=== PATIENT | female | born 1955 | race Caucasian/White ===

== ENCOUNTER 2017-12-08 23:47 | Emergency (ER) | payer OTHER, MEDICAID, MEDICARE ==
[2017-12-09] MEDS: MORPHINE ER 30 MG TABLET.ER PO (00:37)
[2017-12-09] MEDS: MORPHINE SULFATE 10 MG/ML VIAL. IM (00:41)
== END 2017-12-09 01:23 | disposition home or self-care (01) ==
LOC: ER 23:47
DX: G89.29 Other chronic pain (principal); M54.5 Low back pain; Z79.891 Long term (current) use of opiate analgesic
CPT/HCPCS: 96372; 99283; J2270

== ENCOUNTER 2018-03-15 13:53 | Emergency (ER) | payer OTHER ==
[~2018-03-15] VITALS: Ht 152.4 cm; Wt 66.2 kg
[~2018-03-15 13:53] MED LIST: MORP30TA83 PO
--- NOTE | 2018-03-15 14:09 | PHYS DOC ---
Past Medical History Past Medical History: COPD, High Cholesterol, Hypertension, Hypothyroid, MRSA, Other Additional Past Medical Histor: Chronic back, chronic leg pain Past Surgical History: Hysterectomy Alcohol Use: None Drug Use: None Adult General Chief Complaint Chief Complaint: RIB PAIN HPI HPI Patient is a 63 year old female with history of COPD, hypertension, high cholesterol, who presents today complaining of 9 out of 10 left lower rib pain described as a note that has been going on for three days. Denies any trauma. Patient states the pain is worse on deep breaths as well as palpation to the area. She states she has tried Tylenol with no relief. She states her PCP is out of town and currently she is not able to get a refill on her MS Contin which she takes for chronic arthritis. Review of Systems Review of Systems Constitutional: Denies fever or chills [] Eyes: Denies change in visual acuity, redness, or eye pain [] HENT: Denies nasal congestion or sore throat [] Respiratory: Reports left rib pain. Denies cough or shortness of breath [] Cardiovascular: No additional information not addressed in HPI [] GI: Denies abdominal pain, nausea, vomiting, bloody stools or diarrhea [] : Denies dysuria or hematuria [] Musculoskeletal: Denies back pain or joint pain [] Integument: Denies rash or skin lesions [] Neurologic: Denies headache, focal weakness or sensory changes [] All other systems were reviewed and found to be within normal limits, except as documented in this note. Current Medications Current Medications Current Medications Medications (Trade) Dose Ordered Sig/[facility] Start Time Stop Time Status Last Admin Dose Admin Aspirin (Elaine Aspirin) 325 mg 1X ONCE 03/15/18 14:15 03/15/18 14:16 DC 03/15/18 14:54 325 MG Morphine Sulfate (Morphine Sulfate) 5 mg 1X ONCE 03/15/18 14:15 03/15/18 14:16 DC 03/15/18 14:55 5 MG Allergies Allergies Allergies Coded Allergies Type Severity Reaction Last Updated Verified No Known Drug Allergies 12/09/17 No Physical Exam Physical Exam Constitutional: Well developed, well nourished, no acute distress, non-toxic appearance. [] HENT: Normocephalic, atraumatic, bilateral external ears normal, oropharynx moist, no oral exudates, nose normal. [] Eyes: PERRLA, EOMI, conjunctiva normal, no discharge. [] Neck: Normal range of motion, no tenderness, supple, no stridor. [] Cardiovascular:Heart rate regular rhythm, no murmur [] Lungs & Thorax: Bilateral breath sounds clear to auscultation [] Abdomen: Bowel sounds normal, soft, no tenderness, no masses, no pulsatile masses. [] Skin: Warm, dry, no erythema, no rash. [] Back: No tenderness, no CVA tenderness. [] Extremities: No tenderness, no cyanosis, no clubbing, ROM intact, no edema. [] Neurologic: Alert and oriented X 3, normal motor function, normal sensory function, no focal deficits noted. [] Psychologic: Affect normal, judgement normal, mood normal. [] Current Patient Data Vital Signs Vital Signs Date Time Temp Pulse Resp B/P (MAP) Pulse Ox O2 Delivery O2 Flow Rate FiO2 03/15/18 15:33 18 96 Room Air 03/15/18 15:32 78 137/79 (98) 03/15/18 14:10 98.2 98.2 Lab Values Laboratory Tests Test 03/15/18 14:20 03/15/18 14:38 Urine Collection Type Unknown Urine Color Yellow Urine Clarity Clear Urine pH 6.0 Urine Specific [place] 1.010 Urine Protein Negative mg/dL (NEG-TRACE) Urine Glucose (UA) Negative mg/dL (NEG) Urine Ketones (Stick) Negative mg/dL (NEG) Urine Blood Negative (NEG) Urine Nitrite Negative (NEG) Urine Bilirubin Negative (NEG) Urine Urobilinogen Dipstick 0.2 mg/dL (0.2 mg/dL) Urine Leukocyte Esterase Trace (NEG) Urine RBC Rare /HPF (0-2) Urine WBC Occ /HPF (0-4) Urine Squamous Epithelial Cells Few /LPF Urine Bacteria 0 /HPF (0-FEW) Urine Hyaline Casts Occasional /HPF Urine Mucus Slight /LPF Urine Opiates Screen Pos (NEG) Urine Methadone Screen Neg (NEG) Urine Barbiturates Neg (NEG) Urine Phencyclidine Screen Neg (NEG) Urine Amphetamine/Methamphetamine Neg (NEG) Urine Benzodiazepines Screen Neg (NEG) Urine Cocaine Screen Neg (NEG) Urine Cannabinoids Screen Neg (NEG) Urine Ethyl Alcohol Neg (NEG) White Blood Count 9.1 x10^3/uL (4.0-11.0) Red Blood Count 3.47 x10^6/uL (3.50-5.40) L Hemoglobin 10.5 g/dL (12.0-15.5) L Hematocrit 30.4 % (36.0-47.0) L Mean Corpuscular Volume 88 fL (79-100) Mean Corpuscular Hemoglobin 30 pg (25-35) Mean Corpuscular Hemoglobin Concent 35 g/dL (31-37) Red Cell Distribution Width 15.3 % (11.5-14.5) H Platelet Count 709 x10^3/uL (140-400) H Neutrophils (%) (Auto) 69 % (31-73) Lymphocytes (%) (Auto) 16 % (24-48) L Monocytes (%) (Auto) 8 % (0-9) Eosinophils (%) (Auto) 5 % (0-3) H Basophils (%) (Auto) 1 % (0-3) Neutrophils # (Auto) 6.3 x10^3uL (1.8-7.7) Lymphocytes # (Auto) 1.5 x10^3/uL (1.0-4.8) Monocytes # (Auto) 0.8 x10^3/uL (0.0-1.1) Eosinophils # (Auto) 0.5 x10^3/uL (0.0-0.7) Basophils # (Auto) 0.1 x10^3/uL (0.0-0.2) Sodium Level 142 mmol/L (136-145) Potassium Level 3.8 mmol/L (3.5-5.1) Chloride Level 105 mmol/L (98-107) Carbon Dioxide Level 24 mmol/L (21-32) Anion Gap 13 (6-14) Blood Urea Nitrogen 11 mg/dL (7-20) Creatinine 0.8 mg/dL (0.6-1.0) Estimated GFR (Cockcroft-Gault) 72.4 BUN/Creatinine Ratio 14 (6-20) Glucose Level 87 mg/dL (70-99) Calcium Level 9.3 mg/dL (8.5-10.1) Total Bilirubin 0.1 mg/dL (0.2-1.0) L Aspartate Amino Transferase (AST) 18 U/L (15-37) Alanine Aminotransferase (ALT) 25 U/L (14-59) Alkaline Phosphatase 128 U/L (46-116) H Troponin I Quantitative < 0.017 ng/mL (0.000-0.055) VM-Eqv-C-Type Natriuretic Peptide 582 pg/mL (0-124) H Total Protein 7.8 g/dL (6.4-8.2) Albumin 2.5 g/dL (3.4-5.0) L Albumin/Globulin Ratio 0.5 (1.0-1.7) L Lipase 65 U/L (73-393) L Ethyl Alcohol Level < 10 mg/dL (0-10) Laboratory Tests 03/15/18 14:38 Laboratory Tests 03/15/18 14:38 EKG EKG 15:[address] Betancur sinus rhythm HR 73 no STEMI[] Radiology/Procedures Radiology/Procedures []PROCEDURE: PORTABLE CHEST 1V EXAM: CHEST 1 VIEW. HISTORY: Left chest pain. COMPARISON: 05/28/2009. FINDINGS: A frontal view of the chest is obtained. There are mild diffuse interstitial infiltrates, increased since the prior study. There is no pneumothorax or pleural effusion. The heart is not enlarged. There are atherosclerotic calcifications of the aorta. No clear rib lesions are seen. IMPRESSION: 1. Mild diffuse interstitial infiltrates may reflect atypical pneumonia if acute or interstitial lung disease if chronic. Ongoing follow-up is recommended. Electronically signed by: Leif Cruz MD (03/15/2018 2:33 PM) [facility] DICTATED and SIGNED BY: PIERRE CRUZ MD DATE: 03/15/18 1422 Course & Med Decision Making Course & Med Decision Making Pertinent Labs and Imaging studies reviewed. (See chart for details) This is a 63-year-old female patient presenting to the ED today with complaints of left rib pain, no known injury. Patient's labs are negative for any acute findings. EKG was negative for any acute findings, lab work with no acute findings. Chest x-ray interpreted by radiologist was noted for Mild diffuse interstitial infiltrates may reflect atypical pneumonia if acute or interstitial lung disease if chronic. Ongoing follow-up is recommended. Out of caution who put patient on doxycycline. Encouraged to consider smoking cessation. She states she has an appointment with her own PCP tomorrow afternoon. Dragon Disclaimer Dragon Disclaimer This electronic medical record was generated, in whole or in part, using a voice recognition dictation system. Departure Departure Impression: Primary Impression: Atypical pneumonia Additional Impressions: Smoking addiction Rib pain on left side Disposition: HOME, SELF-CARE Condition: STABLE Referrals: RACHNA RODRIGUEZ APRN (PCP) Follow-up with your doctor in one week Patient Instructions: Pneumonia, Adult, Smoking Cessation Additional Instructions: You were evaluated in the emergency room, your x-rays were concerning for chronic interstitial lung disease/COPD or pneumonia. Take the prescribed antibiotics until completed. Follow-up with your doctor tomorrow as scheduled. Scripts Morphine Sulfate (MORPHINE SULFATE) 30 Mg Tablet 1 TAB PO BID, #4 TAB Prov: EDDIE CORADO APRN 03/15/18 Albuterol Sulfate (VENTOLIN HFA INHALER) 18 Gm Hfa.aer.ad 2 PUFF INH Q4HRS for FOR ASTHMA, #1 INHALER 0 Refills Prov: EDDIE CORADO APRN 03/15/18 Doxycycline Monohydrate (DOXYCYCLINE MONOHYDRATE) 100 Mg Capsule 1 CAP PO BID, #14 CAP Prov: EDDIE CORADO APRN 03/15/18 Problem Qualifiers EDDIE CORADO APRN Mar 15, 2018 14:09
[2018-03-15] MEDS ORDERED: ASPIRIN 325 MG TABLET PO ONE (14:15)
[2018-03-15] MEDS ORDERED: MORPHINE SULFATE 10 MG/ML VIAL. IV ONE (14:15)
[2018-03-15 14:32] LABS: BILIRUBIN,URINE NEGATIVE (NEG); CLARITY,URINE CLEAR; COLOR,URINE YELLOW; NITRITE,URINE NEGATIVE (NEG); PROTEIN,URINE NEGATIVE (NEG-TRACE); UROBILINOGEN,URINE 0.2 mg/dL (0.2 mg/dL)
--- NOTE | 2018-03-15 14:36 | RAD ---
EXAM: CHEST 1 VIEW. HISTORY: Left chest pain. COMPARISON: 05/28/2009. FINDINGS: A frontal view of the chest is obtained. There are mild diffuse interstitial infiltrates, increased since the prior study. There is no pneumothorax or pleural effusion. The heart is not enlarged. There are atherosclerotic calcifications of the aorta. No clear rib lesions are seen. IMPRESSION: 1. Mild diffuse interstitial infiltrates may reflect atypical pneumonia if acute or interstitial lung disease if chronic. Ongoing follow-up is recommended. Electronically signed by: Leif Cruz MD (03/15/2018 2:33 PM) [facility]
[2018-03-15 14:42] LABS: BACTERIA,URINE 0 /HPF (0-FEW); RBC,URINE RARE /HPF (0-2); SQUAMOUS EPITHELIAL CELL,UR FEW /LPF; WBC,URINE OCC /HPF (0-4)
[2018-03-15 14:43] LABS: HYALINE CASTS, URINE OCCASIONAL /HPF
[2018-03-15 14:44] LABS: BARBITURATES NEG (NEG); BENZODIAZEPINES NEG (NEG); CANNABINOIDS NEG (NEG); COCAINE NEG (NEG); METHADONE NEG (NEG); OPIATES POS (NEG); PHENCYCLIDINE NEG (NEG)
[2018-03-15 14:45] LABS: AMPHETAMINE/METHAMPHETAMINE NEG (NEG)
[2018-03-15 14:47] LABS: BASO # 0.1 x10^3/uL (0.0-0.2); BASO % 1 % (0-3); EOS # 0.5 x10^3/uL (0.0-0.7); EOS % 5 % (0-3); HEMATOCRIT 30.4 % (36.0-47.0); HEMOGLOBIN 10.5 g/dL (12.0-15.5); LYMPH # 1.5 x10^3/uL (1.0-4.8); LYMPH % 16 % (24-48); MEAN CORPUSCULAR HEMOGLOBIN 30 pg (25-35); MEAN CORPUSCULAR HGB CONC 35 g/dL (31-37); MEAN CORPUSCULAR VOLUME 88 fL (79-100); MONO # 0.8 x10^3/uL (0.0-1.1); MONO % 8 % (0-9); NEUT # 6.3 x10^3uL (1.8-7.7); NEUT % 69 % (31-73); PLATELET COUNT 709 x10^3/uL (140-400); RED BLOOD COUNT 3.47 x10^6/uL (3.50-5.40); RED CELL DISTRIBUTION WIDTH 15.3 % (11.5-14.5); WHITE BLOOD COUNT 9.1 x10^3/uL (4.0-11.0)
[2018-03-15 14:59] LABS: CALCIUM 9.3 mg/dL (8.5-10.1); CREATININE 0.8 mg/dL (0.6-1.0); GFR 72.4; POTASSIUM 3.8 mmol/L (3.5-5.1)
[2018-03-15 15:05] LABS: ALBUMIN 2.5 g/dL (3.4-5.0); ALBUMIN/GLOBULIN RATIO 0.5 (1.0-1.7); TOTAL BILIRUBIN 0.1 mg/dL (0.2-1.0); TOTAL PROTEIN 7.8 g/dL (6.4-8.2)
[2018-03-15 15:32] VITALS: BP 137/79
[2018-03-15] MEDS ORDERED: DOXY100C14 PO (15:44)
[2018-03-15] MEDS ORDERED: VENTOLIN HFA18 GM INH (15:44)
[2018-03-15] MEDS ORDERED: MORP30TA PO (15:52)
--- NOTE | 2018-03-15 16:02 | EKG ---
[facility] [address] [place] [address] Test Date: 2018-03-15 Test Time: 15:21:24 Pat Name: SIM CERVANTES Department: Room: Gender: F [employer]ch[employer]: : 1955 Requested By: EDDIE CORADO Order Number: [id number] Reading MD: Enrico Mendenhall MD Measurements Intervals [place] Rate: 73 P: 34 CA: 204 QRS: 12 QRSD: 74 T: 52 QT: 388 QTc: 431 Interpretive Statements SINUS RHYTHM Electronically Signed On 03-18-2018 12:14:54 CDT by Enrico Mendenhall MD
== END 2018-03-15 15:53 | disposition home or self-care (01) ==
LOC: ER 13:53
DX: J18.9 Pneumonia, unspecified organism (principal); R07.81 Pleurodynia; F17.200 Nicotine dependence, unspecified, uncomplicated; J44.9 Chronic obstructive pulmonary disease, unspecified; E78.00 Pure hypercholesterolemia, unspecified; E03.9 Hypothyroidism, unspecified; I10 Essential (primary) hypertension; G89.29 Other chronic pain; Z86.14 Personal history of Methicillin resistant Staphylococcus aureus infection; Z90.710 Acquired absence of both cervix and uterus
CPT/HCPCS: 36415; 71045; 80053; 80307; 81001; 83690; 83880; 84484; 85025; 93005; 96374; 99285; G0480; J2270; 87086; G0479

== ENCOUNTER 2018-06-04 17:10 | Emergency (ER) | payer OTHER ==
[~2018-06-04] VITALS: Ht 160 cm; Wt 66.2 kg
[~2018-06-04 17:10] MED LIST changes: +DOXY100C14 PO; +MORP30TA PO; +VENTOLIN HFA18 GM INH
[2018-06-04 18:45] VITALS: BP 157/97
[2018-06-04] MEDS ORDERED: HYDROcodone/APAP 5/325MG 1 TAB TABLET ONE (19:47)
[2018-06-04] MEDS ORDERED: HYDROcodone/APAP 5/325MG 1 TAB TABLET PO ONE (20:00)
[2018-06-04] MEDS ORDERED: ONDANSETRON ODT 4 MG TAB.RAPDIS. PO ONE (20:00)
[2018-06-04] MEDS ORDERED: MELO7.5T5 PO (20:23)
--- NOTE | 2018-06-04 20:24 | PHYS DOC ---
Past Medical History Past Medical History: COPD, High Cholesterol, Hypertension, Hypothyroid, MRSA, Other Additional Past Medical Histor: Chronic back, chronic leg pain Past Surgical History: No Surgical History, Hysterectomy Alcohol Use: None Drug Use: None Adult General Chief Complaint Chief Complaint: LOWER EXT PAIN [facility] HPI Patient is a 63 year old female who presents with worsening right knee pain over the past four days. She states that today was the worst day.She has not seen her PCP for this issue or tried OTC medications. Review of Systems Review of Systems Constitutional: Denies fever or chills [] Respiratory: Denies cough or shortness of breath [] Cardiovascular: No additional information not addressed in HPI [] Musculoskeletal: See history of present illness Integument: Denies rash or skin lesions [] Neurologic: Denies headache, focal weakness or sensory changes [] Endocrine: Denies polyuria or polydipsia [] All other systems were reviewed and found to be within normal limits, except as documented in this note. Current Medications Current Medications Current Medications Medications (Trade) Dose Ordered Sig/[place] Start Time Stop Time Status Last Admin Dose Admin Acetaminophen/ Hydrocodone Bitart (Lortab 5/325) 1 tab STK-MED ONCE 06/04/18 19:47 06/04/18 19:48 DC Ondansetron HCl (Zofran Odt) 4 mg 1X ONCE 06/04/18 20:00 06/04/18 20:01 DC 06/04/18 19:50 4 MG Allergies Allergies Allergies Coded Allergies Type Severity Reaction Last Updated Verified No Known Drug Allergies 12/09/17 No Physical Exam Physical Exam Constitutional: Well developed, well nourished, no acute distress, non-toxic appearance. [] Cardiovascular:Heart rate regular rhythm, no murmur [] Lungs & Thorax: Bilateral breath sounds clear to auscultation [] Abdomen: Bowel sounds normal, soft, no tenderness, no masses, no pulsatile masses. [] Skin: Warm, dry, no erythema, no rash. [] Back: No tenderness, no CVA tenderness. [] Extremities: tenderness to right knee with trace edema, no cyanosis, no clubbing, ROM decreased due to pain, no calor ecchymosis noted Neurologic: Alert and oriented X 3, normal motor function, normal sensory function, no focal deficits noted. [] Psychologic: Affect normal, judgement normal, mood normal. [] Current Patient Data Vital Signs Vital Signs Date Time Temp Pulse Resp B/P (MAP) Pulse Ox O2 Delivery O2 Flow Rate FiO2 06/04/18 18:45 97.0 90 16 157/97 (117) 96 Room Air 97.0 EKG EKG [] Radiology/Procedures Radiology/Procedures []PATIENT: SIM CERVANTES LACCOUNT: [id number]#: [id number] : 1955 LOCATION: ER AGE: 63 SEX: F EXAM STATUS: DEP ER ORD. PHYSICIAN: INGE COATS APRN REASON: pain, no injury PROCEDURE: KNEE RIGHT 3V Right knee 3 views 06/04/2018. Reason for exam: Pain for 4 days. No known injury. No fracture or dislocation is seen. Joint spaces do not appear significant narrowed. There is suggestion of a separate bone fragment at the posterolateral portion of the lateral femoral condyle. This may indicate osteochondral defect. There is likely a small joint effusion. IMPRESSION: No acute findings. There may be an osteochondral defect of the lateral femoral condyle. Electronically signed by: Vito Morgan Jr., MD (06/04/2018 11:48 PM) [facility] DICTATED and SIGNED BY: VITO MORGAN Jr, MD DATE: 06/04/18 4997 Course & Med Decision Making Course & Med Decision Making Pertinent Labs and Imaging studies reviewed. (See chart for details) []The patient was placed in Edwin wrap for support. Staff Physician Addendum: I was working in the ER during the course of this patient's visit. I was available for consultation as needed, but I was not directly involved in the care of this patient. Dragon Disclaimer Dragon Disclaimer This electronic medical record was generated, in whole or in part, using a voice recognition dictation system. Departure Departure Impression: Primary Impression: Arthritis of right knee Disposition: 01 HOME, SELF-CARE Condition: STABLE Referrals: RACHNA RODRIGUEZ APRN (PCP) Patient Instructions: Arthritis, Degenerative-Brief Additional Instructions: Take the medication as directed for pain. Follow-up with her primary care provider for further evaluation and treatment of your arthritis. Scripts Meloxicam (MOBIC) 7.5 Mg Tablet 1 TAB PO DAILY for arthritis, #30 TAB 1 Refill Prov: INGE COATS APRN 06/04/18 INGE COATS APRN Jun 04, 2018 20:24 MELVA HURLEY MD Jun 06, 2018 02:59
--- NOTE | 2018-06-04 23:52 | RAD ---
Right knee 3 views 06/04/2018. Reason for exam: Pain for 4 days. No known injury. No fracture or dislocation is seen. Joint spaces do not appear significant narrowed. There is suggestion of a separate bone fragment at the posterolateral portion of the lateral femoral condyle. This may indicate osteochondral defect. There is likely a small joint effusion. IMPRESSION: No acute findings. There may be an osteochondral defect of the lateral femoral condyle. Electronically signed by: Eh Morgan Jr., MD (06/04/2018 11:48 PM) [facility]
== END 2018-06-04 20:33 | disposition home or self-care (01) ==
LOC: ER 17:10
DX: M13.861 Other specified arthritis, right knee (principal); J44.9 Chronic obstructive pulmonary disease, unspecified; E78.00 Pure hypercholesterolemia, unspecified; I10 Essential (primary) hypertension; Z86.14 Personal history of Methicillin resistant Staphylococcus aureus infection
CPT/HCPCS: 73562; 99283; Q0162; 96361; 96374

== ENCOUNTER 2018-07-06 16:13 | Emergency (ER) | payer OTHER ==
[~2018-07-06] VITALS: Ht 152.4 cm; Wt 65.8 kg
[~2018-07-06 16:13] MED LIST changes: +MELO7.5T5 PO
[2018-07-06] MEDS ORDERED: ONDANSETRON PF 4 MG/2 ML VIAL. IV ONE (16:45)
[2018-07-06] MEDS ORDERED: PANTOPRAZOLE IV PUSH 40 MG VIAL. IVP ONE (16:45)
[2018-07-06] MEDS ORDERED: IV NORMAL SALINE 1000ML BAG 1,000 ML IV ONE (16:45)
--- NOTE | 2018-07-06 16:48 | PHYS DOC ---
Past Medical History Past Medical History: COPD, High Cholesterol, Hypertension, Hypothyroid, MRSA, Other Additional Past Medical Histor: Chronic back, chronic leg pain Past Surgical History: No Surgical History, Hysterectomy Alcohol Use: None Drug Use: None Adult General HPI HPI Patient is a 63 year old female with a history of hypertension, COPD, current smoker, high cholesterol, who presents today complaining of bloody stools. Patient states she has been constipated for roughly 3 days, she states she took a stool softener last night and this morning at 2 AM she had a bloody stool. She states right before coming to the ED she also had another bloody stool. Patient is complaining of slight left lower quadrant abdominal pain. Denies any nausea vomiting. Review of Systems Review of Systems Constitutional: Denies fever or chills [] Eyes: Denies change in visual acuity, redness, or eye pain [] HENT: Denies nasal congestion or sore throat [] Respiratory: Denies cough or shortness of breath [] Cardiovascular: No additional information not addressed in HPI [] GI: Reports left lower quadrant abdominal pain, constipation, bloody stools, denies nausea, vomiting, or diarrhea [] : Denies dysuria or hematuria [] Musculoskeletal: Denies back pain or joint pain [] Integument: Denies rash or skin lesions [] Neurologic: Denies headache, focal weakness or sensory changes [] All other systems were reviewed and found to be within normal limits, except as documented in this note. Current Medications Current Medications Current Medications Medications (Trade) Dose Ordered Sig/[facility] Start Time Stop Time Status Last Admin Dose Admin Acetaminophen (Tylenol) 1,000 mg 1X ONCE 07/06/18 18:00 07/06/18 18:01 DC Morphine Sulfate (Morphine Sulfate) 5 mg 1X ONCE 07/06/18 19:30 07/06/18 19:31 DC 07/06/18 19:45 5 MG Ondansetron HCl (Zofran) 4 mg 1X ONCE 07/06/18 16:45 07/06/18 16:46 DC 07/06/18 17:45 4 MG Pantoprazole Sodium (PROTONIX VIAL for IV PUSH) 40 mg 1X ONCE 07/06/18 16:45 07/06/18 16:46 DC 07/06/18 17:45 40 MG Sodium Chloride 1,000 ml @ 1,000 mls/hr 1X ONCE 07/06/18 16:45 07/06/18 17:44 DC 07/06/18 17:45 1,000 MLS/HR Allergies Allergies Allergies Coded Allergies Type Severity Reaction Last Updated Verified No Known Drug Allergies 12/09/17 No Physical Exam Physical Exam Constitutional: Well developed, well nourished, no acute distress, non-toxic appearance. [] HENT: Normocephalic, atraumatic, bilateral external ears normal, oropharynx moist, no oral exudates, nose normal. [] Eyes: PERRLA, EOMI, conjunctiva normal, no discharge. [] Neck: Normal range of motion, no tenderness, supple, no stridor. [] Cardiovascular:Heart rate regular rhythm, no murmur [] Lungs & Thorax: Bilateral breath sounds clear to auscultation [] Abdomen: Bowel sounds normal, soft, no tenderness, no masses, no pulsatile masses. Rectal exam External rectum with trace amount of hemorrhoids, palpable internal hemorrhoids noted. No palpable mass on the lower rectum. Blood on the glove from the rectal exam. Skin: Warm, dry, no erythema, no rash. [] Back: No tenderness, no CVA tenderness. [] Extremities: No tenderness, no cyanosis, no clubbing, ROM intact, no edema. [] Neurologic: Alert and oriented X 3, normal motor function, normal sensory function, no focal deficits noted. [] Psychologic: Affect normal, judgement normal, mood normal. [] Current Patient Data Vital Signs Vital Signs Date Time Temp Pulse Resp B/P (MAP) Pulse Ox O2 Delivery O2 Flow Rate FiO2 07/06/18 19:45 20 07/06/18 19:08 92 153/91 (111) 96 Room Air 07/06/18 16:54 98.3 98.3 Lab Values Laboratory Tests Test 07/06/18 16:30 07/06/18 17:16 07/06/18 17:39 Stool Occult Blood Positive (NEG) White Blood Count 16.9 x10^3/uL (4.0-11.0) H Red Blood Count 4.36 x10^6/uL (3.50-5.40) Hemoglobin 13.4 g/dL (12.0-15.5) Hematocrit 40.2 % (36.0-47.0) Mean Corpuscular Volume 92 fL (79-100) Mean Corpuscular Hemoglobin 31 pg (25-35) Mean Corpuscular Hemoglobin Concent 33 g/dL (31-37) Red Cell Distribution Width 14.7 % (11.5-14.5) H Platelet Count 405 x10^3/uL (140-400) H Neutrophils (%) (Auto) 80 % (31-73) H Lymphocytes (%) (Auto) 14 % (24-48) L Monocytes (%) (Auto) 4 % (0-9) Eosinophils (%) (Auto) 1 % (0-3) Basophils (%) (Auto) 0 % (0-3) Neutrophils # (Auto) 13.6 x10^3uL (1.8-7.7) H Lymphocytes # (Auto) 2.4 x10^3/uL (1.0-4.8) Monocytes # (Auto) 0.7 x10^3/uL (0.0-1.1) Eosinophils # (Auto) 0.2 x10^3/uL (0.0-0.7) Basophils # (Auto) 0.1 x10^3/uL (0.0-0.2) Segmented Neutrophils % 82 % (35-66) H Band Neutrophils % 1 % (0-9) Lymphocytes % 11 % (24-48) L Monocytes % 5 % (0-10) Eosinophils % 1 % (0-5) Toxic Granulation Slight Toxic Vacuolation Slight Platelet Estimate Adequate (ADEQUATE) Large Platelets Occ Sodium Level 135 mmol/L (136-145) L Potassium Level 5.0 mmol/L (3.5-5.1) Chloride Level 100 mmol/L (98-107) Carbon Dioxide Level 23 mmol/L (21-32) Anion Gap 12 (6-14) Blood Urea Nitrogen 16 mg/dL (7-20) Creatinine 1.5 mg/dL (0.6-1.0) H Estimated GFR (Cockcroft-Gault) 35.1 BUN/Creatinine Ratio 11 (6-20) Glucose Level 86 mg/dL (70-99) Calcium Level 9.4 mg/dL (8.5-10.1) Total Bilirubin 0.2 mg/dL (0.2-1.0) Aspartate Amino Transferase (AST) 21 U/L (15-37) Alanine Aminotransferase (ALT) 22 U/L (14-59) Alkaline Phosphatase 217 U/L (46-116) H Troponin I Quantitative < 0.017 ng/mL (0.000-0.055) Total Protein 7.4 g/dL (6.4-8.2) Albumin 3.6 g/dL (3.4-5.0) Albumin/Globulin Ratio 0.9 (1.0-1.7) L Lipase 72 U/L (73-393) L Ethyl Alcohol Level < 10 mg/dL (0-10) Prothrombin Time 13.6 SEC (11.7-14.0) Prothrombin Time INR 1.1 (0.8-1.1) PTT 30 SEC (24-38) Laboratory Tests 07/06/18 17:16 Laboratory Tests 07/06/18 17:16 EKG EKG Interpreted by Dr. Quintanilla sinus rhythm HR 98 no STEMI[] Radiology/Procedures Radiology/Procedures []PROCEDURE: CT ABDOMEN PELVIS WO CONTRAST PQRS Compliance statement: One or more of the following individualized dose reduction techniques were utilized for this examination: 1. Automated exposure control. 2. Adjustment of the mA and/or kV according to patient size. 3. Use of iterative reconstruction technique. Indication:BLOODY STOOLS. NO CONTRAST DUE TO ELEVATED LABS TECHNIQUE: CT abdomen and pelvis without IV contrast with multiplanar reformats. COMPARISON: None FINDINGS: Limited evaluation of solid abdominal and pelvic organs due to lack of IV contrast. Heart is normal in size. No pericardial or pleural effusion. Clear lung bases. Noncontrast appearance of the liver, spleen, gallbladder, pancreas, adrenals and kidneys within normal limits. No free pelvic fluid or ascites. Circumferential wall thickening of the distal colon noted starting at the distal transverse colon to rectosigmoid colon. Pericolonic inflammatory changes. No bowel obstruction. Normal appendix. Appendicolith noted. Cecum lies is in the left parasagittal abdomen. Small fat-containing left inguinal hernia. Mild diffuse atherosclerotic disease of the abdominal aorta. No pneumoperitoneum or pneumatosis intestinalis. Urinary bladder demonstrates no radiopaque stones. Status post hysterectomy. No suspicious bony lesion. IMPRESSION: Limited evaluation of solid abdominal and pelvic organs due to lack of IV contrast. Long segment colitis from the level of distal transverse colon to rectosigmoid colon. Electronically signed by: Rafa Zepeda DO (07/06/2018 6:17 PM) [facility] DICTATED and SIGNED BY: RAFA ZEPEDA DO DATE: 07/06/181812 Course & Med Decision Making Course & Med Decision Making Pertinent Labs and Imaging studies reviewed. (See chart for details) This is a 63-year-old female patient presenting to the ED today with bloody stools that occurred at 2 AM as well as prior to coming to the ED. Patient was constipated, took a stool softener. Had bloody stools after that. CBC with a WBC of 16.9 and a left shift, CMP with creatinine of 1.5 BUN is normal. Alkaline phosphate 217. Positive Hemoccult. Hemoglobin and hematocrit are normal. CT of the abdomen and pelvic was noted for-Long segment colitis from the level of distal transverse colon to rectosigmoid colon. Patient was offered admission for IV antibiotics, she declined, she states she has a home situation, her son is going out of town and there is nobody to take care of the animals at home. She states she will definitely follow up with her own primary care doctor in the next 1-2 days. She was given a prescription for Flagyl and Cipro. Provided return precautions. Discharged in stable condition. Also provided GI for follow-up. Dragon Disclaimer Dragon Disclaimer This electronic medical record was generated, in whole or in part, using a voice recognition dictation system. Departure Departure Impression: Primary Impression: Acute colitis Disposition: HOME, SELF-CARE Condition: STABLE Referrals: RACHNA RODRIGUEZ APRN (PCP) follow up in 1-2 days REILLY WHITLEY MD follow up in the course of this week Patient Instructions: Colitis Additional Instructions: You were evaluated in the emergency room and noted to have colitis. Please take the prescribed antibiotics as ordered. Ensure you follow-up with your primary care doctor in the next 1-2 days. We provided you a toy painter, ensure you follow-up with them in the course of this week, come back to the ED at any point symptoms worsen. Scripts Hydrocodone/Apap 5-325 (NORCO 5-325 TABLET) 1 Each Tablet 1 TAB PO Q6HRS, #20 TAB Prov: MUTEDDIE SOTOMAYOR [employer] 07/06/18 Ciprofloxacin Hcl (CIPRO) 500 Mg Tablet 1 TAB PO BID, #20 TAB Prov: MUTUNGAEDDIE [employer] 1/28/19 Metronidazole (FLAGYL) 500 Mg Tablet 500 MG PO TID, #30 TAB Prov: EDDIE CORADO APRN 07/06/18 EDDIE CORADO APRN Jul 06, 2018 16:48
[2018-07-06 16:52] LABS: FECAL OB PT POSITIVE (NEG)
[2018-07-06 17:27] LABS: BASO # 0.1 x10^3/uL (0.0-0.2); BASO % 0 % (0-3); EOS # 0.2 x10^3/uL (0.0-0.7); EOS % 1 % (0-3); HEMATOCRIT 40.2 % (36.0-47.0); HEMOGLOBIN 13.4 g/dL (12.0-15.5); LYMPH # 2.4 x10^3/uL (1.0-4.8); LYMPH % 14 % (24-48); MEAN CORPUSCULAR HEMOGLOBIN 31 pg (25-35); MEAN CORPUSCULAR HGB CONC 33 g/dL (31-37); MEAN CORPUSCULAR VOLUME 92 fL (79-100); MONO # 0.7 x10^3/uL (0.0-1.1); MONO % 4 % (0-9); NEUT # 13.6 x10^3uL (1.8-7.7); NEUT % 80 % (31-73); PLATELET COUNT 405 x10^3/uL (140-400); RED BLOOD COUNT 4.36 x10^6/uL (3.50-5.40); RED CELL DISTRIBUTION WIDTH 14.7 % (11.5-14.5); WHITE BLOOD COUNT 16.9 x10^3/uL (4.0-11.0)
[2018-07-06 17:37] LABS: CALCIUM 9.4 mg/dL (8.5-10.1); CREATININE 1.5 mg/dL (0.6-1.0); GFR 35.1
[2018-07-06 17:43] LABS: ALBUMIN 3.6 g/dL (3.4-5.0); ALBUMIN/GLOBULIN RATIO 0.9 (1.0-1.7); TOTAL BILIRUBIN 0.2 mg/dL (0.2-1.0); TOTAL PROTEIN 7.4 g/dL (6.4-8.2)
[2018-07-06] MEDS ORDERED: ACETAMINOPHEN 500 MG TABLET PO ONE (18:00)
[2018-07-06 18:01] LABS: PROTHROMBIN TIME PATIENT 13.6 SEC (11.7-14.0)
--- NOTE | 2018-07-06 18:22 | RAD ---
PQRS Compliance statement: One or more of the following individualized dose reduction techniques were utilized for this examination: 1. Automated exposure control. 2. Adjustment of the mA and/or kV according to patient size. 3. Use of iterative reconstruction technique. Indication:BLOODY STOOLS. NO CONTRAST DUE TO ELEVATED LABS TECHNIQUE: CT abdomen and pelvis without IV contrast with multiplanar reformats. COMPARISON: None FINDINGS: Limited evaluation of solid abdominal and pelvic organs due to lack of IV contrast. Heart is normal in size. No pericardial or pleural effusion. Clear lung bases. Noncontrast appearance of the liver, spleen, gallbladder, pancreas, adrenals and kidneys within normal limits. No free pelvic fluid or ascites. Circumferential wall thickening of the distal colon noted starting at the distal transverse colon to rectosigmoid colon. Pericolonic inflammatory changes. No bowel obstruction. Normal appendix. Appendicolith noted. Cecum lies is in the left parasagittal abdomen. Small fat-containing left inguinal hernia. Mild diffuse atherosclerotic disease of the abdominal aorta. No pneumoperitoneum or pneumatosis intestinalis. Urinary bladder demonstrates no radiopaque stones. Status post hysterectomy. No suspicious bony lesion. IMPRESSION: Limited evaluation of solid abdominal and pelvic organs due to lack of IV contrast. Long segment colitis from the level of distal transverse colon to rectosigmoid colon. Electronically signed by: Rafa Zepeda DO (07/06/2018 6:17 PM) [facility]
--- NOTE | 2018-07-06 18:41 | RAD ---
Indication:ER PATIENT. LLQ PAIN. BLOODY STOOLS. PRODUCTIVE COUGH WITH YELLOW SPUTUMM WHEEZING X3 DAYS. Hx HYSTERECTOMY TECHNIQUE:AP chest and 3 views of the abdomen and pelvis COMPARISON: None FINDINGS: Heart is normal in size. Mild bilateral prominent bronchial markings are seen. No focal consolidation. No pneumothorax or pleural effusion. No abnormally dilated bowel loops. No abnormal calcific densities projecting over the kidneys to suggest apparent renal stones. Moderate proximal colonic stool burden. Visualized bones are within normal limits. IMPRESSION: 1. Suggestion of bronchitis. 2. No evidence of high-grade bowel obstruction. Electronically signed by: Rafa Zepeda DO (07/06/2018 6:36 PM) [facility]
[2018-07-06 19:08] VITALS: BP 153/91
[2018-07-06 19:20] LABS: % BANDS 1 % (0-9); % EOS 1 % (0-5); % LYMPHS 11 % (24-48); % MONOS 5 % (0-10); % SEGS 82 % (35-66); PLT ESTIMATE ADEQUATE (ADEQUATE)
[2018-07-06 19:21] LABS: TOXIC GRANULATION SLIGHT; TOXIC VACUOLATION SLIGHT
--- NOTE | 2018-07-06 19:21 | EKG ---
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
[2018-07-06] MEDS ORDERED: MORPHINE SULFATE 10 MG/ML VIAL. IV ONE (19:30)
[2018-07-06] MEDS ORDERED: HYDR-3164 PO (20:03)
[2018-07-06] MEDS ORDERED: CIPR500T94 PO (20:03)
[2018-07-06] MEDS ORDERED: METR500T PO (20:03)
== END 2018-07-06 20:15 | disposition home or self-care (01) ==
LOC: ER 16:13
DX: K52.9 Noninfective gastroenteritis and colitis, unspecified (principal); I10 Essential (primary) hypertension; E03.9 Hypothyroidism, unspecified; E78.00 Pure hypercholesterolemia, unspecified; J44.9 Chronic obstructive pulmonary disease, unspecified; G89.29 Other chronic pain; Z90.710 Acquired absence of both cervix and uterus; F17.200 Nicotine dependence, unspecified, uncomplicated
CPT/HCPCS: 36415; 74022; 74176; 80053; 82274; 83690; 84484; 85007; 85025; 85610; 85730; 93005; 96361; 96374; 96375; 99284; C9113; G0480; J2270; J2405; J7030

== ENCOUNTER 2018-08-18 12:39 | Inpatient (IN) | payer OTHER ==
[~2018-08-18] VITALS: Ht 162.6 cm; Wt 71.0 kg
[~2018-08-18 12:39] MED LIST changes: +CIPR500T94 PO; +HYDR-3164 PO; +METR500T PO
--- NOTE | 2018-08-18 13:02 | PHYS DOC ---
Past Medical History Past Medical History: COPD, High Cholesterol, Hypertension, Hypothyroid, MRSA, Other Additional Past Medical Histor: Chronic back, chronic leg pain Past Surgical History: No Surgical History, Hysterectomy Smoking: Cigarettes, 1 Pack Per Day Alcohol Use: None Drug Use: None Adult General Chief Complaint Chief Complaint: NAUSEA/VOMITING/DIARRHA HPI HPI Patient is a 63 year old female presents for productive cough, wheeze, SOA, headache, and myalgias x1 week. Denies chest pain, fever, or vomiting. Reports hx COPD, has nebulizer in storage but unable to get into her storage shed because she owes money. She uses 3L NC O2 at night and sometimes during the day if she feels SOA. Review of Systems Review of Systems Constitutional: Denies fever or chills [] Eyes: Denies change in visual acuity, redness, or eye pain [] HENT: + sore throat [] Respiratory: +PRODUCTIVE cough + shortness of breath [] Cardiovascular: No additional information not addressed in HPI [] GI: Denies abdominal pain, nausea, vomiting, bloody stools or diarrhea [] Musculoskeletal: Denies back pain or joint pain , +MYALGIAS[] Integument: Denies rash or skin lesions [] Neurologic: + headache, denies focal weakness or sensory changes [] Endocrine: Denies polyuria or polydipsia [] All other systems were reviewed and found to be within normal limits, except as documented in this note. Current Medications Current Medications Current Medications Medications (Trade) Dose Ordered Sig/[place] Start Time Stop Time Status Last Admin Dose Admin Acetaminophen/ Hydrocodone Bitart (Lortab 5/325) 1 tab 1X ONCE 08/18/18 14:45 08/18/18 14:46 DC 08/18/18 14:55 1 TAB Albuterol/ Ipratropium (Duoneb) 3 ml 1X ONCE 08/18/18 14:45 08/18/18 14:46 DC Ibuprofen (Motrin) 800 mg 1X ONCE 08/18/18 13:45 08/18/18 13:46 DC 08/18/18 13:44 800 MG Methylprednisolone Sodium Succinate (SOLU-Medrol 125MG VIAL) 125 mg 1X ONCE 08/18/18 13:15 08/18/18 13:16 DC 08/18/18 13:44 125 MG Allergies Allergies Allergies Coded Allergies Type Severity Reaction Last Updated Verified No Known Drug Allergies 7/3/18 No Physical Exam Physical Exam Constitutional: Well developed, well nourished, no acute distress, ILL APPEARING , non-toxic appearance. [] HENT: Normocephalic, atraumatic, bilateral external ears normal, oropharynx moist, no oral exudates, nose normal. [] Eyes: PERRLA, EOMI, conjunctiva normal, no discharge. [] Neck: Normal range of motion, no tenderness, supple, no stridor. [] Cardiovascular:Heart rate regular rhythm, no murmur [] Lungs & Thorax: COARSE WHEEZE THROUGHOUT, WET COUGH C MUCUS PRODUCTION, NO RESP DISTRESS [] Abdomen: Bowel sounds normal, soft, no tenderness, no masses, no pulsatile masses. [] Skin: Warm, dry, no erythema, no rash. [] Extremities: No tenderness, no cyanosis, no clubbing, ROM intact, no edema. [] Neurologic: Alert and oriented X 3, normal motor function, normal sensory function, no focal deficits noted. [] Psychologic: TEARFUL, judgement normal, mood normal. [] Current Patient Data Vital Signs Vital Signs Date Time Temp Pulse Resp B/P (MAP) Pulse Ox O2 Delivery O2 Flow Rate FiO2 08/18/18 14:55 18 96 Room Air 08/18/18 13:09 92 159/72 (101) 08/18/18 13:00 98.4 98.4 Lab Values Laboratory Tests Test 08/18/18 13:15 08/18/18 13:45 Influenza Type A Antigen Negative (NEGATIVE) Influenza Type B Antigen Negative (NEGATIVE) White Blood Count 9.0 x10^3/uL (4.0-11.0) Red Blood Count 4.49 x10^6/uL (3.50-5.40) Hemoglobin 13.4 g/dL (12.0-15.5) Hematocrit 40.1 % (36.0-47.0) Mean Corpuscular Volume 89 fL (79-100) Mean Corpuscular Hemoglobin 30 pg (25-35) Mean Corpuscular Hemoglobin Concent 33 g/dL (31-37) Red Cell Distribution Width 14.7 % (11.5-14.5) H Platelet Count 567 x10^3/uL (140-400) H Neutrophils (%) (Auto) 65 % (31-73) Lymphocytes (%) (Auto) 26 % (24-48) Monocytes (%) (Auto) 7 % (0-9) Eosinophils (%) (Auto) 1 % (0-3) Basophils (%) (Auto) 1 % (0-3) Neutrophils # (Auto) 5.9 x10^3uL (1.8-7.7) Lymphocytes # (Auto) 2.3 x10^3/uL (1.0-4.8) Monocytes # (Auto) 0.6 x10^3/uL (0.0-1.1) Eosinophils # (Auto) 0.1 x10^3/uL (0.0-0.7) Basophils # (Auto) 0.1 x10^3/uL (0.0-0.2) Sodium Level 140 mmol/L (136-145) Potassium Level 4.0 mmol/L (3.5-5.1) Chloride Level 101 mmol/L (98-107) Carbon Dioxide Level 26 mmol/L (21-32) Anion Gap 13 (6-14) Blood Urea Nitrogen 7 mg/dL (7-20) Creatinine 1.0 mg/dL (0.6-1.0) Estimated GFR (Cockcroft-Gault) 56.0 BUN/Creatinine Ratio 7 (6-20) Glucose Level 118 mg/dL (70-99) H Lactic Acid Level 1.7 mmol/L (0.4-2.0) Calcium Level 9.5 mg/dL (8.5-10.1) Total Bilirubin 0.2 mg/dL (0.2-1.0) Aspartate Amino Transferase (AST) 23 U/L (15-37) Alanine Aminotransferase (ALT) 18 U/L (14-59) Alkaline Phosphatase 130 U/L (46-116) H Creatine Kinase 293 U/L (26-192) H Creatine Kinase MB (Mass) 1.5 ng/mL (0.0-3.6) Creatine Kinase MB Relative Index 0.5 % (0-4) Troponin I Quantitative < 0.017 ng/mL (0.000-0.055) Total Protein 8.5 g/dL (6.4-8.2) H Albumin 3.6 g/dL (3.4-5.0) Albumin/Globulin Ratio 0.7 (1.0-1.7) L Laboratory Tests 08/18/18 13:45 Laboratory Tests 08/18/18 13:45 EKG EKG [EKG READ BY ED PHYSICIAN SINUS RHYTHM, NO STEMI, RATE 81] Radiology/Procedures Radiology/Procedures [] Impressions: PROCEDURE: CHEST PA & LATERAL EXAM: Chest, 2 views. HISTORY: Short of breath. COMPARISON: 07/06/2018. FINDINGS: 2 views of the chest are obtained. There is no infiltrate, pleural effusion or pneumothorax. There are coarse likely chronic interstitial markings. The heart is normal in size. IMPRESSION: No acute pulmonary finding. Electronically signed by: Lina Tavares MD (08/18/2018 1:48 PM) [id number] Course & Med Decision Making Course & Med Decision Making Pertinent Labs and Imaging studies reviewed. (See chart for details) [] Dragon Disclaimer Dragon Disclaimer This electronic medical record was generated, in whole or in part, using a voice recognition dictation system. Departure Departure Impression: Primary Impression: COPD exacerbation Disposition: ADMITTED INPATIENT Admitting Physician: Desmond Luna Condition: STABLE Referrals: RACHNA RODRIGUEZ APRN (PCP) BRETT DURAN APRN Aug 18, 2018 13:02
[2018-08-18] MEDS ORDERED: methylPREDNISolone SOD SUCC PF 125 MG/2 ML VIAL. IV ONE (13:15)
[2018-08-18] MEDS ORDERED: IPRATRPIUM/ALBUTEROL 0.5/2.5MG 3 ML NEBU. NEB ONE ×2 (13:15→14:45)
--- NOTE | 2018-08-18 13:40 | EKG ---
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
[2018-08-18] MEDS ORDERED: IBUPROFEN 400 MG TABLET. PO ONE (13:45)
--- NOTE | 2018-08-18 13:50 | RAD ---
EXAM: Chest, 2 views. HISTORY: Short of breath. COMPARISON: 07/06/2018. FINDINGS: 2 views of the chest are obtained. There is no infiltrate, pleural effusion or pneumothorax. There are coarse likely chronic interstitial markings. The heart is normal in size. IMPRESSION: No acute pulmonary finding. Electronically signed by: Lina Tavares MD (08/18/2018 1:48 PM) [facility]
[2018-08-18 13:51] LABS: INFLUENZA A PATIENT NEGATIVE (NEGATIVE); INFLUENZA B PATIENT NEGATIVE (NEGATIVE)
[2018-08-18 14:09] LABS: BASO # 0.1 x10^3/uL (0.0-0.2); BASO % 1 % (0-3); EOS # 0.1 x10^3/uL (0.0-0.7); EOS % 1 % (0-3); HEMATOCRIT 40.1 % (36.0-47.0); HEMOGLOBIN 13.4 g/dL (12.0-15.5); LYMPH # 2.3 x10^3/uL (1.0-4.8); LYMPH % 26 % (24-48); MEAN CORPUSCULAR HEMOGLOBIN 30 pg (25-35); MEAN CORPUSCULAR HGB CONC 33 g/dL (31-37); MEAN CORPUSCULAR VOLUME 89 fL (79-100); MONO # 0.6 x10^3/uL (0.0-1.1); MONO % 7 % (0-9); NEUT # 5.9 x10^3uL (1.8-7.7); NEUT % 65 % (31-73); PLATELET COUNT 567 x10^3/uL (140-400); RED BLOOD COUNT 4.49 x10^6/uL (3.50-5.40); RED CELL DISTRIBUTION WIDTH 14.7 % (11.5-14.5)
[2018-08-18 14:33] LABS: CALCIUM 9.5 mg/dL (8.5-10.1)
[2018-08-18 14:43] LABS: ALBUMIN 3.6 g/dL (3.4-5.0); ALBUMIN/GLOBULIN RATIO 0.7 (1.0-1.7); TOTAL BILIRUBIN 0.2 mg/dL (0.2-1.0); TOTAL PROTEIN 8.5 g/dL (6.4-8.2)
[2018-08-18] MEDS ORDERED: HYDROcodone/APAP 5/325MG 1 TAB TABLET PO ONE (14:45)
[2018-08-18 17:31] VITALS: BP 149/85
[2018-08-18] MEDS ORDERED: PARO40TA3 PO (18:02)
[2018-08-18] MEDS ORDERED: VERA240C2 PO (18:02)
[2018-08-18] MEDS ORDERED: LOSA-73 PO (18:02)
[2018-08-18] MEDS ORDERED: GABA-585 PO (18:03)
[2018-08-18] MEDS ORDERED: ZOLP5TAB PO (18:03)
[2018-08-18] MEDS ORDERED: LEVO125T PO (18:03)
[2018-08-18] MEDS ORDERED: MELO7.5T29 PO (18:03)
[2018-08-18] MEDS ORDERED: CYCL10TA2 PO (18:03)
[2018-08-18] MEDS ORDERED: QUET300T5 PO (18:03)
--- NOTE | 2018-08-18 18:19 | NUR ---
patient admitted to room 586 from ER. oriented to room and call light. pt requesting pain meds and cough drops. will page Dr. White.
[2018-08-18] MEDS ORDERED: BENZOCAINE/MENTHOL LOZENGE. PO PRN (18:30)
[2018-08-18 19:00] VITALS: BP 159/97
[2018-08-18] MEDS: IPRATRPIUM/ALBUTEROL 0.5/2.5MG 3 ML NEBU. NEB SCH (20:02)
[2018-08-18] MEDS: cefTRIAXone IV Push 1 GM VIAL. IVP SCH (21:14)
[2018-08-18] MEDS: HYDROcodone/APAP 5/325MG 1 TAB TABLET PO PRN (21:14)
--- NOTE | 2018-08-18 21:19 | PDOC1 ---
History and Physical Date of Admission Date of Admission DATE: 08/18/18 TIME: 21:19 Identification/Chief Complaint Chief Complaint SEEN IN ER 63 year old female presents for productive cough, wheeze, SOA, headache, and myalgias x1 week. Denies chest pain, fever, or vomiting. 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 Past Medical History Past Medical History Past Medical History Past Medical History: COPD, High Cholesterol, Hypertension, Hypothyroid, MRSA, Other Additional Past Medical Histor: Chronic back, chronic leg pain Past Surgical History: No Surgical History, Hysterectomy Smoking: Cigarettes, 1 Pack Per Day Alcohol Use: None Drug Use: None FAMILY HX COPD Pulmonary: COPD GI: Inflam bowel disease Psych: Anxiety Social History Smoke: 1 pack per day ALCOHOL: rare Drugs: None Current Problem List Problem List Problems Medical Problems: (1) COPD exacerbation Status: Acute Current Medications Current Medications Current Medications Albuterol/ Ipratropium (Duoneb) 3 ml 1X ONCE NEB Last administered on at 13:23; Start 08/18/18 at 13:15; Stop 08/18/18 at 13:16; Status DC Methylprednisolone Sodium Succinate (SOLU-Medrol 125MG VIAL) 125 mg 1X ONCE IV Last administered on 08/18/18at 13:44; Start 08/18/18 at 13:15; Stop 08/18/18 at 13:16; Status DC Ibuprofen (Motrin) 800 mg 1X ONCE PO Last administered on 08/18/18at 13:44; Start 08/18/18 at 13:45; Stop 08/18/18 at 13:46; Status DC Albuterol/ Ipratropium (Duoneb) 3 ml 1X ONCE NEB Last administered on at 15:43; Start 08/18/18 at 14:45; Stop 08/18/18 at 14:46; Status DC Acetaminophen/ Hydrocodone Bitart (Lortab 5/325) 1 tab 1X ONCE PO Last administered on 08/18/18at 14:55; Start 08/18/18 at 14:45; Stop 08/18/18 at 14:46 ; Status DC Acetaminophen/ Hydrocodone Bitart (Lortab 5/325) 1 tab PRN Q6HRS PRN PO PAIN Last administered on 08/18/18at 21:14; Start 08/18/18 at 18:30 Throat Lozenges (Cepacol Sore Throat Lozenge) 1 ene PRN Q2HRS PRN PO SORE THROAT; Start 08/18/18 at 18:30 Ceftriaxone Sodium (Rocephin) 1 gm Q24H IVP Last administered on 08/18/18at 21: 14; Start 08/18/18 at 19:00 Albuterol/ Ipratropium (Duoneb) 3 ml RTQID NEB Last administered on 08/18/18at 20:02; Start 08/18/18 at 20:00 Active Scripts Active Mobic (Meloxicam) 7.5 Mg Tablet 1 Tab PO DAILY Reported Cyclobenzaprine Hcl 10 Mg Tablet 1 Tab PO TID Meloxicam 7.5 Mg Tablet 1 Tab PO DAILY Seroquel (Quetiapine Fumarate) 300 Mg Tablet 2 Tab PO QHS Ambien (Zolpidem Tartrate) 5 Mg Tablet 5 Mg PO PRN QHS PRN Gabapentin (Gabapentin) 100 Mg Capsule 100 Mg PO BID Synthroid (Levothyroxine Sodium) 125 Mcg Tablet 1 Tab PO DAILY Paroxetine Hcl 40 Mg Tablet 1 Tab PO DAILY Losartan Potassium 50 Mg Tablet 50 Mg PO DAILY Verapamil Er (Verapamil Hcl) 240 Mg Cap24h.pel 1 Cap PO DAILY Allergies Allergies: Coded Allergies: No Known Drug Allergies (Unverified , 12/09/17) ROS Review of System Review of Systems Review of Systems Constitutional: Denies fever or chills [] Eyes: Denies change in visual acuity, redness, or eye pain [] HENT: + sore throat [] Respiratory: +PRODUCTIVE cough + shortness of breath [] Cardiovascular: No additional information not addressed in HPI [] GI: Denies abdominal pain, nausea, vomiting, bloody stools or diarrhea [] Musculoskeletal: Denies back pain or joint pain , +MYALGIAS[] Integument: Denies rash or skin lesions [] Neurologic: + headache, denies focal weakness or sensory changes [] Endocrine: Denies polyuria or polydipsia [] 14 systems were reviewed and found to be within normal limits, except as documented. General: YES: Fatigue PSYCHOLOGICAL ROS: YES: Anxiety Hematological and Lymphatic: No: Bleeding Problems, Blood Clots, Blood Transfusions, Brusing, Night Sweats, Pallor, Swollen Lymph Nodes, Other ENDOCRINE: No: Breast Changes, Galactorrhea, Hair Pattern Changes, Hot Flashes , Malaise/lethargy, Mood Swings, Palpitations, Polydipsia/polyuria, Skin Changes , Temperature Intolerance, Unexpected Weight Changes, Other Respiratory: YES: Cough, Shortness of breath, SOB with excertion, Sputum Changes Cardiovascular: yes Palpitations Gastrointestinal: Yes Nausea Physical Exam Physical Exam Physical Exam Physical Exam Constitutional: Well developed, well nourished, MILD acute distress, ILL APPEARING , non-toxic appearance. [] HENT: Normocephalic, atraumatic, bilateral external ears normal, oropharynx moist, no oral exudates, nose normal. [] Eyes: PERRLA, EOMI, conjunctiva normal, no discharge. [] Neck: Normal range of motion, no tenderness, supple, no stridor. [] Cardiovascular:Heart rate regular rhythm, no murmur [] Lungs & Thorax: COARSE WHEEZE THROUGHOUT, WET COUGH C MUCUS PRODUCTION, MILD RESP DISTRESS [] Abdomen: Bowel sounds normal, soft, no tenderness, no masses, no pulsatile masses. [] Skin: Warm, dry, no erythema, no rash. [] Extremities: No tenderness, no cyanosis, no clubbing, ROM intact, no edema. [] Neurologic: Alert and oriented X 3, normal motor function, normal sensory function, no focal deficits noted. [] Psychologic: TEARFUL, judgement normal, mood normal. [] Breasts: Not examined Neuro: Normal speech, Cranial nerves 3-12 NL Vitals Vitals Vital Signs Date Time Temp Pulse Resp B/P (MAP) Pulse Ox O2 Delivery O2 Flow Rate FiO2 08/18/18 20:03 95 Room Air 08/18/18 19:00 98.2 81 18 159/97 (117) 98.2 Labs Labs Laboratory Tests Test 08/18/18 13:15 08/18/18 13:45 Influenza Type A Antigen Negative (NEGATIVE) Influenza Type B Antigen Negative (NEGATIVE) White Blood Count 9.0 x10^3/uL (4.0-11.0) Red Blood Count 4.49 x10^6/uL (3.50-5.40) Hemoglobin 13.4 g/dL (12.0-15.5) Hematocrit 40.1 % (36.0-47.0) Mean Corpuscular Volume 89 fL (79-100) Mean Corpuscular Hemoglobin 30 pg (25-35) Mean Corpuscular Hemoglobin Concent 33 g/dL (31-37) Red Cell Distribution Width 14.7 % (11.5-14.5) Platelet Count 567 x10^3/uL (140-400) Neutrophils (%) (Auto) 65 % (31-73) Lymphocytes (%) (Auto) 26 % (24-48) Monocytes (%) (Auto) 7 % (0-9) Eosinophils (%) (Auto) 1 % (0-3) Basophils (%) (Auto) 1 % (0-3) Neutrophils # (Auto) 5.9 x10^3uL (1.8-7.7) Lymphocytes # (Auto) 2.3 x10^3/uL (1.0-4.8) Monocytes # (Auto) 0.6 x10^3/uL (0.0-1.1) Eosinophils # (Auto) 0.1 x10^3/uL (0.0-0.7) Basophils # (Auto) 0.1 x10^3/uL (0.0-0.2) Sodium Level 140 mmol/L (136-145) Potassium Level 4.0 mmol/L (3.5-5.1) Chloride Level 101 mmol/L (98-107) Carbon Dioxide Level 26 mmol/L (21-32) Anion Gap 13 (6-14) Blood Urea Nitrogen 7 mg/dL (7-20) Creatinine 1.0 mg/dL (0.6-1.0) Estimated GFR (Cockcroft-Gault) 56.0 BUN/Creatinine Ratio 7 (6-20) Glucose Level 118 mg/dL (70-99) Lactic Acid Level 1.7 mmol/L (0.4-2.0) Calcium Level 9.5 mg/dL (8.5-10.1) Total Bilirubin 0.2 mg/dL (0.2-1.0) Aspartate Amino Transf (AST/SGOT) 23 U/L (15-37) Alanine Aminotransferase (ALT/SGPT) 18 U/L (14-59) Alkaline Phosphatase 130 U/L (46-116) Creatine Kinase 293 U/L (26-192) Creatine Kinase MB (Mass) 1.5 ng/mL (0.0-3.6) Creatine Kinase MB Relative Index 0.5 % (0-4) Troponin I Quantitative < 0.017 ng/mL (0.000-0.055) Total Protein 8.5 g/dL (6.4-8.2) Albumin 3.6 g/dL (3.4-5.0) Albumin/Globulin Ratio 0.7 (1.0-1.7) Laboratory Tests Test 08/18/18 13:15 08/18/18 13:45 Influenza Type A Antigen Negative (NEGATIVE) Influenza Type B Antigen Negative (NEGATIVE) White Blood Count 9.0 x10^3/uL (4.0-11.0) Red Blood Count 4.49 x10^6/uL (3.50-5.40) Hemoglobin 13.4 g/dL (12.0-15.5) Hematocrit 40.1 % (36.0-47.0) Mean Corpuscular Volume 89 fL (79-100) Mean Corpuscular Hemoglobin 30 pg (25-35) Mean Corpuscular Hemoglobin Concent 33 g/dL (31-37) Red Cell Distribution Width 14.7 % (11.5-14.5) Platelet Count 567 x10^3/uL (140-400) Neutrophils (%) (Auto) 65 % (31-73) Lymphocytes (%) (Auto) 26 % (24-48) Monocytes (%) (Auto) 7 % (0-9) Eosinophils (%) (Auto) 1 % (0-3) Basophils (%) (Auto) 1 % (0-3) Neutrophils # (Auto) 5.9 x10^3uL (1.8-7.7) Lymphocytes # (Auto) 2.3 x10^3/uL (1.0-4.8) Monocytes # (Auto) 0.6 x10^3/uL (0.0-1.1) Eosinophils # (Auto) 0.1 x10^3/uL (0.0-0.7) Basophils # (Auto) 0.1 x10^3/uL (0.0-0.2) Sodium Level 140 mmol/L (136-145) Potassium Level 4.0 mmol/L (3.5-5.1) Chloride Level 101 mmol/L (98-107) Carbon Dioxide Level 26 mmol/L (21-32) Anion Gap 13 (6-14) Blood Urea Nitrogen 7 mg/dL (7-20) Creatinine 1.0 mg/dL (0.6-1.0) Estimated GFR (Cockcroft-Gault) 56.0 BUN/Creatinine Ratio 7 (6-20) Glucose Level 118 mg/dL (70-99) Lactic Acid Level 1.7 mmol/L (0.4-2.0) Calcium Level 9.5 mg/dL (8.5-10.1) Total Bilirubin 0.2 mg/dL (0.2-1.0) Aspartate Amino Transf (AST/SGOT) 23 U/L (15-37) Alanine Aminotransferase (ALT/SGPT) 18 U/L (14-59) Alkaline Phosphatase 130 U/L (46-116) Creatine Kinase 293 U/L (26-192) Creatine Kinase MB (Mass) 1.5 ng/mL (0.0-3.6) Creatine Kinase MB Relative Index 0.5 % (0-4) Troponin I Quantitative < 0.017 ng/mL (0.000-0.055) Total Protein 8.5 g/dL (6.4-8.2) Albumin 3.6 g/dL (3.4-5.0) Albumin/Globulin Ratio 0.7 (1.0-1.7) VTE Prophylaxis Ordered VTE Prophylaxis Devices: Yes VTE Pharmacological Prophylaxi: Yes Assessment/Plan Assessment/Plan Impression: COPD exacerbation ACUTE TOBACCO ABUSE ACUTE HYPOXIC RESP FAILURE NONCOMPLIANCE WITH SMOKING CESSATION HYPERTENSION DEPRESSION hx colitis wheezing/ reactive airways PLAN ADMITTED 2 [place] DUONEBS QID IV STEROID TAPER EMPERIC IV ANTIBIOTICS DVT PROPHYLAXIS HOME MEDS BP CONTROL IV ROCEPHIN 1 GM Q 24 HRS budesonide 0.5mg bid nebs education provided for need of smoking cessation ANOOP GIBSON MD Aug 18, 2018 21:19
[2018-08-18] MEDS ORDERED: ZOLPIDEM 5 MG TABLET. PO PRN (21:45)
[2018-08-18] MEDS: ENOXAPARIN 40 MG/0.4 ML SYRINGE. SQ SCH (22:33)
[2018-08-18] MEDS: GABAPENTIN 100 MG CAPSULE. PO SCH (22:33)
[2018-08-18] MEDS: methylPREDNISolone SOD SUCC PF 125 MG/2 ML VIAL. IV SCH (22:33)
[2018-08-18 22:37] VITALS: BP 155/72
[2018-08-18] MEDS: QUEtiapine 300 MG TAB.ER.24H. PO SCH (22:48)
[2018-08-19 03:00] VITALS: BP 133/68
[2018-08-19 06:36] VITALS: BP 128/58
[2018-08-19] MEDS: LEVOTHYROXINE 125 MCG TABLET PO SCH (06:42)
[2018-08-19] MEDS: methylPREDNISolone SOD SUCC PF 125 MG/2 ML VIAL. IV SCH ×3 (06:42→22:20)
[2018-08-19] MEDS: HYDROcodone/APAP 5/325MG 1 TAB TABLET PO PRN ×2 (07:16→13:19)
[2018-08-19] MEDS: IPRATRPIUM/ALBUTEROL 0.5/2.5MG 3 ML NEBU. NEB SCH ×4 (07:39→19:35)
[2018-08-19] MEDS: BUDESONIDE 0.5 MG/2 ML NEBU. NEB SCH ×2 (07:39→19:35)
[2018-08-19] MEDS: GABAPENTIN 100 MG CAPSULE. PO SCH ×2 (10:06→21:12)
[2018-08-19] MEDS: VERAPAMIL SR 120 MG TABLET.ER. PO SCH (10:06)
[2018-08-19] MEDS: LOSARTAN POTASSIUM 50 MG TABLET. PO SCH (10:06)
[2018-08-19] MEDS: MELOXICAM 7.5 MG TABLET PO SCH (10:06)
[2018-08-19] MEDS: PARoxetine 20 MG TABLET PO SCH (10:07)
[2018-08-19 11:00] VITALS: BP 137/89
--- NOTE | 2018-08-19 11:43 | NUR ---
SW following for discharge planning. Discussed with RN, RN advised pt used O2 at home through [employer], and pt reported she has a nebulizer locked in storage. SW will continue to follow for any discharge planning needs.
--- NOTE | 2018-08-19 14:35 | PDOC ---
PROGRESS NOTES Chief Complaint Chief Complaint COPD exacerbation ACUTE TOBACCO ABUSE ACUTE HYPOXIC RESP FAILURE NONCOMPLIANCE WITH SMOKING CESSATION HYPERTENSION DEPRESSION hx colitis wheezing/ reactive airways History of Present Illness History of Present Illness Pt seen and examined Looks ill Very weak and SOA VSS DW RN Vitals Vitals Vital Signs Date Time Temp Pulse Resp B/P (MAP) Pulse Ox O2 Delivery O2 Flow Rate FiO2 08/19/18 13:19 Room Air 08/19/18 11:00 98.0 92 20 137/89 (105) 93 98.0 08/19/18 03:00 2.0 Physical Exam General: Alert, Oriented X3, moderate distress Heart: Other (tachy) Labs LABS Pending Review of Systems Review of Systems co soa co cough co weakness Assessment and Plan Assessmemt and Plan Problems Medical Problems: (1) COPD exacerbation Status: Acute COPD exacerbation ACUTE TOBACCO ABUSE ACUTE HYPOXIC RESP FAILURE NONCOMPLIANCE WITH SMOKING CESSATION HYPERTENSION DEPRESSION hx colitis wheezing/ reactive airways Plan Nebs Steroids O2 Cig cessation education home meds Labs DVT proph Comment Review of Relevant I have reviewed the following items lashawn (where applicable) has been applied. Labs Laboratory Tests Test 08/18/18 13:15 08/18/18 13:45 Influenza Type A Antigen Negative (NEGATIVE) Influenza Type B Antigen Negative (NEGATIVE) White Blood Count 9.0 x10^3/uL (4.0-11.0) Red Blood Count 4.49 x10^6/uL (3.50-5.40) Hemoglobin 13.4 g/dL (12.0-15.5) Hematocrit 40.1 % (36.0-47.0) Mean Corpuscular Volume 89 fL (79-100) Mean Corpuscular Hemoglobin 30 pg (25-35) Mean Corpuscular Hemoglobin Concent 33 g/dL (31-37) Red Cell Distribution Width 14.7 % (11.5-14.5) Platelet Count 567 x10^3/uL (140-400) Neutrophils (%) (Auto) 65 % (31-73) Lymphocytes (%) (Auto) 26 % (24-48) Monocytes (%) (Auto) 7 % (0-9) Eosinophils (%) (Auto) 1 % (0-3) Basophils (%) (Auto) 1 % (0-3) Neutrophils # (Auto) 5.9 x10^3uL (1.8-7.7) Lymphocytes # (Auto) 2.3 x10^3/uL (1.0-4.8) Monocytes # (Auto) 0.6 x10^3/uL (0.0-1.1) Eosinophils # (Auto) 0.1 x10^3/uL (0.0-0.7) Basophils # (Auto) 0.1 x10^3/uL (0.0-0.2) Sodium Level 140 mmol/L (136-145) Potassium Level 4.0 mmol/L (3.5-5.1) Chloride Level 101 mmol/L (98-107) Carbon Dioxide Level 26 mmol/L (21-32) Anion Gap 13 (6-14) Blood Urea Nitrogen 7 mg/dL (7-20) Creatinine 1.0 mg/dL (0.6-1.0) Estimated GFR (Cockcroft-Gault) 56.0 BUN/Creatinine Ratio 7 (6-20) Glucose Level 118 mg/dL (70-99) Lactic Acid Level 1.7 mmol/L (0.4-2.0) Calcium Level 9.5 mg/dL (8.5-10.1) Total Bilirubin 0.2 mg/dL (0.2-1.0) Aspartate Amino Transf (AST/SGOT) 23 U/L (15-37) Alanine Aminotransferase (ALT/SGPT) 18 U/L (14-59) Alkaline Phosphatase 130 U/L (46-116) Creatine Kinase 293 U/L (26-192) Creatine Kinase MB (Mass) 1.5 ng/mL (0.0-3.6) Creatine Kinase MB Relative Index 0.5 % (0-4) Troponin I Quantitative < 0.017 ng/mL (0.000-0.055) Total Protein 8.5 g/dL (6.4-8.2) Albumin 3.6 g/dL (3.4-5.0) Albumin/Globulin Ratio 0.7 (1.0-1.7) Microbiology 08/18/18 Blood Culture - Preliminary, Resulted NO GROWTH AFTER 1 DAY Medications Current Medications Albuterol/ Ipratropium (Duoneb) 3 ml 1X ONCE NEB Last administered on at 13:23; Start 08/18/18 at 13:15; Stop 08/18/18 at 13:16; Status DC Methylprednisolone Sodium Succinate (SOLU-Medrol 125MG VIAL) 125 mg 1X ONCE IV Last administered on 08/18/18 13:44; Start 08/18/18 at 13:15; Stop 08/18/18 at 13:16; Status DC Ibuprofen (Motrin) 800 mg 1X ONCE PO Last administered on 08/18/18 13:44; Start 08/18/18 at 13:45; Stop 08/18/18 at 13:46; Status DC Albuterol/ Ipratropium (Duoneb) 3 ml 1X ONCE NEB Last administered on 15:43; Start 08/18/18 at 14:45; Stop 08/18/18 at 14:46; Status DC Acetaminophen/ Hydrocodone Bitart (Lortab 5/325) 1 tab 1X ONCE PO Last administered on 08/18/18 14:55; Start 08/18/18 at 14:45; Stop 08/18/18 at 14:46 ; Status DC Acetaminophen/ Hydrocodone Bitart (Lortab 5/325) 1 tab PRN Q6HRS PRN PO PAIN Last administered on 08/19/18 13:19; Start 08/18/18 at 18:30 Throat Lozenges (Cepacol Sore Throat Lozenge) 1 ene PRN Q2HRS PRN PO SORE THROAT; Start 08/18/18 at 18:30 Ceftriaxone Sodium (Rocephin) 1 gm Q24H IVP Last administered on 08/18/18 21: 14; Start 08/18/18 at 19:00 Albuterol/ Ipratropium (Duoneb) 3 ml RTQID NEB Last administered on 08/19/18 11:56; Start 08/18/18 at 20:00 Enoxaparin Sodium (Lovenox 40mg Syringe) 40 mg Q24H SQ Last administered on 22:33; Start 08/18/18 at 21:30 Methylprednisolone Sodium Succinate (SOLU-Medrol 125MG VIAL) 100 mg Q8HRS IV Last administered on 08/19/18 06:42; Start 08/18/18 at 22:00 Budesonide (Pulmicort) 0.5 mg RTBID NEB Last administered on 08/19/18 07:39; Start 08/19/18 at 08:00 Gabapentin (Neurontin) 100 mg BID PO Last administered on 08/19/18 10:06; Start 08/18/18 at 21:00 Losartan Potassium (Cozaar) 50 mg DAILY PO Last administered on 08/19/18 10:06 ; Start 08/19/18 at 09:00 Zolpidem Tartrate (Ambien) 5 mg PRN QHS PRN PO INSOMNIA Last administered on 22:48; Start 08/18/18 at 21:45 Levothyroxine Sodium (Synthroid) 125 mcg DAILY06 PO Last administered on 06:42; Start 08/19/18 at 06:00 Meloxicam (Mobic) 7.5 mg DAILY PO Last administered on 08/19/18 10:06; Start 08/19/18 at 09:00 Paroxetine HCl (Paxil) 40 mg DAILY PO Last administered on 08/19/18 10:07; Start 08/19/18 at 09:00 Quetiapine Fumarate (SEROquel XR) 600 mg HS PO Last administered on 08/18/18 22:48; Start 08/18/18 at 22:45 Verapamil HCl (Calan Sr) 240 mg DAILY PO Last administered on 08/19/18 10:06; Start 08/19/18 at 09:00 Active Scripts Active Mobic (Meloxicam) 7.5 Mg Tablet 1 Tab PO DAILY Reported Cyclobenzaprine Hcl 10 Mg Tablet 1 Tab PO TID Meloxicam 7.5 Mg Tablet 1 Tab PO DAILY Seroquel (Quetiapine Fumarate) 300 Mg Tablet 2 Tab PO QHS Ambien (Zolpidem Tartrate) 5 Mg Tablet 5 Mg PO PRN QHS PRN Gabapentin (Gabapentin) 100 Mg Capsule 100 Mg PO BID Synthroid (Levothyroxine Sodium) 125 Mcg Tablet 1 Tab PO DAILY Paroxetine Hcl 40 Mg Tablet 1 Tab PO DAILY Losartan Potassium 50 Mg Tablet 50 Mg PO DAILY Verapamil Er (Verapamil Hcl) 240 Mg Cap24h.pel 1 Cap PO DAILY Vitals/I & O Vital Sign - Last 24 Hours 08/18/18 08/18/18 08/18/18 08/18/18 14:55 15:46 16:36 17:06 Pulse 70 91 Resp 18 18 20 B/P (MAP) 163/69 (100) 169/71 (103) Pulse Ox 96 95 94 96 O2 Delivery Room Air Room Air Room Air Room Air 08/18/18 08/18/18 08/18/18 08/18/18 17:31 18:03 19:00 20:00 Temp 98.4 98.2 98.4 98.2 Pulse 76 81 Resp 18 18 B/P (MAP) 149/85 (106) 159/97 (117) Pulse Ox 96 95 O2 Delivery Room Air Room Air Room Air Room Air 08/18/18 08/18/18 08/19/18 08/19/18 20:03 22:37 03:00 06:36 Temp 98.4 98.3 98.3 98.4 98.3 98.3 Pulse 75 107 91 Resp 18 B/P (MAP) 155/72 (99) 133/68 (89) 128/58 (81) Pulse Ox 95 95 95 95 O2 Delivery Room Air Nasal Cannula Nasal Cannula Room Air O2 Flow Rate 2.0 2.0 08/19/18 08/19/18 08/19/18 08/19/18 07:39 08:16 10:06 10:06 Pulse 91 91 B/P (MAP) 128/58 128/58 Pulse Ox 94 O2 Delivery Room Air Room Air 08/19/18 08/19/18 08/19/18 11:00 11:57 13:19 Temp 98.0 98.0 Pulse 92 Resp 20 B/P (MAP) 137/89 (105) Pulse Ox 93 O2 Delivery Room Air Room Air Room Air Intake and Output 08/18/18 08/18/18 08/19/18 15:00 23:00 07:00 Intake Total 800 ml Balance 800 ml BRITTNEY HUNTLEY III DO Aug 19, 2018 14:35
[2018-08-19 15:00] VITALS: BP 147/77
[2018-08-19] MEDS: BUTALB/APAP/CAFEIN 50/325/40MG TABLET. PO PRN (16:23)
[2018-08-19] MEDS: fentaNYL PF VIAL 100 MCG/2 ML VIAL IV PRN (16:48)
[2018-08-19 19:00] VITALS: BP 143/68
[2018-08-19] MEDS ORDERED: SUMAtriptan SUCCINATE 25 MG TABLET PO ONE (19:00)
[2018-08-19] MEDS: QUEtiapine 300 MG TAB.ER.24H. PO SCH (21:11)
[2018-08-19] MEDS: ENOXAPARIN 40 MG/0.4 ML SYRINGE. SQ SCH (21:12)
--- NOTE | 2018-08-19 22:15 | NUR ---
Pt continues to complain of severe headache 12/16 after Imitrex given. Took pt to CT for CT of head per previous order.
[2018-08-19] MEDS: cefTRIAXone IV Push 1 GM VIAL. IVP SCH (22:20)
[2018-08-19 23:00] VITALS: BP 151/86
--- NOTE | 2018-08-19 23:10 | RAD ---
CT HEAD WO CONTRAST Clinical indications: INTRACTABLE HEADACHE TODAY, COMPARISON: April 18, 2006. Technique: Noncontrast axial cross sectional scanning of the head was performed. PQRS compliance Statement One or more of the following individualized dose reduction techniques were utilized for this study: 1. Automated exposure control 2. Adjustment of the mA and/or kV according to patient size 3. Use of iterative reconstruction technique Findings: No acute intracranial hemorrhage or midline shift or mass-effect or hydrocephalus or extra-axial fluid collection is seen. No focal hypodense area or sulci effacement is seen to indicate an acute infarct or edema radiographically. No skull fracture or pneumocephalus is seen. No opacification of the mastoid sinuses or the paranasal sinuses or the middle ear cavities is seen. The maxillary sinuses are not completely seen in this study. Impression: No acute intracranial abnormality is seen. Electronically signed by: Watson Griffin MD (08/19/2018 11:06 PM) [facility]
[2018-08-20] MEDS: fentaNYL PF VIAL 100 MCG/2 ML VIAL IV PRN ×2 (01:50→11:03)
[2018-08-20 03:00] VITALS: BP 119/63
[2018-08-20] MEDS: LEVOTHYROXINE 125 MCG TABLET PO SCH (06:34)
[2018-08-20] MEDS: methylPREDNISolone SOD SUCC PF 125 MG/2 ML VIAL. IV SCH ×2 (06:34→16:59)
[2018-08-20 07:00] VITALS: BP 132/61
[2018-08-20] MEDS: BUDESONIDE 0.5 MG/2 ML NEBU. NEB SCH (08:21)
[2018-08-20] MEDS: IPRATRPIUM/ALBUTEROL 0.5/2.5MG 3 ML NEBU. NEB SCH ×3 (08:21→15:44)
[2018-08-20] MEDS: VERAPAMIL SR 120 MG TABLET.ER. PO SCH (09:02)
[2018-08-20] MEDS: PARoxetine 20 MG TABLET PO SCH (09:02)
[2018-08-20] MEDS: GABAPENTIN 100 MG CAPSULE. PO SCH (09:02)
[2018-08-20] MEDS: MELOXICAM 7.5 MG TABLET PO SCH (09:02)
[2018-08-20] MEDS: LOSARTAN POTASSIUM 50 MG TABLET. PO SCH (09:03)
[2018-08-20] MEDS: BUTALB/APAP/CAFEIN 50/325/40MG TABLET. PO PRN ×2 (09:03→16:59)
[2018-08-20 11:00] VITALS: BP 130/79
[2018-08-20] MEDS: HYDROcodone/APAP 5/325MG 1 TAB TABLET PO PRN (14:16)
--- NOTE | 2018-08-20 14:22 | PDOC2 ---
NEUROLOGY CONSULT Date of Admission Date of Admission DATE: 08/20/18 TIME: 13:59 Reason for Consult Reason for Consult: NEUROLOGY CONSULTATION 08-19-2018 IMPRESSION: Headache. Respiratory distress. Cough. COPD exacerbation. Hypoxia. HTN. HLD. RECOMMENDATIONS/PLAN: HCT. Topamax 25 mg bid. Treat medical diseases. Lab: see orders. HISTORY OF THE PRESENT ILLNESS: This is a 63 year old female patient with above medical diseases came to the ER of [facility] with complaints of SOB, productive cough, wheeze, headache, and myalgias x1 week. Denies chest pain, fever, or vomiting. Reports hx COPD, has nebulizer in storage but unable to get into her storage shed because she owes money. She uses 3L NC O2 at night and sometimes during the day if she feels SOA. Past Medical History COPD, High Cholesterol, Hypertension, Hypothyroid, MRSA, Chronic back, chronic leg pain Pulmonary: COPD GI: Inflam bowel disease Psych: Anxiety PAST SURGERY HISTORY: Hysterectomy, ALLERGY: Unknown MEDICATIONS: Refer to [facility] HISTORY: COPD. SOCIAL HISTORY: Lives at home. Denies drinking, and illicit drug use. She smokes < 1 pack of cigarettes a day for about 30 years. REVIEW OF SYSTEMS: Constitutional: No malnutrition, weight loss, cachexia. Head: No traumatic brain or head injury. Skin: No edema, or rash. Ear: No infection. Eyes: No vision loss or color blindness. Nose: No bleeding or purulent discharges. Hearing: No hearing decrease. Neck: No injury. Breast: No history of cancer, masses,or discharges. Cardiac: HTN, HLD. Pulmonary: COPD. GI: No GI ulcer, GI bleeding. Urinary/genital: UTI. Endocrinologic: No cousin face, craniofacial dysmorphism, polydactyly, goiter. Skeletomuscular: No muscular atrophy. Neurological: see HP. Psychiatric: Denies drug use/abuse. Otherwise, not [id number] review of systems. PHYSICAL EXAMINATION: General appearance is in subacute distress. HEENT: Normocephalic and nontraumatic. Eyes, nose, ears, and throat are unremarkable. Neck is supple. No lymphadenopathy. No crepitus. Cardiovascular: S1, S2, regular rate and rhythm. Pulmonary: wheezing to auscultation bilaterally. Abdomen: Bowel sounds are positive. Abdomen is soft, nontender, and nondistended. Extremities: No rash, lesions, or edema. No restriction of range of motion NEUROLOGICAL EXAMINATION: Alert Oriented to time, place and person. PERRL. EOMI. CN: no focal findings. Muscle tone: within normal. Muscle strength: 5- DTR: 2 Plantar reflex: Flexor response bilaterally Gait: not examined in bed. Sensory exam: no abnormal findings. No cerebellar signs elicited. F-T-N test accurate. Current Medications Current Medications Current Medications Albuterol/ Ipratropium (Duoneb) 3 ml 1X ONCE NEB Last administered on at 13:23; Start 08/18/18 at 13:15; Stop 08/18/18 at 13:16; Status DC Methylprednisolone Sodium Succinate (SOLU-Medrol 125MG VIAL) 125 mg 1X ONCE IV Last administered on 08/18/18at 13:44; Start 08/18/18 at 13:15; Stop 08/18/18 at 13:16; Status DC Ibuprofen (Motrin) 800 mg 1X ONCE PO Last administered on 08/18/18at 13:44; Start 08/18/18 at 13:45; Stop 08/18/18 at 13:46; Status DC Albuterol/ Ipratropium (Duoneb) 3 ml 1X ONCE NEB Last administered on at 15:43; Start 08/18/18 at 14:45; Stop 08/18/18 at 14:46; Status DC Acetaminophen/ Hydrocodone Bitart (Lortab 5/325) 1 tab 1X ONCE PO Last administered on 08/18/18at 14:55; Start 08/18/18 at 14:45; Stop 08/18/18 at 14:46 ; Status DC Acetaminophen/ Hydrocodone Bitart (Lortab 5/325) 1 tab PRN Q6HRS PRN PO PAIN Last administered on 08/19/18at 13:19; Start 08/18/18 at 18:30 Throat Lozenges (Cepacol Sore Throat Lozenge) 1 ene PRN Q2HRS PRN PO SORE THROAT; Start 08/18/18 at 18:30 Ceftriaxone Sodium (Rocephin) 1 gm Q24H IVP Last administered on 08/19/18at 22: 20; Start 08/18/18 at 19:00 Albuterol/ Ipratropium (Duoneb) 3 ml RTQID NEB Last administered on 08/20/18 11:49; Start 08/18/18 at 20:00 Enoxaparin Sodium (Lovenox 40mg Syringe) 40 mg Q24H SQ Last administered on 21:12; Start 08/18/18 at 21:30 Methylprednisolone Sodium Succinate (SOLU-Medrol 125MG VIAL) 100 mg Q8HRS IV Last administered on 08/20/18 06:34; Start 08/18/18 at 22:00 Budesonide (Pulmicort) 0.5 mg RTBID NEB Last administered on 08/20/18 08:21; Start 08/19/18 at 08:00 Gabapentin (Neurontin) 100 mg BID PO Last administered on 08/20/18 09:02; Start 08/18/18 at 21:00 Losartan Potassium (Cozaar) 50 mg DAILY PO Last administered on 08/20/18 09:03 ; Start 08/19/18 at 09:00 Zolpidem Tartrate (Ambien) 5 mg PRN QHS PRN PO INSOMNIA Last administered on 22:48; Start 08/18/18 at 21:45 Levothyroxine Sodium (Synthroid) 125 mcg DAILY06 PO Last administered on 06:34; Start 08/19/18 at 06:00 Meloxicam (Mobic) 7.5 mg DAILY PO Last administered on 08/20/18 09:02; Start 08/19/18 at 09:00 Paroxetine HCl (Paxil) 40 mg DAILY PO Last administered on 08/20/18 09:02; Start 08/19/18 at 09:00 Quetiapine Fumarate (SEROquel XR) 600 mg HS PO Last administered on 08/19/18 21:11; Start 08/18/18 at 22:45 Verapamil HCl (Calan Sr) 240 mg DAILY PO Last administered on 08/20/18 09:02; Start 08/19/18 at 09:00 Acetaminophen/ Butalbital/ Caffeine (Fioricet) 1 tab PRN Q6HRS PRN PO MIGRAINE HEADACHE Last administered on 08/20/18 09:03; Start 08/19/18 at 15:45 Fentanyl Citrate (Fentanyl 2ml Vial) 50 mcg PRN Q2HR PRN IV SEVERE PAIN Last administered on 08/20/18at 11:03; Start 08/19/18 at 15:45 Sumatriptan Succinate (Imitrex) 50 mg 1X ONCE PO Last administered on at 21:11; Start 08/19/18 at 19:00; Stop 08/19/18 at 19:27; Status DC Active Scripts Active Mobic (Meloxicam) 7.5 Mg Tablet 1 Tab PO DAILY Reported Cyclobenzaprine Hcl 10 Mg Tablet 1 Tab PO TID Meloxicam 7.5 Mg Tablet 1 Tab PO DAILY Seroquel (Quetiapine Fumarate) 300 Mg Tablet 2 Tab PO QHS Ambien (Zolpidem Tartrate) 5 Mg Tablet 5 Mg PO PRN QHS PRN Gabapentin (Gabapentin) 100 Mg Capsule 100 Mg PO BID Synthroid (Levothyroxine Sodium) 125 Mcg Tablet 1 Tab PO DAILY Paroxetine Hcl 40 Mg Tablet 1 Tab PO DAILY Losartan Potassium 50 Mg Tablet 50 Mg PO DAILY Verapamil Er (Verapamil Hcl) 240 Mg Cap24h.pel 1 Cap PO DAILY Allergies Allergies: Allergies Coded Allergies Type Severity Reaction Last Updated Verified No Known Drug Allergies 12/09/17 No ROS Review of System The patient denies any associated fevers, chills, headache, ear pain, rhinorrhea , sore throat, stiff neck, productive cough, chest pain, shortness of breath, back or flank pain, abdominal pain, nausea, vomiting, diarrhea, constipation, dysuria, rash, numbness, weakness, tingling, incontinence, difficulty ambulating, or diaphoresis. Physical Exam Physical Exam General: Well developed, well nourished, no acute distress, well appearing HEENT: Pupils equally round and reactive to light, EOMI, no discharge, normal conjunctiva Neck: Supple, no nuchal rigidity, no JVD, trachea midline, no tenderness Cardiac: RRR, no murmurs, no gallops, no rubs Chest/Lungs: CTAB, no wheeze, no rhonchi, no crackles Abdomen: soft, non-distended, no guarding, no peritoneal signs, non-tender Back: No tenderness Extremities: no edema, pulses intact, non-tender,capillary refill <3 sec bilateral upper and lower extremities, Neuro: Alert and oriented x 4, no focal deficits, normal speech Vitals Vitals: Vital Signs Date Time Temp Pulse Resp B/P (MAP) Pulse Ox O2 Delivery O2 Flow Rate FiO2 08/20/18 11:50 Room Air 08/20/18 11:00 97.9 93 18 130/79 (96) 96 97.9 Labs Labs Laboratory Tests Test 08/20/18 11:40 Erythrocyte Sedimentation Rate 60 (0-25) Laboratory Tests Test 08/20/18 11:40 Erythrocyte Sedimentation Rate 60 (0-25) SALMA SCHERER MD Aug 20, 2018 14:22
--- NOTE | 2018-08-20 14:26 | NUR ---
SW following for discharge planning. Discussed with RN. PT/OT recommend home at discharge. Pt has oxygen at home already. SW will continue to follow for discharge planning needs.
[2018-08-20] MEDS ORDERED: PRED-220 PO (14:28)
[2018-08-20] MEDS ORDERED: DOXY100C2 PO (14:28)
[2018-08-20] MEDS ORDERED: TRAM-48 PO (14:28)
--- NOTE | 2018-08-20 14:30 | PDOC3 ---
Discharge Summary Visit Information Date of Admission: Aug 18, 2018 Date of Discharge: Aug 20, 2018 Admitting Diagnosis: cough, hypoxia Final Diagnosis COPD exacerbation ACUTE with acute bronchitis, TOBACCO ABUSE ACUTE HYPOXIC RESP FAILURE NONCOMPLIANCE WITH SMOKING CESSATION HYPERTENSION DEPRESSION hx colitis headache, Medical Problems: (1) COPD exacerbation Status: Acute Brief Hospital Course Allergies Allergies Coded Allergies Type Severity Reaction Last Updated Verified No Known Drug Allergies 12/09/17 No Vital Signs Vital Signs Date Time Temp Pulse Resp B/P (MAP) Pulse Ox O2 Delivery O2 Flow Rate FiO2 08/20/18 11:50 Room Air 08/20/18 11:00 97.9 93 18 130/79 (96) 96 97.9 Lab Results Laboratory Tests Test 08/20/18 11:40 Erythrocyte Sedimentation Rate 60 (0-25) Laboratory Tests Test 08/20/18 11:40 Erythrocyte Sedimentation Rate 60 (0-25) Brief Hospital Course Ms. Thornton is a 63 old admit for dyspnea and cough and COPD, then had headache , MEHTA not improved with meds, MEHTA to side of head, Neuro consulted, rec. Temp artery biopsy, Dr. Kim consulted, pt requests discharge, may go home with biopsy sched for outpatient pt sputum better, dyspnea much better at DC Discharge Information Condition at Discharge: Improved Follow Up: Weeks Disposition/Orders: D/C to Home Scheduled Cyclobenzaprine Hcl (Cyclobenzaprine Hcl) 10 Mg Tablet, 1 TAB PO TID for muscle relaxer, #90 (Reported) Entered as Reported by: SYEDA DANGELO on 08/18/181802 Last Taken: Unknown Dose on 08/18/18 1400 Last Action: HELD on 08/18/182132 by ANOOP GIBSON MD Doxycycline Hyclate (Doxycycline Hyclate) 100 Mg Capsule, 1 CAP PO BID for bronchitis, #14 Prescribed by: AYDE CRANDALL on 08/20/18 1428 Gabapentin (Gabapentin ) 100 Mg Capsule, 100 MG PO BID for NEUROGENIC PAIN, ( Reported) Entered as Reported by: SYEDA DANGELO on 08/18/181802 Last Taken: Unknown Dose on 08/18/18 0900 Last Action: Continued on 2132 by ANOOP GIBSON MD Levothyroxine Sodium (Synthroid) 125 Mcg Tablet, 1 TAB PO DAILY for hypothyroid , #30 Ref 5 (Reported) Entered as Reported by: SYEDA DANGELO on 08/18/181802 Last Taken: Unknown Dose on 08/18/18 07 Last Action: Converted on 2132 by ANOOP GIBSON MD Losartan Potassium (Losartan Potassium) 50 Mg Tablet, 50 MG PO DAILY for HYPERTENSION, (Reported) Entered as Reported by: SYEDA DANGELO on 08/18/181801 Last Taken: Unknown Dose on 08/18/18899 Last Action: Continued on 2132 by ANOOP GIBSON MD Meloxicam (Mobic) 7.5 Mg Tablet, 1 TAB PO DAILY for arthritis, #30 Ref 1 Prescribed by: INGE COATS APRN on 06/04/182022 Last Taken: Unknown Dose on 08/18/18899 Last Action: HELD on 08/18/182132 by ANOOP GIBSON MD Meloxicam (Meloxicam) 7.5 Mg Tablet, 1 TAB PO DAILY for pain, #30 Ref 2 ( Reported) Entered as Reported by: SYEDA DANGELO on 08/18/181802 Last Taken: Unknown Dose on 08/18/18899 Last Action: Converted on 2132 by ANOOP GIBSON MD Paroxetine Hcl (Paroxetine Hcl) 40 Mg Tablet, 1 TAB PO DAILY for mood, #30 Ref 5 (Reported) Entered as Reported by: SYEDA DANGELO on 08/18/181801 Last Taken: Unknown Dose on 08/18/18899 Last Action: Converted on 2132 by ANOOP GIBSON MD Prednisone (Prednisone ) 10 Mg Tablet, 10 MG PO UD for bronchitis, #20 Ref 0 Take 4 tablets by mouth daily for 2 days, then take 3 tablets by mouth daily for 2 days, then take 2 tablets by mouth daily for 2 days, then take 1 tablets by mouth daily for 2 days, then stop. Prescribed by: AYDE CRANDALL on 08/20/18 1428 Quetiapine Fumarate (Seroquel) 300 Mg Tablet, 2 TAB PO QHS for sleep, #30 Ref 1 (Reported) Entered as Reported by: SYEDA DANGELO on 08/18/181802 Last Taken: Unknown Dose on 08/17/182099 Last Action: Converted on 2132 by ANOOP GIBSON MD Verapamil Hcl (Verapamil Er) 240 Mg Cap24h.pel, 1 CAP PO DAILY for htn, #30 Ref 5 (Reported) Entered as Reported by: SYEDA DANGELO on 08/18/181801 Last Taken: Unknown Dose on 08/18/18 0900 Last Action: Converted on 2132 by ANOOP GIBSON MD Scheduled PRN Tramadol Hcl (Ultram) 50 Mg Tablet, 50 MG PO Q6HRS PRN for PAIN, #20 Ref 0 Prescribed by: AYDE CRANDALL on 08/20/18 142 Zolpidem Tartrate (Ambien) 5 Mg Tablet, 5 MG PO PRN QHS PRN for INSOMNIA, Ref 0 (Reported) Entered as Reported by: SYEDA DANGELO on 08/18/181802 Last Taken: Unknown Dose on 08/17/18 2100 Last Action: Continued on 2132 by ANOOP GIBSON MD Patient Instructions Patient Instructions face to face eval, < 30 min AYDE CRANDALL MD Aug 20, 2018 14:30
[2018-08-20 15:00] VITALS: BP 135/86
--- NOTE | 2018-08-20 17:20 | NUR ---
pt not able to stay another night here d/t issues at home. call to surgery and Dr. Lancaster will not be able to see pt this evening at this late hour. instructed pt to call office in the a.m. to schedule appt with Dr. Nolasco tomorrow.
--- NOTE | 2018-08-20 17:22 | PDOC ---
PROGRESS NOTES Assessment Assessment Headache. Respiratory distress. Cough. COPD exacerbation. Hypoxia. HTN. HLD. Left temporal arteritis? RECOMMENDATIONS/PLAN: Topamax 25 mg bid. Prednisone 30 mg daily. Consulted Surgery for left temporal A biopsy. Treat medical diseases. ESR: 60 HISTORY OF THE PRESENT ILLNESS: This is a 63 year old female patient with above medical diseases came to the ER of [facility] with complaints of SOB, productive cough, wheeze, headache, and myalgias x1 week. Denies chest pain, fever, or vomiting. Reports hx COPD, has nebulizer in storage but unable to get into her storage shed because she owes money. She uses 3L NC O2 at night and sometimes during the day if she feels SOA. Past Medical History COPD, High Cholesterol, Hypertension, Hypothyroid, MRSA, Chronic back, chronic leg pain Pulmonary: COPD GI: Inflam bowel disease Psych: Anxiety PAST SURGERY HISTORY: Hysterectomy, ALLERGY: Unknown MEDICATIONS: Refer to [facility] HISTORY: COPD. SOCIAL HISTORY: Lives at home. Denies drinking, and illicit drug use. She smokes < 1 pack of cigarettes a day for about 30 years. REVIEW OF SYSTEMS: Constitutional: No malnutrition, weight loss, cachexia. Head: No traumatic brain or head injury. Skin: No edema, or rash. Ear: No infection. Eyes: No vision loss or color blindness. Nose: No bleeding or purulent discharges. Hearing: No hearing decrease. Neck: No injury. Breast: No history of cancer, masses,or discharges. Cardiac: HTN, HLD. Pulmonary: COPD. GI: No GI ulcer, GI bleeding. Urinary/genital: UTI. Endocrinologic: No cousin face, craniofacial dysmorphism, polydactyly, goiter. Skeletomuscular: No muscular atrophy. Neurological: see HP. Psychiatric: Denies drug use/abuse. Otherwise, not [id number] review of systems. PHYSICAL EXAMINATION: General appearance is in subacute distress. HEENT: Normocephalic and nontraumatic. Eyes, nose, ears, and throat are unremarkable. Neck is supple. No lymphadenopathy. No crepitus. Cardiovascular: S1, S2, regular rate and rhythm. Pulmonary: wheezing to auscultation bilaterally. Abdomen: Bowel sounds are positive. Abdomen is soft, nontender, and nondistended. Extremities: No rash, lesions, or edema. No restriction of range of motion NEUROLOGICAL EXAMINATION: Alert Oriented to time, place and person. PERRL. EOMI. CN: no focal findings. Muscle tone: within normal. Muscle strength: 5- DTR: 2 Plantar reflex: Flexor response bilaterally Gait: not examined in bed. Sensory exam: no abnormal findings. No cerebellar signs elicited. F-T-N test accurate. Objective Objective Vital Signs Date Time Temp Pulse Resp B/P (MAP) Pulse Ox O2 Delivery O2 Flow Rate FiO2 08/20/18 15:44 Room Air 08/20/18 15:30 96 2.0 08/20/18 15:00 98.3 82 17 135/86 (102) 98.3 Intake and Output 08/20/18 06:59 Intake Total 3500 ml Output Total 400 ml Balance 3100 ml Intake Oral 3500 ml Output Urine Total 400 ml Vitals Signs Vitals VS - Last 72 Hours, by Label Date Time Temp Pulse Resp B/P (MAP) Pulse Ox O2 Delivery O2 Flow Rate FiO2 08/20/18 15:44 Room Air 08/20/18 15:30 96 Room Air 2.0 08/20/18 15:30 96 Room Air 2.0 08/20/18 15:00 98.3 82 17 135/86 (102) 94 Room Air 98.3 08/20/18 11:50 Room Air 08/20/18 11:03 Room Air 08/20/18 11:00 97.9 93 18 130/79 (96) 96 Room Air 97.9 08/20/18 09:03 69 132/61 08/20/18 09:02 69 132/61 08/20/18 08:22 Room Air 08/20/18 08:22 Room Air 08/20/18 08:00 Room Air 2.0 08/20/18 07:00 97.7 69 17 132/61 (84) 94 Room Air 97.7 08/20/18 03:00 97.9 96 17 119/63 (81) 95 Room Air 97.9 08/19/18 23:00 98.3 78 19 151/86 (107) 97 Room Air 98.3 08/19/18 20:00 Room Air 08/19/18 19:35 Room Air 08/19/18 19:00 98.6 78 17 143/68 (93) 94 Room Air 98.6 08/19/18 16:48 Room Air 08/19/18 15:58 Room Air 08/19/18 15:00 98.1 91 20 147/77 (100) 95 Room Air 98.1 08/19/18 13:19 Room Air 08/19/18 11:57 Room Air 08/19/18 11:00 98.0 92 20 137/89 (105) 93 Room Air 98.0 08/19/18 10:06 91 128/58 08/19/18 10:06 91 128/58 08/19/18 08:00 Room Air 08/19/18 07:39 94 Room Air Laboratory Laboratory Laboratory Tests Test 08/20/18 11:40 Erythrocyte Sedimentation Rate 60 (0-25) Microbiology 08/18/18 Blood Culture - Preliminary, Resulted NO GROWTH AFTER 2 DAYS Medication Medications Current Medications Sumatriptan Succinate (Imitrex) 50 mg 1X ONCE PO Last administered on at 21:11; Start 08/19/18 at 19:00; Stop 08/19/18 at 19:27; Status DC Comment Review of Relevant I have reviewed the following items lashawn (where applicable) has been applied. SALMA SCHERER MD Aug 20, 2018 17:22
[2018-08-20] MEDS ORDERED: predniSONE 10 MG TABLET PO SCH (18:00)
--- NOTE | 2018-08-20 18:23 | NUR ---
pt discharged home with son. pt unable to stay another night d/t she is afraid she is being evicted. surgery office number given with instructions to call first thing in the a.m.
[2018-10-19] MEDS ORDERED: ALPR0.25 PO (14:56)
[2018-10-22] MEDS ORDERED: DICYCLOMINE HCL IM (13:43)
[2018-10-22] MEDS ORDERED: PHEN1SUP PR (13:43)
== END 2018-08-20 18:25 | disposition home or self-care (01) | DRG 189 ==
LOC: ER 12:39 → 5 SOUTH 15:18
PROVIDERS: ADMIT Family Medicine; ATTEND Family Medicine
DX: J96.01 Acute respiratory failure with hypoxia (principal); J44.1 Chronic obstructive pulmonary disease with (acute) exacerbation; J44.0 Chronic obstructive pulmonary disease with (acute) lower respiratory infection; Z71.6 Tobacco abuse counseling; E03.9 Hypothyroidism, unspecified; I10 Essential (primary) hypertension; F32.9 Major depressive disorder, single episode, unspecified; E78.00 Pure hypercholesterolemia, unspecified; F41.9 Anxiety disorder, unspecified; E78.5 Hyperlipidemia, unspecified; G89.29 Other chronic pain; F17.210 Nicotine dependence, cigarettes, uncomplicated; Z79.899 Other long term (current) drug therapy; Z82.5 Family history of asthma and other chronic lower respiratory diseases; Z91.19 Patient's noncompliance with other medical treatment and regimen; Z90.710 Acquired absence of both cervix and uterus; Z86.14 Personal history of Methicillin resistant Staphylococcus aureus infection; J20.9 Acute bronchitis, unspecified
CPT/HCPCS: 36415; 70450; 71046; 80053; 82553; 83605; 84484; 85025; 85651; 87040; 87804; 93005; 94640; 94760; 96374; J0696; J1650; J2930; J3010; J7620; J7626; 99285-25

== ENCOUNTER 2018-08-27 08:40 | Day surgery (SDC) | payer OTHER ==
[~2018-08-27] VITALS: Ht 152.4 cm; Wt 70.8 kg
[~2018-08-27 08:40] MED LIST changes: +CYCL10TA2 PO; +DOXY100C2 PO; +GABA-585 PO; +HYDROmorphone 2 MG/ML VIAL IV PRN; +IV RINGERS,LACTATED 1000ML 1,000 ML IV SCH; +LEVO125T PO; +LOSA-73 PO; +MELO7.5T29 PO; +MORPHINE SULFATE 2 MG/ML VIAL. IV PRN; +ONDANSETRON PF 4 MG/2 ML VIAL. IV PRN; +PARO40TA3 PO; +PRED-220 PO; +PROCHLORPERAZINE 10 MG/2 ML VIAL. IV PRN; +QUET300T5 PO; +TRAM-48 PO; +VERA240C2 PO; +ZOLP5TAB PO; +ceFAZolin 2GM PREMIX 2 GM/50 ML BAG IV ONE; +fentaNYL PF VIAL 100 MCG/2 ML VIAL IV PRN
[2018-08-27] MEDS ORDERED: BUPIVACAINE MPF 0.25% 30 ML VIAL. ONE (08:53)
[2018-08-27] MEDS ORDERED: LIDOCAINE 2% PF 5 ML VIAL. ONE (09:32)
[2018-08-27] MEDS ORDERED: MIDAZOLAM HCL/PF 2 MG/2 ML VIAL. ONE (09:32)
[2018-08-27] MEDS ORDERED: PROPOFOL 20 ML IV ONE (09:32)
[2018-08-27] MEDS ORDERED: DEXAMETHASONE SOD PHOS 20 MG/5 ML VIAL. ONE (09:37)
[2018-08-27] MEDS ORDERED: ONDANSETRON PF 4 MG/2 ML VIAL. ONE (09:37)
[2018-08-27] MEDS: fentaNYL PF VIAL 100 MCG/2 ML VIAL IV PRN ×3 (09:47→11:29)
[2018-08-27] MEDS ORDERED: SEVOFLURANE 16 TO 30 MINUTES. IH ONE (10:37)
[2018-08-27] MEDS ORDERED: SEVOFLURANE 31 TO 60 MINUTES. IH ONE (10:37)
--- NOTE | 2018-08-27 10:54 | PDOC4 ---
Operative Note Operative Note Date: 08/27/2018 Preoperative diagnosis: Headaches Postoperative diagnosis: Same Procedure: Left temporal artery biopsy Surgeon: Tonny Specimen: Left temporal artery Dictation: Patient is a 63-year-old female has had severe left-sided headaches for several months. Procedure of left temporal artery biopsy was explained to the patient detail risk benefits were also discussed including bleeding infection alternatives to this procedure also discussed with the patient who seemed to understand and gave both verbal and written consent to have the procedure performed. Patient was taken operating room placed in supine position anesthesia was initiated once patient was sleep at LMA in place her left temporal area was prepped and draped usual sterile fashion using Betadine solution. The temporal artery was both palpated and Doppler used to facilitate exposure area was marked and then injected with quarter percent Marcaine plain. Incision was made with 15 blade scalpel this carried down through the subcutaneous tissue using electrocautery and a mosquito dissector closing the temporal artery was controlled proximally and distally with Vicryl ligatures and a small section was sent for pathology on a Telfa sponge. Wound was then closed in a single layer of running 4-0 Monocryl Mastisol Steri-Strips and island dressing were applied. Patient was wakened from her anesthesia and taken to recovery in stable condition all sponge instrument needle counts listed as correct S medical blood loss 5 mL ANOOP WOOD MD Aug 27, 2018 10:54
--- NOTE | 2018-08-27 10:55 | DISCH ---
DISCHARGE INSTRUCTIONS Condition on Discharge Condition on Discharge: Stable Activity After Discharge Activity Instructions for Disc: Activity as tolerated Diet after Discharge Diet after Discharge: No Added Salt Wound Incision Care Other wound/incision instructi: May shower in 24 hours Checks after Discharge Checks after discharge: Check blood press - daily Contacting the DRFrancisca after DC Call your doctor for: If your condition worsens Follow-Up Follow up with: Dr. Wood in 2 weeks ANOOP WOOD MD Aug 27, 2018 10:55
[2018-08-27] MEDS ORDERED: fentaNYL PF VIAL 100 MCG/2 ML VIAL ONE (11:04)
[2018-08-27] MEDS ORDERED: PROCHLORPERAZINE 10 MG/2 ML VIAL. ONE (11:09)
[2018-08-27] MEDS ORDERED: hydrALAZINE 20 MG/ML VIAL. ONE (11:22)
[2018-08-27] MEDS ORDERED: hydrALAZINE 20 MG/ML VIAL. IVP PRN (11:30)
[2018-08-27] MEDS ORDERED: IBUPROFEN 200 MG TABLET. PO ONE ×2 (11:45)
[2018-08-27 12:00] VITALS: BP 154/74
--- NOTE | 2018-08-28 15:06 | PATHOLOGY ---
[facility] Accession Number: [id number] . 01 Material submitted: . LEFT TEMPORAL ARTERY BIOPSY . 01 Clinical history: . None provided . 02 Diagnosis: Artery and attached skeletal muscle tissue, left temporal artery biopsy: - No diagnostic abnormalities. (JPM:elyse; 08/28/2018) QMS/08/28/2018 . 02 Comment: Sections of the left temporal artery biopsy reveal a small artery with attached skeletal muscle tissue. There is no evidence of temporal arteritis. (JPM:elyse; 08/28/2018) . 02 Electronically signed: . Raul Conroy MD, Pathologist NPI- [id number] . 01 Gross description: . The specimen is received in formalin, labeled "Sara Thornton, left temporal artery biopsy" and consists of 2 fragments of pink-purple tissue measuring 0.3 x 0.2 x 0.1 cm and 0.5 x 0.3 x 0.2 cm which are submitted entirely in A1. (SDY; 08/27/2018) SYU/SYU . 02 Pathologist provided ICD-10: R51 . 02 CPT . 688564 Specimen Comment: A courtesy copy of this report has been sent to Specimen Comment: [phone], . Specimen Comment: Report sent to / DR RODRIGUEZ Specimen Comment: A duplicate report has been generated due to demographic updates. Performed at: 01 [facility] [address], [place] [id number] MD Nacho Edwards MD Phone: [phone] Performed at: 02 [facility] [address] [place], [place] [id number] MD Raul Conroy MD Phone: [phone]
[2018-10-19] MEDS ORDERED: ALPR0.25 PO (14:56)
[2018-10-22] MEDS ORDERED: PHEN1SUP PR (13:43)
[2018-10-22] MEDS ORDERED: DICYCLOMINE HCL IM (13:43)
== END 2018-08-27 12:10 | disposition home or self-care (01) ==
LOC: SURG 08:40
PROVIDERS: ATTEND Surgery
DX: R51 Headache (principal); Z79.899 Other long term (current) drug therapy; F32.9 Major depressive disorder, single episode, unspecified; E03.9 Hypothyroidism, unspecified; I10 Essential (primary) hypertension; K21.9 Gastro-esophageal reflux disease without esophagitis; J45.909 Unspecified asthma, uncomplicated; Z90.710 Acquired absence of both cervix and uterus; Z90.722 Acquired absence of ovaries, bilateral; Z90.79 Acquired absence of other genital organ(s); Z82.49 Family history of ischemic heart disease and other diseases of the circulatory system; F17.210 Nicotine dependence, cigarettes, uncomplicated
CPT/HCPCS: 37609; 88305; A7015; J0360; J0696; J0780; J1100; J2001; J2405; J2704; J3010; J3490; J2250

== ENCOUNTER 2018-09-02 19:15 | Emergency (ER) | payer OTHER ==
[~2018-09-02] VITALS: Ht 152.4 cm; Wt 68.0 kg
[~2018-09-02 19:15] MED LIST changes: -HYDROmorphone 2 MG/ML VIAL IV PRN; -IV RINGERS,LACTATED 1000ML 1,000 ML IV SCH; -MORPHINE SULFATE 2 MG/ML VIAL. IV PRN; -ONDANSETRON PF 4 MG/2 ML VIAL. IV PRN; -PROCHLORPERAZINE 10 MG/2 ML VIAL. IV PRN; -ceFAZolin 2GM PREMIX 2 GM/50 ML BAG IV ONE; -fentaNYL PF VIAL 100 MCG/2 ML VIAL IV PRN
--- NOTE | 2018-09-02 21:36 | PHYS DOC ---
Past Medical History Past Medical History: COPD, High Cholesterol, Hypertension, Hypothyroid, MRSA, Other Additional Past Medical Histor: Chronic back, chronic leg pain Past Surgical History: No Surgical History, Hysterectomy Additional Information: /2 ppd Alcohol Use: None Drug Use: None Adult General Chief Complaint Chief Complaint: POST-OP PROBLEM HPI HPI Patient is a 63 year old female who presents to the ED with headache and face tingling as well as cough. Patient had a temporal artery biopsy last week. The last 2 days she has had 8/10 burning tingling pain in her entire left face. Her son also states that she is acting strange, meaning that she is restless at night and more confused than usual. They're worried about her biopsy site being infected. Symptoms do not very per time of day or radiate beyond the left side of the face. H&H and states she has a chronic migraine patient however this does not feel like any migraine she has had in the past. During the interview the patient started coughing up yellow colored phlegm and wheezing. She states that she was discharged from the hospital about 2 weeks ago for pneumonia. Symptoms got better until 3 days ago where she redeveloped a cough and dark yellow colored sputum. She has a chronic COPD patient usually on 3 L of oxygen at home. Patient has no pain associated with this. Denies fevers/ chills. Review of Systems Review of Systems Constitutional: Denies fever or chills [] Eyes: Denies change in visual acuity, redness, or eye pain [] HENT: Admits headache and facial tingling. While Denies nasal congestion or sore throat [] Respiratory: Admits cough and sputum production. Denies cough or shortness of breath [] Cardiovascular: Denies chest pain or palpitations. GI: Denies abdominal pain, nausea, vomiting, bloody stools or diarrhea [] : Denies dysuria or hematuria [] Musculoskeletal: Denies back pain or joint pain [] Integument: Denies rash or skin lesions [] Neurologic: Denies headache, focal weakness or sensory changes [] Complete systems were reviewed and found to be within normal limits, except as documented in this note. Current Medications Current Medications Current Medications Medications (Trade) Dose Ordered Sig/Rowdy Start Time Stop Time Status Last Admin Dose Admin Dexamethasone (Decadron) 10 mg 1X ONCE 3/27/19 22:00 09/02/18 22:01 DC 09/02/18 22:31 10 MG Oxycodone/ Acetaminophen (Percocet 5/325) 1 tab 1X ONCE 09/02/18 22:00 09/02/18 22:01 DC 09/02/18 22:31 1 TAB Allergies Allergies Allergies Coded Allergies Type Severity Reaction Last Updated Verified No Known Drug Allergies 12/09/17 No Physical Exam Physical Exam Constitutional: Well developed, well nourished, no acute distress, non-toxic appearance. [] HENT: Tender to palpation left temporal region. Normocephalic, atraumatic, nose normal. [] Eyes: PERRL, EOMI, conjunctiva normal, no discharge. [] Neck: Normal range of motion, no tenderness, supple, no stridor. [] Cardiovascular: Heart rate regular rhythm, no murmur [] Lungs & Thorax: Diffuse wheezing throughout all lung ferrari. No crackles or rhonchi appreciated. Abdomen: Bowel sounds normal, soft, no tenderness Skin: Warm, dry, no erythema, no rash. [] Back: No tenderness, no CVA tenderness. [] Extremities: No tenderness, no cyanosis, no clubbing, ROM intact, no edema. [] Neurologic: Alert and oriented, normal motor function, normal sensory function, no focal deficits noted. [] Psychologic: Affect normal, judgement normal, mood normal. [] Current Patient Data Vital Signs Vital Signs Date Time Temp Pulse Resp B/P (MAP) Pulse Ox O2 Delivery O2 Flow Rate FiO2 09/02/18 22:31 19 98 Room Air 09/02/18 22:25 80 163/77 (105) 09/02/18 19:45 98.2 98.2 EKG EKG [] Radiology/Procedures Radiology/Procedures [] Course & Med Decision Making Course & Med Decision Making Pertinent Labs and Imaging studies reviewed. (See chart for details) Patient is a 63-year-old female presents to the ED with facial pain s/p temporal artery biopsy last week. Patient is already taking gabapentin. Physical exam showed tenderness to the left temporal region and small hematoma in the area. No signs of infection. Patient also has cough and recent hospitalization for pneumonia about 2 weeks ago. Patient has no pleuritic chest pain or shortness of breath and denies chest x-ray due to lack of other respiratory symptoms. She wants to return to home and use a breathing treatment there. Discharging patient with Percocet 5-325 with instruction to follow-up with her PCP. Malick Disclaimer Malick Disclaimer This electronic medical record was generated, in whole or in part, using a voice recognition dictation system. Departure Departure Impression: Primary Impression: Facial pain Additional Impression: Hematoma Disposition: HOME, SELF-CARE Condition: STABLE Referrals: RACHNA RODRIGUEZ APRN (PCP) Patient Instructions: Hematoma, [id number], Trigeminal Neuralgia Scripts Prednisone (PREDNISONE) 20 Mg Tablet 2 TAB PO DAILY, #8 TAB Please take next dose tomorrow 09/03/18 Prov: PRIYA VERAS DO 09/02/18 Oxycodone HCl/Acetaminophen (Percocet 5-325 mg Tablet) 1 Each Tablet 1 EACH PO Q6HRS PRN for PAIN, #10 TAB Prov: PRIYA VERAS DO 09/02/18 Problem Qualifiers PRIYA VERAS DO Sep 02, 2018 21:36
[2018-09-02] MEDS ORDERED: OXYC-325 PO (21:48)
[2018-09-02] MEDS ORDERED: PRED20TA PO (21:50)
[2018-09-02] MEDS ORDERED: oxyCODONE/APAP 5/325 1 TAB TABLET PO ONE (22:00)
[2018-09-02] MEDS ORDERED: DEXAMETHASONE 4 MG TABLET PO ONE (22:00)
[2018-09-02 22:25] VITALS: BP 163/77
[2018-10-19] MEDS ORDERED: ALPR0.25 PO (14:56)
[2018-10-22] MEDS ORDERED: PHEN1SUP PR (13:43)
[2018-10-22] MEDS ORDERED: DICYCLOMINE HCL IM (13:43)
== END 2018-09-02 22:35 | disposition home or self-care (01) ==
LOC: ER 19:15
DX: S00.83XA Contusion of other part of head, initial encounter (principal); R51 Headache; R05 Cough; E78.00 Pure hypercholesterolemia, unspecified; E03.9 Hypothyroidism, unspecified; I10 Essential (primary) hypertension; J44.9 Chronic obstructive pulmonary disease, unspecified; G89.29 Other chronic pain; F17.200 Nicotine dependence, unspecified, uncomplicated; X58.XXXA Exposure to other specified factors, initial encounter; Y93.89 Activity, other specified; Y92.89 Other specified places as the place of occurrence of the external cause; Y99.8 Other external cause status
CPT/HCPCS: 99283; J8540

== ENCOUNTER 2018-09-10 16:50 | Emergency (ER) | payer OTHER ==
[~2018-09-10] VITALS: Ht 152.4 cm; Wt 70.3 kg
[~2018-09-10 16:50] MED LIST changes: +OXYC-325 PO; +PRED20TA PO
[2018-09-10] MEDS ORDERED: ASPIRIN 325 MG TABLET PO ONE (17:45)
[2018-09-10] MEDS ORDERED: NITROGLYCERIN PREMIX 250 ML IV ONE (17:45)
[2018-09-10] MEDS ORDERED: methylPREDNISolone SOD SUCC PF 125 MG/2 ML VIAL. IV ONE (17:45)
[2018-09-10] MEDS ORDERED: LABETALOL 20 MG/4 ML DISP.SYRIN. IVP ONE (17:45)
[2018-09-10] MEDS ORDERED: IPRATRPIUM/ALBUTEROL 0.5/2.5MG 3 ML NEBU. NEB ONE (17:45)
[2018-09-10] MEDS ORDERED: MORPHINE SULFATE 2 MG/ML VIAL. IV/SQ PRN (17:45)
[2018-09-10 17:47] LABS: BASO # 0.1 x10^3/uL (0.0-0.2); BASO % 1 % (0-3); EOS # 0.5 x10^3/uL (0.0-0.7); EOS % 4 % (0-3); HEMATOCRIT 35.1 % (36.0-47.0); HEMOGLOBIN 11.7 g/dL (12.0-15.5); LYMPH # 2.6 x10^3/uL (1.0-4.8); LYMPH % 21 % (24-48); MEAN CORPUSCULAR HEMOGLOBIN 30 pg (25-35); MEAN CORPUSCULAR HGB CONC 33 g/dL (31-37); MEAN CORPUSCULAR VOLUME 91 fL (79-100); MONO # 0.8 x10^3/uL (0.0-1.1); MONO % 6 % (0-9); NEUT # 8.5 x10^3uL (1.8-7.7); NEUT % 68 % (31-73); PLATELET COUNT 557 x10^3/uL (140-400); RED BLOOD COUNT 3.84 x10^6/uL (3.50-5.40); RED CELL DISTRIBUTION WIDTH 15.9 % (11.5-14.5); WHITE BLOOD COUNT 12.6 x10^3/uL (4.0-11.0)
--- NOTE | 2018-09-10 17:47 | RAD ---
CT HEAD INDICATION: SEVERE HEADACHE/HTN, PRIOR SENT COMPARISON: 08/19/2018 Exposure: One or more of the following individualized dose reduction techniques were utilized for this examination: 1. Automated exposure control 2. Adjustment of the mA and/or kV according to patient size 3. Use of iterative reconstruction technique TECHNIQUE: 5 mm contiguous axial images were obtained from the skull base to the vertex in both bone and soft tissue algorithm. FINDINGS: No abnormal attenuation within the brain parenchyma. No evidence of acute intracranial hemorrhage. No extra-axial fluid collections. No mass effect or midline shift. Ventricular size is appropriate. Basal cisterns are patent. No fractures identified.Pitts-white differentiation is preserved.Globes and orbits are within normal limits. Paranasal sinuses and mastoid air cells are clear. IMPRESSION: No acute intracranial findings. Electronically signed by: Miguel Barone MD (09/10/2018 5:45 PM) [facility]
[2018-09-10 17:48] LABS: BILIRUBIN,URINE NEGATIVE (NEG); CLARITY,URINE CLEAR; COLOR,URINE YELLOW; NITRITE,URINE NEGATIVE (NEG); PH,URINE 6.5; PROTEIN,URINE NEGATIVE (NEG-TRACE); UROBILINOGEN,URINE 0.2 mg/dL (0.2 mg/dL)
[2018-09-10 17:56] LABS: AMPHETAMINE/METHAMPHETAMINE NEG (NEG); BARBITURATES NEG (NEG); BENZODIAZEPINES NEG (NEG); CANNABINOIDS NEG (NEG); COCAINE NEG (NEG); METHADONE NEG (NEG); OPIATES NEG (NEG); PHENCYCLIDINE NEG (NEG)
[2018-09-10 17:58] LABS: CALCIUM 9.1 mg/dL (8.5-10.1); POTASSIUM 4.1 mmol/L (3.5-5.1)
[2018-09-10 17:58] LABS: BACTERIA,URINE 0 /HPF (0-FEW); RBC,URINE RARE /HPF (0-2); SQUAMOUS EPITHELIAL CELL,UR OCC /LPF; WBC,URINE 0 /HPF (0-4)
--- NOTE | 2018-09-10 17:58 | RAD ---
EXAM: CHEST 1 VIEW History: Shortness of breath COMPARISON: 08/18/2018 TECHNIQUE: Single portable radiograph of the chest FINDINGS: The cardiac silhouette is unremarkable. The lungs are clear bilaterally. The costophrenic sulci are clear and well demarcated. IMPRESSION: No radiographic evidence of an acute cardiopulmonary process. Electronically signed by: Miguel Barone MD (09/10/2018 5:56 PM) [facility]
[2018-09-10 18:03] LABS: ALBUMIN 3.4 g/dL (3.4-5.0); ALBUMIN/GLOBULIN RATIO 0.8 (1.0-1.7); MAGNESIUM 2.1 mg/dL (1.8-2.4); TOTAL BILIRUBIN 0.2 mg/dL (0.2-1.0); TOTAL PROTEIN 7.8 g/dL (6.4-8.2)
[2018-09-10] MEDS ORDERED: MORPHINE SULFATE 10 MG/ML VIAL. IV ONE (18:30)
[2018-09-10 19:00] VITALS: BP 168/89
[2018-09-10] MEDS ORDERED: IOHEXOL 350 MG/ML 100 ML VIAL. IV ONE (19:00)
--- NOTE | 2018-09-10 19:27 | PHYS DOC ---
Past Medical History Past Medical History: COPD, High Cholesterol, Hypertension, Hypothyroid, MRSA, Other Additional Past Medical Histor: Chronic back, chronic leg pain (EDDIE CORADO APRN) Past Surgical History: No Surgical History, Hysterectomy (EDDIE CORADO APRN) Alcohol Use: None Drug Use: None (EDDIE CORADO APRN) Adult General Chief Complaint Chief Complaint: HYPERTENSION HPI HPI Patient is a 63 year old female with a history of hypertension, high cholesterol, smoking, COPD on oxygen 3 L, who presents to the ED today complaining of hypertension. Patient states she went to the doctor's office specifically neurologist and was instructed to come to the ED because her blood pressure was high and she had a headache. Patient rates the headache as 10 out of 10 described as throbbing mostly on the anterior aspect of the forehead. Patient denies this being the worst headache in her life. Denies any nausea vomiting. She is also complaining of pain in between her shoulder blades that occurred yesterday. She rates the pain at 10 out of 10 yesterday. She states she does not have the pain right now. Denies any known injury but states she has history of chronic mid and low back pain. She is also complaining of a chronic cough. Denies any shortness of breath though she arrives in the ED with O2 sats at 89% on room air, she is supposed to be on oxygen but she did not bring her oxygen. (EDDIE CORADO APRN) Review of Systems Review of Systems Constitutional: Denies fever or chills [] Eyes: Denies change in visual acuity, redness, or eye pain [] HENT: Denies nasal congestion or sore throat [] Respiratory: Reports cough, denies shortness of breath [] Cardiovascular: No additional information not addressed in HPI [] GI: Denies abdominal pain, nausea, vomiting, bloody stools or diarrhea [] : Denies dysuria or hematuria [] Musculoskeletal: Reports chronic back pain, pain between her shoulder blades. Integument: Denies rash or skin lesions [] Neurologic: Reports headache, denies focal weakness or sensory changes [] All other systems were reviewed and found to be within normal limits, except as documented in this note. (EDDIE CORADO APRN) Current Medications Current Medications Current Medications Medications (Trade) Dose Ordered Sig/Rowdy Start Time Stop Time Status Last Admin Dose Admin Albuterol/ Ipratropium (Duoneb) 3 ml 1X ONCE 09/10/18 17:45 09/10/18 17:46 DC 09/10/18 18:12 3 ML Aspirin (Elaine Aspirin) 325 mg 1X ONCE 09/10/18 17:45 09/10/18 17:46 DC 09/10/18 17:52 325 MG Iohexol (Omnipaque 350 Mg/ml) 80 ml 1X ONCE 09/10/18 19:00 09/10/18 19:01 DC Ketorolac Tromethamine (Toradol 30mg Vial) 30 mg 1X ONCE 09/10/18 20:00 09/10/18 20:01 DC 09/10/18 20:22 30 MG Labetalol HCl (Normodyne Iv Push) 10 mg 1X ONCE 09/10/18 17:45 09/10/18 17:46 DC 09/10/18 18:08 10 MG Methylprednisolone Sodium Succinate (SOLU-Medrol 125MG VIAL) 125 mg 1X ONCE 09/10/18 17:45 09/10/18 17:46 DC 09/10/18 17:53 125 MG Morphine Sulfate (Morphine Sulfate) 5 mg 1X ONCE 09/10/18 20:00 09/10/18 20:01 DC 09/10/18 20:23 5 MG Nitroglycerin/ Dextrose 250 ml @ 3 mls/hr 1X ONCE 09/10/18 17:45 09/14/18 05:04 Cancel (PRIYA VERAS DO) Allergies Allergies Allergies Coded Allergies Type Severity Reaction Last Updated Verified No Known Drug Allergies 12/09/17 No (PRIYA VERAS DO) Physical Exam Physical Exam Constitutional: Well developed, well nourished, no acute distress, non-toxic appearance. [] HENT: Normocephalic, atraumatic, bilateral external ears normal, oropharynx moist, no oral exudates, nose normal. [] Eyes: PERRLA, EOMI, conjunctiva normal, no discharge. [] Neck: Normal range of motion, no tenderness, supple, no stridor. [] Cardiovascular:Heart rate regular rhythm, no murmur [] Lungs & Thorax: Coarse lung sounds on arrival to the ED. Abdomen: Bowel sounds normal, soft, no tenderness, no masses, no pulsatile masses. [] Skin: Warm, dry, no erythema, no rash. [] Back: No tenderness, no CVA tenderness. [] Extremities: No tenderness, no cyanosis, no clubbing, ROM intact, no edema. [] Neurologic: Alert and oriented X 3, normal motor function, normal sensory function, no focal deficits noted. Cranial nerves II through XII intact. Psychologic: Affect normal, judgement normal, mood normal. [] (EDDIE CORADO APRN) Current Patient Data Vital Signs Vital Signs Date Time Temp Pulse Resp B/P (MAP) Pulse Ox O2 Delivery O2 Flow Rate FiO2 09/10/18 20:23 20 95 Room Air 09/10/18 19:00 83 09/10/18 18:12 2.0 09/10/18 18:08 172/100 09/10/18 17:07 98.1 98.1 (PRIYA VERAS DO) Lab Values Laboratory Tests Test 09/10/18 17:05 09/10/18 17:30 Urine Color Yellow Urine Clarity Clear Urine pH 6.5 Urine Specific [place] <=1.005 Urine Protein Negative mg/dL (NEG-TRACE) Urine Glucose (UA) Negative mg/dL (NEG) Urine Ketones (Stick) Negative mg/dL (NEG) Urine Blood Trace (NEG) Urine Nitrite Negative (NEG) Urine Bilirubin Negative (NEG) Urine Urobilinogen Dipstick 0.2 mg/dL (0.2 mg/dL) Urine Leukocyte Esterase Negative (NEG) Urine RBC Rare /HPF (0-2) Urine WBC 0 /HPF (0-4) Urine Squamous Epithelial Cells Occ /LPF Urine Bacteria 0 /HPF (0-FEW) Urine Opiates Screen Neg (NEG) Urine Methadone Screen Neg (NEG) Urine Barbiturates Neg (NEG) Urine Phencyclidine Screen Neg (NEG) Urine Amphetamine/Methamphetamine Neg (NEG) Urine Benzodiazepines Screen Neg (NEG) Urine Cocaine Screen Neg (NEG) Urine Cannabinoids Screen Neg (NEG) Urine Ethyl Alcohol Neg (NEG) White Blood Count 12.6 x10^3/uL (4.0-11.0) H Red Blood Count 3.84 x10^6/uL (3.50-5.40) Hemoglobin 11.7 g/dL (12.0-15.5) L Hematocrit 35.1 % (36.0-47.0) L Mean Corpuscular Volume 91 fL (79-100) Mean Corpuscular Hemoglobin 30 pg (25-35) Mean Corpuscular Hemoglobin Concent 33 g/dL (31-37) Red Cell Distribution Width 15.9 % (11.5-14.5) H Platelet Count 557 x10^3/uL (140-400) H Neutrophils (%) (Auto) 68 % (31-73) Lymphocytes (%) (Auto) 21 % (24-48) L Monocytes (%) (Auto) 6 % (0-9) Eosinophils (%) (Auto) 4 % (0-3) H Basophils (%) (Auto) 1 % (0-3) Neutrophils # (Auto) 8.5 x10^3uL (1.8-7.7) H Lymphocytes # (Auto) 2.6 x10^3/uL (1.0-4.8) Monocytes # (Auto) 0.8 x10^3/uL (0.0-1.1) Eosinophils # (Auto) 0.5 x10^3/uL (0.0-0.7) Basophils # (Auto) 0.1 x10^3/uL (0.0-0.2) D-Dimer (Niki) 0.81 ug/mlFEU (0.00-0.50) H Sodium Level 138 mmol/L (136-145) Potassium Level 4.1 mmol/L (3.5-5.1) Chloride Level 100 mmol/L (98-107) Carbon Dioxide Level 27 mmol/L (21-32) Anion Gap 11 (6-14) Blood Urea Nitrogen 7 mg/dL (7-20) Creatinine 1.0 mg/dL (0.6-1.0) Estimated GFR (Cockcroft-Gault) 56.0 BUN/Creatinine Ratio 7 (6-20) Glucose Level 96 mg/dL (70-99) Calcium Level 9.1 mg/dL (8.5-10.1) Magnesium Level 2.1 mg/dL (1.8-2.4) Total Bilirubin 0.2 mg/dL (0.2-1.0) Aspartate Amino Transferase (AST) 17 U/L (15-37) Alanine Aminotransferase (ALT) 19 U/L (14-59) Alkaline Phosphatase 145 U/L (46-116) H Creatine Kinase 79 U/L (26-192) Creatine Kinase MB (Mass) 1.5 ng/mL (0.0-3.6) Creatine Kinase MB Relative Index 1.9 % (0-4) Troponin I Quantitative < 0.017 ng/mL (0.000-0.055) VG-Nwo-C-Type Natriuretic Peptide 261 pg/mL (0-124) H Total Protein 7.8 g/dL (6.4-8.2) Albumin 3.4 g/dL (3.4-5.0) Albumin/Globulin Ratio 0.8 (1.0-1.7) L Thyroid Stimulating Hormone (TSH) 4.001 uIU/mL (0.358-3.74) H Laboratory Tests 09/10/18 17:30 Laboratory Tests 09/10/18 17:30 (PRIYA VERAS DO) EKG EKG EKG interpreted by Dr. Rivers sinus rhythm heart rate 86 no STEMI (EDDIE CORADO APRN) Radiology/Procedures Radiology/Procedures [] (EDDIE CORADO APRN) Radiology/Procedures PROCEDURE: CT HEAD WO CONTRAST CT HEAD INDICATION: SEVERE HEADACHE/HTN, PRIOR SENT COMPARISON: 08/19/2018 Exposure: One or more of the following individualized dose reduction techniques were utilized for this examination: 1. Automated exposure control 2. Adjustment of the mA and/or kV according to patient size 3. Use of iterative reconstruction technique TECHNIQUE: 5 mm contiguous axial images were obtained from the skull base to the vertex in both bone and soft tissue algorithm. FINDINGS: No abnormal attenuation within the brain parenchyma. No evidence of acute intracranial hemorrhage. No extra-axial fluid collections. No mass effect or midline shift. Ventricular size is appropriate. Basal cisterns are patent. No fractures identified.Pitts-white differentiation is preserved.Globes and orbits are within normal limits. Paranasal sinuses and mastoid air cells are clear. IMPRESSION: No acute intracranial findings. Electronically signed by: Miguel Barone MD (09/10/2018 5:45 PM) [facility] PROCEDURE: PORTABLE CHEST 1V EXAM: CHEST 1 VIEW History: Shortness of breath COMPARISON: 08/18/2018 TECHNIQUE: Single portable radiograph of the chest FINDINGS: The cardiac silhouette is unremarkable. The lungs are clear bilaterally. The costophrenic sulci are clear and well demarcated. IMPRESSION: No radiographic evidence of an acute cardiopulmonary process. Electronically signed by: Miguel Barone MD (09/10/2018 5:56 PM) [facility] PROCEDURE: CT ANGIOGRAPHY CHEST Examination: CT angiography chest with IV contrast HISTORY: Acute shortness of breath, upper back pain, elevated d-dimer COMPARISON: None available. TECHNIQUE: Axial CT angiographic images were performed with IV contrast. Coronal and sagittal 3-D MIP reformats are performed Exposure: One or more of the following individualized dose reduction techniques were utilized for this examination: 1. Automated exposure control 2. Adjustment of the mA and/or kV according to patient size 3. Use of iterative reconstruction technique FINDINGS: The central airways are patent. The heart size grossly appears unremarkable. The caliber of the aorta grossly appears unremarkable. Mild aortic atherosclerosis. There is no evidence of filling defect identified in the main pulmonary arterial trunk and right and left main pulmonary arteries and the visualized lobar, segmental branches of the pulmonary arteries. Faint groundglass airspace opacities identified in the bilateral lungs likely atelectasis or infiltrate. No evidence of pleural effusion or pneumothorax. The visualized liver, spleen, adrenals grossly appears unremarkable. No evidence of lytic bony destructive lesion. IMPRESSION: 1. No evidence of pulmonary embolism. 2. Faint diffuse patchy airspace groundglass airspace opacities identified in the bilateral lungs likely atelectasis or infiltrates. Follow-up to resolution. Electronically signed by: Miguel Barone MD (09/10/2018 7:22 PM) [facility] (PRIYA VERAS DO) Course & Med Decision Making Course & Med Decision Making Pertinent Labs and Imaging studies reviewed. (See chart for details) This is a 63-year-old female patient presenting to the ED today with multiple complaints. Patient states she was at the neurologist office and she had a headache and her blood pressure was high. She is also complaining of chronic cough. She is also complaining of pain she had between her shoulder blades yesterday. Patient arrives in the ED with a blood pressure of 203/93, heart rate in the 80s. Patient is in no distress. CT of the head is negative. CBC with a WBC of 12.6, CMP with no acute findings. D-dimer was 0.87, CTA chest was done which was noted for possible bilateral pneumonia. Patient was given labetalol in the ED. Blood pressure right now is 168/89, the headache as is much better, offered admission, she is requesting to be discharged. She was given prescription for Levaquin, prednisone and discharged to home. She has good follow-up. Continued to encourage her to consider smoking cessation. (EDDIE CORADO APRN) Dragon Disclaimer Dragon Disclaimer This electronic medical record was generated, in whole or in part, using a voice recognition dictation system. (EDDIE CORADO APRN) Departure Departure Impression: Primary Impression: COPD exacerbation Additional Impressions: Smoking addiction Community acquired pneumonia Hypertension Headache Disposition: HOME, SELF-CARE Condition: STABLE Referrals: RACHNA RODRIGUEZ APRN (PCP) follow up in 1-3 days SALMA SCHERER MD follow up in 1-3 days Patient Instructions: Chronic Obstructive Pulmonary Disease, Headache, FAQs, Pneumonia, Adult Additional Instructions: You evaluated in the emergency room, your CT of the head is negative. Ensure you are taking your blood pressure medications, consider smoking cessation. We sent you home with medication for COPD as well as antibiotics for pneumonia, ensure you complete them. Follow-up with your own doctor specifically primary care doctor and neurologist in the course of this week or next week. Scripts Hydrocodone/Apap 5-325 (NORCO 5-325 TABLET) 1 Each Tablet 1 TAB PO Q4-6HRS, #10 TAB Prov: EDDIE CORADO APRN 09/10/18 Levofloxacin (LEVAQUIN) 500 Mg Tablet 1 TAB PO DAILY, #7 TAB Prov: EDDIE CORADO APRN 09/10/18 Albuterol Sulfate (VENTOLIN HFA INHALER) 18 Gm Hfa.aer.ad 2 PUFF INH Q4HRS for FOR ASTHMA, #1 INHALER 0 Refills Prov: EDDIE CORADO APRN 09/10/18 Prednisone (PREDNISONE) 50 Mg Tablet 1 TAB PO DAILY, #5 TAB Prov: EDDIE CORADO APRN 09/10/18 Attending Signature Attending Signature I have reviewed the PA/TANK SYSTEMS MAINTAINER's note and plan of care. I was available for consultation as needed during the patient's visit in the emergency department. I agree with the clinical impression, plan, and disposition. (PRIYA VERAS DO) Problem Qualifiers Additional Impressions: Community acquired pneumonia Laterality: unspecified laterality Qualified Codes: J18.9 - Pneumonia, unspecified organism Hypertension Hypertension type: unspecified Qualified Codes: I10 - Essential (primary) hypertension Headache Headache type: unspecified Headache chronicity pattern: unspecified pattern Intractability: not intractable Qualified Codes: R51 - Headache EDDIE CORADO ENVIRONMENTAL RESTORATION PLANNER Sep 10, 2018 19:27 PRIYA VERAS DO Sep 27, 2018 15:43
[2018-09-10] MEDS ORDERED: PRED50TA PO (19:58)
[2018-09-10] MEDS ORDERED: VENTOLIN HFA18 GM INH (19:58)
[2018-09-10] MEDS ORDERED: LEVO500T59 PO (19:58)
[2018-09-10] MEDS ORDERED: MORPHINE SULFATE 10 MG/ML VIAL. IM ONE (20:00)
[2018-09-10] MEDS ORDERED: KETOROLAC 30 MG/ML VIAL. IV ONE (20:00)
[2018-09-10] MEDS ORDERED: HYDR-3164 PO (20:07)
--- NOTE | 2018-09-11 08:29 | EKG ---
[facility] [address] [place] [address] Test Date: 2018-09-10 Test Time: 17:28:15 Pat Name: SIM CERVANTES Department: Room: Gender: F Engraver Wood: : 1955 Requested By: EDDIE CORADO Order Number: [id number] Reading MD: Enrico Mendenhall MD Measurements Intervals [place] Rate: 86 P: 60 IA: 172 QRS: 44 QRSD: 78 T: 69 QT: 372 QTc: 448 Interpretive Statements SINUS RHYTHM Electronically Signed On 09-14-2018 15:52:38 CDT by Enrico Mendenhall MD
[2018-10-19] MEDS ORDERED: ALPR0.25 PO (14:56)
[2018-10-22] MEDS ORDERED: DICYCLOMINE HCL IM (13:43)
[2018-10-22] MEDS ORDERED: PHEN1SUP PR (13:43)
== END 2018-09-10 20:20 | disposition home or self-care (01) ==
LOC: ER 16:50
DX: J18.9 Pneumonia, unspecified organism (principal); I10 Essential (primary) hypertension; R51 Headache; J44.1 Chronic obstructive pulmonary disease with (acute) exacerbation; F17.200 Nicotine dependence, unspecified, uncomplicated; E78.00 Pure hypercholesterolemia, unspecified; E03.9 Hypothyroidism, unspecified; G89.29 Other chronic pain; M54.5 Low back pain; M54.6 Pain in thoracic spine
CPT/HCPCS: 36415; 70450; 71045; 71275; 80053; 80307; 81001; 82553; 83735; 83880; 84443; 84484; 85025; 85379; 93005; 94640; 96372; 96374; 96375; 96376; 99284; J1885; J2270; J2930; J3490; J7620

== ENCOUNTER 2018-10-23 22:52 | Inpatient (IN) | payer OTHER ==
[~2018-10-23] VITALS: Ht 152.4 cm; Wt 74.9 kg
[~2018-10-23 22:52] MED LIST changes: +ALPR0.25 PO; +DICYCLOMINE HCL IM; +LEVO500T59 PO; +PHEN1SUP PR; +PRED50TA PO
[2018-10-23] MEDS ORDERED: IV NORMAL SALINE 1000ML BAG 1,000 ML IV ONE (23:15)
[2018-10-24 00:14] LABS: BASO % 0 % (0-3); EOS # 0.1 x10^3/uL (0.0-0.7); EOS % 1 % (0-3); HEMATOCRIT 30.5 % (36.0-47.0); HEMOGLOBIN 9.9 g/dL (12.0-15.5); LYMPH # 1.5 x10^3/uL (1.0-4.8); LYMPH % 12 % (24-48); MEAN CORPUSCULAR HEMOGLOBIN 29 pg (25-35); MEAN CORPUSCULAR HGB CONC 33 g/dL (31-37); MEAN CORPUSCULAR VOLUME 90 fL (79-100); MONO # 0.9 x10^3/uL (0.0-1.1); MONO % 7 % (0-9); NEUT # 9.9 x10^3uL (1.8-7.7); NEUT % 80 % (31-73); PLATELET COUNT 298 x10^3/uL (140-400); RED BLOOD COUNT 3.39 x10^6/uL (3.50-5.40); RED CELL DISTRIBUTION WIDTH 16.8 % (11.5-14.5); WHITE BLOOD COUNT 12.4 x10^3/uL (4.0-11.0)
[2018-10-24 00:26] LABS: PROTHROMBIN TIME PATIENT 15.7 SEC (11.7-14.0)
[2018-10-24 00:31] LABS: ALBUMIN 2.2 g/dL (3.4-5.0); ALBUMIN/GLOBULIN RATIO 0.6 (1.0-1.7); CALCIUM 8.2 mg/dL (8.5-10.1); CREATININE 1.2 mg/dL (0.6-1.0); GFR 45.4; MAGNESIUM 1.7 mg/dL (1.8-2.4); TOTAL BILIRUBIN 0.3 mg/dL (0.2-1.0); TOTAL PROTEIN 5.8 g/dL (6.4-8.2)
[2018-10-24 00:33] LABS: POTASSIUM 2.8 mmol/L (3.5-5.1)
[2018-10-24] MEDS ORDERED: IOHEXOL 300 MG/ML 100ML VIAL. IV ONE (01:00)
[2018-10-24] MEDS ORDERED: CONTRAST GIVEN. MC PRN (01:00)
[2018-10-24] MEDS: POTASSIUM CHLORIDE 10MEQ 100 ML IV SCH ×9 (01:30→19:44)
--- NOTE | 2018-10-24 01:32 | PHYS DOC ---
Past Medical History Past Medical History: Anxiety, COPD, GERD, Hypertension Additional Past Medical Histor: Chronic back, chronic leg pain Past Surgical History: Hysterectomy Additional Information: 1\2 PPD x 32 Alcohol Use: None Drug Use: None Adult General Chief Complaint Chief Complaint: GI PROBLEM HPI HPI Patient is a 63 year old female who presents with abdominal pain and rectal prolapse. Patient states that 1 week ago she began to notice a bulging mass from her rectum. She went to her physician at that time who reduced it but it prolapsed again shortly after. She was admitted to [facility] yesterday, 10/22/18, and was seen by a medical professional today who sent her to the ED for concerns of small bowel obstruction. Patient has been having abdominal pain that is described as intermittent cramping most notable in the lower quadrants as well as watery stools that are minimal in volume. She has felt constipated for about a week. Patient denies nausea, vomiting, fever or chills. She recently completed a course of Azithromycin for COPD exacerbation. She wears 2L O2 at home and does not feel short of breath at this time. Review of Systems Review of Systems Constitutional: Denies fever or chills [] Eyes: Denies diplopia or blurred vision [] Respiratory: Denies cough or shortness of breath [] Cardiovascular: Denies chest pain or palpitations [] GI: Reports bulging mass per rectum, abdominal pain, cramping and small volume diarrhea and feeling constipated. Denies nausea, vomiting. [] : Denies dysuria or hematuria [] Integument: Denies rash or skin lesions [] Neurologic: Denies headache, focal weakness or sensory changes [] Complete review of systems found to be within normal limits, except as documented in this note. Current Medications Current Medications Current Medications Medications (Trade) Dose Ordered Sig/Rowdy Start Time Stop Time Status Last Admin Dose Admin Fentanyl Citrate (Fentanyl 2ml Vial) 50 mcg 1X ONCE 10/24/18 00:00 10/24/18 00:01 DC 10/24/18 00:29 50 MCG Info (CONTRAST GIVEN -- Rx MONITORING) 1 each PRN DAILY PRN 10/24/18 01:00 10/26/18 00:59 Iohexol (Omnipaque 300 Mg/ml) 60 ml 1X ONCE 10/24/18 01:00 10/24/18 01:01 DC 10/24/18 01:10 60 ML Sodium Chloride 1,000 ml @ 1,000 mls/hr 1X ONCE 10/23/18 23:15 10/24/18 00:14 DC 10/24/18 00:28 1,000 MLS/HR Allergies Allergies Allergies Coded Allergies Type Severity Reaction Last Updated Verified No Known Drug Allergies 12/09/17 No Physical Exam Physical Exam Constitutional: Obese, somnolent female in obvious pain. [] HENT: Normocephalic, atraumatic, oropharynx moist. [] Eyes: EOMI, conjunctiva normal, no discharge. [] Cardiovascular:Heart rate regular rhythm, no murmur [] Lungs & Thorax: Bilateral breath sounds clear to auscultation [] Abdomen: Protuberant and diffusely tender to palpation greatest in RLQ and LLQ, no peritoneal signs, prolapsed rectum with significant edema. [] Skin: Warm, dry, no erythema, no rash. [] Extremities: Radial pulses +2 b/l, cap refill < 2 seconds. [] Neurologic: Alert and oriented, no focal deficits noted. [] Psychologic: Affect normal, judgement normal, mood normal. [] Current Patient Data Vital Signs Vital Signs Date Time Temp Pulse Resp B/P (MAP) Pulse Ox O2 Delivery O2 Flow Rate FiO2 10/24/18 00:28 84 20 109/49 (69) 96 Nasal Cannula 5.0 10/23/18 23:11 97.6 97.6 Lab Values Laboratory Tests Test 10/24/18 00:06 White Blood Count 12.4 x10^3/uL (4.0-11.0) H Red Blood Count 3.39 x10^6/uL (3.50-5.40) L Hemoglobin 9.9 g/dL (12.0-15.5) L Hematocrit 30.5 % (36.0-47.0) L Mean Corpuscular Volume 90 fL (79-100) Mean Corpuscular Hemoglobin 29 pg (25-35) Mean Corpuscular Hemoglobin Concent 33 g/dL (31-37) Red Cell Distribution Width 16.8 % (11.5-14.5) H Platelet Count 298 x10^3/uL (140-400) Neutrophils (%) (Auto) 80 % (31-73) H Lymphocytes (%) (Auto) 12 % (24-48) L Monocytes (%) (Auto) 7 % (0-9) Eosinophils (%) (Auto) 1 % (0-3) Basophils (%) (Auto) 0 % (0-3) Neutrophils # (Auto) 9.9 x10^3uL (1.8-7.7) H Lymphocytes # (Auto) 1.5 x10^3/uL (1.0-4.8) Monocytes # (Auto) 0.9 x10^3/uL (0.0-1.1) Eosinophils # (Auto) 0.1 x10^3/uL (0.0-0.7) Basophils # (Auto) 0.0 x10^3/uL (0.0-0.2) Prothrombin Time 15.7 SEC (11.7-14.0) H Prothrombin Time INR 1.3 (0.8-1.1) H PTT 32 SEC (24-38) Sodium Level 134 mmol/L (136-145) L Potassium Level 2.8 mmol/L (3.5-5.1) *L Chloride Level 98 mmol/L (98-107) Carbon Dioxide Level 28 mmol/L (21-32) Anion Gap 8 (6-14) Blood Urea Nitrogen 12 mg/dL (7-20) Creatinine 1.2 mg/dL (0.6-1.0) H Estimated GFR (Cockcroft-Gault) 45.4 BUN/Creatinine Ratio 10 (6-20) Glucose Level 105 mg/dL (70-99) H Lactic Acid Level 0.8 mmol/L (0.4-2.0) Calcium Level 8.2 mg/dL (8.5-10.1) L Magnesium Level 1.7 mg/dL (1.8-2.4) L Total Bilirubin 0.3 mg/dL (0.2-1.0) Aspartate Amino Transferase (AST) 21 U/L (15-37) Alanine Aminotransferase (ALT) 20 U/L (14-59) Alkaline Phosphatase 117 U/L (46-116) H Total Protein 5.8 g/dL (6.4-8.2) L Albumin 2.2 g/dL (3.4-5.0) L Albumin/Globulin Ratio 0.6 (1.0-1.7) L Lipase 56 U/L (73-393) L Laboratory Tests 10/24/18 00:06 Laboratory Tests 10/24/18 00:06 EKG EKG [] Radiology/Procedures Radiology/Procedures PROCEDURE: CT CHEST ABD PELVIS W/CONTRAST PQRS Compliance Statement: One or more of the following individualized dose reduction techniques were utilized for this examination: 1. Automated exposure control 2. Adjustment of the mA and/or kV according to patient size 3. Use of iterative reconstruction technique CT CHEST ABD PELVIS W/CONTRAST Clinical Indication: Cough, lower abdominal pain. Comparison: CT abdomen and pelvis without contrast, October 14, 2018. CT chest with contrast September 10, 2018. Technique: Helical CT imaging of the chest, abdomen and pelvis is performed after 60 cc of Omnipaque 300 IV contrast. Oral contrast not given. Findings: There is a 10 mm left paratracheal lymph node that may be reactive. Great vessels normal caliber. Cardiac size normal, trace pericardial fluid. No pleural effusion. Central airways are patent. Mild respiratory motion artifact. Patchy groundglass opacities in the lungs are improved from prior study. There is new peribronchial thickening and mild linear consolidations in the left lung. There is more confluent groundglass opacity in the posterior right lower lobe. Liver, gallbladder, spleen, pancreas, adrenal glands, and abdominal aorta caliber are normal. There is mild to moderate bilateral hydroureteronephrosis likely secondary to marked distention of the urinary bladder. Stomach is not well distended. There is no dilated small bowel. The appendix is normal. Wall thickening of the mid transverse colon through the rectosigmoid junction is still present but is improved from prior study. Transverse colon proximal to the wall thickening is distended with air. There is pelvic floor laxity, more apparent than on prior study. Cannot exclude rectal prolapse, correlate with physical exam. Hysterectomy. No pelvic free fluid. Question old osteonecrosis of the femoral heads. There is no deformity. No acute bone abnormality. IMPRESSION: 1. Findings of colitis of the mid transverse colon through the rectosigmoid colon are still present but improved from prior study. 2. Pelvic floor laxity is more apparent than on prior study. Cannot exclude rectal prolapse, correlate with physical exam. 3. There is mild to moderate bilateral hydroureteronephrosis likely secondary to marked distention of the urinary bladder. Patient would likely benefit from Vila catheter. 4. Groundglass opacities in the bilateral lungs are still present but improved from prior study. There are new findings of bronchitis in the left lung. Electronically signed by: Reilly Ortega MD (10/24/2018 2:19 AM) [facility] Course & Med Decision Making Course & Med Decision Making Pertinent Labs and Imaging studies reviewed. (See chart for details) Patient is a 63 year old female who was brought to the ED for concerns of small bowel obstruction and rectal prolapse. Rectum was reduced in the ED via application of granulated sugar to the mucosa, however patient had a bowel movement immediately after which resulted in prolapse of the mucosa again. WBC 12.4, Hgb 9.9, PT 15.7, INR 1.3, K 2.8, Mg 1.7, and creatinine 1.2. Patient afebrile with stable vital signs. CT scan showed evidence of hydroureteronephrosis secondary to marked distension of urinary bladder as well as air-distended transverse colon. Vila catheter was inserted to drain the bladder and yielded 1900 mL of urine. Rectum was again reduced using sugar with success. Patient's pain addressed with interval improvement. Discussed with patient the benefit of being admitted as inpatient for further evaluation and treatment of her bowel obstruction, urinary retention and electrolyte abnormalities. Patient requiring admission for further evaluation and treatment. Discussed with Dr. Apple who is in agreement with admission. Discussed findings and plan with patient, who acknowledge understanding and agreement. [] Dragon Disclaimer Dragon Disclaimer This electronic medical record was generated, in whole or in part, using a voice recognition dictation system. Departure Departure Impression: Primary Impression: Bowel obstruction Additional Impressions: Rectal prolapse Urinary retention Hypokalemia Hypomagnesemia Disposition: ADMITTED INPATIENT Admitting Physician: Other (Forela) Condition: GUARDED Referrals: RACHNA RODRIGUEZ APRN (PCP) Problem Qualifiers Primary Impression: Bowel obstruction Intestinal obstruction type: other intestinal obstruction Intestinal obstruction extent: partial Qualified Codes: K56.690 - Other partial intestinal obstruction PRIYA VERAS DO October 24, 2018 01:32
[2018-10-24] MEDS ORDERED: DEXTROSE 50% 25 GM / 50ML DISP.SYRIN. IV PRN (01:45)
[2018-10-24] MEDS ORDERED: MAGNESIUM SULFATE 2GM 50 ML IV ONE (01:45)
[2018-10-24] MEDS ORDERED: ONDANSETRON PF 4 MG/2 ML VIAL. IV PRN (01:45)
[2018-10-24 01:52] LABS: BILIRUBIN,URINE NEGATIVE (NEG); CLARITY,URINE CLEAR; COLOR,URINE YELLOW; PH,URINE 6.5; PROTEIN,URINE NEGATIVE (NEG-TRACE); UROBILINOGEN,URINE 0.2 mg/dL (0.2 mg/dL)
[2018-10-24 02:00] LABS: NITRITE,URINE NEGATIVE (NEG); SQUAMOUS EPITHELIAL CELL,UR FEW /LPF
[2018-10-24 02:01] LABS: AMORPHOUS SEDIMENT,UR PRESENT /HPF; BACTERIA,URINE 0 /HPF (0-FEW); HYALINE CASTS, URINE FEW /HPF; RBC,URINE 0 /HPF (0-2); WBC,URINE OCC /HPF (0-4)
--- NOTE | 2018-10-24 02:22 | RAD ---
PQRS Compliance Statement: One or more of the following individualized dose reduction techniques were utilized for this examination: 1. Automated exposure control 2. Adjustment of the mA and/or kV according to patient size 3. Use of iterative reconstruction technique CT CHEST ABD PELVIS W/CONTRAST Clinical Indication: Cough, lower abdominal pain. Comparison: CT abdomen and pelvis without contrast, October 14, 2018. CT chest with contrast September 10, 2018. Technique: Helical CT imaging of the chest, abdomen and pelvis is performed after 60 cc of Omnipaque 300 IV contrast. Oral contrast not given. Findings: There is a 10 mm left paratracheal lymph node that may be reactive. Great vessels normal caliber. Cardiac size normal, trace pericardial fluid. No pleural effusion. Central airways are patent. Mild respiratory motion artifact. Patchy groundglass opacities in the lungs are improved from prior study. There is new peribronchial thickening and mild linear consolidations in the left lung. There is more confluent groundglass opacity in the posterior right lower lobe. Liver, gallbladder, spleen, pancreas, adrenal glands, and abdominal aorta caliber are normal. There is mild to moderate bilateral hydroureteronephrosis likely secondary to marked distention of the urinary bladder. Stomach is not well distended. There is no dilated small bowel. The appendix is normal. Wall thickening of the mid transverse colon through the rectosigmoid junction is still present but is improved from prior study. Transverse colon proximal to the wall thickening is distended with air. There is pelvic floor laxity, more apparent than on prior study. Cannot exclude rectal prolapse, correlate with physical exam. Hysterectomy. No pelvic free fluid. Question old osteonecrosis of the femoral heads. There is no deformity. No acute bone abnormality. IMPRESSION: 1. Findings of colitis of the mid transverse colon through the rectosigmoid colon are still present but improved from prior study. 2. Pelvic floor laxity is more apparent than on prior study. Cannot exclude rectal prolapse, correlate with physical exam. 3. There is mild to moderate bilateral hydroureteronephrosis likely secondary to marked distention of the urinary bladder. Patient would likely benefit from Vila catheter. 4. Groundglass opacities in the bilateral lungs are still present but improved from prior study. There are new findings of bronchitis in the left lung. Electronically signed by: Reilly Ortega MD (10/24/2018 2:19 AM) [facility]
[2018-10-24 03:11] VITALS: BP 117/52
[2018-10-24] MEDS ORDERED: fentaNYL PF VIAL 100 MCG/2 ML VIAL IV ONE ×2 (03:15)
[2018-10-24 07:00] VITALS: BP 103/63
[2018-10-24] MEDS: INSULIN LISPRO 300 UNITS/3 ML INSULN.PEN. SQ SCH ×3 (08:00→17:00)
[2018-10-24] MEDS ORDERED: C.DIFF MED SCREEN BY RX. MC ONE (09:00)
--- NOTE | 2018-10-24 09:49 | PDOC2 ---
CONSULT Date of Consult Date of Consult DATE: 10/24/18 TIME: 09:44 Reason for Consult Reason for Consult: rectal prolapse Referring Physician Referring Physician: Dr Apple Identification/Chief Complaint Chief Complaint rectal pain Source Source: Chart review, Patient History of Present Illness Reason for Visit: Sara is a 63 yo lady who was just released from [facility] two days ago. She went a skilled facility but returned to the hospital after a reported episode of rectal prolapse. Past Medical History Cardiovascular: HTN Pulmonary: COPD GI: Inflam bowel disease Psych: Anxiety, Depression Musculoskeletal: low back pain Renal/: No pertinent hx Endocrine: No pertinent hx Past Surgical History Past Surgical History: Hysterectomy Family History Family History: Family History Unknown Social History ALCOHOL: none Drugs: None Current Problem List Problem List Problems Medical Problems: (1) Bowel obstruction Status: Acute (2) Hypokalemia Status: Acute (3) Hypomagnesemia Status: Acute (4) Urinary retention Status: Acute Current Medications Current Medications Current Medications Sodium Chloride 1,000 ml @ 1,000 mls/hr 1X ONCE IV Last administered on 10/24/18at 00:28; Start 10/23/18 at 23:15; Stop 10/24/18 at 00:14; Status DC Fentanyl Citrate (Fentanyl 2ml Vial) 50 mcg 1X ONCE IV Last administered on 10/24/18at 00:29; Start 10/24/18 at 00:00; Stop 10/24/18 at 00:01; Status DC Iohexol (Omnipaque 300 Mg/ml) 60 ml 1X ONCE IV Last administered on 10/24/18at 01:10; Start 10/24/18 at 01:00; Stop 10/24/18 at 01:01; Status DC Info (CONTRAST GIVEN -- Rx MONITORING) 1 each PRN DAILY PRN MC SEE COMMENTS; Start 10/24/18 at 01:00; Stop 10/26/18 at 00:59 Magnesium Sulfate 50 ml @ 25 mls/hr 1X ONCE IV Last administered on 10/24/18at 01:30; Start 10/24/18 at 01:45; Stop 10/24/18 at 03:44; Status DC Potassium Chloride/Water 100 ml @ 100 mls/hr Q1H IV Last administered on 10/24/18at 06:46; Start 10/24/18 at 01:30; Stop 10/24/18 at 05:29; Status DC Ondansetron HCl (Zofran) 4 mg PRN Q8HRS PRN IV NAUSEA/VOMITING; Start 10/24/18 at 01:45; Stop 10/25/18 at 01:44 Fentanyl Citrate (Fentanyl 2ml Vial) 50 mcg PRN Q2HR PRN IV PAIN; Start 10/24/18 at 01:45 Insulin Human Lispro (HumaLOG) 0-5 UNITS TIDWMEALS SQ ; Start 10/24/18 at 08:00 Dextrose (Dextrose 50%-Water Syringe) 12.5 gm PRN Q15MIN PRN IV SEE COMMENTS; Start 10/24/18 at 01:45 Fentanyl Citrate (Fentanyl 2ml Vial) 50 mcg 1X ONCE IV Last administered on 10/24/18at 05:53; Start 10/24/18 at 03:15; Stop 10/24/18 at 03:35; Status DC Pharmacy Consult (C.diff Med Screen By Rx) 1 each 1X ONCE MC ; Start 10/24/18 at 09:00; Stop 10/24/18 at 09:01; Status DC Active Scripts Active Alejandra-Med (Phenylephrine Hcl) 1 Each Supp.rect 1 Supp OK PRN Q12HR PRN 7 Days [Dicyclomine Hcl] 10 MG/1 ML Ampul 10 Mg IM PRN QID PRN 7 Days [place] 5-325 Tablet (Acetaminophen/Hydrocodone Bitart) 1 Each Tablet 1 Tab PO Q4- 6HRS Ventolin Hfa Inhaler (Albuterol Sulfate) 18 Gm Hfa.aer.ad 2 Puff INH Q4HRS Percocet 5-325 mg Tablet (Oxycodone HCl/Acetaminophen) 1 Each Tablet 1 Each PO Q6HRS PRN Ultram (Tramadol Hcl) 50 Mg Tablet 50 Mg PO Q6HRS PRN Reported Xanax (Alprazolam) 0.25 Mg Tablet 1 Tab PO BID PRN Cyclobenzaprine Hcl 10 Mg Tablet 1 Tab PO TID Seroquel (Quetiapine Fumarate) 300 Mg Tablet 2 Tab PO QHS Ambien (Zolpidem Tartrate) 5 Mg Tablet 5 Mg PO PRN QHS PRN Gabapentin (Gabapentin) 100 Mg Capsule 100 Mg PO BID Synthroid (Levothyroxine Sodium) 125 Mcg Tablet 1 Tab PO DAILY Paroxetine Hcl 40 Mg Tablet 1 Tab PO DAILY Losartan Potassium 50 Mg Tablet 50 Mg PO DAILY Verapamil Er (Verapamil Hcl) 240 Mg Cap24h.pel 1 Cap PO DAILY Allergies Allergies: Coded Allergies: No Known Drug Allergies (Unverified , 12/09/17) ROS Gastrointestinal: Yes Abdominal Pain, Yes Diarrhea Physical Exam General: Alert, No acute distress HEENT: Atraumatic Lungs: Normal air movement Heart: Regular rate Abdomen: Soft, Other (moderate size liquid brown stool in bed, no evidence of prolapse at present) Vitals VITALS Vital Signs Date Time Temp Pulse Resp B/P (MAP) Pulse Ox O2 Delivery O2 Flow Rate FiO2 10/24/18 05:53 20 Nasal Cannula 4.0 10/24/18 03:11 97.9 78 117/52 (73) 96 97.9 Labs Labs Laboratory Tests Test 10/24/18 00:06 10/24/18 01:43 10/24/18 05:52 White Blood Count 12.4 x10^3/uL (4.0-11.0) Red Blood Count 3.39 x10^6/uL (3.50-5.40) Hemoglobin 9.9 g/dL (12.0-15.5) Hematocrit 30.5 % (36.0-47.0) Mean Corpuscular Volume 90 fL (79-100) Mean Corpuscular Hemoglobin 29 pg (25-35) Mean Corpuscular Hemoglobin Concent 33 g/dL (31-37) Red Cell Distribution Width 16.8 % (11.5-14.5) Platelet Count 298 x10^3/uL (140-400) Neutrophils (%) (Auto) 80 % (31-73) Lymphocytes (%) (Auto) 12 % (24-48) Monocytes (%) (Auto) 7 % (0-9) Eosinophils (%) (Auto) 1 % (0-3) Basophils (%) (Auto) 0 % (0-3) Neutrophils # (Auto) 9.9 x10^3uL (1.8-7.7) Lymphocytes # (Auto) 1.5 x10^3/uL (1.0-4.8) Monocytes # (Auto) 0.9 x10^3/uL (0.0-1.1) Eosinophils # (Auto) 0.1 x10^3/uL (0.0-0.7) Basophils # (Auto) 0.0 x10^3/uL (0.0-0.2) Prothrombin Time 15.7 SEC (11.7-14.0) Prothromb Time International Ratio 1.3 (0.8-1.1) Activated Partial Thromboplast Time 32 SEC (24-38) Sodium Level 134 mmol/L (136-145) Potassium Level 2.8 mmol/L (3.5-5.1) Chloride Level 98 mmol/L (98-107) Carbon Dioxide Level 28 mmol/L (21-32) Anion Gap 8 (6-14) Blood Urea Nitrogen 12 mg/dL (7-20) Creatinine 1.2 mg/dL (0.6-1.0) Estimated GFR (Cockcroft-Gault) 45.4 BUN/Creatinine Ratio 10 (6-20) Glucose Level 105 mg/dL (70-99) Lactic Acid Level 0.8 mmol/L (0.4-2.0) Calcium Level 8.2 mg/dL (8.5-10.1) Magnesium Level 1.7 mg/dL (1.8-2.4) Total Bilirubin 0.3 mg/dL (0.2-1.0) Aspartate Amino Transf (AST/SGOT) 21 U/L (15-37) Alanine Aminotransferase (ALT/SGPT) 20 U/L (14-59) Alkaline Phosphatase 117 U/L (46-116) Total Protein 5.8 g/dL (6.4-8.2) Albumin 2.2 g/dL (3.4-5.0) Albumin/Globulin Ratio 0.6 (1.0-1.7) Lipase 56 U/L (73-393) Urine Collection Type Unknown Urine Color Yellow Urine Clarity Clear Urine pH 6.5 Urine Specific [place] 1.010 Urine Protein Negative mg/dL (NEG-TRACE) Urine Glucose (UA) Negative mg/dL (NEG) Urine Ketones (Stick) Negative mg/dL (NEG) Urine Blood Negative (NEG) Urine Nitrite Negative (NEG) Urine Bilirubin Negative (NEG) Urine Urobilinogen Dipstick 0.2 mg/dL (0.2 mg/dL) Urine Leukocyte Esterase Negative (NEG) Urine RBC 0 /HPF (0-2) Urine WBC Occ /HPF (0-4) Urine Squamous Epithelial Cells Few /LPF Urine Amorphous Sediment Present /HPF Urine Bacteria 0 /HPF (0-FEW) Urine Hyaline Casts Few /HPF Urine Mucus Slight /LPF Glucose (Fingerstick) 95 mg/dL (70-99) Laboratory Tests Test 10/24/18 00:06 10/24/18 01:43 10/24/18 05:52 White Blood Count 12.4 x10^3/uL (4.0-11.0) Red Blood Count 3.39 x10^6/uL (3.50-5.40) Hemoglobin 9.9 g/dL (12.0-15.5) Hematocrit 30.5 % (36.0-47.0) Mean Corpuscular Volume 90 fL (79-100) Mean Corpuscular Hemoglobin 29 pg (25-35) Mean Corpuscular Hemoglobin Concent 33 g/dL (31-37) Red Cell Distribution Width 16.8 % (11.5-14.5) Platelet Count 298 x10^3/uL (140-400) Neutrophils (%) (Auto) 80 % (31-73) Lymphocytes (%) (Auto) 12 % (24-48) Monocytes (%) (Auto) 7 % (0-9) Eosinophils (%) (Auto) 1 % (0-3) Basophils (%) (Auto) 0 % (0-3) Neutrophils # (Auto) 9.9 x10^3uL (1.8-7.7) Lymphocytes # (Auto) 1.5 x10^3/uL (1.0-4.8) Monocytes # (Auto) 0.9 x10^3/uL (0.0-1.1) Eosinophils # (Auto) 0.1 x10^3/uL (0.0-0.7) Basophils # (Auto) 0.0 x10^3/uL (0.0-0.2) Prothrombin Time 15.7 SEC (11.7-14.0) Prothromb Time International Ratio 1.3 (0.8-1.1) Activated Partial Thromboplast Time 32 SEC (24-38) Sodium Level 134 mmol/L (136-145) Potassium Level 2.8 mmol/L (3.5-5.1) Chloride Level 98 mmol/L (98-107) Carbon Dioxide Level 28 mmol/L (21-32) Anion Gap 8 (6-14) Blood Urea Nitrogen 12 mg/dL (7-20) Creatinine 1.2 mg/dL (0.6-1.0) Estimated GFR (Cockcroft-Gault) 45.4 BUN/Creatinine Ratio 10 (6-20) Glucose Level 105 mg/dL (70-99) Lactic Acid Level 0.8 mmol/L (0.4-2.0) Calcium Level 8.2 mg/dL (8.5-10.1) Magnesium Level 1.7 mg/dL (1.8-2.4) Total Bilirubin 0.3 mg/dL (0.2-1.0) Aspartate Amino Transf (AST/SGOT) 21 U/L (15-37) Alanine Aminotransferase (ALT/SGPT) 20 U/L (14-59) Alkaline Phosphatase 117 U/L (46-116) Total Protein 5.8 g/dL (6.4-8.2) Albumin 2.2 g/dL (3.4-5.0) Albumin/Globulin Ratio 0.6 (1.0-1.7) Lipase 56 U/L (73-393) Urine Collection Type Unknown Urine Color Yellow Urine Clarity Clear Urine pH 6.5 Urine Specific [place] 1.010 Urine Protein Negative mg/dL (NEG-TRACE) Urine Glucose (UA) Negative mg/dL (NEG) Urine Ketones (Stick) Negative mg/dL (NEG) Urine Blood Negative (NEG) Urine Nitrite Negative (NEG) Urine Bilirubin Negative (NEG) Urine Urobilinogen Dipstick 0.2 mg/dL (0.2 mg/dL) Urine Leukocyte Esterase Negative (NEG) Urine RBC 0 /HPF (0-2) Urine WBC Occ /HPF (0-4) Urine Squamous Epithelial Cells Few /LPF Urine Amorphous Sediment Present /HPF Urine Bacteria 0 /HPF (0-FEW) Urine Hyaline Casts Few /HPF Urine Mucus Slight /LPF Glucose (Fingerstick) 95 mg/dL (70-99) Images Images CT abd/pelvis done on admission is reviewed Assessment/Plan Assessment/Plan recent bout of colitis rectal prolapse diarrhea clears, stool studies, supportive care will follow Thanks for consult SHANKAR BANDA MD October 24, 2018 09:49
[2018-10-24] MEDS: fentaNYL PF VIAL 100 MCG/2 ML VIAL IV PRN ×2 (10:20→13:34)
[2018-10-24 11:00] VITALS: BP 123/66
[2018-10-24] MEDS ORDERED: ZOLPIDEM 5 MG TABLET. PO PRN (14:15)
[2018-10-24] MEDS ORDERED: PHENYLEPHRINE SUPP.RECT. PR PRN (14:45)
[2018-10-24] MEDS ORDERED: DICYCLOMINE 20 MG/2 ML AMPUL. IM PRN (14:45)
[2018-10-24] MEDS: PARoxetine 20 MG TABLET PO SCH (14:54)
[2018-10-24] MEDS: HYDROcodone/APAP 5/325MG 1 TAB TABLET PO PRN (14:54)
[2018-10-24] MEDS: LEVOTHYROXINE 125 MCG TABLET PO SCH (14:54)
[2018-10-24] MEDS: CHOLESTYRAMINE/ASPARTAME 4 GM PACKET PO SCH ×2 (14:55→21:28)
[2018-10-24] MEDS: MORPHINE SULFATE 4 MG/ML VIAL. IV PRN ×2 (14:55→21:32)
[2018-10-24 14:58] VITALS: BP 102/40
[2018-10-24] MEDS: VERAPAMIL SR 120 MG TABLET.ER. PO SCH (15:00)
[2018-10-24] MEDS: LOSARTAN POTASSIUM 50 MG TABLET. PO SCH (15:00)
[2018-10-24] MEDS ORDERED: ALBUTEROL SULFATE 2.5 MG/3 ML NEBU. NEB SCH (16:00)
[2018-10-24] MEDS ORDERED: ALBUTEROL SULFATE 2.5 MG/3 ML NEBU. NEB PRN (18:30)
--- NOTE | 2018-10-24 18:49 | PDOC1 ---
History and Physical Date of Admission Date of Admission 10/24/2018 Identification/Chief Complaint Chief Complaint Abdominal pain Problems: (1) Bowel obstruction (2) Urinary retention History of Present Illness History of Present Illness Patient is 64-year-old female who was dismissed today's prior to this admission after having a prolonged hospital stay due to abdominal pain rectal prolapse acute kidney injury secondary to prerenal also female which was improved she also had diarrhea which was not infectious in nature initially thought to have a colitis and was treated with antibiotics but they were stopped prior to her recent dismissal. She was transitioned to a rehabilitation facility where she was sent back due to severe abdominal pain. The patient was evaluated in the emergency department found to have a urinary retention of approximately 1900 mL in the gallbladder. Imaging studies were reported as a consequence as a possible small bowel obstruction reason why it was decided the patient all to be admitted for further evaluation treatment. The time my evaluation this morning patient is status post Vila catheter evacuation of her bladder. The patient continues to have similar abdominal pain as what she described on her previous medical admission. Patient continues to have diarrhea and of course had unfortunately rectum prolapsed again which was treated in the emergency department with local care. Due to her deconditioning the patient is quite frail. The patient denies fever chills no cough sputum production no neurological deficits were voiced. She describes her pain as a crampy sensation 10 out of 10 intensity no radiation to the groin no urinary symptoms associated. She has associated diarrhea with the abdominal pain no foul smell no evidence of blood either. She will be admitted for further evaluation and treatment. Surgical evaluation has been requested nevertheless during her last hospital stay she was not deemed inappropriate candidate for any sort of rectal procedure due to the ongoing diarrhea. Past Medical History Cardiovascular: HTN Pulmonary: COPD GI: Inflam bowel disease Psych: Anxiety, Depression Renal/: No pertinent hx Endocrine: No pertinent hx Past Surgical History Past Surgical History: Hysterectomy Family History Family History: Family History Unknown Social History ALCOHOL: none Drugs: None Current Problem List Problem List Problems Medical Problems: (1) Bowel obstruction Status: Acute (2) Hypokalemia Status: Acute (3) Hypomagnesemia Status: Acute (4) Urinary retention Status: Acute Current Medications Current Medications Current Medications Medications (Trade) Dose Ordered Sig/Rowdy Start Time Stop Time Status Last Admin Dose Admin Acetaminophen/ Hydrocodone Bitart (Lortab 5/325) 1 tab PRN Q6HRS PRN 10/24/18 14:15 10/24/18 14:54 1 TAB Albuterol Sulfate (Ventolin Neb Soln) 2.5 mg PRN Q4HRS PRN 10/24/18 18:30 Alprazolam (Xanax) 0.25 mg PRN BID PRN 10/24/18 14:15 Cholestyramine Resin (Questran Light) 4 gm Q6H 10/24/18 14:15 10/24/18 14:55 4 GM Cyclobenzaprine HCl (Flexeril) 10 mg TID 10/24/18 21:00 Dextrose (Dextrose 50%-Water Syringe) 12.5 gm PRN Q15MIN PRN 10/24/18 01:45 Dicyclomine HCl (Bentyl) 10 mg PRN QID PRN 10/24/18 14:45 Fentanyl Citrate (Fentanyl 2ml Vial) 50 mcg 1X ONCE 10/24/18 03:15 10/24/18 03:35 DC 10/24/18 05:53 50 MCG Gabapentin (Neurontin) 100 mg BID 10/24/18 21:00 Info (CONTRAST GIVEN -- Rx MONITORING) 1 each PRN DAILY PRN 10/24/18 01:00 10/26/18 00:59 Insulin Human Lispro (HumaLOG) 0-5 UNITS TIDWMEALS 10/24/18 08:00 Iohexol (Omnipaque 300 Mg/ml) 60 ml 1X ONCE 10/24/18 01:00 10/24/18 01:01 DC 10/24/18 01:10 60 ML Levothyroxine Sodium (Synthroid) 125 mcg DAILY06 10/24/18 15:00 10/24/18 14:54 125 MCG Loperamide HCl (Imodium) 2 mg PRN Q15MIN PRN 10/24/18 14:15 Losartan Potassium (Cozaar) 50 mg DAILY 10/24/18 15:00 Magnesium Sulfate 50 ml @ 25 mls/hr 1X ONCE 10/24/18 01:45 10/24/18 03:44 DC 10/24/18 01:30 25 MLS/HR Morphine Sulfate (Morphine Sulfate) 4 mg PRN Q2HR PRN 10/24/18 14:15 10/24/18 14:55 4 MG Ondansetron HCl (Zofran) 4 mg PRN Q8HRS PRN 10/24/18 01:45 10/25/18 01:44 Oxycodone/ Acetaminophen (Percocet 5/325) 1 tab PRN Q6HRS PRN 10/24/18 14:15 Paroxetine HCl (Paxil) 40 mg DAILY 10/24/18 15:00 10/24/18 14:54 40 MG Pharmacy Consult (C.diff Med Screen By Rx) 1 each 1X ONCE 10/24/18 09:00 10/24/18 09:01 DC 10/24/18 09:00 1 EACH Phenylephrine HCl (Hemorrhoidal) 1 supp PRN Q12HR PRN 10/24/18 14:45 Potassium Chloride/Water 100 ml @ 100 mls/hr Q1H 10/24/18 14:30 10/24/18 20:29 10/24/18 17:51 100 MLS/HR Quetiapine Fumarate (SEROquel) 600 mg QHS 10/24/18 21:00 Sodium Chloride 1,000 ml @ 1,000 mls/hr 1X ONCE 10/23/18 23:15 10/24/18 00:14 DC 10/24/18 00:28 1,000 MLS/HR Verapamil HCl (Calan Sr) 240 mg DAILY 10/24/18 15:00 Zolpidem Tartrate (Ambien) 5 mg PRN QHS PRN 10/24/18 14:15 Allergies Allergies Allergies Coded Allergies Type Severity Reaction Last Updated Verified No Known Drug Allergies 12/09/17 No ROS Review of System CONSTITUTIONAL: No fever or chills EYES: No recent changes SKIN: No rash or itching CARDIOVASCULAR: No chest pain, syncope, palpitations, or edema RESPIRATORY: No SOB or cough GASTROINTESTINAL: No nausea, vomiting or abdominal pain NEUROLOGICAL: No headaches or weakness ENDOCRINE: No cold or heat intolerance GENITOURINARY: No urgency or frequency of urination MUSCULOSKELETAL: No back pain or joint pain LYMPHATICS: No enlarged lymph nodes PSYCHIATRIC: No anxiety or depression Physical Exam Physical Exam Gen.: Chronically ill-appearing in apparent distress due to her symptoms Head: Normal shape atraumatic Eyes: Pupils equal reactive to light and accommodation, normal conjunctivae and lids Ears: Normal shape Nose: Normal shape no trauma Mouth: No exudates of the back of throat no thrush no lesions Neck: Supple no JVD no carotid bruit or lymphadenopathy no thyromegaly Chest: Lungs clear to auscultation with good inspiratory effort no crackles rales or rhonchi Cardiovascular: S1-S2 regular rhythm no murmurs gallops or rubs Abdomen: Bowel sounds present soft tender to deep palpation no hepatosplenomegaly appreciated sign Extremities: No clubbing no cyanosis no edema peripheral pulses palpated bilaterally Neurological: Alert awake oriented in person time place and situation, cranial nerves II through XII intact, no motor or sensory deficits appreciated Psych: Appropriate mood, cooperative Vitals Vitals Vital Signs Date Time Temp Pulse Resp B/P (MAP) Pulse Ox O2 Delivery O2 Flow Rate FiO2 10/24/18 15:00 102/40 10/24/18 14:58 98.0 85 16 93 Nasal Cannula 2.0 98.0 Labs Labs Laboratory Tests Test 10/24/18 00:06 10/24/18 01:43 10/24/18 03:48 10/24/18 05:52 White Blood Count 12.4 x10^3/uL (4.0-11.0) Red Blood Count 3.39 x10^6/uL (3.50-5.40) Hemoglobin 9.9 g/dL (12.0-15.5) Hematocrit 30.5 % (36.0-47.0) Mean Corpuscular Volume 90 fL (79-100) Mean Corpuscular Hemoglobin 29 pg (25-35) Mean Corpuscular Hemoglobin Concent 33 g/dL (31-37) Red Cell Distribution Width 16.8 % (11.5-14.5) Platelet Count 298 x10^3/uL (140-400) Neutrophils (%) (Auto) 80 % (31-73) Lymphocytes (%) (Auto) 12 % (24-48) Monocytes (%) (Auto) 7 % (0-9) Eosinophils (%) (Auto) 1 % (0-3) Basophils (%) (Auto) 0 % (0-3) Neutrophils # (Auto) 9.9 x10^3uL (1.8-7.7) Lymphocytes # (Auto) 1.5 x10^3/uL (1.0-4.8) Monocytes # (Auto) 0.9 x10^3/uL (0.0-1.1) Eosinophils # (Auto) 0.1 x10^3/uL (0.0-0.7) Basophils # (Auto) 0.0 x10^3/uL (0.0-0.2) Prothrombin Time 15.7 SEC (11.7-14.0) Prothromb Time International Ratio 1.3 (0.8-1.1) Activated Partial Thromboplast Time 32 SEC (24-38) Sodium Level 134 mmol/L (136-145) Potassium Level 2.8 mmol/L (3.5-5.1) Chloride Level 98 mmol/L (98-107) Carbon Dioxide Level 28 mmol/L (21-32) Anion Gap 8 (6-14) Blood Urea Nitrogen 12 mg/dL (7-20) Creatinine 1.2 mg/dL (0.6-1.0) Estimated GFR (Cockcroft-Gault) 45.4 BUN/Creatinine Ratio 10 (6-20) Glucose Level 105 mg/dL (70-99) Lactic Acid Level 0.8 mmol/L (0.4-2.0) Calcium Level 8.2 mg/dL (8.5-10.1) Magnesium Level 1.7 mg/dL (1.8-2.4) Total Bilirubin 0.3 mg/dL (0.2-1.0) Aspartate Amino Transf (AST/SGOT) 21 U/L (15-37) Alanine Aminotransferase (ALT/SGPT) 20 U/L (14-59) Alkaline Phosphatase 117 U/L (46-116) Total Protein 5.8 g/dL (6.4-8.2) Albumin 2.2 g/dL (3.4-5.0) Albumin/Globulin Ratio 0.6 (1.0-1.7) Lipase 56 U/L (73-393) Urine Collection Type Unknown Urine Color Yellow Urine Clarity Clear Urine pH 6.5 Urine Specific [place] 1.010 Urine Protein Negative mg/dL (NEG-TRACE) Urine Glucose (UA) Negative mg/dL (NEG) Urine Ketones (Stick) Negative mg/dL (NEG) Urine Blood Negative (NEG) Urine Nitrite Negative (NEG) Urine Bilirubin Negative (NEG) Urine Urobilinogen Dipstick 0.2 mg/dL (0.2 mg/dL) Urine Leukocyte Esterase Negative (NEG) Urine RBC 0 /HPF (0-2) Urine WBC Occ /HPF (0-4) Urine Squamous Epithelial Cells Few /LPF Urine Amorphous Sediment Present /HPF Urine Bacteria 0 /HPF (0-FEW) Urine Hyaline Casts Few /HPF Urine Mucus Slight /LPF Nasal Screen MRSA (PCR) Negative (Negative) Glucose (Fingerstick) 95 mg/dL (70-99) Laboratory Tests Test 10/24/18 00:06 10/24/18 01:43 10/24/18 03:48 10/24/18 05:52 White Blood Count 12.4 x10^3/uL (4.0-11.0) Red Blood Count 3.39 x10^6/uL (3.50-5.40) Hemoglobin 9.9 g/dL (12.0-15.5) Hematocrit 30.5 % (36.0-47.0) Mean Corpuscular Volume 90 fL (79-100) Mean Corpuscular Hemoglobin 29 pg (25-35) Mean Corpuscular Hemoglobin Concent 33 g/dL (31-37) Red Cell Distribution Width 16.8 % (11.5-14.5) Platelet Count 298 x10^3/uL (140-400) Neutrophils (%) (Auto) 80 % (31-73) Lymphocytes (%) (Auto) 12 % (24-48) Monocytes (%) (Auto) 7 % (0-9) Eosinophils (%) (Auto) 1 % (0-3) Basophils (%) (Auto) 0 % (0-3) Neutrophils # (Auto) 9.9 x10^3uL (1.8-7.7) Lymphocytes # (Auto) 1.5 x10^3/uL (1.0-4.8) Monocytes # (Auto) 0.9 x10^3/uL (0.0-1.1) Eosinophils # (Auto) 0.1 x10^3/uL (0.0-0.7) Basophils # (Auto) 0.0 x10^3/uL (0.0-0.2) Prothrombin Time 15.7 SEC (11.7-14.0) Prothromb Time International Ratio 1.3 (0.8-1.1) Activated Partial Thromboplast Time 32 SEC (24-38) Sodium Level 134 mmol/L (136-145) Potassium Level 2.8 mmol/L (3.5-5.1) Chloride Level 98 mmol/L (98-107) Carbon Dioxide Level 28 mmol/L (21-32) Anion Gap 8 (6-14) Blood Urea Nitrogen 12 mg/dL (7-20) Creatinine 1.2 mg/dL (0.6-1.0) Estimated GFR (Cockcroft-Gault) 45.4 BUN/Creatinine Ratio 10 (6-20) Glucose Level 105 mg/dL (70-99) Lactic Acid Level 0.8 mmol/L (0.4-2.0) Calcium Level 8.2 mg/dL (8.5-10.1) Magnesium Level 1.7 mg/dL (1.8-2.4) Total Bilirubin 0.3 mg/dL (0.2-1.0) Aspartate Amino Transf (AST/SGOT) 21 U/L (15-37) Alanine Aminotransferase (ALT/SGPT) 20 U/L (14-59) Alkaline Phosphatase 117 U/L (46-116) Total Protein 5.8 g/dL (6.4-8.2) Albumin 2.2 g/dL (3.4-5.0) Albumin/Globulin Ratio 0.6 (1.0-1.7) Lipase 56 U/L (73-393) Urine Collection Type Unknown Urine Color Yellow Urine Clarity Clear Urine pH 6.5 Urine Specific [place] 1.010 Urine Protein Negative mg/dL (NEG-TRACE) Urine Glucose (UA) Negative mg/dL (NEG) Urine Ketones (Stick) Negative mg/dL (NEG) Urine Blood Negative (NEG) Urine Nitrite Negative (NEG) Urine Bilirubin Negative (NEG) Urine Urobilinogen Dipstick 0.2 mg/dL (0.2 mg/dL) Urine Leukocyte Esterase Negative (NEG) Urine RBC 0 /HPF (0-2) Urine WBC Occ /HPF (0-4) Urine Squamous Epithelial Cells Few /LPF Urine Amorphous Sediment Present /HPF Urine Bacteria 0 /HPF (0-FEW) Urine Hyaline Casts Few /HPF Urine Mucus Slight /LPF Nasal Screen MRSA (PCR) Negative (Negative) Glucose (Fingerstick) 95 mg/dL (70-99) VTE Prophylaxis Ordered VTE Prophylaxis Devices: Yes VTE Pharmacological Prophylaxi: Yes Assessment/Plan Assessment/Plan SBO? Urinary retention status post Vila catheter placement Noninfectious diarrhea Moderate dehydration Leukocytosis secondary to most likely the above Severe hypokalemia Hyponatremia Plan We'll start loperamide and Questran try to control the diarrhea IV fluid resuscitation Will resume her home medications Labs in the a.m. Further recommendations based on the clinical course We'll address pain management DVT prophylaxis with SCD and teds Problem Qualifiers (1) Bowel obstruction: Intestinal obstruction type: other intestinal obstruction Intestinal obstruction extent: partial Qualified Codes: K56.690 - Other partial inte stinal obstruction MARY MONAE MD October 24, 2018 18:49
[2018-10-24 19:00] VITALS: BP 118/54
[2018-10-24] MEDS: oxyCODONE/APAP 5/325 1 TAB TABLET PO PRN (19:43)
[2018-10-24] MEDS: IV RINGERS,LACTATED 1000ML 1,000 ML IV SCH (19:44)
[2018-10-24] MEDS: CYCLOBENZAPRINE 10 MG TABLET. PO SCH (21:28)
[2018-10-24] MEDS: GABAPENTIN 100 MG CAPSULE. PO SCH (21:28)
[2018-10-24] MEDS: QUEtiapine 100 MG TABLET. PO SCH (21:28)
[2018-10-24] MEDS: ALPRAZolam 0.25 MG TABLET PO PRN (21:31)
[2018-10-24 23:00] VITALS: BP 126/58
[2018-10-25] MEDS: POTASSIUM CHLORIDE 10MEQ 100 ML IV SCH ×2 (01:13→02:51)
[2018-10-25] MEDS: CHOLESTYRAMINE/ASPARTAME 4 GM PACKET PO SCH ×4 (02:15→20:33)
[2018-10-25 03:00] VITALS: BP 137/63
[2018-10-25] MEDS: LEVOTHYROXINE 125 MCG TABLET PO SCH (04:31)
[2018-10-25] MEDS: oxyCODONE/APAP 5/325 1 TAB TABLET PO PRN ×2 (04:31→13:40)
[2018-10-25] MEDS: IV RINGERS,LACTATED 1000ML 1,000 ML IV SCH ×2 (04:31→17:11)
[2018-10-25 05:08] LABS: BASO % 0 % (0-3); EOS # 0.1 x10^3/uL (0.0-0.7); EOS % 1 % (0-3); HEMATOCRIT 31.1 % (36.0-47.0); HEMOGLOBIN 10.4 g/dL (12.0-15.5); LYMPH # 0.9 x10^3/uL (1.0-4.8); LYMPH % 9 % (24-48); MEAN CORPUSCULAR HEMOGLOBIN 30 pg (25-35); MEAN CORPUSCULAR HGB CONC 33 g/dL (31-37); MEAN CORPUSCULAR VOLUME 91 fL (79-100); MONO # 0.9 x10^3/uL (0.0-1.1); MONO % 9 % (0-9); NEUT # 8.3 x10^3uL (1.8-7.7); NEUT % 81 % (31-73); PLATELET COUNT 331 x10^3/uL (140-400); RED BLOOD COUNT 3.42 x10^6/uL (3.50-5.40); RED CELL DISTRIBUTION WIDTH 16.8 % (11.5-14.5); WHITE BLOOD COUNT 10.2 x10^3/uL (4.0-11.0)
[2018-10-25 05:47] LABS: CALCIUM 8.4 mg/dL (8.5-10.1); CREATININE 0.7 mg/dL (0.6-1.0); GFR 84.5; MAGNESIUM 2.1 mg/dL (1.8-2.4)
[2018-10-25 07:50] VITALS: BP 138/42
[2018-10-25] MEDS: INSULIN LISPRO 300 UNITS/3 ML INSULN.PEN. SQ SCH ×3 (08:00→17:00)
[2018-10-25] MEDS: VERAPAMIL SR 120 MG TABLET.ER. PO SCH (08:22)
[2018-10-25] MEDS: HYDROcodone/APAP 5/325MG 1 TAB TABLET PO PRN (08:23)
[2018-10-25] MEDS: CYCLOBENZAPRINE 10 MG TABLET. PO SCH ×3 (08:23→20:33)
[2018-10-25] MEDS: GABAPENTIN 100 MG CAPSULE. PO SCH ×2 (08:23→20:33)
[2018-10-25] MEDS: PARoxetine 20 MG TABLET PO SCH (08:23)
[2018-10-25] MEDS: LOSARTAN POTASSIUM 50 MG TABLET. PO SCH (08:24)
--- NOTE | 2018-10-25 09:53 | PDOC ---
SURGICAL PROGRESS NOTE Subjective was up to commode c/o pain Vital Signs Vital Signs Date Time Temp Pulse Resp B/P (MAP) Pulse Ox O2 Delivery O2 Flow Rate FiO2 10/25/18 09:25 Room Air 10/25/18 08:24 85 138/42 10/25/18 07:50 99.0 20 92 99.0 10/25/18 05:31 2.0 I&O Intake and Output 10/25/18 07:00 Intake Total 880 ml Output Total 2206 ml Balance -1326 ml Intake Oral 880 ml Output Urine Total 2200 ml Stool Total 6 ml # Bowel Movements 2 PATIENT HAS A [place]: No Skin: Other (edematous rectal mucosa has prolapsed after sitting on the commode) Labs Laboratory Tests Test 10/24/18 00:06 10/24/18 01:43 10/24/18 03:48 10/24/18 05:52 White Blood Count 12.4 x10^3/uL (4.0-11.0) Red Blood Count 3.39 x10^6/uL (3.50-5.40) Hemoglobin 9.9 g/dL (12.0-15.5) Hematocrit 30.5 % (36.0-47.0) Mean Corpuscular Volume 90 fL (79-100) Mean Corpuscular Hemoglobin 29 pg (25-35) Mean Corpuscular Hemoglobin Concent 33 g/dL (31-37) Red Cell Distribution Width 16.8 % (11.5-14.5) Platelet Count 298 x10^3/uL (140-400) Neutrophils (%) (Auto) 80 % (31-73) Lymphocytes (%) (Auto) 12 % (24-48) Monocytes (%) (Auto) 7 % (0-9) Eosinophils (%) (Auto) 1 % (0-3) Basophils (%) (Auto) 0 % (0-3) Neutrophils # (Auto) 9.9 x10^3uL (1.8-7.7) Lymphocytes # (Auto) 1.5 x10^3/uL (1.0-4.8) Monocytes # (Auto) 0.9 x10^3/uL (0.0-1.1) Eosinophils # (Auto) 0.1 x10^3/uL (0.0-0.7) Basophils # (Auto) 0.0 x10^3/uL (0.0-0.2) Prothrombin Time 15.7 SEC (11.7-14.0) Prothromb Time International Ratio 1.3 (0.8-1.1) Activated Partial Thromboplast Time 32 SEC (24-38) Sodium Level 134 mmol/L (136-145) Potassium Level 2.8 mmol/L (3.5-5.1) Chloride Level 98 mmol/L (98-107) Carbon Dioxide Level 28 mmol/L (21-32) Anion Gap 8 (6-14) Blood Urea Nitrogen 12 mg/dL (7-20) Creatinine 1.2 mg/dL (0.6-1.0) Estimated GFR (Cockcroft-Gault) 45.4 BUN/Creatinine Ratio 10 (6-20) Glucose Level 105 mg/dL (70-99) Lactic Acid Level 0.8 mmol/L (0.4-2.0) Calcium Level 8.2 mg/dL (8.5-10.1) Magnesium Level 1.7 mg/dL (1.8-2.4) Total Bilirubin 0.3 mg/dL (0.2-1.0) Aspartate Amino Transf (AST/SGOT) 21 U/L (15-37) Alanine Aminotransferase (ALT/SGPT) 20 U/L (14-59) Alkaline Phosphatase 117 U/L (46-116) Total Protein 5.8 g/dL (6.4-8.2) Albumin 2.2 g/dL (3.4-5.0) Albumin/Globulin Ratio 0.6 (1.0-1.7) Lipase 56 U/L (73-393) Urine Collection Type Unknown Urine Color Yellow Urine Clarity Clear Urine pH 6.5 Urine Specific [place] 1.010 Urine Protein Negative mg/dL (NEG-TRACE) Urine Glucose (UA) Negative mg/dL (NEG) Urine Ketones (Stick) Negative mg/dL (NEG) Urine Blood Negative (NEG) Urine Nitrite Negative (NEG) Urine Bilirubin Negative (NEG) Urine Urobilinogen Dipstick 0.2 mg/dL (0.2 mg/dL) Urine Leukocyte Esterase Negative (NEG) Urine RBC 0 /HPF (0-2) Urine WBC Occ /HPF (0-4) Urine Squamous Epithelial Cells Few /LPF Urine Amorphous Sediment Present /HPF Urine Bacteria 0 /HPF (0-FEW) Urine Hyaline Casts Few /HPF Urine Mucus Slight /LPF Nasal Screen MRSA (PCR) Negative (Negative) Glucose (Fingerstick) 95 mg/dL (70-99) Test 10/24/18 20:23 10/25/18 04:25 10/25/18 08:02 Glucose (Fingerstick) 88 mg/dL (70-99) 102 mg/dL (70-99) White Blood Count 10.2 x10^3/uL (4.0-11.0) Red Blood Count 3.42 x10^6/uL (3.50-5.40) Hemoglobin 10.4 g/dL (12.0-15.5) Hematocrit 31.1 % (36.0-47.0) Mean Corpuscular Volume 91 fL (79-100) Mean Corpuscular Hemoglobin 30 pg (25-35) Mean Corpuscular Hemoglobin Concent 33 g/dL (31-37) Red Cell Distribution Width 16.8 % (11.5-14.5) Platelet Count 331 x10^3/uL (140-400) Neutrophils (%) (Auto) 81 % (31-73) Lymphocytes (%) (Auto) 9 % (24-48) Monocytes (%) (Auto) 9 % (0-9) Eosinophils (%) (Auto) 1 % (0-3) Basophils (%) (Auto) 0 % (0-3) Neutrophils # (Auto) 8.3 x10^3uL (1.8-7.7) Lymphocytes # (Auto) 0.9 x10^3/uL (1.0-4.8) Monocytes # (Auto) 0.9 x10^3/uL (0.0-1.1) Eosinophils # (Auto) 0.1 x10^3/uL (0.0-0.7) Basophils # (Auto) 0.0 x10^3/uL (0.0-0.2) Sodium Level 139 mmol/L (136-145) Potassium Level 5.0 mmol/L (3.5-5.1) Chloride Level 106 mmol/L (98-107) Carbon Dioxide Level 24 mmol/L (21-32) Anion Gap 9 (6-14) Blood Urea Nitrogen 6 mg/dL (7-20) Creatinine 0.7 mg/dL (0.6-1.0) Estimated GFR (Cockcroft-Gault) 84.5 Glucose Level 92 mg/dL (70-99) Calcium Level 8.4 mg/dL (8.5-10.1) Magnesium Level 2.1 mg/dL (1.8-2.4) Laboratory Tests Test 10/24/18 20:23 10/25/18 04:25 10/25/18 08:02 Glucose (Fingerstick) 88 mg/dL (70-99) 102 mg/dL (70-99) White Blood Count 10.2 x10^3/uL (4.0-11.0) Red Blood Count 3.42 x10^6/uL (3.50-5.40) Hemoglobin 10.4 g/dL (12.0-15.5) Hematocrit 31.1 % (36.0-47.0) Mean Corpuscular Volume 91 fL (79-100) Mean Corpuscular Hemoglobin 30 pg (25-35) Mean Corpuscular Hemoglobin Concent 33 g/dL (31-37) Red Cell Distribution Width 16.8 % (11.5-14.5) Platelet Count 331 x10^3/uL (140-400) Neutrophils (%) (Auto) 81 % (31-73) Lymphocytes (%) (Auto) 9 % (24-48) Monocytes (%) (Auto) 9 % (0-9) Eosinophils (%) (Auto) 1 % (0-3) Basophils (%) (Auto) 0 % (0-3) Neutrophils # (Auto) 8.3 x10^3uL (1.8-7.7) Lymphocytes # (Auto) 0.9 x10^3/uL (1.0-4.8) Monocytes # (Auto) 0.9 x10^3/uL (0.0-1.1) Eosinophils # (Auto) 0.1 x10^3/uL (0.0-0.7) Basophils # (Auto) 0.0 x10^3/uL (0.0-0.2) Sodium Level 139 mmol/L (136-145) Potassium Level 5.0 mmol/L (3.5-5.1) Chloride Level 106 mmol/L (98-107) Carbon Dioxide Level 24 mmol/L (21-32) Anion Gap 9 (6-14) Blood Urea Nitrogen 6 mg/dL (7-20) Creatinine 0.7 mg/dL (0.6-1.0) Estimated GFR (Cockcroft-Gault) 84.5 Glucose Level 92 mg/dL (70-99) Calcium Level 8.4 mg/dL (8.5-10.1) Magnesium Level 2.1 mg/dL (1.8-2.4) Problem List Problems Medical Problems: (1) Bowel obstruction Status: Acute (2) Hypokalemia Status: Acute (3) Hypomagnesemia Status: Acute (4) Urinary retention Status: Acute Assessment/Plan colitis rectal prolapse with the patient in left lateral decubitus position the prolapse was reduced continue current care SHANKAR BANDA MD October 25, 2018 09:53
[2018-10-25] MEDS: MORPHINE SULFATE 4 MG/ML VIAL. IV PRN ×2 (09:55→21:19)
[2018-10-25 10:22] VITALS: BP 124/51
--- NOTE | 2018-10-25 11:56 | PDOC ---
PROGRESS NOTES Chief Complaint Chief Complaint SBO ruled out, patient continues to have diarrhea Urinary retention status post Vila catheter placement Noninfectious diarrhea Moderate dehydration Leukocytosis secondary to most likely the above Severe hypokalemia Hyponatremia Plan continue loperamide and Questran try to control the diarrhea will start morphine ER and Ir for pain management BRAT diet IV fluid resuscitation to keep up with insensible losses from the gut replace electrolytes as needed Will resume her home medications Labs in the a.m. Further recommendations based on the clinical course We'll address pain management DVT prophylaxis with SCD and teds History of Present Illness History of Present Illness Continues to have diarrhea unfortunately her prolapse continues to be a problem and she is complaining of severe pain. Reassurance has been provided and pain medications have been adjusted today as part of her treatment plan Vitals Vitals Vital Signs Date Time Temp Pulse Resp B/P (MAP) Pulse Ox O2 Delivery O2 Flow Rate FiO2 10/25/18 10:26 Room Air 10/25/18 10:22 99.1 90 18 124/51 (75) 92 99.1 10/25/18 09:55 2.0 Physical Exam General: Alert, No acute distress Heart: Regular rate Lungs: Clear Abdomen: Soft, Other (moderate size liquid brown stool in bed, no evidence of prolapse at present) Skin: Other (edematous rectal mucosa has prolapsed after sitting on the commode) Labs LABS Laboratory Tests Test 10/24/18 20:23 10/25/18 04:25 10/25/18 08:02 Glucose (Fingerstick) 88 mg/dL (70-99) 102 mg/dL (70-99) White Blood Count 10.2 x10^3/uL (4.0-11.0) Red Blood Count 3.42 x10^6/uL (3.50-5.40) Hemoglobin 10.4 g/dL (12.0-15.5) Hematocrit 31.1 % (36.0-47.0) Mean Corpuscular Volume 91 fL (79-100) Mean Corpuscular Hemoglobin 30 pg (25-35) Mean Corpuscular Hemoglobin Concent 33 g/dL (31-37) Red Cell Distribution Width 16.8 % (11.5-14.5) Platelet Count 331 x10^3/uL (140-400) Neutrophils (%) (Auto) 81 % (31-73) Lymphocytes (%) (Auto) 9 % (24-48) Monocytes (%) (Auto) 9 % (0-9) Eosinophils (%) (Auto) 1 % (0-3) Basophils (%) (Auto) 0 % (0-3) Neutrophils # (Auto) 8.3 x10^3uL (1.8-7.7) Lymphocytes # (Auto) 0.9 x10^3/uL (1.0-4.8) Monocytes # (Auto) 0.9 x10^3/uL (0.0-1.1) Eosinophils # (Auto) 0.1 x10^3/uL (0.0-0.7) Basophils # (Auto) 0.0 x10^3/uL (0.0-0.2) Sodium Level 139 mmol/L (136-145) Potassium Level 5.0 mmol/L (3.5-5.1) Chloride Level 106 mmol/L (98-107) Carbon Dioxide Level 24 mmol/L (21-32) Anion Gap 9 (6-14) Blood Urea Nitrogen 6 mg/dL (7-20) Creatinine 0.7 mg/dL (0.6-1.0) Estimated GFR (Cockcroft-Gault) 84.5 Glucose Level 92 mg/dL (70-99) Calcium Level 8.4 mg/dL (8.5-10.1) Magnesium Level 2.1 mg/dL (1.8-2.4) Review of Systems Review of Systems Pertinent as per history of present illness otherwise 14 point review of system is negative Assessment and Plan Assessmemt and Plan Problems Medical Problems: (1) Bowel obstruction Status: Acute (2) Hypokalemia Status: Acute (3) Hypomagnesemia Status: Acute (4) Urinary retention Status: Acute Comment Review of Relevant I have reviewed the following items lashawn (where applicable) has been applied. Labs Laboratory Tests Test 10/24/18 00:06 10/24/18 01:43 10/24/18 03:48 10/24/18 05:52 White Blood Count 12.4 x10^3/uL (4.0-11.0) Red Blood Count 3.39 x10^6/uL (3.50-5.40) Hemoglobin 9.9 g/dL (12.0-15.5) Hematocrit 30.5 % (36.0-47.0) Mean Corpuscular Volume 90 fL (79-100) Mean Corpuscular Hemoglobin 29 pg (25-35) Mean Corpuscular Hemoglobin Concent 33 g/dL (31-37) Red Cell Distribution Width 16.8 % (11.5-14.5) Platelet Count 298 x10^3/uL (140-400) Neutrophils (%) (Auto) 80 % (31-73) Lymphocytes (%) (Auto) 12 % (24-48) Monocytes (%) (Auto) 7 % (0-9) Eosinophils (%) (Auto) 1 % (0-3) Basophils (%) (Auto) 0 % (0-3) Neutrophils # (Auto) 9.9 x10^3uL (1.8-7.7) Lymphocytes # (Auto) 1.5 x10^3/uL (1.0-4.8) Monocytes # (Auto) 0.9 x10^3/uL (0.0-1.1) Eosinophils # (Auto) 0.1 x10^3/uL (0.0-0.7) Basophils # (Auto) 0.0 x10^3/uL (0.0-0.2) Prothrombin Time 15.7 SEC (11.7-14.0) Prothromb Time International Ratio 1.3 (0.8-1.1) Activated Partial Thromboplast Time 32 SEC (24-38) Sodium Level 134 mmol/L (136-145) Potassium Level 2.8 mmol/L (3.5-5.1) Chloride Level 98 mmol/L (98-107) Carbon Dioxide Level 28 mmol/L (21-32) Anion Gap 8 (6-14) Blood Urea Nitrogen 12 mg/dL (7-20) Creatinine 1.2 mg/dL (0.6-1.0) Estimated GFR (Cockcroft-Gault) 45.4 BUN/Creatinine Ratio 10 (6-20) Glucose Level 105 mg/dL (70-99) Lactic Acid Level 0.8 mmol/L (0.4-2.0) Calcium Level 8.2 mg/dL (8.5-10.1) Magnesium Level 1.7 mg/dL (1.8-2.4) Total Bilirubin 0.3 mg/dL (0.2-1.0) Aspartate Amino Transf (AST/SGOT) 21 U/L (15-37) Alanine Aminotransferase (ALT/SGPT) 20 U/L (14-59) Alkaline Phosphatase 117 U/L (46-116) Total Protein 5.8 g/dL (6.4-8.2) Albumin 2.2 g/dL (3.4-5.0) Albumin/Globulin Ratio 0.6 (1.0-1.7) Lipase 56 U/L (73-393) Urine Collection Type Unknown Urine Color Yellow Urine Clarity Clear Urine pH 6.5 Urine Specific Webster 1.010 Urine Protein Negative mg/dL (NEG-TRACE) Urine Glucose (UA) Negative mg/dL (NEG) Urine Ketones (Stick) Negative mg/dL (NEG) Urine Blood Negative (NEG) Urine Nitrite Negative (NEG) Urine Bilirubin Negative (NEG) Urine Urobilinogen Dipstick 0.2 mg/dL (0.2 mg/dL) Urine Leukocyte Esterase Negative (NEG) Urine RBC 0 /HPF (0-2) Urine WBC Occ /HPF (0-4) Urine Squamous Epithelial Cells Few /LPF Urine Amorphous Sediment Present /HPF Urine Bacteria 0 /HPF (0-FEW) Urine Hyaline Casts Few /HPF Urine Mucus Slight /LPF Nasal Screen MRSA (PCR) Negative (Negative) Glucose (Fingerstick) 95 mg/dL (70-99) Test 10/24/18 20:23 10/25/18 04:25 10/25/18 08:02 Glucose (Fingerstick) 88 mg/dL (70-99) 102 mg/dL (70-99) White Blood Count 10.2 x10^3/uL (4.0-11.0) Red Blood Count 3.42 x10^6/uL (3.50-5.40) Hemoglobin 10.4 g/dL (12.0-15.5) Hematocrit 31.1 % (36.0-47.0) Mean Corpuscular Volume 91 fL (79-100) Mean Corpuscular Hemoglobin 30 pg (25-35) Mean Corpuscular Hemoglobin Concent 33 g/dL (31-37) Red Cell Distribution Width 16.8 % (11.5-14.5) Platelet Count 331 x10^3/uL (140-400) Neutrophils (%) (Auto) 81 % (31-73) Lymphocytes (%) (Auto) 9 % (24-48) Monocytes (%) (Auto) 9 % (0-9) Eosinophils (%) (Auto) 1 % (0-3) Basophils (%) (Auto) 0 % (0-3) Neutrophils # (Auto) 8.3 x10^3uL (1.8-7.7) Lymphocytes # (Auto) 0.9 x10^3/uL (1.0-4.8) Monocytes # (Auto) 0.9 x10^3/uL (0.0-1.1) Eosinophils # (Auto) 0.1 x10^3/uL (0.0-0.7) Basophils # (Auto) 0.0 x10^3/uL (0.0-0.2) Sodium Level 139 mmol/L (136-145) Potassium Level 5.0 mmol/L (3.5-5.1) Chloride Level 106 mmol/L (98-107) Carbon Dioxide Level 24 mmol/L (21-32) Anion Gap 9 (6-14) Blood Urea Nitrogen 6 mg/dL (7-20) Creatinine 0.7 mg/dL (0.6-1.0) Estimated GFR (Cockcroft-Gault) 84.5 Glucose Level 92 mg/dL (70-99) Calcium Level 8.4 mg/dL (8.5-10.1) Magnesium Level 2.1 mg/dL (1.8-2.4) Laboratory Tests Test 10/24/18 20:23 10/25/18 04:25 10/25/18 08:02 Glucose (Fingerstick) 88 mg/dL (70-99) 102 mg/dL (70-99) White Blood Count 10.2 x10^3/uL (4.0-11.0) Red Blood Count 3.42 x10^6/uL (3.50-5.40) Hemoglobin 10.4 g/dL (12.0-15.5) Hematocrit 31.1 % (36.0-47.0) Mean Corpuscular Volume 91 fL (79-100) Mean Corpuscular Hemoglobin 30 pg (25-35) Mean Corpuscular Hemoglobin Concent 33 g/dL (31-37) Red Cell Distribution Width 16.8 % (11.5-14.5) Platelet Count 331 x10^3/uL (140-400) Neutrophils (%) (Auto) 81 % (31-73) Lymphocytes (%) (Auto) 9 % (24-48) Monocytes (%) (Auto) 9 % (0-9) Eosinophils (%) (Auto) 1 % (0-3) Basophils (%) (Auto) 0 % (0-3) Neutrophils # (Auto) 8.3 x10^3uL (1.8-7.7) Lymphocytes # (Auto) 0.9 x10^3/uL (1.0-4.8) Monocytes # (Auto) 0.9 x10^3/uL (0.0-1.1) Eosinophils # (Auto) 0.1 x10^3/uL (0.0-0.7) Basophils # (Auto) 0.0 x10^3/uL (0.0-0.2) Sodium Level 139 mmol/L (136-145) Potassium Level 5.0 mmol/L (3.5-5.1) Chloride Level 106 mmol/L (98-107) Carbon Dioxide Level 24 mmol/L (21-32) Anion Gap 9 (6-14) Blood Urea Nitrogen 6 mg/dL (7-20) Creatinine 0.7 mg/dL (0.6-1.0) Estimated GFR (Cockcroft-Gault) 84.5 Glucose Level 92 mg/dL (70-99) Calcium Level 8.4 mg/dL (8.5-10.1) Magnesium Level 2.1 mg/dL (1.8-2.4) Medications Current Medications Sodium Chloride 1,000 ml @ 1,000 mls/hr 1X ONCE IV Last administered on 10/24/18at 00:28; Start 10/23/18 at 23:15; Stop 10/24/18 at 00:14; Status DC Fentanyl Citrate (Fentanyl 2ml Vial) 50 mcg 1X ONCE IV Last administered on 10/24/18at 00:29; Start 10/24/18 at 00:00; Stop 10/24/18 at 00:01; Status DC Iohexol (Omnipaque 300 Mg/ml) 60 ml 1X ONCE IV Last administered on 10/24/18at 01:10; Start 10/24/18 at 01:00; Stop 10/24/18 at 01:01; Status DC Info (CONTRAST GIVEN -- Rx MONITORING) 1 each PRN DAILY PRN MC SEE COMMENTS; Start 10/24/18 at 01:00; Stop 10/26/18 at 00:59 Magnesium Sulfate 50 ml @ 25 mls/hr 1X ONCE IV Last administered on 10/24/18at 01:30; Start 10/24/18 at 01:45; Stop 10/24/18 at 03:44; Status DC Potassium Chloride/Water 100 ml @ 100 mls/hr Q1H IV Last administered on 10/24/18at 06:46; Start 10/24/18 at 01:30; Stop 10/24/18 at 05:29; Status DC Ondansetron HCl (Zofran) 4 mg PRN Q8HRS PRN IV NAUSEA/VOMITING; Start 10/24/18 at 01:45; Stop 10/25/18 at 01:44; Status DC Fentanyl Citrate (Fentanyl 2ml Vial) 50 mcg PRN Q2HR PRN IV PAIN Last administered on 10/24/18at 13:34; Start 10/24/18 at 01:45; Stop 10/24/18 at 14:04; Status DC Insulin Human Lispro (HumaLOG) 0-5 UNITS TIDWMEALS SQ ; Start 10/24/18 at 08:00 Dextrose (Dextrose 50%-Water Syringe) 12.5 gm PRN Q15MIN PRN IV SEE COMMENTS; Start 10/24/18 at 01:45 Fentanyl Citrate (Fentanyl 2ml Vial) 50 mcg 1X ONCE IV Last administered on 10/24/18at 05:53; Start 10/24/18 at 03:15; Stop 10/24/18 at 03:35; Status DC Pharmacy Consult (C.diff Med Screen By Rx) 1 each 1X ONCE MC Last administered on 10/24/18at 09:00; Start 10/24/18 at 09:00; Stop 10/24/18 at 09:01; Status DC Alprazolam (Xanax) 0.25 mg PRN BID PRN PO ANXIETY / AGITATION Last administered on 10/24/18at 21:31; Start 10/24/18 at 14:15 Cyclobenzaprine HCl (Flexeril) 10 mg TID PO Last administered on 10/25/18at 08:23; Start 10/24/18 at 21:00 Gabapentin (Neurontin) 100 mg BID PO Last administered on 10/25/18 08:23; Start 10/24/18 at 21:00 Acetaminophen/ Hydrocodone Bitart (Lortab 5/325) 1 tab PRN Q6HRS PRN PO pain Last administered on 10/25/18 08:23; Start 10/24/18 at 14:15 Losartan Potassium (Cozaar) 50 mg DAILY PO Last administered on 10/25/18 08:24; Start 10/24/18 at 15:00 Oxycodone/ Acetaminophen (Percocet 5/325) 1 tab PRN Q6HRS PRN PO PAIN MODERATE Last administered on 10/25/18 04:31; Start 10/24/18 at 14:15 Zolpidem Tartrate (Ambien) 5 mg PRN QHS PRN PO INSOMNIA; Start 10/24/18 at 14:15 Albuterol Sulfate (Ventolin Neb Soln) 2.5 mg Q4HRS NEB ; Start 10/24/18 at 16:00; Stop 10/24/18 at 18:17; Status DC Levothyroxine Sodium (Synthroid) 125 mcg DAILY06 PO Last administered on 10/25/18 04:31; Start 10/24/18 at 15:00 Paroxetine HCl (Paxil) 40 mg DAILY PO Last administered on 10/25/18 08:23; Start 10/24/18 at 15:00 Phenylephrine HCl (Hemorrhoidal) 1 supp PRN Q12HR PRN DE RECTAL PAIN; Start 10/24/18 at 14:45 Quetiapine Fumarate (SEROquel) 600 mg QHS PO Last administered on 10/24/18 21:28; Start 10/24/18 at 21:00 Verapamil HCl (Calan Sr) 240 mg DAILY PO Last administered on 10/25/18 08:22; Start 10/24/18 at 15:00 Dicyclomine HCl (Bentyl) 10 mg PRN QID PRN IM ABDOMINAL CRAMPING; Start 10/24/18 at 14:45 Morphine Sulfate (Morphine Sulfate) 4 mg PRN Q2HR PRN IV PAIN Last administered on 10/25/18 09:55; Start 10/24/18 at 14:15 Cholestyramine Resin (Questran Light) 4 gm Q6H PO Last administered on 10/25/18at 08:26; Start 10/24/18 at 14:15 Loperamide HCl (Imodium) 2 mg PRN Q15MIN PRN PO DIARRHEA; Start 10/24/18 at 14:15 Potassium Chloride/Water 100 ml @ 100 mls/hr Q1H IV Last administered on 10/25/18at 02:51; Start 10/24/18 at 14:30; Stop 10/24/18 at 20:29; Status DC Albuterol Sulfate (Ventolin Neb Soln) 2.5 mg PRN Q4HRS PRN NEB SHORTNESS OF BREATH; Start 10/24/18 at 18:30 Ringer's Solution 1,000 ml @ 100 mls/hr Q10H IV Last administered on 10/25/18at 04:31; Start 10/24/18 at 19:00 Active Scripts Active Alejandra-Med (Phenylephrine Hcl) 1 Each Supp.rect 1 Supp DE PRN Q12HR PRN 7 Days [Dicyclomine Hcl] 10 MG/1 ML Ampul 10 Mg IM PRN QID PRN 7 Days Lawtell 5-325 Tablet (Acetaminophen/Hydrocodone Bitart) 1 Each Tablet 1 Tab PO Q4- 6HRS Ventolin Hfa Inhaler (Albuterol Sulfate) 18 Gm Hfa.aer.ad 2 Puff INH Q4HRS Percocet 5-325 mg Tablet (Oxycodone HCl/Acetaminophen) 1 Each Tablet 1 Each PO Q6HRS PRN Ultram (Tramadol Hcl) 50 Mg Tablet 50 Mg PO Q6HRS PRN Reported Xanax (Alprazolam) 0.25 Mg Tablet 1 Tab PO BID PRN Cyclobenzaprine Hcl 10 Mg Tablet 1 Tab PO TID Seroquel (Quetiapine Fumarate) 300 Mg Tablet 2 Tab PO QHS Ambien (Zolpidem Tartrate) 5 Mg Tablet 5 Mg PO PRN QHS PRN Gabapentin (Gabapentin) 100 Mg Capsule 100 Mg PO BID Synthroid (Levothyroxine Sodium) 125 Mcg Tablet 1 Tab PO DAILY Paroxetine Hcl 40 Mg Tablet 1 Tab PO DAILY Losartan Potassium 50 Mg Tablet 50 Mg PO DAILY Verapamil Er (Verapamil Hcl) 240 Mg Cap24h.pel 1 Cap PO DAILY Vitals/I & O Vital Sign - Last 24 Hours 10/24/18 10/24/18 10/24/18 10/24/18 14:58 15:00 15:00 19:00 Temp 98.0 97.6 98.0 97.6 Pulse 85 84 Resp 16 18 B/P (MAP) 102/40 (60) 102/40 102/40 118/54 (75) Pulse Ox 93 91 O2 Delivery Nasal Cannula Room Air O2 Flow Rate 2.0 10/24/18 10/24/18 10/24/18 10/24/18 19:43 20:00 21:32 23:00 Temp 98.0 98.0 Pulse 95 Resp 17 B/P (MAP) 126/58 (80) Pulse Ox 91 O2 Delivery Room Air Room Air Room Air Room Air 10/25/18 10/25/18 10/25/18 10/25/18 03:00 04:31 05:31 07:50 Temp 99.2 99.0 99.2 99.0 Pulse 94 85 Resp 18 20 B/P (MAP) 137/63 (87) 138/42 (74) Pulse Ox 96 92 O2 Delivery Room Air Nasal Cannula Nasal Cannula Room Air O2 Flow Rate 2.0 2.0 10/25/18 10/25/18 10/25/18 10/25/18 08:00 08:22 08:23 08:24 Pulse 85 85 B/P (MAP) 138/42 138/42 O2 Delivery Room Air Room Air 10/25/18 10/25/18 10/25/18 10/25/18 09:25 09:55 10:22 10:26 Temp 99.1 99.1 Pulse 90 Resp 18 B/P (MAP) 124/51 (75) Pulse Ox 92 O2 Delivery Room Air Nasal Cannula Room Air Room Air O2 Flow Rate 2.0 Intake and Output 10/24/18 10/24/18 10/25/18 14:59 22:59 06:59 Intake Total 260 ml 620 ml Output Total 1350 ml 2 ml 854 ml Balance -1350 ml 258 ml -234 ml MARY MONAE MD October 25, 2018 11:56
[2018-10-25] MEDS: LOPERAMIDE 2 MG CAPSULE PO PRN ×4 (12:14→20:32)
[2018-10-25] MEDS: MORPHINE ER 15 MG TABLET.ER PO SCH ×2 (12:14→20:32)
[2018-10-25 15:00] VITALS: BP 105/53
[2018-10-25] MEDS: MORPHINE IR 15 MG TABLET PO PRN (17:11)
[2018-10-25 19:00] VITALS: BP 100/41
[2018-10-25] MEDS: QUEtiapine 100 MG TABLET. PO SCH (20:33)
[2018-10-25 23:00] VITALS: BP 99/43
[2018-10-26] MEDS: CHOLESTYRAMINE/ASPARTAME 4 GM PACKET PO SCH ×2 (02:15→07:24)
[2018-10-26 03:00] VITALS: BP 119/44
[2018-10-26] MEDS: oxyCODONE/APAP 5/325 1 TAB TABLET PO PRN ×2 (04:27→18:23)
[2018-10-26] MEDS: LEVOTHYROXINE 125 MCG TABLET PO SCH (04:27)
[2018-10-26] MEDS: IV RINGERS,LACTATED 1000ML 1,000 ML IV SCH (04:30)
[2018-10-26 07:00] VITALS: BP 115/42
[2018-10-26] MEDS: INSULIN LISPRO 300 UNITS/3 ML INSULN.PEN. SQ SCH ×3 (07:27→16:40)
[2018-10-26] MEDS: MORPHINE ER 15 MG TABLET.ER PO SCH ×2 (08:21→20:56)
[2018-10-26] MEDS: LOSARTAN POTASSIUM 50 MG TABLET. PO SCH (08:22)
[2018-10-26] MEDS: ALPRAZolam 0.25 MG TABLET PO PRN (08:22)
[2018-10-26] MEDS: GABAPENTIN 100 MG CAPSULE. PO SCH ×2 (08:22→20:55)
[2018-10-26] MEDS: VERAPAMIL SR 120 MG TABLET.ER. PO SCH (08:22)
[2018-10-26] MEDS: PARoxetine 20 MG TABLET PO SCH (08:23)
[2018-10-26] MEDS: CYCLOBENZAPRINE 10 MG TABLET. PO SCH ×3 (08:23→20:56)
--- NOTE | 2018-10-26 08:50 | PDOC ---
PROGRESS NOTES Chief Complaint Chief Complaint Prolapsed rectum, manually reducible Non infectious diarrhea NEw urinary retention s.p olmedo DRAGAN sec to GI losses s/p hypokalemia and hyponatremia SBO ruled out, History of Present Illness History of Present Illness Continues to have diarrhea unfortunately her prolapse continues to be a problem and she is complaining of severe pain. Reassurance has been provided and pain Imodium on board Still Olmedo catheter WBC 10, hemoglobin 11 C. difficile negative Plan Consult urology regarding urinary retention-I was hesitant to DC Olmedo catheter- unsure what the cause is about Prolapsed rectum made worse by still diarrhea GI recommendations if on board, if not may involve too Vitals Vitals Vital Signs Date Time Temp Pulse Resp B/P (MAP) Pulse Ox O2 Delivery O2 Flow Rate FiO2 10/26/18 08:22 89 115/42 10/26/18 08:21 18 Nasal Cannula 2.0 10/26/18 07:00 97.8 99 97.8 Physical Exam General: Alert, Oriented X3, Cooperative, No acute distress Heart: Regular rate, Normal S1, Normal S2 Lungs: Clear Abdomen: Normal bowel sounds, Soft, Other (moderate size liquid brown stool in bed, prolapsed rectum) Extremities: No clubbing, No cyanosis Skin: No rashes, No breakdown, Other (edematous rectal mucosa has prolapsed after sitting on the commode) Labs LABS Laboratory Tests Test 10/25/18 11:57 10/25/18 17:02 10/25/18 21:23 10/26/18 07:25 Glucose (Fingerstick) 107 mg/dL (70-99) 105 mg/dL (70-99) 122 mg/dL (70-99) 92 mg/dL (70-99) Review of Systems Review of Systems Rectum hurts, diarrhea, the rest of ROS 14 point negative Assessment and Plan Assessmemt and Plan Problems Medical Problems: (1) Bowel obstruction Status: Acute (2) Hypokalemia Status: Acute (3) Hypomagnesemia Status: Acute (4) Urinary retention Status: Acute Comment Review of Relevant I have reviewed the following items lashawn (where applicable) has been applied. Labs Laboratory Tests Test 10/24/18 12:54 10/24/18 20:23 10/25/18 04:25 10/25/18 08:02 Clostridium difficile Toxin B Gene Negative (Negative) Glucose (Fingerstick) 88 mg/dL (70-99) 102 mg/dL (70-99) White Blood Count 10.2 x10^3/uL (4.0-11.0) Red Blood Count 3.42 x10^6/uL (3.50-5.40) Hemoglobin 10.4 g/dL (12.0-15.5) Hematocrit 31.1 % (36.0-47.0) Mean Corpuscular Volume 91 fL (79-100) Mean Corpuscular Hemoglobin 30 pg (25-35) Mean Corpuscular Hemoglobin Concent 33 g/dL (31-37) Red Cell Distribution Width 16.8 % (11.5-14.5) Platelet Count 331 x10^3/uL (140-400) Neutrophils (%) (Auto) 81 % (31-73) Lymphocytes (%) (Auto) 9 % (24-48) Monocytes (%) (Auto) 9 % (0-9) Eosinophils (%) (Auto) 1 % (0-3) Basophils (%) (Auto) 0 % (0-3) Neutrophils # (Auto) 8.3 x10^3uL (1.8-7.7) Lymphocytes # (Auto) 0.9 x10^3/uL (1.0-4.8) Monocytes # (Auto) 0.9 x10^3/uL (0.0-1.1) Eosinophils # (Auto) 0.1 x10^3/uL (0.0-0.7) Basophils # (Auto) 0.0 x10^3/uL (0.0-0.2) Sodium Level 139 mmol/L (136-145) Potassium Level 5.0 mmol/L (3.5-5.1) Chloride Level 106 mmol/L (98-107) Carbon Dioxide Level 24 mmol/L (21-32) Anion Gap 9 (6-14) Blood Urea Nitrogen 6 mg/dL (7-20) Creatinine 0.7 mg/dL (0.6-1.0) Estimated GFR (Cockcroft-Gault) 84.5 Glucose Level 92 mg/dL (70-99) Calcium Level 8.4 mg/dL (8.5-10.1) Magnesium Level 2.1 mg/dL (1.8-2.4) Test 10/25/18 11:57 10/25/18 17:02 10/25/18 21:23 10/26/18 07:25 Glucose (Fingerstick) 107 mg/dL (70-99) 105 mg/dL (70-99) 122 mg/dL (70-99) 92 mg/dL (70-99) Laboratory Tests Test 10/25/18 11:57 10/25/18 17:02 10/25/18 21:23 10/26/18 07:25 Glucose (Fingerstick) 107 mg/dL (70-99) 105 mg/dL (70-99) 122 mg/dL (70-99) 92 mg/dL (70-99) Medications Current Medications Sodium Chloride 1,000 ml @ 1,000 mls/hr 1X ONCE IV Last administered on 10/24/18at 00:28; Start 10/23/18 at 23:15; Stop 10/24/18 at 00:14; Status DC Fentanyl Citrate (Fentanyl 2ml Vial) 50 mcg 1X ONCE IV Last administered on 10/24/18at 00:29; Start 10/24/18 at 00:00; Stop 10/24/18 at 00:01; Status DC Iohexol (Omnipaque 300 Mg/ml) 60 ml 1X ONCE IV Last administered on 10/24/18at 01:10; Start 10/24/18 at 01:00; Stop 10/24/18 at 01:01; Status DC Info (CONTRAST GIVEN -- Rx MONITORING) 1 each PRN DAILY PRN MC SEE COMMENTS; Start 10/24/18 at 01:00; Stop 10/26/18 at 00:59; Status DC Magnesium Sulfate 50 ml @ 25 mls/hr 1X ONCE IV Last administered on 10/24/18at 01:30; Start 10/24/18 at 01:45; Stop 10/24/18 at 03:44; Status DC Potassium Chloride/Water 100 ml @ 100 mls/hr Q1H IV Last administered on 10/24/18at 06:46; Start 10/24/18 at 01:30; Stop 10/24/18 at 05:29; Status DC Ondansetron HCl (Zofran) 4 mg PRN Q8HRS PRN IV NAUSEA/VOMITING; Start 10/24/18 at 01:45; Stop 10/25/18 at 01:44; Status DC Fentanyl Citrate (Fentanyl 2ml Vial) 50 mcg PRN Q2HR PRN IV PAIN Last administered on 10/24/18at 13:34; Start 10/24/18 at 01:45; Stop 10/24/18 at 14:04; Status DC Insulin Human Lispro (HumaLOG) 0-5 UNITS TIDWMEALS SQ ; Start 10/24/18 at 08:00 Dextrose (Dextrose 50%-Water Syringe) 12.5 gm PRN Q15MIN PRN IV SEE COMMENTS; Start 10/24/18 at 01:45 Fentanyl Citrate (Fentanyl 2ml Vial) 50 mcg 1X ONCE IV Last administered on 10/24/18at 05:53; Start 10/24/18 at 03:15; Stop 10/24/18 at 03:35; Status DC Pharmacy Consult (C.diff Med Screen By Rx) 1 each 1X ONCE MC Last administered on 10/24/18 09:00; Start 10/24/18 at 09:00; Stop 10/24/18 at 09:01; Status DC Alprazolam (Xanax) 0.25 mg PRN BID PRN PO ANXIETY / AGITATION Last administered on 10/26/18 08:22; Start 10/24/18 at 14:15 Cyclobenzaprine HCl (Flexeril) 10 mg TID PO Last administered on 10/26/18 08:23; Start 10/24/18 at 21:00 Gabapentin (Neurontin) 100 mg BID PO Last administered on 10/26/18 08:22; Start 10/24/18 at 21:00 Acetaminophen/ Hydrocodone Bitart (Lortab 5/325) 1 tab PRN Q6HRS PRN PO MILD PAIN 1-3 Last administered on 10/25/18 08:23; Start 10/24/18 at 14:15 Losartan Potassium (Cozaar) 50 mg DAILY PO Last administered on 10/26/18 08:22; Start 10/24/18 at 15:00 Oxycodone/ Acetaminophen (Percocet 5/325) 1 tab PRN Q6HRS PRN PO PAIN MODERATE Last administered on 10/26/18 04:27; Start 10/24/18 at 14:15 Zolpidem Tartrate (Ambien) 5 mg PRN QHS PRN PO INSOMNIA; Start 10/24/18 at 14:15 Albuterol Sulfate (Ventolin Neb Soln) 2.5 mg Q4HRS NEB ; Start 10/24/18 at 16:00; Stop 10/24/18 at 18:17; Status DC Levothyroxine Sodium (Synthroid) 125 mcg DAILY06 PO Last administered on 10/26/18 04:27; Start 10/24/18 at 15:00 Paroxetine HCl (Paxil) 40 mg DAILY PO Last administered on 10/26/18 08:23; Start 10/24/18 at 15:00 Phenylephrine HCl (Hemorrhoidal) 1 supp PRN Q12HR PRN [place] RECTAL PAIN; Start 10/24/18 at 14:45 Quetiapine Fumarate (SEROquel) 600 mg QHS PO Last administered on 10/25/18 20:33; Start 10/24/18 at 21:00 Verapamil HCl (Calan Sr) 240 mg DAILY PO Last administered on 10/26/18 08:22; Start 10/24/18 at 15:00 Dicyclomine HCl (Bentyl) 10 mg PRN QID PRN IM ABDOMINAL CRAMPING; Start 10/24/18 at 14:45 Morphine Sulfate (Morphine Sulfate) 4 mg PRN Q2HR PRN IV PAIN Last administered on 10/25/18 21:19; Start 10/24/18 at 14:15 Cholestyramine Resin (Questran Light) 4 gm Q6H PO Last administered on 10/08 07:24; Start 10/24/18 at 14:15 Loperamide HCl (Imodium) 2 mg PRN Q15MIN PRN PO DIARRHEA Last administered on 10/25/18 20:32; Start 10/24/18 at 14:15 Potassium Chloride/Water 100 ml @ 100 mls/hr Q1H IV Last administered on 10/25/18 02:51; Start 10/24/18 at 14:30; Stop 10/24/18 at 20:29; Status DC Albuterol Sulfate (Ventolin Neb Soln) 2.5 mg PRN Q4HRS PRN NEB SHORTNESS OF BREATH; Start 10/24/18 at 18:30 Ringer's Solution 1,000 ml @ 100 mls/hr Q10H IV Last administered on 5/19/19at 17:11; Start 10/24/18 at 19:00; Stop 10/26/18 at 05:40; Status DC Morphine Sulfate (Ms Contin) 15 mg BID PO Last administered on 10/26/18at 08:21; Start 10/25/18 at 12:00 Morphine Sulfate (Morphine Ir) 15 mg PRN Q4HRS PRN PO SEVERE PAIN Last administered on 10/25/18at 17:11; Start 10/25/18 at 12:00 Active Scripts Active Alejandra-Med (Phenylephrine Hcl) 1 Each Supp.rect 1 Supp IA PRN Q12HR PRN 7 Days [Dicyclomine Hcl] 10 MG/1 ML Ampul 10 Mg IM PRN QID PRN 7 Days [place] 5-325 Tablet (Acetaminophen/Hydrocodone Bitart) 1 Each Tablet 1 Tab PO Q4- 6HRS Ventolin Hfa Inhaler (Albuterol Sulfate) 18 Gm Hfa.aer.ad 2 Puff INH Q4HRS Percocet 5-325 mg Tablet (Oxycodone HCl/Acetaminophen) 1 Each Tablet 1 Each PO Q6HRS PRN Ultram (Tramadol Hcl) 50 Mg Tablet 50 Mg PO Q6HRS PRN Reported Xanax (Alprazolam) 0.25 Mg Tablet 1 Tab PO BID PRN Cyclobenzaprine Hcl 10 Mg Tablet 1 Tab PO TID Seroquel (Quetiapine Fumarate) 300 Mg Tablet 2 Tab PO QHS Ambien (Zolpidem Tartrate) 5 Mg Tablet 5 Mg PO PRN QHS PRN Gabapentin (Gabapentin) 100 Mg Capsule 100 Mg PO BID Synthroid (Levothyroxine Sodium) 125 Mcg Tablet 1 Tab PO DAILY Paroxetine Hcl 40 Mg Tablet 1 Tab PO DAILY Losartan Potassium 50 Mg Tablet 50 Mg PO DAILY Verapamil Er (Verapamil Hcl) 240 Mg Cap24h.pel 1 Cap PO DAILY Vitals/I & O Vital Sign - Last 24 Hours 10/25/18 10/25/18 10/25/18 10/25/18 09:25 09:55 10:22 12:14 Temp 99.1 99.1 Pulse 90 Resp 18 B/P (MAP) 124/51 (75) Pulse Ox 92 O2 Delivery Room Air Nasal Cannula Room Air Nasal Cannula O2 Flow Rate 2.0 2.0 10/25/18 10/25/18 10/25/18 10/25/18 13:40 15:00 17:11 17:11 Temp 98.3 98.3 Pulse 88 Resp 18 B/P (MAP) 105/53 (70) Pulse Ox 95 O2 Delivery Nasal Cannula Room Air Nasal Cannula O2 Flow Rate 2.0 2.0 2.0 10/25/18 10/25/18 10/25/18 10/25/18 18:10 19:00 20:00 20:32 Temp 98.1 98.1 Pulse 85 Resp 18 B/P (MAP) 100/41 (60) Pulse Ox 98 O2 Delivery Nasal Cannula Room Air Room Air Room Air O2 Flow Rate 2.0 10/25/18 10/25/18 10/25/18 10/26/18 21:19 21:49 23:00 00:35 Temp 98.1 98.1 Pulse 86 Resp 18 B/P (MAP) 99/43 (61) Pulse Ox 95 O2 Delivery Room Air Room Air Room Air Room Air 10/26/18 10/26/18 10/26/18 10/26/18 03:00 04:27 05:32 07:00 Temp 98.0 97.8 98.0 97.8 Pulse 90 89 Resp 18 18 B/P (MAP) 119/44 (69) 115/42 (66) Pulse Ox 90 99 O2 Delivery Room Air Room Air Room Air Room Air 10/26/18 10/26/18 10/26/18 08:21 08:22 08:22 Pulse 89 89 Resp 18 B/P (MAP) 115/42 115/42 O2 Delivery Nasal Cannula O2 Flow Rate 2.0 Intake and Output 10/25/18 10/25/18 10/26/18 15:00 23:00 07:00 Intake Total 500 ml 180 ml 150 ml Balance 500 ml 180 ml 150 ml JENNIFER COREAS MD October 26, 2018 08:50
--- NOTE | 2018-10-26 08:56 | PDOC ---
SURGICAL PROGRESS NOTE Subjective ongoing diarrhea rectal prolapse pain Vital Signs Vital Signs Date Time Temp Pulse Resp B/P (MAP) Pulse Ox O2 Delivery O2 Flow Rate FiO2 10/26/18 08:22 89 115/42 10/26/18 08:21 18 Nasal Cannula 2.0 10/26/18 07:00 97.8 99 97.8 I&O Intake and Output 10/26/18 07:00 Intake Total 830 ml Balance 830 ml Intake Oral 830 ml # Bowel Movements 10 General: Alert, Oriented X3, Cooperative, No acute distress Abdomen: Soft Labs Laboratory Tests Test 10/24/18 12:54 10/24/18 20:23 10/25/18 04:25 10/25/18 08:02 Clostridium difficile Toxin B Gene Negative (Negative) Glucose (Fingerstick) 88 mg/dL (70-99) 102 mg/dL (70-99) White Blood Count 10.2 x10^3/uL (4.0-11.0) Red Blood Count 3.42 x10^6/uL (3.50-5.40) Hemoglobin 10.4 g/dL (12.0-15.5) Hematocrit 31.1 % (36.0-47.0) Mean Corpuscular Volume 91 fL (79-100) Mean Corpuscular Hemoglobin 30 pg (25-35) Mean Corpuscular Hemoglobin Concent 33 g/dL (31-37) Red Cell Distribution Width 16.8 % (11.5-14.5) Platelet Count 331 x10^3/uL (140-400) Neutrophils (%) (Auto) 81 % (31-73) Lymphocytes (%) (Auto) 9 % (24-48) Monocytes (%) (Auto) 9 % (0-9) Eosinophils (%) (Auto) 1 % (0-3) Basophils (%) (Auto) 0 % (0-3) Neutrophils # (Auto) 8.3 x10^3uL (1.8-7.7) Lymphocytes # (Auto) 0.9 x10^3/uL (1.0-4.8) Monocytes # (Auto) 0.9 x10^3/uL (0.0-1.1) Eosinophils # (Auto) 0.1 x10^3/uL (0.0-0.7) Basophils # (Auto) 0.0 x10^3/uL (0.0-0.2) Sodium Level 139 mmol/L (136-145) Potassium Level 5.0 mmol/L (3.5-5.1) Chloride Level 106 mmol/L (98-107) Carbon Dioxide Level 24 mmol/L (21-32) Anion Gap 9 (6-14) Blood Urea Nitrogen 6 mg/dL (7-20) Creatinine 0.7 mg/dL (0.6-1.0) Estimated GFR (Cockcroft-Gault) 84.5 Glucose Level 92 mg/dL (70-99) Calcium Level 8.4 mg/dL (8.5-10.1) Magnesium Level 2.1 mg/dL (1.8-2.4) Test 10/25/18 11:57 10/25/18 17:02 10/25/18 21:23 10/26/18 07:25 Glucose (Fingerstick) 107 mg/dL (70-99) 105 mg/dL (70-99) 122 mg/dL (70-99) 92 mg/dL (70-99) Laboratory Tests Test 10/25/18 11:57 10/25/18 17:02 10/25/18 21:23 10/26/18 07:25 Glucose (Fingerstick) 107 mg/dL (70-99) 105 mg/dL (70-99) 122 mg/dL (70-99) 92 mg/dL (70-99) Problem List Problems Medical Problems: (1) Bowel obstruction Status: Acute (2) Hypokalemia Status: Acute (3) Hypomagnesemia Status: Acute (4) Urinary retention Status: Acute Assessment/Plan would rec resolving colitis issues prior to any prolapse repair will d/w KEITH Butler COUGAR HUNTER October 26, 2018 08:56
[2018-10-26] MEDS ORDERED: PHENYLEPHRINE SUPP.RECT. PR PRN (09:00)
[2018-10-26] MEDS: HYDROcodone/APAP 5/325MG 1 TAB TABLET PO PRN (09:58)
[2018-10-26 10:48] VITALS: BP 107/40
--- NOTE | 2018-10-26 11:00 | PDOC2 ---
PARAM KAY APRN 10/26/18 1100: UROLOGY CONSULT Date of Consult Date of Consult DATE: 10/26/18 TIME: 10:42 Reason for Consult Reason for Consult: Urinary Retention Identification/Chief Complaint Chief Complaint Urinary Retention Source Source: Chart review, Patient History of Present Illness Reason for Visit: Thi 63 year old female presented through the ER with complaints of ABD pain, rectal prolapse, and also urinary retention. A catheter was placed for a total return of 2000 ml initially in the ER, and the Vila seems to be working fine since then. She denies any dysuria or hematuria prior to Vila placement, or discomfort from the Vila catheter since then. She is still having some lower abdominal pain, but no flank murdock and no history of kidney stones. This is also the first time she has had any trouble with urinary retention. She denies incontinence currently but has had trouble with this in the recent past. Patient did fall asleep several times during the interview, and much of the information had to be obtained from attending RN. Past Medical History Cardiovascular: HTN Pulmonary: COPD GI: Inflam bowel disease Psych: Anxiety, Depression Musculoskeletal: low back pain Renal/: No pertinent hx Endocrine: No pertinent hx Past Surgical History Past Surgical History: Hysterectomy Family History Family History: Family History Unknown Social History ALCOHOL: none Drugs: None Current Problem List Problems: (1) Urinary retention Current Medications Current Medications Current Medications Morphine Sulfate (Morphine Ir) 15 mg PRN Q4HRS PRN PO SEVERE PAIN Last administered on 10/25/18at 17:11; Start 10/25/18 at 12:00 Morphine Sulfate (Ms Contin) 15 mg BID PO Last administered on 10/26/18at 08:21; Start 10/25/18 at 12:00 Phenylephrine HCl (Hemorrhoidal) 1 supp PRN Q12HR PRN [place] RECTAL PAIN; Start 10/26/18 at 09:00 Allergies Allergies: Coded Allergies: No Known Drug Allergies (Unverified , 12/09/17) ROS Review Of Systems: CONSTITUTIONAL: No fever or chills EYES: No recent changes SKIN: No rash or itching CARDIOVASCULAR: No chest pain, syncope, palpitations, or edema RESPIRATORY: No SOB or cough GASTROINTESTINAL: + abdominal pain in the front right quadrant, non tender all other areas. NEUROLOGICAL: No headaches or weakness ENDOCRINE: No cold or heat intolerance GENITOURINARY: + Urinary Retention, Vila in place. MUSCULOSKELETAL: No back pain or joint pain LYMPHATICS: No enlarged lymph nodes PSYCHIATRIC: No anxiety or depression Physical Exam Physical Exam: General: Pleasant, no acute distress, well groomed Eyes: conjunctiva anicteric, eyes full range of motion ENT: moist oral mucosa, normal dentition Neck: Trachea midline, no masses Respiratory: unlabored breathing, not using accessory muscles, Abdomen: soft, obese, tender right lower quadrant. Non tender other areas. Skin: no rashes or skin lesions on visualized skin Psych: normal mood, affect. Alert and oriented x 3. Vitals VITALS Vital Signs Date Time Temp Pulse Resp B/P (MAP) Pulse Ox O2 Delivery O2 Flow Rate FiO2 10/26/18 09:58 20 BiPAP/CPAP 2.0 10/26/18 08:22 89 115/42 10/26/18 07:00 97.8 99 97.8 Labs Labs Laboratory Tests Test 10/24/18 12:54 10/24/18 20:23 10/25/18 04:25 10/25/18 08:02 Clostridium difficile Toxin B Gene Negative (Negative) Glucose (Fingerstick) 88 mg/dL (70-99) 102 mg/dL (70-99) White Blood Count 10.2 x10^3/uL (4.0-11.0) Red Blood Count 3.42 x10^6/uL (3.50-5.40) Hemoglobin 10.4 g/dL (12.0-15.5) Hematocrit 31.1 % (36.0-47.0) Mean Corpuscular Volume 91 fL (79-100) Mean Corpuscular Hemoglobin 30 pg (25-35) Mean Corpuscular Hemoglobin Concent 33 g/dL (31-37) Red Cell Distribution Width 16.8 % (11.5-14.5) Platelet Count 331 x10^3/uL (140-400) Neutrophils (%) (Auto) 81 % (31-73) Lymphocytes (%) (Auto) 9 % (24-48) Monocytes (%) (Auto) 9 % (0-9) Eosinophils (%) (Auto) 1 % (0-3) Basophils (%) (Auto) 0 % (0-3) Neutrophils # (Auto) 8.3 x10^3uL (1.8-7.7) Lymphocytes # (Auto) 0.9 x10^3/uL (1.0-4.8) Monocytes # (Auto) 0.9 x10^3/uL (0.0-1.1) Eosinophils # (Auto) 0.1 x10^3/uL (0.0-0.7) Basophils # (Auto) 0.0 x10^3/uL (0.0-0.2) Sodium Level 139 mmol/L (136-145) Potassium Level 5.0 mmol/L (3.5-5.1) Chloride Level 106 mmol/L (98-107) Carbon Dioxide Level 24 mmol/L (21-32) Anion Gap 9 (6-14) Blood Urea Nitrogen 6 mg/dL (7-20) Creatinine 0.7 mg/dL (0.6-1.0) Estimated GFR (Cockcroft-Gault) 84.5 Glucose Level 92 mg/dL (70-99) Calcium Level 8.4 mg/dL (8.5-10.1) Magnesium Level 2.1 mg/dL (1.8-2.4) Test 10/25/18 11:57 10/25/18 17:02 10/25/18 21:23 10/26/18 07:25 Glucose (Fingerstick) 107 mg/dL (70-99) 105 mg/dL (70-99) 122 mg/dL (70-99) 92 mg/dL (70-99) Laboratory Tests Test 10/25/18 11:57 10/25/18 17:02 10/25/18 21:23 10/26/18 07:25 Glucose (Fingerstick) 107 mg/dL (70-99) 105 mg/dL (70-99) 122 mg/dL (70-99) 92 mg/dL (70-99) Images Images CT ABD/PELVIS IMPRESSION: 1. Findings of colitis of the mid transverse colon through the rectosigmoid colon are still present but improved from prior study. 2. Pelvic floor laxity is more apparent than on prior study. Cannot exclude rectal prolapse, correlate with physical exam. 3. There is mild to moderate bilateral hydroureteronephrosis likely secondary to marked distention of the urinary bladder. Patient would likely benefit from Vila catheter. 4. Groundglass opacities in the bilateral lungs are still present but improved from prior study. There are new findings of bronchitis in the left lung. Assessment/Plan Assessment/Plan AUR with total output of 2000 ml= Recommend keeping Vila catheter in place for at least one week. Hydroureteronephrosis will likely resolve with catheter use, will get Renal US in 3-4 days to re-evaluate. Currently patient is very weak and kept falling asleep during interview, would hold off on Flomax due to dizziness side effects. General surgery recommends treatment of colitis prior to any surgical intervention for the prolapse. Recommend good bowel program. JORY CALDERA MD 10/26/18 1340: UROLOGY CONSULT Assessment/Plan Assessment/Plan have seen patient and discussed with her the UR issue. She used to perform self cath. I rec that sh have a voiding trial in am and then check residuals after void. She may need to resume self cath qid at home. PARAM KAY APRN October 26, 2018 11:00 JORY CALDERA MD October 26, 2018 13:40
--- NOTE | 2018-10-26 11:28 | PDOC ---
Subjective: Subjective: Please see GI consult from 10/15/18 and following progress notes. Discharged 10/22. Back to ER the next day. Rectal pain, diarrhea (reports two large-volume watery stools today - RN hasn't seen any), abd discomfort. Surgery following - recs to wait for colitis to resolved prior to prolapse repair. Objective: Objective: Reviewed chart - Dr. Nolasco reduced on 10/25. RN says tried sugar last time and was ineffective. Vital Signs: Vital Signs Date Time Temp Pulse Resp B/P (MAP) Pulse Ox O2 Delivery O2 Flow Rate FiO2 10/26/18 10:48 97.7 90 18 107/40 (62) 98 Room Air 97.7 10/26/18 09:58 2.0 Labs: Laboratory Tests Test 10/25/18 11:57 10/25/18 17:02 10/25/18 21:23 10/26/18 07:25 Glucose (Fingerstick) 107 mg/dL (70-99) 105 mg/dL (70-99) 122 mg/dL (70-99) 92 mg/dL (70-99) Test 10/26/18 11:04 Glucose (Fingerstick) 106 mg/dL (70-99) Imaging: CT A/P 10/24 IMPRESSION: 1. Findings of colitis of the mid transverse colon through the rectosigmoid colon are still present but improved from prior study. 2. Pelvic floor laxity is more apparent than on prior study. Cannot exclude rectal prolapse, correlate with physical exam. 3. There is mild to moderate bilateral hydroureteronephrosis likely secondary to marked distention of the urinary bladder. Patient would likely benefit from Vila catheter. 4. Groundglass opacities in the bilateral lungs are still present but improved from prior study. There are new findings of bronchitis in the left lung. PE: GEN: initially laying on left side in bed, gets up when I walk in to use commode - I noted several drops of brown watery stool on pad below commode, also prolapsed rectum when she pulled down brief LUNGS: NC NEURO/PSYCH: A & O 3 A/P: Rectal prolapse Chronic constipation - good response to Relistor last time, now watery stools Abnormal CT - improved "colitis," more prominent pelvic floor laxity, bilateral hydroureteronephrosis, left lung bronchitis Anemia, +fecal occult (last admission) - h/o ischemic colitis and stercoral ulcer (last exam 2013) -- Reviewed w/ Dr. Ventura - has formed stool on CT, unclearly "colitis" - last admission got atbx, now getting Imodium, Questran, morphine, Percocet, and Lo rtab. Ordered fecal WBCs. Will stop anti-diarrheals. RIC FAN October 26, 2018 11:28
[2018-10-26] MEDS: MORPHINE IR 15 MG TABLET PO PRN (14:03)
[2018-10-26 14:43] VITALS: BP 110/40
[2018-10-26 19:33] VITALS: BP 109/44
[2018-10-26] MEDS: QUEtiapine 100 MG TABLET. PO SCH (20:55)
[2018-10-26] MEDS: CALCIUM CARBONATE 500 MG TAB.CHEW PO PRN (20:56)
[2018-10-26 23:00] VITALS: BP 107/52
[2018-10-27 03:00] VITALS: BP 110/55
[2018-10-27] MEDS: LEVOTHYROXINE 125 MCG TABLET PO SCH (05:21)
[2018-10-27 07:00] VITALS: BP 106/53
[2018-10-27] MEDS: INSULIN LISPRO 300 UNITS/3 ML INSULN.PEN. SQ SCH ×3 (07:46→17:00)
[2018-10-27] MEDS: CYCLOBENZAPRINE 10 MG TABLET. PO SCH ×3 (08:30→21:34)
[2018-10-27] MEDS: VERAPAMIL SR 120 MG TABLET.ER. PO SCH (08:30)
[2018-10-27] MEDS: LOSARTAN POTASSIUM 50 MG TABLET. PO SCH (08:31)
[2018-10-27] MEDS: MORPHINE ER 15 MG TABLET.ER PO SCH ×2 (08:31→21:33)
[2018-10-27] MEDS: GABAPENTIN 100 MG CAPSULE. PO SCH ×2 (08:31→21:34)
[2018-10-27] MEDS: oxyCODONE/APAP 5/325 1 TAB TABLET PO PRN ×3 (08:31→21:34)
[2018-10-27] MEDS: PARoxetine 20 MG TABLET PO SCH (08:31)
[2018-10-27] MEDS: ALPRAZolam 0.25 MG TABLET PO PRN (08:48)
--- NOTE | 2018-10-27 09:02 | PDOC ---
SUBJECTIVE Subjective Pt still having some lower abd pain. Not moving around very much but plans on doing this after her breakfast today. She does admit to having done I and O cathing in the past and is open to doing this again but requests to start this tomorrow and keep catheter one more day as she was not able to move around very much yesterday. OBJECTIVE Objective Physical Exam: General appearance: Alert and Oriented Head: Normocephalic, without obvious abnormality Eyes: conjunctivae/corneas clear. PERRL, EOM's intact. Fundi benign Back:No CVA pain bilaterally Lungs: Regular respirations, non labored breathing. [address] Abdomen: soft, tender bilateral lower abdomen. Attributes to need to have a BM. Vital Signs Vital Signs Date Time Temp Pulse Resp B/P (MAP) Pulse Ox O2 Delivery O2 Flow Rate FiO2 10/27/18 08:31 Nasal Cannula 2.0 10/27/18 08:31 Nasal Cannula 2.0 10/27/18 08:31 93 106/53 10/27/18 08:30 93 106/53 10/27/18 07:00 98.0 93 20 106/53 (70) 94 98.0 10/27/18 03:00 98.6 92 18 110/55 (73) 95 98.6 10/27/18 01:00 3 94 Nasal Cannula 2.0 10/26/18 23:00 98.5 93 20 107/52 (70) 94 98.5 10/26/18 20:56 16 97 Nasal Cannula 10/26/18 20:00 Nasal Cannula 2.0 10/26/18 19:33 97.8 87 18 109/44 (65) 97 97.8 10/26/18 19:30 16 97 Nasal Cannula 2.0 10/26/18 18:23 18 Nasal Cannula 2.0 10/26/18 15:03 18 Nasal Cannula 2.0 10/26/18 14:43 97.7 89 18 110/40 (63) 99 Room Air 97.7 10/26/18 14:03 18 Nasal Cannula 2.0 10/26/18 10:58 18 Nasal Cannula 2.0 10/26/18 10:48 97.7 90 18 107/40 (62) 98 Room Air 97.7 10/26/18 09:58 20 BiPAP/CPAP 2.0 I & O Intake and Output 10/27/18 07:00 Intake Total 1140 ml Output Total 1150 ml Balance -10 ml Intake Oral 1140 ml Output Urine Total 1150 ml # Bowel Movements 6 PHYSICAL EXAM Physical Exam Physical Exam: General appearance: Alert and Oriented Head: Normocephalic, without obvious abnormality Eyes: conjunctivae/corneas clear. PERRL, EOM's intact. Fundi benign Back:No CVA pain bilaterally Lungs: Regular respirations, non labored breathing. [address] Abdomen: soft, tender bilateral lower abdomen. Attributes to need to have a BM. ASSESSMENT/PLAN Assessment/Plan Encouraged movement, bowel program already being implemented. Discussed removing catheter today and going back to I and O cathing. Pt requests to wait one more day and attempt tomorrow. She is planning to work on getting up and moving around more today and we did discuss the importance of this. Will bring samples in the am to work with her on I and O cathing. Will coordinate with [employer] to get her a follow up with Dr. Ford. Problems: (1) Urinary retention COMMENT Lab Laboratory Tests Test 10/26/18 11:04 10/26/18 16:29 10/26/18 21:12 10/27/18 07:26 Glucose (Fingerstick) 106 mg/dL (70-99) 113 mg/dL (70-99) 115 mg/dL (70-99) 108 mg/dL (70-99) PARAM KAY APRN October 27, 2018 09:02
--- NOTE | 2018-10-27 09:05 | NUR ---
SW consulted for dc needs. Chart reviewed and Pt is from [facility]. Pt declined to return back to [facility] and agreeable with SW sending referral to [facility]. SW phoned and faxed referral. Pt acceptance and admission pending.
--- NOTE | 2018-10-27 09:22 | PDOC ---
PROGRESS NOTES Chief Complaint Chief Complaint Prolapsed rectum, beyond manual reduction now-10/27/18 Non infectious diarrhea, no colitis/resolved NEw urinary retention s.p olmedo DRAGAN sec to GI losses s/p hypokalemia and hyponatremia SBO ruled out History of Present Illness History of Present Illness No more diarrhea C. difficile negative That rectum is out and prolapsed and is beyond manual reduction Severe pain with just lifting of the sheets I dont think i can discharge her to any SNU with that prolapsed of a rectum She is laying on her sides Last CBC check was 2 days ago- normal WBC, normal coags Discussed with GI, no more colitis Patient agreeable to SNU as per PT recommendation-discussed with social work Urology is planning to DC Olmedo tomorrow PLAN: I have reached out to GS regarding that prolapsed rectum which is rather severe Patient would want to have surgery to solve her problems dw with GI, GS, RN, SW, and pt Vitals Vitals Vital Signs Date Time Temp Pulse Resp B/P (MAP) Pulse Ox O2 Delivery O2 Flow Rate FiO2 10/27/18 08:31 Nasal Cannula 2.0 10/27/18 08:31 93 106/53 10/27/18 07:00 98.0 20 94 98.0 Physical Exam General: Alert, Oriented X3, Cooperative, No acute distress Heart: Regular rate, Normal S1, Normal S2 Lungs: Clear Abdomen: Soft Extremities: No clubbing, No cyanosis Skin: No rashes, No breakdown, Other (edematous rectal mucosa has prolapsed after sitting on the commode) Labs LABS Laboratory Tests Test 10/26/18 11:04 10/26/18 16:29 10/26/18 21:12 10/27/18 07:26 Glucose (Fingerstick) 106 mg/dL (70-99) 113 mg/dL (70-99) 115 mg/dL (70-99) 108 mg/dL (70-99) Review of Systems Review of Systems Rectum hurts, the rest of ROS negative Assessment and Plan Assessmemt and Plan Problems Medical Problems: (1) Bowel obstruction Status: Acute (2) Hypokalemia Status: Acute (3) Hypomagnesemia Status: Acute (4) Urinary retention Status: Acute Comment Review of Relevant I have reviewed the following items lashawn (where applicable) has been applied. Labs Laboratory Tests Test 10/25/18 11:57 10/25/18 17:02 10/25/18 21:23 10/26/18 07:25 Glucose (Fingerstick) 107 mg/dL (70-99) 105 mg/dL (70-99) 122 mg/dL (70-99) 92 mg/dL (70-99) Test 10/26/18 11:04 10/26/18 16:29 10/26/18 21:12 10/27/18 07:26 Glucose (Fingerstick) 106 mg/dL (70-99) 113 mg/dL (70-99) 115 mg/dL (70-99) 108 mg/dL (70-99) Laboratory Tests Test 10/26/18 11:04 10/26/18 16:29 10/26/18 21:12 10/27/18 07:26 Glucose (Fingerstick) 106 mg/dL (70-99) 113 mg/dL (70-99) 115 mg/dL (70-99) 108 mg/dL (70-99) Medications Current Medications Sodium Chloride 1,000 ml @ 1,000 mls/hr 1X ONCE IV Last administered on 10/24/18at 00:28; Start 10/23/18 at 23:15; Stop 10/24/18 at 00:14; Status DC Fentanyl Citrate (Fentanyl 2ml Vial) 50 mcg 1X ONCE IV Last administered on 10/24/18at 00:29; Start 10/24/18 at 00:00; Stop 10/24/18 at 00:01; Status DC Iohexol (Omnipaque 300 Mg/ml) 60 ml 1X ONCE IV Last administered on 10/24/18at 01:10; Start 10/24/18 at 01:00; Stop 10/24/18 at 01:01; Status DC Info (CONTRAST GIVEN -- Rx MONITORING) 1 each PRN DAILY PRN MC SEE COMMENTS; Start 10/24/18 at 01:00; Stop 10/26/18 at 00:59; Status DC Magnesium Sulfate 50 ml @ 25 mls/hr 1X ONCE IV Last administered on 10/24/18at 01:30; Start 10/24/18 at 01:45; Stop 10/24/18 at 03:44; Status DC Potassium Chloride/Water 100 ml @ 100 mls/hr Q1H IV Last administered on 10/24/18at 06:46; Start 10/24/18 at 01:30; Stop 10/24/18 at 05:29; Status DC Ondansetron HCl (Zofran) 4 mg PRN Q8HRS PRN IV NAUSEA/VOMITING; Start 10/24/18 at 01:45; Stop 10/25/18 at 01:44; Status DC Fentanyl Citrate (Fentanyl 2ml Vial) 50 mcg PRN Q2HR PRN IV PAIN Last administered on 10/24/18at 13:34; Start 10/24/18 at 01:45; Stop 10/24/18 at 14:04; Status DC Insulin Human Lispro (HumaLOG) 0-5 UNITS TIDWMEALS SQ ; Start 10/24/18 at 08:00 Dextrose (Dextrose 50%-Water Syringe) 12.5 gm PRN Q15MIN PRN IV SEE COMMENTS; Start 10/24/18 at 01:45 Fentanyl Citrate (Fentanyl 2ml Vial) 50 mcg 1X ONCE IV Last administered on 10/24/18 05:53; Start 10/24/18 at 03:15; Stop 10/24/18 at 03:35; Status DC Pharmacy Consult (C.diff Med Screen By Rx) 1 each 1X ONCE MC Last administered on 10/24/18 09:00; Start 10/24/18 at 09:00; Stop 10/24/18 at 09:01; Status DC Alprazolam (Xanax) 0.25 mg PRN BID PRN PO ANXIETY / AGITATION Last administered on 10/27/18 08:48; Start 10/24/18 at 14:15 Cyclobenzaprine HCl (Flexeril) 10 mg TID PO Last administered on 10/27/18 08: 30; Start 10/24/18 at 21:00 Gabapentin (Neurontin) 100 mg BID PO Last administered on 10/27/18 08:31; Start 10/24/18 at 21:00 Acetaminophen/ Hydrocodone Bitart (Lortab 5/325) 1 tab PRN Q6HRS PRN PO MILD PAIN 1-3 Last administered on 10/26/18 09:58; Start 10/24/18 at 14:15 Losartan Potassium (Cozaar) 50 mg DAILY PO Last administered on 10/27/18 08:31; Start 10/24/18 at 15:00 Oxycodone/ Acetaminophen (Percocet 5/325) 1 tab PRN Q6HRS PRN PO PAIN MODERATE Last administered on 10/27/18 08:31; Start 10/24/18 at 14:15 Zolpidem Tartrate (Ambien) 5 mg PRN QHS PRN PO INSOMNIA; Start 10/24/18 at 14:15 Albuterol Sulfate (Ventolin Neb Soln) 2.5 mg Q4HRS NEB ; Start 10/24/18 at 16:00; Stop 10/24/18 at 18:17; Status DC Levothyroxine Sodium (Synthroid) 125 mcg DAILY06 PO Last administered on 10/27/18at 05:21; Start 10/24/18 at 15:00 Paroxetine HCl (Paxil) 40 mg DAILY PO Last administered on 10/27/18at 08:31; Start 10/24/18 at 15:00 Phenylephrine HCl (Hemorrhoidal) 1 supp PRN Q12HR PRN GA RECTAL PAIN; Start 10/24/18 at 14:45; Stop 10/26/18 at 08:55; Status DC Quetiapine Fumarate (SEROquel) 600 mg QHS PO Last administered on 10/26/18at 20:55; Start 10/24/18 at 21:00 Verapamil HCl (Calan Sr) 240 mg DAILY PO Last administered on 10/27/18at 08:30; Start 10/24/18 at 15:00 Dicyclomine HCl (Bentyl) 10 mg PRN QID PRN IM ABDOMINAL CRAMPING; Start 10/24/18 at 14:45 Morphine Sulfate (Morphine Sulfate) 4 mg PRN Q2HR PRN IV PAIN Last administered on 10/25/18 21:19; Start 10/24/18 at 14:15 Cholestyramine Resin (Questran Light) 4 gm Q6H PO Last administered on 10/26/18at 07:24; Start 10/24/18 at 14:15; Stop 10/26/18 at 12:04; Status DC Loperamide HCl (Imodium) 2 mg PRN Q15MIN PRN PO DIARRHEA Last administered on 10/25/18at 20:32; Start 10/24/18 at 14:15; Stop 10/26/18 at 12:04; Status DC Potassium Chloride/Water 100 ml @ 100 mls/hr Q1H IV Last administered on 10/25/18 02:51; Start 10/24/18 at 14:30; Stop 10/24/18 at 20:29; Status DC Albuterol Sulfate (Ventolin Neb Soln) 2.5 mg PRN Q4HRS PRN NEB SHORTNESS OF BREATH; Start 10/24/18 at 18:30 Ringer's Solution 1,000 ml @ 100 mls/hr Q10H IV Last administered on 10/25/18 17:11; Start 10/24/18 at 19:00; Stop 10/26/18 at 05:40; Status DC Morphine Sulfate (Ms Contin) 15 mg BID PO Last administered on 10/27/18 08:31; Start 10/25/18 at 12:00 Morphine Sulfate (Morphine Ir) 15 mg PRN Q4HRS PRN PO SEVERE PAIN Last administered on 10/26/18 14:03; Start 10/25/18 at 12:00 Phenylephrine HCl (Hemorrhoidal) 1 supp PRN Q12HR PRN GA RECTAL PAIN Last administered on 10/27/18at 08:48; Start 10/26/18 at 09:00 Calcium Carbonate/ Glycine (Tums) 500 mg QIDPRN PRN PO INDIGESTION Last administered on 10/26/18at 20:56; Start 10/26/18 at 20:00 Active Scripts Active Alejandra-Med (Phenylephrine Hcl) 1 Each Supp.rect 1 Supp GA PRN Q12HR PRN 7 Days [Dicyclomine Hcl] 10 MG/1 ML Ampul 10 Mg IM PRN QID PRN 7 Days [place] 5-325 Tablet (Acetaminophen/Hydrocodone Bitart) 1 Each Tablet 1 Tab PO Q4- 6HRS Ventolin Hfa Inhaler (Albuterol Sulfate) 18 Gm Hfa.aer.ad 2 Puff INH Q4HRS Percocet 5-325 mg Tablet (Oxycodone HCl/Acetaminophen) 1 Each Tablet 1 Each PO Q6HRS PRN Ultram (Tramadol Hcl) 50 Mg Tablet 50 Mg PO Q6HRS PRN Reported Xanax (Alprazolam) 0.25 Mg Tablet 1 Tab PO BID PRN Cyclobenzaprine Hcl 10 Mg Tablet 1 Tab PO TID Seroquel (Quetiapine Fumarate) 300 Mg Tablet 2 Tab PO QHS Ambien (Zolpidem Tartrate) 5 Mg Tablet 5 Mg PO PRN QHS PRN Gabapentin (Gabapentin) 100 Mg Capsule 100 Mg PO BID Synthroid (Levothyroxine Sodium) 125 Mcg Tablet 1 Tab PO DAILY Paroxetine Hcl 40 Mg Tablet 1 Tab PO DAILY Losartan Potassium 50 Mg Tablet 50 Mg PO DAILY Verapamil Er (Verapamil Hcl) 240 Mg Cap24h.pel 1 Cap PO DAILY Vitals/I & O Vital Sign - Last 24 Hours 10/26/18 10/26/18 10/26/18 10/26/18 09:58 10:48 10:58 14:03 Temp 97.7 97.7 Pulse 90 Resp 20 18 18 B/P (MAP) 107/40 (62) Pulse Ox 98 O2 Delivery BiPAP/CPAP Room Air Nasal Cannula Nasal Cannula O2 Flow Rate 2.0 2.0 2.0 10/26/18 10/26/18 10/26/18 10/26/18 14:43 15:03 18:23 19:30 Temp 97.7 97.7 Pulse 89 Resp 18 18 18 16 B/P (MAP) 110/40 (63) Pulse Ox 99 97 O2 Delivery Room Air Nasal Cannula Nasal Cannula Nasal Cannula O2 Flow Rate 2.0 2.0 2.0 10/26/18 10/26/18 10/26/18 10/26/18 19:33 20:00 20:56 23:00 Temp 97.8 98.5 97.8 98.5 Pulse 87 93 Resp 18 16 20 B/P (MAP) 109/44 (65) 107/52 (70) Pulse Ox 97 97 94 O2 Delivery Nasal Cannula Nasal Cannula O2 Flow Rate 2.0 10/27/18 10/27/18 10/27/18 10/27/18 01:00 03:00 07:00 08:30 Temp 98.6 98.0 98.6 98.0 Pulse 92 93 93 Resp 3 18 20 B/P (MAP) 110/55 (73) 106/53 (70) 106/53 Pulse Ox 94 95 94 O2 Delivery Nasal Cannula O2 Flow Rate 2.0 10/27/18 10/27/18 10/27/18 08:31 08:31 08:31 Pulse 93 B/P (MAP) 106/53 O2 Delivery Nasal Cannula Nasal Cannula O2 Flow Rate 2.0 2.0 Intake and Output 5/20/19 5/20/19 5/21/19 15:00 23:00 07:00 Intake Total 600 ml 300 ml 240 ml Output Total 300 ml 850 ml Balance 600 ml 0 ml -610 ml JENNIFER COREAS MD October 27, 2018 09:22
[2018-10-27 10:03] LABS: BASO % 0 % (0-3); EOS # 0.1 x10^3/uL (0.0-0.7); EOS % 2 % (0-3); HEMATOCRIT 27.8 % (36.0-47.0); HEMOGLOBIN 9.1 g/dL (12.0-15.5); LYMPH # 1.1 x10^3/uL (1.0-4.8); LYMPH % 19 % (24-48); MEAN CORPUSCULAR HEMOGLOBIN 30 pg (25-35); MEAN CORPUSCULAR HGB CONC 33 g/dL (31-37); MEAN CORPUSCULAR VOLUME 92 fL (79-100); MONO # 0.8 x10^3/uL (0.0-1.1); MONO % 13 % (0-9); NEUT # 3.9 x10^3uL (1.8-7.7); NEUT % 67 % (31-73); PLATELET COUNT 429 x10^3/uL (140-400); RED BLOOD COUNT 3.03 x10^6/uL (3.50-5.40); WHITE BLOOD COUNT 5.9 x10^3/uL (4.0-11.0)
--- NOTE | 2018-10-27 10:11 | PDOC ---
Subjective: Subjective: Doesn't know about stools, maybe some dribbles. In pain. Objective: Vital Signs: Vital Signs Date Time Temp Pulse Resp B/P (MAP) Pulse Ox O2 Delivery O2 Flow Rate FiO2 10/27/18 09:45 Nasal Cannula 2.0 10/27/18 08:31 93 106/53 10/27/18 07:00 98.0 20 94 98.0 Labs: Laboratory Tests Test 10/26/18 11:04 10/26/18 16:29 10/26/18 21:12 10/27/18 07:26 Glucose (Fingerstick) 106 mg/dL 113 mg/dL 115 mg/dL 108 mg/dL Test 10/27/18 09:50 White Blood Count 5.9 x10^3/uL Red Blood Count 3.03 x10^6/uL Hemoglobin 9.1 g/dL Hematocrit 27.8 % Mean Corpuscular Volume 92 fL Mean Corpuscular Hemoglobin 30 pg Mean Corpuscular Hemoglobin Concent 33 g/dL Red Cell Distribution Width 17.0 % Platelet Count 429 x10^3/uL Neutrophils (%) (Auto) 67 % Lymphocytes (%) (Auto) 19 % Monocytes (%) (Auto) 13 % Eosinophils (%) (Auto) 2 % Basophils (%) (Auto) 0 % Neutrophils # (Auto) 3.9 x10^3uL Lymphocytes # (Auto) 1.1 x10^3/uL Monocytes # (Auto) 0.8 x10^3/uL Eosinophils # (Auto) 0.1 x10^3/uL Basophils # (Auto) 0.0 x10^3/uL PE: GEN: NAD - getting out of bed to use commode LUNGS: NC ABD: rectal prolapse NEURO/PSYCH: A & O 3 A/P: Rectal prolapse - leaking drops of watery brown stool Chronic constipation, abnormal CT Anemia - h/o ischemic colitis and stercoral ulcer (last exam 2013) -- D/w RN and Dr. Cavazos - doubt colitis, fecal WBCs pending, still prolapsed. Other per Dr. Ventura. RIC FAN October 27, 2018 10:11
--- NOTE | 2018-10-27 10:15 | PDOC ---
PROGRESS NOTE CHIEF COMPLAINT: I want to go home SUBJECTIVE: ROS: ROS: RESPIRATORY: Shortness of breath denies. Cough denies. UROLOGY: Denies blood in urine. Has olmedo and urine clear. HPI: Duration: [] Quality: [] Severity: [] Site/Location: [] Problems: Problems Medical Problems: (1) Bowel obstruction Status: Acute (2) Hypokalemia Status: Acute (3) Hypomagnesemia Status: Acute (4) Urinary retention Status: Acute OBJECTIVE: Vital Signs: Vital Signs Date Time Temp Pulse Resp B/P (MAP) Pulse Ox O2 Delivery O2 Flow Rate FiO2 10/27/18 09:45 Nasal Cannula 2.0 10/27/18 08:31 Nasal Cannula 2.0 10/27/18 08:31 Nasal Cannula 2.0 10/27/18 08:31 93 106/53 10/27/18 08:30 93 106/53 10/27/18 07:00 98.0 93 20 106/53 (70) 94 98.0 10/27/18 03:00 98.6 92 18 110/55 (73) 95 98.6 10/27/18 01:00 3 94 Nasal Cannula 2.0 10/26/18 23:00 98.5 93 20 107/52 (70) 94 98.5 10/26/18 20:56 16 97 Nasal Cannula 10/26/18 20:00 Nasal Cannula 2.0 10/26/18 19:33 97.8 87 18 109/44 (65) 97 97.8 10/26/18 19:30 16 97 10/26/18 18:23 18 Nasal Cannula 2.0 10/26/18 15:03 18 Nasal Cannula 2.0 10/26/18 14:43 97.7 89 18 110/40 (63) 99 Room Air 97.7 10/26/18 14:03 18 Nasal Cannula 2.0 10/26/18 10:58 18 Nasal Cannula 2.0 10/26/18 10:48 97.7 90 18 107/40 (62) 98 Room Air 97.7 I & O Intake and Output 10/27/18 07:00 Intake Total 1140 ml Output Total 1150 ml Balance -10 ml Intake Oral 1140 ml Output Urine Total 1150 ml # Bowel Movements 6 PHYSICAL EXAM: Physical Exam: General: Pleasant, no acute distress, well groomed Eyes: conjunctiva anicteric, eyes full range of motion ENT: moist oral mucosa, normal dentition Neck: Trachea midline, no masses Respiratory: unlabored breathing, not using accessory muscles, no crackles or wheezes Cardiovascular: Regular rate and rhythm, no peripheral edema Abdomen: nontender, nondistended, no hepatosplenomegaly, no masses Skin: no rashes or skin lesions on visualized skin Psych: normal mood, affect. Alert and oriented x 3. LABS: Laboratory Tests Test 10/24/18 12:54 10/24/18 20:23 10/25/18 04:25 10/25/18 08:02 Clostridium difficile Toxin B Gene Negative (Negative) Glucose (Fingerstick) 88 mg/dL (70-99) 102 mg/dL (70-99) White Blood Count 10.2 x10^3/uL (4.0-11.0) Red Blood Count 3.42 x10^6/uL (3.50-5.40) Hemoglobin 10.4 g/dL (12.0-15.5) Hematocrit 31.1 % (36.0-47.0) Mean Corpuscular Volume 91 fL (79-100) Mean Corpuscular Hemoglobin 30 pg (25-35) Mean Corpuscular Hemoglobin Concent 33 g/dL (31-37) Red Cell Distribution Width 16.8 % (11.5-14.5) Platelet Count 331 x10^3/uL (140-400) Neutrophils (%) (Auto) 81 % (31-73) Lymphocytes (%) (Auto) 9 % (24-48) Monocytes (%) (Auto) 9 % (0-9) Eosinophils (%) (Auto) 1 % (0-3) Basophils (%) (Auto) 0 % (0-3) Neutrophils # (Auto) 8.3 x10^3uL (1.8-7.7) Lymphocytes # (Auto) 0.9 x10^3/uL (1.0-4.8) Monocytes # (Auto) 0.9 x10^3/uL (0.0-1.1) Eosinophils # (Auto) 0.1 x10^3/uL (0.0-0.7) Basophils # (Auto) 0.0 x10^3/uL (0.0-0.2) Sodium Level 139 mmol/L (136-145) Potassium Level 5.0 mmol/L (3.5-5.1) Chloride Level 106 mmol/L (98-107) Carbon Dioxide Level 24 mmol/L (21-32) Anion Gap 9 (6-14) Blood Urea Nitrogen 6 mg/dL (7-20) Creatinine 0.7 mg/dL (0.6-1.0) Estimated GFR (Cockcroft-Gault) 84.5 Glucose Level 92 mg/dL (70-99) Calcium Level 8.4 mg/dL (8.5-10.1) Magnesium Level 2.1 mg/dL (1.8-2.4) Test 10/25/18 11:57 10/25/18 17:02 10/25/18 21:23 10/26/18 07:25 Glucose (Fingerstick) 107 mg/dL (70-99) 105 mg/dL (70-99) 122 mg/dL (70-99) 92 mg/dL (70-99) Test 10/26/18 11:04 10/26/18 16:29 10/26/18 21:12 10/27/18 07:26 Glucose (Fingerstick) 106 mg/dL (70-99) 113 mg/dL (70-99) 115 mg/dL (70-99) 108 mg/dL (70-99) Test 10/27/18 09:50 White Blood Count 5.9 x10^3/uL (4.0-11.0) Red Blood Count 3.03 x10^6/uL (3.50-5.40) Hemoglobin 9.1 g/dL (12.0-15.5) Hematocrit 27.8 % (36.0-47.0) Mean Corpuscular Volume 92 fL (79-100) Mean Corpuscular Hemoglobin 30 pg (25-35) Mean Corpuscular Hemoglobin Concent 33 g/dL (31-37) Red Cell Distribution Width 17.0 % (11.5-14.5) Platelet Count 429 x10^3/uL (140-400) Neutrophils (%) (Auto) 67 % (31-73) Lymphocytes (%) (Auto) 19 % (24-48) Monocytes (%) (Auto) 13 % (0-9) Eosinophils (%) (Auto) 2 % (0-3) Basophils (%) (Auto) 0 % (0-3) Neutrophils # (Auto) 3.9 x10^3uL (1.8-7.7) Lymphocytes # (Auto) 1.1 x10^3/uL (1.0-4.8) Monocytes # (Auto) 0.8 x10^3/uL (0.0-1.1) Eosinophils # (Auto) 0.1 x10^3/uL (0.0-0.7) Basophils # (Auto) 0.0 x10^3/uL (0.0-0.2) MEDICATIONS: Current Medications Medications (Trade) Dose Ordered Sig/Rowdy Start Time Stop Time Status Last Admin Dose Admin Acetaminophen/ Hydrocodone Bitart (Lortab 5325) 1 tab PRN Q6HRS PRN 10/24/18 14:15 10/26/18 09:58 1 TAB Albuterol Sulfate (Ventolin Neb Soln) 2.5 mg PRN Q4HRS PRN 10/24/18 18:30 Alprazolam (Xanax) 0.25 mg PRN BID PRN 10/24/18 14:15 10/27/18 08:48 0.25 MG Calcium Carbonate/ Glycine (Tums) 500 mg QIDPRN PRN 10/26/18 20:00 10/26/18 20:56 500 MG Cholestyramine Resin (Questran Light) 4 gm Q6H 10/24/18 14:15 10/26/18 12:04 DC 10/26/18 07:24 4 GM Cyclobenzaprine HCl (Flexeril) 10 mg TID 10/24/18 21:00 10/27/18 08:30 10 MG Dextrose (Dextrose 50%-Water Syringe) 12.5 gm PRN Q15MIN PRN 10/24/18 01:45 Dicyclomine HCl (Bentyl) 10 mg PRN QID PRN 10/24/18 14:45 Fentanyl Citrate (Fentanyl 2ml Vial) 50 mcg 1X ONCE 10/24/18 03:15 10/24/18 03:35 DC 10/24/18 05:53 50 MCG Gabapentin (Neurontin) 100 mg BID 10/24/18 21:00 10/27/18 08:31 100 MG Info (CONTRAST GIVEN -- Rx MONITORING) 1 each PRN DAILY PRN 10/24/18 01:00 10/26/18 00:59 DC Insulin Human Lispro (HumaLOG) 0-5 UNITS TIDWMEALS 10/24/18 08:00 Iohexol (Omnipaque 300 Mg/ml) 60 ml 1X ONCE 10/24/18 01:00 10/24/18 01:01 DC 10/24/18 01:10 60 ML Levothyroxine Sodium (Synthroid) 125 mcg DAILY06 10/24/18 15:00 10/27/18 05:21 125 MCG Loperamide HCl (Imodium) 2 mg PRN Q15MIN PRN 10/24/18 14:15 10/26/18 12:04 DC 10/25/18 20:32 2 MG Losartan Potassium (Cozaar) 50 mg DAILY 10/24/18 15:00 10/27/18 08:31 50 MG Magnesium Sulfate 50 ml @ 25 mls/hr 1X ONCE 10/24/18 01:45 10/24/18 03:44 DC 10/24/18 01:30 25 MLS/HR Morphine Sulfate (Morphine Sulfate) 4 mg PRN Q2HR PRN 10/24/18 14:15 10/25/18 21:19 4 MG Morphine Sulfate (Morphine Ir) 15 mg PRN Q4HRS PRN 10/25/18 12:00 10/26/18 14:03 15 MG Morphine Sulfate (Ms Contin) 15 mg BID 10/25/18 12:00 10/27/18 08:31 15 MG Ondansetron HCl (Zofran) 4 mg PRN Q8HRS PRN 10/24/18 01:45 10/25/18 01:44 DC Oxycodone/ Acetaminophen (Percocet 5/325) 1 tab PRN Q6HRS PRN 10/24/18 14:15 10/27/18 08:31 1 TAB Paroxetine HCl (Paxil) 40 mg DAILY 10/24/18 15:00 10/27/18 08:31 40 MG Pharmacy Consult (C.diff Med Screen By Rx) 1 each 1X ONCE 10/24/18 09:00 10/24/18 09:01 DC 10/24/18 09:00 1 EACH Phenylephrine HCl (Hemorrhoidal) 1 supp PRN Q12HR PRN 10/26/18 09:00 10/27/18 08:48 1 SUPP Potassium Chloride/Water 100 ml @ 100 mls/hr Q1H 10/24/18 14:30 10/24/18 20:29 DC 10/25/18 02:51 100 MLS/HR Quetiapine Fumarate (SEROquel) 600 mg QHS 10/24/18 21:00 10/26/18 20:55 600 MG Ringer's Solution 1,000 ml @ 100 mls/hr Q10H 10/24/18 19:00 10/26/18 05:40 DC 10/25/18 17:11 100 MLS/HR Sodium Chloride 1,000 ml @ 1,000 mls/hr 1X ONCE 10/23/18 23:15 10/24/18 00:14 DC 10/24/18 00:28 1,000 MLS/HR Verapamil HCl (Calan Sr) 240 mg DAILY 10/24/18 15:00 10/27/18 08:30 240 MG Zolpidem Tartrate (Ambien) 5 mg PRN QHS PRN 10/24/18 14:15 ASSESSMENT & PLAN Pt indicates she learned self cath years ago and is willing to perform again. Would Rec DC olmedo and have her resume self cath qid. She may call our office for f/u. Problem List: Problems Medical Problems: (1) Bowel obstruction Status: Acute (2) Hypokalemia Status: Acute (3) Hypomagnesemia Status: Acute (4) Urinary retention Status: Acute JORY CALDERA MD October 27, 2018 10:15
[2018-10-27 10:59] VITALS: BP 127/49
--- NOTE | 2018-10-27 11:34 | PDOC ---
KEITH MATOS [employer]S ADMINISTRATOR 10/27/18 1134: SURGICAL PROGRESS NOTE Subjective ongoing prolapse issues d/w GI d/w Dr Cavazos - thinks will not be able to discharge with the prolapse currently as it is Vital Signs Vital Signs Date Time Temp Pulse Resp B/P (MAP) Pulse Ox O2 Delivery O2 Flow Rate FiO2 10/27/18 10:59 97.8 103 18 127/49 (75) 95 Room Air 97.8 10/27/18 09:45 2.0 I&O Intake and Output 10/27/18 07:00 Intake Total 1140 ml Output Total 1150 ml Balance -10 ml Intake Oral 1140 ml Output Urine Total 1150 ml # Bowel Movements 6 General: Alert, Oriented X3, Cooperative, No acute distress Skin: Other (noted rectal prolapse ) Labs Laboratory Tests Test 10/25/18 11:57 10/25/18 17:02 10/25/18 21:23 10/26/18 07:25 Glucose (Fingerstick) 107 mg/dL (70-99) 105 mg/dL (70-99) 122 mg/dL (70-99) 92 mg/dL (70-99) Test 10/26/18 11:04 10/26/18 16:29 10/26/18 21:12 10/27/18 07:26 Glucose (Fingerstick) 106 mg/dL (70-99) 113 mg/dL (70-99) 115 mg/dL (70-99) 108 mg/dL (70-99) Test 10/27/18 09:50 White Blood Count 5.9 x10^3/uL (4.0-11.0) Red Blood Count 3.03 x10^6/uL (3.50-5.40) Hemoglobin 9.1 g/dL (12.0-15.5) Hematocrit 27.8 % (36.0-47.0) Mean Corpuscular Volume 92 fL (79-100) Mean Corpuscular Hemoglobin 30 pg (25-35) Mean Corpuscular Hemoglobin Concent 33 g/dL (31-37) Red Cell Distribution Width 17.0 % (11.5-14.5) Platelet Count 429 x10^3/uL (140-400) Neutrophils (%) (Auto) 67 % (31-73) Lymphocytes (%) (Auto) 19 % (24-48) Monocytes (%) (Auto) 13 % (0-9) Eosinophils (%) (Auto) 2 % (0-3) Basophils (%) (Auto) 0 % (0-3) Neutrophils # (Auto) 3.9 x10^3uL (1.8-7.7) Lymphocytes # (Auto) 1.1 x10^3/uL (1.0-4.8) Monocytes # (Auto) 0.8 x10^3/uL (0.0-1.1) Eosinophils # (Auto) 0.1 x10^3/uL (0.0-0.7) Basophils # (Auto) 0.0 x10^3/uL (0.0-0.2) Laboratory Tests Test 10/26/18 16:29 10/26/18 21:12 10/27/18 07:26 10/27/18 09:50 Glucose (Fingerstick) 113 mg/dL (70-99) 115 mg/dL (70-99) 108 mg/dL (70-99) White Blood Count 5.9 x10^3/uL (4.0-11.0) Red Blood Count 3.03 x10^6/uL (3.50-5.40) Hemoglobin 9.1 g/dL (12.0-15.5) Hematocrit 27.8 % (36.0-47.0) Mean Corpuscular Volume 92 fL (79-100) Mean Corpuscular Hemoglobin 30 pg (25-35) Mean Corpuscular Hemoglobin Concent 33 g/dL (31-37) Red Cell Distribution Width 17.0 % (11.5-14.5) Platelet Count 429 x10^3/uL (140-400) Neutrophils (%) (Auto) 67 % (31-73) Lymphocytes (%) (Auto) 19 % (24-48) Monocytes (%) (Auto) 13 % (0-9) Eosinophils (%) (Auto) 2 % (0-3) Basophils (%) (Auto) 0 % (0-3) Neutrophils # (Auto) 3.9 x10^3uL (1.8-7.7) Lymphocytes # (Auto) 1.1 x10^3/uL (1.0-4.8) Monocytes # (Auto) 0.8 x10^3/uL (0.0-1.1) Eosinophils # (Auto) 0.1 x10^3/uL (0.0-0.7) Basophils # (Auto) 0.0 x10^3/uL (0.0-0.2) Problem List Problems Medical Problems: (1) Bowel obstruction Status: Acute (2) Hypokalemia Status: Acute (3) Hypomagnesemia Status: Acute (4) Urinary retention Status: Acute Assessment/Plan rectal prolapse reviewed with Dr Moncada--he will see, tentatively planned for repair LINDA MONCADA MD 10/27/18 1354: SURGICAL PROGRESS NOTE Assessment/Plan Pt seen and examined. Agree with Ms. Matos's note Pt notes loose stools have improved, pain at prolapse soft, viable rectal prolapse, recurrent/difficult to reduce will plan altmeier procedure on 10/29. Given comorbidities, would not favor transabd approach R/R/B/A d/w pt. Risks, including, but not limited to: bleeding, infection, damage to surrounding structures, risk of anesthesia, risk of recurrence, risk of . She does demonstrate poor surgical candidate, given comorbidities and recent diarrhea. However, not able to proceed without repair. She appears to understand, her questions are answered and she elects to proceed. KEITH MATOS APRN October 27, 2018 11:34 LINDA MONCADA MD October 27, 2018 13:54
--- NOTE | 2018-10-27 14:09 | NUR ---
[facility] following pt. Pt has been accepted at both [facility] and [facility]. Pt became teary when SW discussed SNU options. SW informed pt is her decision wether she want to go to SNU or home. SW discussed medicare ratings per pt's request. Pt now states she wants to go back to [facility]. Spoke with [facility] and they will be submitting for auth. Discussed with RN.
[2018-10-27 14:58] VITALS: BP 95/43
[2018-10-27 19:00] VITALS: BP 105/44
[2018-10-27] MEDS: QUEtiapine 100 MG TABLET. PO SCH (21:33)
[2018-10-27 23:00] VITALS: BP 115/53
[2018-10-28 03:00] VITALS: BP 113/59
[2018-10-28] MEDS: LEVOTHYROXINE 125 MCG TABLET PO SCH (06:24)
[2018-10-28 07:00] VITALS: BP 115/49
[2018-10-28] MEDS: HYDROcodone/APAP 5/325MG 1 TAB TABLET PO PRN ×2 (07:02→13:32)
[2018-10-28] MEDS: INSULIN LISPRO 300 UNITS/3 ML INSULN.PEN. SQ SCH ×3 (08:00→17:00)
--- NOTE | 2018-10-28 08:41 | PDOC ---
SUBJECTIVE Subjective Pt has been able to walk around and is having BMs. She feels ready to have Olmedo out and try I and O cathing if she is not able to void on her own. OBJECTIVE Objective Physical Exam: General appearance: Alert and Oriented Head: Normocephalic, without obvious abnormality Eyes: conjunctivae/corneas clear. PERRL, EOM's intact. Fundi benign Lungs: Regular respirations, non labored breathing Abdomen: soft, non-tender. No masses, no organomegaly Pelvic: Olmedo catheter removed with no difficulty. Was draining clear yellow urine on removal. Vital Signs Vital Signs Date Time Temp Pulse Resp B/P (MAP) Pulse Ox O2 Delivery O2 Flow Rate FiO2 10/28/18 07:00 97.8 90 18 115/49 (71) 92 Nasal Cannula 2.0 97.8 10/28/18 03:00 98.0 87 18 113/59 (77) 91 Nasal Cannula 2.0 98.0 10/27/18 23:00 97.8 90 18 115/53 (73) 90 Nasal Cannula 2.0 97.8 10/27/18 20:00 Nasal Cannula 2.0 10/27/18 19:00 97.8 82 18 105/44 (64) 94 Nasal Cannula 2.0 97.8 10/27/18 16:10 Nasal Cannula 2.0 10/27/18 15:02 Nasal Cannula 2.0 10/27/18 14:58 97.7 81 18 95/43 (60) 92 Nasal Cannula 2.0 97.7 10/27/18 12:45 Nasal Cannula 2.0 10/27/18 10:59 97.8 103 18 127/49 (75) 95 Room Air 97.8 I & O Intake and Output 10/28/18 06:59 Intake Total 900 ml Output Total 3000 ml Balance -2100 ml Intake Oral 900 ml Output Urine Total 3000 ml # Voids 2 # Bowel Movements 5 PHYSICAL EXAM Physical Exam Physical Exam: General appearance: Alert and Oriented Head: Normocephalic, without obvious abnormality Eyes: conjunctivae/corneas clear. PERRL, EOM's intact. Fundi benign Lungs: Regular respirations, non labored breathing Abdomen: soft, non-tender. No masses, no organomegaly Pelvic: Olmedo catheter removed with no difficulty. Was draining clear yellow urine on removal. ASSESSMENT/PLAN Assessment/Plan Removed olmedo catheter for voiding trial. Encourage voiding q 1-2 hours, then bladder scan between 2 and 3 pm. If PVR greater than 350, please teach I and O cathing. A follow up appointment has been secured for patient with Dr. Ford of [facility] [place] on 11/04/18 at 0920 am. Appointment card and new patient paperwork given to iris ent. All questions answered. Could go to rehab center later today after pt demonstrates either ability to sufficiently empty bladder on her own or shows appropriate ability and understanding of I and O cathing technique. Renal US today to recheck for hydronephrosis, now that patient has had the Olmedo in for a few days. COMMENT Lab Laboratory Tests Test 10/27/18 09:50 10/27/18 11:48 10/27/18 16:25 10/28/18 08:34 White Blood Count 5.9 x10^3/uL (4.0-11.0) Red Blood Count 3.03 x10^6/uL (3.50-5.40) Hemoglobin 9.1 g/dL (12.0-15.5) Hematocrit 27.8 % (36.0-47.0) Mean Corpuscular Volume 92 fL (79-100) Mean Corpuscular Hemoglobin 30 pg (25-35) Mean Corpuscular Hemoglobin Concent 33 g/dL (31-37) Red Cell Distribution Width 17.0 % (11.5-14.5) Platelet Count 429 x10^3/uL (140-400) Neutrophils (%) (Auto) 67 % (31-73) Lymphocytes (%) (Auto) 19 % (24-48) Monocytes (%) (Auto) 13 % (0-9) Eosinophils (%) (Auto) 2 % (0-3) Basophils (%) (Auto) 0 % (0-3) Neutrophils # (Auto) 3.9 x10^3uL (1.8-7.7) Lymphocytes # (Auto) 1.1 x10^3/uL (1.0-4.8) Monocytes # (Auto) 0.8 x10^3/uL (0.0-1.1) Eosinophils # (Auto) 0.1 x10^3/uL (0.0-0.7) Basophils # (Auto) 0.0 x10^3/uL (0.0-0.2) Erythrocyte Sedimentation Rate 65 (0-25) Glucose (Fingerstick) 93 mg/dL (70-99) 97 mg/dL (70-99) 112 mg/dL (70-99) PARAM KAY APRN October 28, 2018 08:41
[2018-10-28] MEDS: VERAPAMIL SR 120 MG TABLET.ER. PO SCH (08:48)
[2018-10-28] MEDS: PARoxetine 20 MG TABLET PO SCH (08:48)
[2018-10-28] MEDS: GABAPENTIN 100 MG CAPSULE. PO SCH ×2 (08:49→21:22)
[2018-10-28] MEDS: LOSARTAN POTASSIUM 50 MG TABLET. PO SCH (08:49)
[2018-10-28] MEDS: MORPHINE ER 15 MG TABLET.ER PO SCH ×2 (08:49→21:22)
[2018-10-28] MEDS: CYCLOBENZAPRINE 10 MG TABLET. PO SCH ×3 (08:49→21:22)
--- NOTE | 2018-10-28 09:22 | NUR ---
SW following Pt. Insurance has approved SNU. Physician notified. KJ will await for dc order and proceed accordingly.
--- NOTE | 2018-10-28 09:48 | PDOC ---
SURGICAL PROGRESS NOTE Subjective has rectal pain Vital Signs Vital Signs Date Time Temp Pulse Resp B/P (MAP) Pulse Ox O2 Delivery O2 Flow Rate FiO2 10/28/18 08:49 20 93 Room Air 10/28/18 08:49 90 115/49 10/28/18 07:00 97.8 2.0 97.8 I&O Intake and Output 10/28/18 07:00 Intake Total 900 ml Output Total 3000 ml Balance -2100 ml Intake Oral 900 ml Output Urine Total 3000 ml # Voids 2 # Bowel Movements 5 PATIENT HAS A WHITTINGTON: No General: Alert, Other (prolapsed rectum, viable, no ulcers) Labs Laboratory Tests Test 10/26/18 11:04 10/26/18 16:29 10/26/18 21:12 10/27/18 07:26 Glucose (Fingerstick) 106 mg/dL (70-99) 113 mg/dL (70-99) 115 mg/dL (70-99) 108 mg/dL (70-99) Test 10/27/18 09:50 10/27/18 11:48 10/27/18 16:25 10/28/18 08:34 White Blood Count 5.9 x10^3/uL (4.0-11.0) Red Blood Count 3.03 x10^6/uL (3.50-5.40) Hemoglobin 9.1 g/dL (12.0-15.5) Hematocrit 27.8 % (36.0-47.0) Mean Corpuscular Volume 92 fL (79-100) Mean Corpuscular Hemoglobin 30 pg (25-35) Mean Corpuscular Hemoglobin Concent 33 g/dL (31-37) Red Cell Distribution Width 17.0 % (11.5-14.5) Platelet Count 429 x10^3/uL (140-400) Neutrophils (%) (Auto) 67 % (31-73) Lymphocytes (%) (Auto) 19 % (24-48) Monocytes (%) (Auto) 13 % (0-9) Eosinophils (%) (Auto) 2 % (0-3) Basophils (%) (Auto) 0 % (0-3) Neutrophils # (Auto) 3.9 x10^3uL (1.8-7.7) Lymphocytes # (Auto) 1.1 x10^3/uL (1.0-4.8) Monocytes # (Auto) 0.8 x10^3/uL (0.0-1.1) Eosinophils # (Auto) 0.1 x10^3/uL (0.0-0.7) Basophils # (Auto) 0.0 x10^3/uL (0.0-0.2) Erythrocyte Sedimentation Rate 65 (0-25) Glucose (Fingerstick) 93 mg/dL (70-99) 97 mg/dL (70-99) 112 mg/dL (70-99) Laboratory Tests Test 10/27/18 09:50 10/27/18 11:48 10/27/18 16:25 10/28/18 08:34 White Blood Count 5.9 x10^3/uL (4.0-11.0) Red Blood Count 3.03 x10^6/uL (3.50-5.40) Hemoglobin 9.1 g/dL (12.0-15.5) Hematocrit 27.8 % (36.0-47.0) Mean Corpuscular Volume 92 fL (79-100) Mean Corpuscular Hemoglobin 30 pg (25-35) Mean Corpuscular Hemoglobin Concent 33 g/dL (31-37) Red Cell Distribution Width 17.0 % (11.5-14.5) Platelet Count 429 x10^3/uL (140-400) Neutrophils (%) (Auto) 67 % (31-73) Lymphocytes (%) (Auto) 19 % (24-48) Monocytes (%) (Auto) 13 % (0-9) Eosinophils (%) (Auto) 2 % (0-3) Basophils (%) (Auto) 0 % (0-3) Neutrophils # (Auto) 3.9 x10^3uL (1.8-7.7) Lymphocytes # (Auto) 1.1 x10^3/uL (1.0-4.8) Monocytes # (Auto) 0.8 x10^3/uL (0.0-1.1) Eosinophils # (Auto) 0.1 x10^3/uL (0.0-0.7) Basophils # (Auto) 0.0 x10^3/uL (0.0-0.2) Erythrocyte Sedimentation Rate 65 (0-25) Glucose (Fingerstick) 93 mg/dL (70-99) 97 mg/dL (70-99) 112 mg/dL (70-99) Problem List Problems Medical Problems: (1) Bowel obstruction Status: Acute (2) Hypokalemia Status: Acute (3) Hypomagnesemia Status: Acute (4) Urinary retention Status: Acute Assessment/Plan rectal prolapse for repair tomorrow Dr Moncada will see pre op to answer pts questions SHANKAR BANDA MD October 28, 2018 09:48
[2018-10-28] MEDS: ALPRAZolam 0.25 MG TABLET PO PRN (09:52)
--- NOTE | 2018-10-28 10:46 | PDOC ---
PROGRESS NOTES Chief Complaint Chief Complaint Prolapsed rectum, beyond manual reduction now Non infectious diarrhea, no colitis/resolved urinary retention s.p olmedo DRAGAN sec to GI losses s/p hypokalemia and hyponatremia SBO ruled out History of Present Illness History of Present Illness No more diarrhea C. difficile negative That rectum is out and prolapsed and is beyond manual reduction Severe pain with just lifting of the sheets unable to dc to any SNU with that prolapsed of a rectum She is laying on her side still Last CBC check normal WBC, normal coags Discussed with GI, no more colitis Patient agreeable to SNU as per PT recommendation-discussed with social work PLAN: plan for rectal prolapse repair tomorrow Vitals Vitals Vital Signs Date Time Temp Pulse Resp B/P (MAP) Pulse Ox O2 Delivery O2 Flow Rate FiO2 10/28/18 08:49 20 93 Room Air 10/28/18 08:49 90 115/49 10/28/18 07:00 97.8 2.0 97.8 Physical Exam General: Alert, Other (prolapsed rectum, viable, no ulcers) Heart: Regular rate, Normal S1, Normal S2 Lungs: Clear Abdomen: Soft Extremities: No clubbing, No cyanosis Skin: Other (noted rectal prolapse ) Labs LABS Laboratory Tests Test 10/27/18 11:48 10/27/18 16:25 10/28/18 08:34 Glucose (Fingerstick) 93 mg/dL (70-99) 97 mg/dL (70-99) 112 mg/dL (70-99) Assessment and Plan Assessmemt and Plan Problems Medical Problems: (1) Bowel obstruction Status: Acute (2) Hypokalemia Status: Acute (3) Hypomagnesemia Status: Acute (4) Urinary retention Status: Acute Comment Review of Relevant I have reviewed the following items lashawn (where applicable) has been applied. Labs Laboratory Tests Test 10/26/18 11:04 10/26/18 16:29 10/26/18 21:12 10/27/18 07:26 Glucose (Fingerstick) 106 mg/dL (70-99) 113 mg/dL (70-99) 115 mg/dL (70-99) 108 mg/dL (70-99) Test 10/27/18 09:50 10/27/18 11:48 10/27/18 16:25 10/28/18 08:34 White Blood Count 5.9 x10^3/uL (4.0-11.0) Red Blood Count 3.03 x10^6/uL (3.50-5.40) Hemoglobin 9.1 g/dL (12.0-15.5) Hematocrit 27.8 % (36.0-47.0) Mean Corpuscular Volume 92 fL (79-100) Mean Corpuscular Hemoglobin 30 pg (25-35) Mean Corpuscular Hemoglobin Concent 33 g/dL (31-37) Red Cell Distribution Width 17.0 % (11.5-14.5) Platelet Count 429 x10^3/uL (140-400) Neutrophils (%) (Auto) 67 % (31-73) Lymphocytes (%) (Auto) 19 % (24-48) Monocytes (%) (Auto) 13 % (0-9) Eosinophils (%) (Auto) 2 % (0-3) Basophils (%) (Auto) 0 % (0-3) Neutrophils # (Auto) 3.9 x10^3uL (1.8-7.7) Lymphocytes # (Auto) 1.1 x10^3/uL (1.0-4.8) Monocytes # (Auto) 0.8 x10^3/uL (0.0-1.1) Eosinophils # (Auto) 0.1 x10^3/uL (0.0-0.7) Basophils # (Auto) 0.0 x10^3/uL (0.0-0.2) Erythrocyte Sedimentation Rate 65 (0-25) Glucose (Fingerstick) 93 mg/dL (70-99) 97 mg/dL (70-99) 112 mg/dL (70-99) Laboratory Tests Test 10/27/18 11:48 10/27/18 16:25 10/28/18 08:34 Glucose (Fingerstick) 93 mg/dL (70-99) 97 mg/dL (70-99) 112 mg/dL (70-99) Microbiology 10/27/18 Fecal Leukocyte Stain - Final, Complete Medications Current Medications Sodium Chloride 1,000 ml @ 1,000 mls/hr 1X ONCE IV Last administered on 10/24/18at 00:28; Start 10/23/18 at 23:15; Stop 10/24/18 at 00:14; Status DC Fentanyl Citrate (Fentanyl 2ml Vial) 50 mcg 1X ONCE IV Last administered on 10/24/18at 00:29; Start 10/24/18 at 00:00; Stop 10/24/18 at 00:01; Status DC Iohexol (Omnipaque 300 Mg/ml) 60 ml 1X ONCE IV Last administered on 10/24/18 01:10; Start 10/24/18 at 01:00; Stop 10/24/18 at 01:01; Status DC Info (CONTRAST GIVEN -- Rx MONITORING) 1 each PRN DAILY PRN MC SEE COMMENTS; Start 10/24/18 at 01:00; Stop 10/26/18 at 00:59; Status DC Magnesium Sulfate 50 ml @ 25 mls/hr 1X ONCE IV Last administered on 10/24/18at 01:30; Start 10/24/18 at 01:45; Stop 10/24/18 at 03:44; Status DC Potassium Chloride/Water 100 ml @ 100 mls/hr Q1H IV Last administered on 10/24/18at 06:46; Start 10/24/18 at 01:30; Stop 10/24/18 at 05:29; Status DC Ondansetron HCl (Zofran) 4 mg PRN Q8HRS PRN IV NAUSEA/VOMITING; Start 10/24/18 at 01:45; Stop 10/25/18 at 01:44; Status DC Fentanyl Citrate (Fentanyl 2ml Vial) 50 mcg PRN Q2HR PRN IV PAIN Last administered on 10/24/18at 13:34; Start 10/24/18 at 01:45; Stop 10/24/18 at 14:04; Status DC Insulin Human Lispro (HumaLOG) 0-5 UNITS TIDWMEALS SQ ; Start 10/24/18 at 08:00 Dextrose (Dextrose 50%-Water Syringe) 12.5 gm PRN Q15MIN PRN IV SEE COMMENTS; Start 10/24/18 at 01:45 Fentanyl Citrate (Fentanyl 2ml Vial) 50 mcg 1X ONCE IV Last administered on 10/24/18at 05:53; Start 10/24/18 at 03:15; Stop 10/24/18 at 03:35; Status DC Pharmacy Consult (C.diff Med Screen By Rx) 1 each 1X ONCE MC Last administered on 10/24/18at 09:00; Start 10/24/18 at 09:00; Stop 10/24/18 at 09:01; Status DC Alprazolam (Xanax) 0.25 mg PRN BID PRN PO ANXIETY / AGITATION Last administered on 10/28/18 09:52; Start 10/24/18 at 14:15 Cyclobenzaprine HCl (Flexeril) 10 mg TID PO Last administered on 10/28/18 08:49; Start 10/24/18 at 21:00 Gabapentin (Neurontin) 100 mg BID PO Last administered on 10/28/18 08:49; Start 10/24/18 at 21:00 Acetaminophen/ Hydrocodone Bitart (Lortab 5/325) 1 tab PRN Q6HRS PRN PO MILD PAIN 1-3 Last administered on 10/28/18 07:02; Start 10/24/18 at 14:15 Losartan Potassium (Cozaar) 50 mg DAILY PO Last administered on 10/28/18 08:49; Start 10/24/18 at 15:00 Oxycodone/ Acetaminophen (Percocet 5/325) 1 tab PRN Q6HRS PRN PO PAIN MODERATE Last administered on 10/27/18 21:34; Start 10/24/18 at 14:15 Zolpidem Tartrate (Ambien) 5 mg PRN QHS PRN PO INSOMNIA; Start 10/24/18 at 14:15 Albuterol Sulfate (Ventolin Neb Soln) 2.5 mg Q4HRS NEB ; Start 10/24/18 at 16:00; Stop 10/24/18 at 18:17; Status DC Levothyroxine Sodium (Synthroid) 125 mcg DAILY06 PO Last administered on 10/28/18 06:24; Start 10/24/18 at 15:00 Paroxetine HCl (Paxil) 40 mg DAILY PO Last administered on 10/28/18 08:48; Start 10/24/18 at 15:00 Phenylephrine HCl (Hemorrhoidal) 1 supp PRN Q12HR PRN WI RECTAL PAIN; Start 10/24/18 at 14:45; Stop 10/26/18 at 08:55; Status DC Quetiapine Fumarate (SEROquel) 600 mg QHS PO Last administered on 10/27/18 21:33; Start 10/24/18 at 21:00 Verapamil HCl (Calan Sr) 240 mg DAILY PO Last administered on 10/28/18 08:48; Start 10/24/18 at 15:00 Dicyclomine HCl (Bentyl) 10 mg PRN QID PRN IM ABDOMINAL CRAMPING; Start 10/24/18 at 14:45 Morphine Sulfate (Morphine Sulfate) 4 mg PRN Q2HR PRN IV PAIN Last administered on 10/25/18 21:19; Start 10/24/18 at 14:15 Cholestyramine Resin (Questran Light) 4 gm Q6H PO Last administered on 10/26/18 07:24; Start 10/24/18 at 14:15; Stop 10/26/18 at 12:04; Status DC Loperamide HCl (Imodium) 2 mg PRN Q15MIN PRN PO DIARRHEA Last administered on 10/25/18 20:32; Start 10/24/18 at 14:15; Stop 10/26/18 at 12:04; Status DC Potassium Chloride/Water 100 ml @ 100 mls/hr Q1H IV Last administered on 10/25/18 02:51; Start 10/24/18 at 14:30; Stop 10/24/18 at 20:29; Status DC Albuterol Sulfate (Ventolin Neb Soln) 2.5 mg PRN Q4HRS PRN NEB SHORTNESS OF BREATH; Start 10/24/18 at 18:30 Ringer's Solution 1,000 ml @ 100 mls/hr Q10H IV Last administered on 10/25/18 17:11; Start 10/24/18 at 19:00; Stop 10/26/18 at 05:40; Status DC Morphine Sulfate (Ms Contin) 15 mg BID PO Last administered on 10/28/18 08:49; Start 10/25/18 at 12:00 Morphine Sulfate (Morphine Ir) 15 mg PRN Q4HRS PRN PO SEVERE PAIN Last administered on 10/26/18 14:03; Start 10/25/18 at 12:00 Phenylephrine HCl (Hemorrhoidal) 1 supp PRN Q12HR PRN WI RECTAL PAIN Last administered on 10/27/18 08:48; Start 10/26/18 at 09:00 Calcium Carbonate/ Glycine (Tums) 500 mg QIDPRN PRN PO INDIGESTION Last administered on 5/20/19at 20:56; Start 10/26/18 at 20:00 Ondansetron HCl (Zofran) 4 mg PRN Q6HRS PRN IV NAUSEA/VOMITING; Start 10/29/18 at 07:00; Stop 10/29/18 at 19:00 Fentanyl Citrate (Fentanyl 2ml Vial) 25 mcg PRN Q5MIN PRN IV MILD PAIN 1-3; Start 10/29/18 at 07:00; Stop 10/29/18 at 19:00 Fentanyl Citrate (Fentanyl 2ml Vial) 50 mcg PRN Q5MIN PRN IV MODERATE TO SEVERE PAIN; Start 10/29/18 at 07:00; Stop 10/29/18 at 19:00 Morphine Sulfate (Morphine Sulfate) 1 mg PRN Q10MIN PRN IV SEVERE PAIN 7-10; Start 10/29/18 at 07:00; Stop 10/29/18 at 19:00 Ringer's Solution 1,000 ml @ 30 mls/hr Q24H IV ; Start 10/29/18 at 07:00; Stop 10/29/18 at 18:59 Lidocaine HCl (Xylocaine-Mpf 1% 2ml Vial) 2 ml PRN 1X PRN ID PRIOR TO IV START; Start 10/29/18 at 07:00; Stop 10/29/18 at 19:00 Hydromorphone HCl (Dilaudid) 0.5 mg PRN Q10MIN PRN IV SEV PAIN, Second choice; Start 10/29/18 at 07:00; Stop 10/29/18 at 19:00 Prochlorperazine Edisylate (Compazine) 5 mg PACU PRN PRN IV NAUSEA, MRX1; Start 10/29/18 at 07:00; Stop 10/29/18 at 19:00 Active Scripts Active Alejandra-Med (Phenylephrine Hcl) 1 Each Supp.rect 1 Supp WI PRN Q12HR PRN 7 Days [Dicyclomine Hcl] 10 MG/1 ML Ampul 10 Mg IM PRN QID PRN 7 Days Mingus 5-325 Tablet (Acetaminophen/Hydrocodone Bitart) 1 Each Tablet 1 Tab PO Q4- 6HRS Ventolin Hfa Inhaler (Albuterol Sulfate) 18 Gm Hfa.aer.ad 2 Puff INH Q4HRS Percocet 5-325 mg Tablet (Oxycodone HCl/Acetaminophen) 1 Each Tablet 1 Each PO Q6HRS PRN Ultram (Tramadol Hcl) 50 Mg Tablet 50 Mg PO Q6HRS PRN Reported Xanax (Alprazolam) 0.25 Mg Tablet 1 Tab PO BID PRN Cyclobenzaprine Hcl 10 Mg Tablet 1 Tab PO TID Seroquel (Quetiapine Fumarate) 300 Mg Tablet 2 Tab PO QHS Ambien (Zolpidem Tartrate) 5 Mg Tablet 5 Mg PO PRN QHS PRN Gabapentin (Gabapentin) 100 Mg Capsule 100 Mg PO BID Synthroid (Levothyroxine Sodium) 125 Mcg Tablet 1 Tab PO DAILY Paroxetine Hcl 40 Mg Tablet 1 Tab PO DAILY Losartan Potassium 50 Mg Tablet 50 Mg PO DAILY Verapamil Er (Verapamil Hcl) 240 Mg Cap24h.pel 1 Cap PO DAILY Vitals/I & O Vital Sign - Last 24 Hours 10/27/18 10/27/18 10/27/18 10/27/18 10:59 12:45 14:58 15:02 Temp 97.8 97.7 97.8 97.7 Pulse 103 81 Resp 18 18 B/P (MAP) 127/49 (75) 95/43 (60) Pulse Ox 95 92 O2 Delivery Room Air Nasal Cannula Nasal Cannula Nasal Cannula O2 Flow Rate 2.0 2.0 2.0 10/27/18 10/27/18 10/27/18 10/27/18 16:10 19:00 20:00 23:00 Temp 97.8 97.8 97.8 97.8 Pulse 82 90 Resp 18 18 B/P (MAP) 105/44 (64) 115/53 (73) Pulse Ox 94 90 O2 Delivery Nasal Cannula Nasal Cannula Nasal Cannula Nasal Cannula O2 Flow Rate 2.0 2.0 2.0 2.0 10/28/18 10/28/18 10/28/18 10/28/18 03:00 07:00 08:00 08:41 Temp 98.0 97.8 98.0 97.8 Pulse 87 90 Resp 18 18 21 B/P (MAP) 113/59 (77) 115/49 (71) Pulse Ox 91 92 93 O2 Delivery Nasal Cannula Nasal Cannula Room Air Room Air O2 Flow Rate 2.0 2.0 10/28/18 10/28/18 10/28/18 08:48 08:49 08:49 Pulse 90 90 Resp 20 B/P (MAP) 115/49 115/49 Pulse Ox 93 O2 Delivery Room Air Intake and Output 10/27/18 10/27/18 10/28/18 15:00 23:00 07:00 Intake Total 600 ml 300 ml 0 ml Output Total 3000 ml Balance 600 ml 300 ml -3000 ml AMIE VILLEGAS MD October 28, 2018 10:46
[2018-10-28 11:00] VITALS: BP 102/64
--- NOTE | 2018-10-28 11:50 | PDOC ---
Subjective: Subjective: Has rectal pain, leaking stool. Objective: Vital Signs: Vital Signs Date Time Temp Pulse Resp B/P (MAP) Pulse Ox O2 Delivery O2 Flow Rate FiO2 10/28/18 11:00 97.9 85 18 102/64 (77) 90 Nasal Cannula 2.0 97.9 Labs: Laboratory Tests Test 10/27/18 16:25 10/28/18 08:34 Glucose (Fingerstick) 97 mg/dL 112 mg/dL PE: GEN: uncomfortable LUNGS: NC HEART: RRR ABD: soft NEURO/PSYCH: A & O 3 A/P: Rectal prolapse H/o constipation -- Note plans for OR tomorrow. RIC FAN October 28, 2018 11:50
--- NOTE | 2018-10-28 13:05 | RAD ---
EXAM: Renal sonogram. HISTORY: Hydronephrosis. TECHNIQUE: Sonographic imaging of the kidneys and bladder was performed. COMPARISON: CT dated 10/14/2018. FINDINGS: The kidneys are normal in size. No solid or cystic renal lesion is seen. There is no hydronephrosis. The bladder is unremarkable. IMPRESSION: Unremarkable renal sonogram. Electronically signed by: Lina Tavares MD (10/28/2018 1:02 PM) [id number]
[2018-10-28 15:00] VITALS: BP 98/47
[2018-10-28] MEDS: MORPHINE IR 15 MG TABLET PO PRN (17:34)
--- NOTE | 2018-10-28 18:30 | NUR ---
STRAIGHT CATH PERFORMED PER THIS BREAKER ENGINEER DUE TO DECREASED URINARY OUTPUT FROM PATIENT THIS SHIFT, 350CC DARK YELLOW URINE OBTAINED, STERILE TECHNIQUE UTILIZED, PATIENT TOLERATED PROCEDURE WITH MINIMAL COMPLAINTS, WILL ENCOURAGE HER TO VOID EVERY 1-2 HRS.
[2018-10-28 19:00] VITALS: BP 100/41
[2018-10-28] MEDS: QUEtiapine 100 MG TABLET. PO SCH (21:21)
[2018-10-28] MEDS: oxyCODONE/APAP 5/325 1 TAB TABLET PO PRN (21:24)
[2018-10-28 23:00] VITALS: BP 97/69
[2018-10-29 03:00] VITALS: BP 151/72
[2018-10-29] MEDS: LEVOTHYROXINE 125 MCG TABLET PO SCH (04:15)
[2018-10-29] MEDS: oxyCODONE/APAP 5/325 1 TAB TABLET PO PRN (04:15)
[2018-10-29] MEDS: CALCIUM CARBONATE 500 MG TAB.CHEW PO PRN (04:20)
[2018-10-29] MEDS ORDERED: BUPIVAC MPF-EPI 0.5%-1:200000 30 ML VIAL. ONE (06:02)
[2018-10-29] MEDS ORDERED: ONDANSETRON PF 4 MG/2 ML VIAL. IV PRN ×2 (07:00→10:30)
[2018-10-29] MEDS ORDERED: PROCHLORPERAZINE 10 MG/2 ML VIAL. IV PRN (07:00)
[2018-10-29] MEDS ORDERED: fentaNYL PF VIAL 100 MCG/2 ML VIAL IV PRN ×2 (07:00)
[2018-10-29] MEDS ORDERED: IV RINGERS,LACTATED 1000ML 1,000 ML IV SCH (07:00)
[2018-10-29] MEDS ORDERED: HYDROmorphone 2 MG/ML VIAL IV PRN (07:00)
[2018-10-29] MEDS ORDERED: LIDOCAINE 1% PF 2 ML VIAL. ID PRN (07:00)
[2018-10-29] MEDS ORDERED: MORPHINE SULFATE 2 MG/ML VIAL. IV PRN (07:00)
--- NOTE | 2018-10-29 07:43 | PDOC ---
SURGICAL PROGRESS NOTE Subjective Pre-Op Note 63 yo F with rectal prolapse, now unreducible. Diarrhea and colitis appear to have resolved. Pt notes pain in rectal area. TO OR for perineal repair. R/R/B/A d/w pt. Risks, including, but not limited to: bleeding, infection, damage to surrounding structures, risk of anesthesia, risk of recurrence, risk of . She is at increased risk for perioperative complications secondary to comorbidities as well as noted diffuse pelvic floor dysfunction. She appears to understand, her questions are answered and she elects to proceed. Vital Signs Vital Signs Date Time Temp Pulse Resp B/P (MAP) Pulse Ox O2 Delivery O2 Flow Rate FiO2 10/29/18 03:00 97.4 83 16 151/72 (98) 95 Nasal Cannula 2.0 97.4 I&O Intake and Output 10/29/18 07:00 Intake Total 1240 ml Output Total 353 ml Balance 887 ml Intake Oral 1240 ml Output Urine Total 352 ml Stool Total 1 ml # Voids 4 Labs Laboratory Tests Test 10/27/18 09:50 10/27/18 11:48 10/27/18 16:25 10/28/18 08:34 White Blood Count 5.9 x10^3/uL (4.0-11.0) Red Blood Count 3.03 x10^6/uL (3.50-5.40) Hemoglobin 9.1 g/dL (12.0-15.5) Hematocrit 27.8 % (36.0-47.0) Mean Corpuscular Volume 92 fL (79-100) Mean Corpuscular Hemoglobin 30 pg (25-35) Mean Corpuscular Hemoglobin Concent 33 g/dL (31-37) Red Cell Distribution Width 17.0 % (11.5-14.5) Platelet Count 429 x10^3/uL (140-400) Neutrophils (%) (Auto) 67 % (31-73) Lymphocytes (%) (Auto) 19 % (24-48) Monocytes (%) (Auto) 13 % (0-9) Eosinophils (%) (Auto) 2 % (0-3) Basophils (%) (Auto) 0 % (0-3) Neutrophils # (Auto) 3.9 x10^3uL (1.8-7.7) Lymphocytes # (Auto) 1.1 x10^3/uL (1.0-4.8) Monocytes # (Auto) 0.8 x10^3/uL (0.0-1.1) Eosinophils # (Auto) 0.1 x10^3/uL (0.0-0.7) Basophils # (Auto) 0.0 x10^3/uL (0.0-0.2) Erythrocyte Sedimentation Rate 65 (0-25) Glucose (Fingerstick) 93 mg/dL (70-99) 97 mg/dL (70-99) 112 mg/dL (70-99) Test 10/28/18 11:41 10/28/18 16:07 10/28/18 22:29 Glucose (Fingerstick) 110 mg/dL (70-99) 100 mg/dL (70-99) 94 mg/dL (70-99) Laboratory Tests Test 10/28/18 08:34 10/28/18 11:41 10/28/18 16:07 10/28/18 22:29 Glucose (Fingerstick) 112 mg/dL (70-99) 110 mg/dL (70-99) 100 mg/dL (70-99) 94 mg/dL (70-99) Problem List Problems Medical Problems: (1) Bowel obstruction Status: Acute (2) Hypokalemia Status: Acute (3) Hypomagnesemia Status: Acute (4) Urinary retention Status: Acute LINDA SALCEDO MD October 29, 2018 07:43
[2018-10-29] MEDS ORDERED: PROPOFOL 20 ML IV ONE (07:49)
[2018-10-29] MEDS ORDERED: LIDOCAINE 2% PF 5 ML VIAL. ONE (07:50)
[2018-10-29] MEDS ORDERED: DEXAMETHASONE SOD PHOS 4 MG/ML VIAL ONE ×2 (07:50)
[2018-10-29] MEDS ORDERED: ONDANSETRON PF 4 MG/2 ML VIAL. ONE (07:50)
[2018-10-29] MEDS ORDERED: fentaNYL PF VIAL 100 MCG/2 ML VIAL ONE (07:51)
[2018-10-29] MEDS ORDERED: MIDAZOLAM HCL/PF 2 MG/2 ML VIAL. ONE (07:51)
[2018-10-29] MEDS ORDERED: FAMOTIDINE 20 MG/2 ML VIAL ONE (07:53)
[2018-10-29] MEDS ORDERED: IPRATRPIUM/ALBUTEROL 0.5/2.5MG 3 ML NEBU. ONE (07:55)
[2018-10-29] MEDS ORDERED: IPRATRPIUM/ALBUTEROL 0.5/2.5MG 3 ML NEBU. NEB ONE (08:00)
[2018-10-29] MEDS: INSULIN LISPRO 300 UNITS/3 ML INSULN.PEN. SQ SCH ×3 (08:00→17:00)
[2018-10-29] MEDS: cefOXitin SODIUM IV Push 2 GM VIAL. IVP SCH ×2 (08:37→08:45)
[2018-10-29] MEDS ORDERED: KETAMINE HCL IN NACL, ISO-OSM 50 MG/5 ML SYRINGE ONE (08:43)
[2018-10-29] MEDS: VERAPAMIL SR 120 MG TABLET.ER. PO SCH (09:00)
[2018-10-29] MEDS: GABAPENTIN 100 MG CAPSULE. PO SCH ×2 (09:00→20:49)
[2018-10-29] MEDS: LOSARTAN POTASSIUM 50 MG TABLET. PO SCH (09:00)
[2018-10-29] MEDS: CYCLOBENZAPRINE 10 MG TABLET. PO SCH ×3 (09:00→20:49)
[2018-10-29] MEDS: MORPHINE ER 15 MG TABLET.ER PO SCH ×2 (09:00→20:48)
[2018-10-29] MEDS: PARoxetine 20 MG TABLET PO SCH (09:00)
[2018-10-29] MEDS ORDERED: PHENYLEPHRINE in 0.9% NACL PF 1 MG/10 ML SYRINGE. IV ONE (09:09)
[2018-10-29] MEDS ORDERED: cefOXitin SODIUM IV Push 2 GM VIAL. IVP ONE (09:30)
[2018-10-29] MEDS ORDERED: HYDROmorphone 2 MG/ML VIAL ONE (10:05)
[2018-10-29] MEDS: IV NORMAL SALINE 1000ML BAG 1,000 ML IV SCH (10:27)
[2018-10-29] MEDS ORDERED: NALOXONE 0.4 MG/ML VIAL. IV PRN (10:30)
[2018-10-29] MEDS ORDERED: 0.9 % SODIUM CHLORIDE 10 ML DISP.SYRIN. IV PRN (10:30)
[2018-10-29] MEDS ORDERED: MORPHINE SULFATE/PF 30 ML IV PRN (10:30)
--- NOTE | 2018-10-29 10:37 | PDOC4 ---
OPERATIVE NOTE Date: Date: October 29, 2018 Pre-Op Diagnosis: Rectal prolapse Post-Op Diagnosis: same Procedure Performed: [place] procedure Surgeon: Catarino Salcedo Anesthesia Type: GETA plus local Blood Loss: 20 Specimans Obtained: rectum, stitch in distal end Findings: complete rectal prolapse, viable, irreducible Complications: none Operative Note: After obtaining informed consent, patient was taken to OR, induced under GETA and prepped in the usual fashion in high lithotomy position. Rectum was fully prolapsed. Cautery was used to make incision 2 cm proximal to dentate line with cautery. Mesorectum sequentially taken down to fully expose prolapsed rectum. 3 0 vicryl stitches placed in this edge. Rectum exposed up to the peritoneal reflection, which was opened without any viscera. Rectum resected at this level and passed off field to pathology. Peritoneum closed with 3 0 vicryl. Colon secured circumferentially with 3 0 prolene for rectopexy. Levator ani muscles were atrophied to the point of nonexistence, but no obvious pelvic floor defect. Previous 3 0 vicryl used to reinforce anastomosis. Anastomosis completed with 2 x 3 0 PDS. No defects noted. Complete viability. No evidence of bleeding. Rigid sigmoidoscopy demonstrated patency and no obvious mass or other pathology. Dressing placed. Patient tolerated procedure well and sent to PACU in stable condition. All counts correct. No immediate complications. Wound class is dirty, 4. LINDA SALCEDO MD October 29, 2018 10:37
[2018-10-29 11:00] VITALS: BP 123/76
[2018-10-29] MEDS: IV RINGERS,LACTATED 1000ML 1,000 ML IV SCH ×2 (11:07→20:47)
--- NOTE | 2018-10-29 12:08 | PDOC ---
Objective: Vital Signs: Vital Signs Date Time Temp Pulse Resp B/P (MAP) Pulse Ox O2 Delivery O2 Flow Rate FiO2 10/29/18 11:45 97.3 98 16 145/53 94 Nasal Cannula 2 97.3 Labs: Laboratory Tests Test 10/28/18 16:07 10/28/18 22:29 Glucose (Fingerstick) 100 mg/dL 94 mg/dL Imaging: Renal US 10/28 IMPRESSION: Unremarkable renal sonogram. PE: out of room A/P: Rectal prolapse s/p Altmeier procedure -- Will follow. RIC FAN October 29, 2018 12:08
--- NOTE | 2018-10-29 13:50 | PDOC ---
SUBJECTIVE Subjective Surgical team decided to fix rectal prolapse today and she just got out of surgery. Olmedo was put back in for a return of 1700 ml. She was not able to I and O cath yesterday per nursing staff. Patient is asleep, just got back from the OR OBJECTIVE Objective Physical Exam: General appearance: Sleeping, appears comfortable Head: Normocephalic, without obvious abnormality Eyes: conjunctivae/corneas clear. PERRL, EOM's intact. Fundi benign Lungs: Regular respirations, non labored breathing Abdomen: soft, non-tender. Bowel sounds normal. No masses, no organomegaly Pelvic: + Olmedo catheter in place draining clear yellow urine. Device in good working order Vital Signs Vital Signs Date Time Temp Pulse Resp B/P (MAP) Pulse Ox O2 Delivery O2 Flow Rate FiO2 10/29/18 11:45 97.3 98 16 145/53 94 Nasal Cannula 2 97.3 10/29/18 11:30 Mask 2 10/29/18 11:30 97.3 96 13 147/60 93 Nasal Cannula 2 97.3 10/29/18 11:15 97.3 100 16 141/46 96 Nasal Cannula 2 97.3 10/29/18 11:06 21 97 Simple Mask 8.0 10/29/18 11:00 97.3 100 13 129/81 97 Nasal Cannula 2 97.3 10/29/18 11:00 98.0 101 18 123/76 (92) 92 Nasal Cannula 2.0 98.0 10/29/18 10:47 97.3 96 14 155/60 96 Simple Mask 8 97.3 10/29/18 10:27 Mask 8 10/29/18 10:27 97.3 98 12 140/53 97 Simple Mask 8 97.3 10/29/18 08:02 97.4 96 20 137/63 91 Nasal Cannula 97.4 10/29/18 08:00 Nasal Cannula 2.0 10/29/18 03:00 97.4 83 16 151/72 (98) 95 Nasal Cannula 2.0 97.4 10/28/18 23:00 98.0 81 17 97/69 (78) 92 Nasal Cannula 2.0 98.0 10/28/18 20:00 Nasal Cannula 2.0 10/28/18 19:00 98.0 82 17 100/41 (60) 90 Nasal Cannula 2.0 98.0 10/28/18 17:34 Room Air 10/28/18 15:00 97.5 83 17 98/47 (64) 89 Nasal Cannula 2.0 97.5 10/28/18 14:40 19 94 Room Air I & O Intake and Output 10/29/18 07:00 Intake Total 1240 ml Output Total 353 ml Balance 887 ml Intake Oral 1240 ml Output Urine Total 352 ml Stool Total 1 ml # Voids 4 PHYSICAL EXAM Physical Exam Physical Exam: General appearance: Sleeping, appears comfortable Head: Normocephalic, without obvious abnormality Eyes: conjunctivae/corneas clear. PERRL, EOM's intact. Fundi benign Lungs: Regular respirations, non labored breathing Abdomen: soft, non-tender. Bowel sounds normal. No masses, no organomegaly Pelvic: + Olmedo catheter in place draining clear yellow urine. Device in good working order ASSESSMENT/PLAN Assessment/Plan Pt was unable to do I and O catheterization yesterday and olmedo was put back in for operation today. Leave olmedo in today and then will discuss I and O cathing with patient tomorrow. Follow up Renal US shows no hydronephrosis as of 10/28/18 Problems: (1) Urinary retention COMMENT Lab Laboratory Tests Test 10/28/18 16:07 10/28/18 22:29 Glucose (Fingerstick) 100 mg/dL (70-99) 94 mg/dL (70-99) PARAM KAY APRN October 29, 2018 13:50
[2018-10-29 15:00] VITALS: BP 123/36
--- NOTE | 2018-10-29 15:41 | PDOC ---
PROGRESS NOTES Chief Complaint Chief Complaint Prolapsed rectum, beyond manual reduction now Non infectious diarrhea, no colitis/resolved urinary retention s.p olmedo. olmedo placed back in 10/29 bc of sx today. urology to discuss in and out cath mayito with patient. DRAGAN sec to GI losses, resolved s/p hypokalemia and hyponatremia SBO ruled out History of Present Illness History of Present Illness PLAN patient for surgery today for rectal prolase repair No more diarrhea C. difficile negative unable to dc to any SNU with that prolapsed of a rectum olmedo to remain in place today labs stable Patient agreeable to SNU as per PT recommendation-discussed with social work Vitals Vitals Vital Signs Date Time Temp Pulse Resp B/P (MAP) Pulse Ox O2 Delivery O2 Flow Rate FiO2 10/29/18 11:45 97.3 98 16 145/53 94 Nasal Cannula 2 97.3 Physical Exam General: Alert, Other (prolapsed rectum, viable, no ulcers) Heart: Regular rate, Normal S1, Normal S2 Lungs: Clear Abdomen: Soft Extremities: No clubbing, No cyanosis Skin: Other (noted rectal prolapse ) Labs LABS Laboratory Tests Test 10/28/18 16:07 10/28/18 22:29 Glucose (Fingerstick) 100 mg/dL (70-99) 94 mg/dL (70-99) Assessment and Plan Assessmemt and Plan Problems Medical Problems: (1) Bowel obstruction Status: Acute (2) Hypokalemia Status: Acute (3) Hypomagnesemia Status: Acute (4) Urinary retention Status: Acute Comment Review of Relevant I have reviewed the following items lashawn (where applicable) has been applied. Labs Laboratory Tests Test 10/27/18 16:25 10/28/18 08:34 10/28/18 11:41 10/28/18 16:07 Glucose (Fingerstick) 97 mg/dL (70-99) 112 mg/dL (70-99) 110 mg/dL (70-99) 100 mg/dL (70-99) Test 10/28/18 22:29 Glucose (Fingerstick) 94 mg/dL (70-99) Laboratory Tests Test 10/28/18 16:07 10/28/18 22:29 Glucose (Fingerstick) 100 mg/dL (70-99) 94 mg/dL (70-99) Microbiology 10/27/18 Fecal Leukocyte Stain - Final, Complete Medications Current Medications Sodium Chloride 1,000 ml @ 1,000 mls/hr 1X ONCE IV Last administered on 10/24/18at 00:28; Start 10/23/18 at 23:15; Stop 10/24/18 at 00:14; Status DC Fentanyl Citrate (Fentanyl 2ml Vial) 50 mcg 1X ONCE IV Last administered on 10/24/18at 00:29; Start 10/24/18 at 00:00; Stop 10/24/18 at 00:01; Status DC Iohexol (Omnipaque 300 Mg/ml) 60 ml 1X ONCE IV Last administered on 10/24/18at 01:10; Start 10/24/18 at 01:00; Stop 10/24/18 at 01:01; Status DC Info (CONTRAST GIVEN -- Rx MONITORING) 1 each PRN DAILY PRN MC SEE COMMENTS; Start 10/24/18 at 01:00; Stop 10/26/18 at 00:59; Status DC Magnesium Sulfate 50 ml @ 25 mls/hr 1X ONCE IV Last administered on 10/24/18at 01:30; Start 10/24/18 at 01:45; Stop 10/24/18 at 03:44; Status DC Potassium Chloride/Water 100 ml @ 100 mls/hr Q1H IV Last administered on 10/24/18at 06:46; Start 10/24/18 at 01:30; Stop 10/24/18 at 05:29; Status DC Ondansetron HCl (Zofran) 4 mg PRN Q8HRS PRN IV NAUSEA/VOMITING; Start 10/24/18 at 01:45; Stop 10/25/18 at 01:44; Status DC Fentanyl Citrate (Fentanyl 2ml Vial) 50 mcg PRN Q2HR PRN IV PAIN Last adm inistered on 10/24/18at 13:34; Start 10/24/18 at 01:45; Stop 10/24/18 at 14:04; Status DC Insulin Human Lispro (HumaLOG) 0-5 UNITS TIDWMEALS SQ ; Start 10/24/18 at 08:00 Dextrose (Dextrose 50%-Water Syringe) 12.5 gm PRN Q15MIN PRN IV SEE COMMENTS; Start 10/24/18 at 01:45 Fentanyl Citrate (Fentanyl 2ml Vial) 50 mcg 1X ONCE IV Last administered on 10/24/18 05:53; Start 10/24/18 at 03:15; Stop 10/24/18 at 03:35; Status DC Pharmacy Consult (C.diff Med Screen By Rx) 1 each 1X ONCE MC Last administered on 10/24/18 09:00; Start 10/24/18 at 09:00; Stop 10/24/18 at 09:01; Status DC Alprazolam (Xanax) 0.25 mg PRN BID PRN PO ANXIETY / AGITATION Last administered on 10/28/18 09:52; Start 10/24/18 at 14:15 Cyclobenzaprine HCl (Flexeril) 10 mg TID PO Last administered on 10/28/18 21:22; Start 10/24/18 at 21:00 Gabapentin (Neurontin) 100 mg BID PO Last administered on 10/28/18 21:22; Start 10/24/18 at 21:00 Acetaminophen/ Hydrocodone Bitart (Lortab 5/325) 1 tab PRN Q6HRS PRN PO MILD PAIN 1-3 Last administered on 10/28/18 13:32; Start 10/24/18 at 14:15 Losartan Potassium (Cozaar) 50 mg DAILY PO Last administered on 10/28/18 08:49; Start 10/24/18 at 15:00 Oxycodone/ Acetaminophen (Percocet 5/325) 1 tab PRN Q6HRS PRN PO PAIN MODERATE Last administered on 10/29/18 04:15; Start 10/24/18 at 14:15 Zolpidem Tartrate (Ambien) 5 mg PRN QHS PRN PO INSOMNIA; Start 10/24/18 at 14:15 Albuterol Sulfate (Ventolin Neb Soln) 2.5 mg Q4HRS NEB ; Start 10/24/18 at 16:00; Stop 10/24/18 at 18:17; Status DC Levothyroxine Sodium (Synthroid) 125 mcg DAILY06 PO Last administered on 10/29/18 04:15; Start 10/24/18 at 15:00 Paroxetine HCl (Paxil) 40 mg DAILY PO Last administered on 10/28/18 08:48; Start 10/24/18 at 15:00 Phenylephrine HCl (Hemorrhoidal) 1 supp PRN Q12HR PRN IL RECTAL PAIN; Start 10/24/18 at 14:45; Stop 10/26/18 at 08:55; Status DC Quetiapine Fumarate (SEROquel) 600 mg QHS PO Last administered on 10/28/18 21:21; Start 10/24/18 at 21:00 Verapamil HCl (Calan Sr) 240 mg DAILY PO Last administered on 10/28/18 08:48; Start 10/24/18 at 15:00 Dicyclomine HCl (Bentyl) 10 mg PRN QID PRN IM ABDOMINAL CRAMPING; Start 10/24/18 at 14:45 Morphine Sulfate (Morphine Sulfate) 4 mg PRN Q2HR PRN IV PAIN Last administered on 10/25/18 21:19; Start 10/24/18 at 14:15 Cholestyramine Resin (Questran Light) 4 gm Q6H PO Last administered on 10/26/18 07:24; Start 10/24/18 at 14:15; Stop 10/26/18 at 12:04; Status DC Loperamide HCl (Imodium) 2 mg PRN Q15MIN PRN PO DIARRHEA Last administered on 10/25/18 20:32; Start 10/24/18 at 14:15; Stop 10/26/18 at 12:04; Status DC Potassium Chloride/Water 100 ml @ 100 mls/hr Q1H IV Last administered on 10/25/18 02:51; Start 10/24/18 at 14:30; Stop 10/24/18 at 20:29; Status DC Albuterol Sulfate (Ventolin Neb Soln) 2.5 mg PRN Q4HRS PRN NEB SHORTNESS OF BREATH; Start 10/24/18 at 18:30 Ringer's Solution 1,000 ml @ 100 mls/hr Q10H IV Last administered on 10/25/18 17:11; Start 10/24/18 at 19:00; Stop 10/26/18 at 05:40; Status DC Morphine Sulfate (Ms Contin) 15 mg BID PO Last administered on 10/28/18 21:22; Start 10/25/18 at 12:00 Morphine Sulfate (Morphine Ir) 15 mg PRN Q4HRS PRN PO SEVERE PAIN Last administered on 10/28/18 17:34; Start 10/25/18 at 12:00 Phenylephrine HCl (Hemorrhoidal) 1 supp PRN Q12HR PRN IL RECTAL PAIN Last administered on 10/27/18at 08:48; Start 10/26/18 at 09:00 Calcium Carbonate/ Glycine (Tums) 500 mg QIDPRN PRN PO INDIGESTION Last administered on 10/29/18at 04:20; Start 10/26/18 at 20:00 Ondansetron HCl (Zofran) 4 mg PRN Q6HRS PRN IV NAUSEA/VOMITING; Start 10/29/18 at 07:00; Stop 10/29/18 at 19:00 Fentanyl Citrate (Fentanyl 2ml Vial) 25 mcg PRN Q5MIN PRN IV MILD PAIN 1-3; Start 10/29/18 at 07:00; Stop 10/29/18 at 19:00 Fentanyl Citrate (Fentanyl 2ml Vial) 50 mcg PRN Q5MIN PRN IV MODERATE TO SEVERE PAIN; Start 10/29/18 at 07:00; Stop 10/29/18 at 19:00 Morphine Sulfate (Morphine Sulfate) 1 mg PRN Q10MIN PRN IV SEVERE PAIN 7-10; Start 10/29/18 at 07:00; Stop 10/29/18 at 19:00 Ringer's Solution 1,000 ml @ 30 mls/hr Q24H IV ; Start 10/29/18 at 07:00; Stop 10/29/18 at 18:59 Lidocaine HCl (Xylocaine-Mpf 1% 2ml Vial) 2 ml PRN 1X PRN ID PRIOR TO IV START; Start 10/29/18 at 07:00; Stop 10/29/18 at 19:00 Hydromorphone HCl (Dilaudid) 0.5 mg PRN Q10MIN PRN IV SEV PAIN, Second choice; Start 10/29/18 at 07:00; Stop 10/29/18 at 19:00 Prochlorperazine Edisylate (Compazine) 5 mg PACU PRN PRN IV NAUSEA, MRX1; Start 10/29/18 at 07:00; Stop 10/29/18 at 19:00 Bupivacaine HCl/ Epinephrine Bitart (Sensorcain-Mpf Epi 0.5%-[id number]) 30 ml STK-MED ONCE .ROUTE Last administered on 10/29/18at 09:25; Start 10/29/18 at 06:02; Stop 10/29/18 at 07:02; Status DC Cefoxitin Sodium (Mefoxin) 2 gm 1X PREOP IVP Last administered on 10/29/18at 08:37; Start 10/29/18 at 07:45 Propofol 20 ml @ As Directed STK-MED ONCE IV ; Start 10/29/18 at 07:49; Stop at 07:50; Status DC Lidocaine HCl (Lidocaine Pf 2% Vial) 5 ml STK-MED ONCE .ROUTE ; Start 10/29/18 at 07:50; Stop 10/29/18 at 07:51; Status DC Ondansetron HCl (Zofran) 4 mg STK-MED ONCE .ROUTE ; Start 10/29/18 at 07:50; Stop 10/29/18 at 07:51; Status DC Dexamethasone Sodium Phosphate (Decadron) 4 mg STK-MED ONCE .ROUTE ; Start 10/29/18 at 07:50; Stop 10/29/18 at 07:51; Status DC Dexamethasone Sodium Phosphate (Decadron) 4 mg STK-MED ONCE .ROUTE ; Start 10/29/18 at 07:50; Stop 10/29/18 at 07:51; Status DC Fentanyl Citrate (Fentanyl 2ml Vial) 100 mcg STK-MED ONCE .ROUTE ; Start 10/29/18 at 07:51; Stop 10/29/18 at 07:52; Status DC Midazolam HCl (Versed) 2 mg STK-MED ONCE .ROUTE ; Start 10/29/18 at 07:51; Stop 10/29/18 at 07:52; Status DC Famotidine (Pepcid Vial) 20 mg STK-MED ONCE .ROUTE ; Start 10/29/18 at 07:53; Stop 10/29/18 at 07:54; Status DC Albuterol/ Ipratropium (Duoneb) 3 ml STK-MED ONCE .ROUTE ; Start 10/29/18 at 07:55; Stop 10/29/18 at 07:56; Status DC Albuterol/ Ipratropium (Duoneb) 3 ml 1X ONCE NEB Last administered on 10/29/18at 07:58; Start 10/29/18 at 08:00; Stop 10/29/18 at 08:01; Status DC Ketamine HCl (Ketamine) 50 mg STK-MED ONCE .ROUTE ; Start 10/29/18 at 08:43; Stop 10/29/18 at 08:44; Status DC Phenylephrine HCl (PHENYLEPHRINE in 0.9% NACL PF) 1 mg STK-MED ONCE IV ; Start 10/29/18 at 09:09; Stop 10/29/18 at 09:10; Status DC Phenylephrine HCl (PHENYLEPHRINE in 0.9% NACL PF) 1 mg STK-MED ONCE IV ; Start 10/29/18 at 09:09; Stop 10/29/18 at 09:10; Status DC Cefoxitin Sodium (Mefoxin) 2 gm 1X ONCE IVP Last administered on 10/29/18at 09:30; Start 10/29/18 at 09:30; Stop 10/29/18 at 09:31; Status DC Hydromorphone HCl (Dilaudid) 2 mg STK-MED ONCE .ROUTE ; Start 10/29/18 at 10:05; Stop 10/29/18 at 10:06; Status DC Enoxaparin Sodium (Lovenox 40mg Syringe) 40 mg Q24H SQ ; Start 10/29/18 at 21:00 Sodium Chloride (Normal Saline Flush) 3 ml QSHIFT PRN IV AFTER MEDS AND BLOOD DRAWS; Start 10/29/18 at 10:30 Ringer's Solution 1,000 ml @ 100 mls/hr Q10H IV Last administered on 10/29/18at 11:07; Start 10/29/18 at 10:27 Naloxone HCl (Narcan) 0.4 mg PRN Q2MIN PRN IV SEE INSTRUCTIONS; Start 10/29/18 at 10:30 Sodium Chloride 1,000 ml @ 25 mls/hr Q24H IV ; Start 10/29/18 at 10:27 Morphine Sulfate 30 ml @ 0 mls/hr CONT PRN PRN IV PER PROTOCOL Last administered on 10/29/18at 11:06; Start 10/29/18 at 10:30 Docusate Sodium (Colace) 100 mg BID PO ; Start 10/29/18 at 21:00 Ondansetron HCl (Zofran) 4 mg PRN Q6HRS PRN IV NAUESA, 1ST CHOICE; Start 10/29/18 at 10:30 Active Scripts Active Alejandra-Med (Phenylephrine Hcl) 1 Each Supp.rect 1 Supp [place] PRN Q12HR PRN 7 Days [Dicyclomine Hcl] 10 MG/1 ML Ampul 10 Mg IM PRN QID PRN 7 Days [place] 5-325 Tablet (Acetaminophen/Hydrocodone Bitart) 1 Each Tablet 1 Tab PO Q4- 6HRS Ventolin Hfa Inhaler (Albuterol Sulfate) 18 Gm Hfa.aer.ad 2 Puff INH Q4HRS Percocet 5-325 mg Tablet (Oxycodone HCl/Acetaminophen) 1 Each Tablet 1 Each PO Q6HRS PRN Ultram (Tramadol Hcl) 50 Mg Tablet 50 Mg PO Q6HRS PRN Reported Xanax (Alprazolam) 0.25 Mg Tablet 1 Tab PO BID PRN Cyclobenzaprine Hcl 10 Mg Tablet 1 Tab PO TID Seroquel (Quetiapine Fumarate) 300 Mg Tablet 2 Tab PO QHS Ambien (Zolpidem Tartrate) 5 Mg Tablet 5 Mg PO PRN QHS PRN Gabapentin (Gabapentin) 100 Mg Capsule 100 Mg PO BID Synthroid (Levothyroxine Sodium) 125 Mcg Tablet 1 Tab PO DAILY Paroxetine Hcl 40 Mg Tablet 1 Tab PO DAILY Losartan Potassium 50 Mg Tablet 50 Mg PO DAILY Verapamil Er (Verapamil Hcl) 240 Mg Cap24h.pel 1 Cap PO DAILY Vitals/I & O Vital Sign - Last 24 Hours 10/28/18 10/28/18 10/28/18 10/28/18 17:34 19:00 20:00 23:00 Temp 98.0 98.0 98.0 98.0 Pulse 82 81 Resp 17 B/P (MAP) 100/41 (60) 97/69 (78) Pulse Ox 90 92 O2 Delivery Room Air Nasal Cannula Nasal Cannula Nasal Cannula O2 Flow Rate 2.0 2.0 2.0 10/29/18 10/29/18 10/29/18 10/29/18 03:00 08:00 08:02 10:27 Temp 97.4 97.4 97.3 97.4 97.4 97.3 Pulse 83 96 98 Resp 16 20 12 B/P (MAP) 151/72 (98) 137/63 140/53 Pulse Ox 95 91 97 O2 Delivery Nasal Cannula Nasal Cannula Nasal Cannula Simple Mask O2 Flow Rate 2.0 2.0 8 10/29/18 10/29/18 10/29/18 10/29/18 10:27 10:47 11:00 11:00 Temp 97.3 98.0 97.3 97.3 98.0 97.3 Pulse 96 101 100 Resp 14 18 13 B/P (MAP) 155/60 123/76 (92) 129/81 Pulse Ox 96 92 97 O2 Delivery Mask Simple Mask Nasal Cannula Nasal Cannula O2 Flow Rate 8 8 2.0 2 10/29/18 10/29/18 10/29/18 10/29/18 11:06 11:15 11:30 11:30 Temp 97.3 97.3 97.3 97.3 Pulse 100 96 Resp 21 16 13 B/P (MAP) 141/46 147/60 Pulse Ox 97 96 93 O2 Delivery Simple Mask Nasal Cannula Nasal Cannula Mask O2 Flow Rate 8.0 2 2 2 10/29/18 11:45 Temp 97.3 97.3 Pulse 98 Resp 16 B/P (MAP) 145/53 Pulse Ox 94 O2 Delivery Nasal Cannula O2 Flow Rate 2 Intake and Output 10/28/18 10/28/18 10/29/18 15:00 23:00 07:00 Intake Total 220 ml 1020 ml 0 ml Output Total 2 ml 351 ml Balance 218 ml 669 ml 0 ml AMIE VILLEGAS MD October 29, 2018 15:41
[2018-10-29] MEDS: ALPRAZolam 0.25 MG TABLET PO PRN (17:39)
[2018-10-29 19:00] VITALS: BP 135/74
[2018-10-29] MEDS: DOCUSATE SODIUM 100 MG CAPSULE. PO SCH (20:47)
[2018-10-29] MEDS: QUEtiapine 100 MG TABLET. PO SCH (20:48)
[2018-10-29] MEDS: ENOXAPARIN 40 MG/0.4 ML SYRINGE. SQ SCH (20:49)
[2018-10-29 23:00] VITALS: BP 109/58
--- NOTE | 2018-10-29 23:08 | NUR ---
Lovenox not administered 10/29 as pt returned from surgery at 1300, EMAR stated to hold is before 10 hrs post op.
[2018-10-30 03:00] VITALS: BP 169/72
[2018-10-30 04:45] LABS: BASO % 0 % (0-3); EOS % 0 % (0-3); HEMATOCRIT 28.3 % (36.0-47.0); HEMOGLOBIN 9.2 g/dL (12.0-15.5); LYMPH # 0.9 x10^3/uL (1.0-4.8); LYMPH % 13 % (24-48); MEAN CORPUSCULAR HEMOGLOBIN 29 pg (25-35); MEAN CORPUSCULAR HGB CONC 33 g/dL (31-37); MEAN CORPUSCULAR VOLUME 91 fL (79-100); MONO # 0.5 x10^3/uL (0.0-1.1); MONO % 8 % (0-9); NEUT # 5.3 x10^3uL (1.8-7.7); NEUT % 79 % (31-73); PLATELET COUNT 594 x10^3/uL (140-400); RED BLOOD COUNT 3.12 x10^6/uL (3.50-5.40); RED CELL DISTRIBUTION WIDTH 16.4 % (11.5-14.5); WHITE BLOOD COUNT 6.7 x10^3/uL (4.0-11.0)
[2018-10-30] MEDS: LEVOTHYROXINE 125 MCG TABLET PO SCH (06:20)
[2018-10-30 07:00] VITALS: BP 132/64
[2018-10-30] MEDS: INSULIN LISPRO 300 UNITS/3 ML INSULN.PEN. SQ SCH ×3 (08:00→17:00)
[2018-10-30] MEDS: GABAPENTIN 100 MG CAPSULE. PO SCH ×2 (08:53→22:02)
[2018-10-30] MEDS: PARoxetine 20 MG TABLET PO SCH (08:53)
[2018-10-30] MEDS: CYCLOBENZAPRINE 10 MG TABLET. PO SCH ×3 (08:53→22:04)
[2018-10-30] MEDS: VERAPAMIL SR 120 MG TABLET.ER. PO SCH (08:54)
[2018-10-30] MEDS: DOCUSATE SODIUM 100 MG CAPSULE. PO SCH ×2 (08:54→22:04)
[2018-10-30] MEDS: MORPHINE ER 15 MG TABLET.ER PO SCH ×2 (08:54→22:03)
[2018-10-30] MEDS: LOSARTAN POTASSIUM 50 MG TABLET. PO SCH (08:54)
[2018-10-30] MEDS: IV RINGERS,LACTATED 1000ML 1,000 ML IV SCH ×3 (08:55→22:40)
--- NOTE | 2018-10-30 08:57 | PDOC ---
PROGRESS NOTES Chief Complaint Chief Complaint Prolapsed rectum s/p repair 10/29/18 Non infectious diarrhea, no colitis/resolved urinary retention s.p olmedo. olmedo placed back in 10/29 bc of sx today. urology to discuss in and out cath mayito with patient. 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 I've inspected the rectum, looks beautiful She is happy about her course, she has no complaints She is pressing the RETINAL SURGEON button ON liquid diet and tolerating fine Now not interested in SNU just wants home with his existing home health Plan: continue RETINAL SURGEON, continue diet per GS Would like to go home over the weekend if she will just go home with home health Just got Rocephin pre-and perioperatively otherwise not on any antibiotics ESR 65 with normal white count and no fevers, hemoglobin 9.2 Vitals Vitals Vital Signs Date Time Temp Pulse Resp B/P (MAP) Pulse Ox O2 Delivery O2 Flow Rate FiO2 10/30/18 07:00 98.2 101 18 132/64 (86) 90 Nasal Cannula 2.0 98.2 Physical Exam General: Alert, Other (prolapsed rectum, viable, no ulcers) Heart: Regular rate, Normal S1, Normal S2 Lungs: Clear Abdomen: Soft Extremities: No clubbing, No cyanosis Skin: Other (noted rectal prolapse ) Labs LABS Laboratory Tests Test 10/29/18 16:34 10/29/18 20:37 10/30/18 04:00 10/30/18 07:39 Glucose (Fingerstick) 125 mg/dL (70-99) 140 mg/dL (70-99) 116 mg/dL (70-99) White Blood Count 6.7 x10^3/uL (4.0-11.0) Red Blood Count 3.12 x10^6/uL (3.50-5.40) Hemoglobin 9.2 g/dL (12.0-15.5) Hematocrit 28.3 % (36.0-47.0) Mean Corpuscular Volume 91 fL (79-100) Mean Corpuscular Hemoglobin 29 pg (25-35) Mean Corpuscular Hemoglobin Concent 33 g/dL (31-37) Red Cell Distribution Width 16.4 % (11.5-14.5) Platelet Count 594 x10^3/uL (140-400) Neutrophils (%) (Auto) 79 % (31-73) Lymphocytes (%) (Auto) 13 % (24-48) Monocytes (%) (Auto) 8 % (0-9) Eosinophils (%) (Auto) 0 % (0-3) Basophils (%) (Auto) 0 % (0-3) Neutrophils # (Auto) 5.3 x10^3uL (1.8-7.7) Lymphocytes # (Auto) 0.9 x10^3/uL (1.0-4.8) Monocytes # (Auto) 0.5 x10^3/uL (0.0-1.1) Eosinophils # (Auto) 0.0 x10^3/uL (0.0-0.7) Basophils # (Auto) 0.0 x10^3/uL (0.0-0.2) Review of Systems Review of Systems post op soreness but otherwise negative ROS Assessment and Plan Assessmemt and Plan Problems Medical Problems: (1) Bowel obstruction Status: Acute (2) Hypokalemia Status: Acute (3) Hypomagnesemia Status: Acute (4) Urinary retention Status: Acute Comment Review of Relevant I have reviewed the following items lashawn (where applicable) has been applied. Labs Laboratory Tests Test 10/28/18 11:41 10/28/18 16:07 10/28/18 22:29 10/29/18 16:34 Glucose (Fingerstick) 110 mg/dL (70-99) 100 mg/dL (70-99) 94 mg/dL (70-99) 125 mg/dL (70-99) Test 10/29/18 20:37 10/30/18 04:00 10/30/18 07:39 Glucose (Fingerstick) 140 mg/dL (70-99) 116 mg/dL (70-99) White Blood Count 6.7 x10^3/uL (4.0-11.0) Red Blood Count 3.12 x10^6/uL (3.50-5.40) Hemoglobin 9.2 g/dL (12.0-15.5) Hematocrit 28.3 % (36.0-47.0) Mean Corpuscular Volume 91 fL (79-100) Mean Corpuscular Hemoglobin 29 pg (25-35) Mean Corpuscular Hemoglobin Concent 33 g/dL (31-37) Red Cell Distribution Width 16.4 % (11.5-14.5) Platelet Count 594 x10^3/uL (140-400) Neutrophils (%) (Auto) 79 % (31-73) Lymphocytes (%) (Auto) 13 % (24-48) Monocytes (%) (Auto) 8 % (0-9) Eosinophils (%) (Auto) 0 % (0-3) Basophils (%) (Auto) 0 % (0-3) Neutrophils # (Auto) 5.3 x10^3uL (1.8-7.7) Lymphocytes # (Auto) 0.9 x10^3/uL (1.0-4.8) Monocytes # (Auto) 0.5 x10^3/uL (0.0-1.1) Eosinophils # (Auto) 0.0 x10^3/uL (0.0-0.7) Basophils # (Auto) 0.0 x10^3/uL (0.0-0.2) Laboratory Tests Test 10/29/18 16:34 10/29/18 20:37 10/30/18 04:00 10/30/18 07:39 Glucose (Fingerstick) 125 mg/dL (70-99) 140 mg/dL (70-99) 116 mg/dL (70-99) White Blood Count 6.7 x10^3/uL (4.0-11.0) Red Blood Count 3.12 x10^6/uL (3.50-5.40) Hemoglobin 9.2 g/dL (12.0-15.5) Hematocrit 28.3 % (36.0-47.0) Mean Corpuscular Volume 91 fL (79-100) Mean Corpuscular Hemoglobin 29 pg (25-35) Mean Corpuscular Hemoglobin Concent 33 g/dL (31-37) Red Cell Distribution Width 16.4 % (11.5-14.5) Platelet Count 594 x10^3/uL (140-400) Neutrophils (%) (Auto) 79 % (31-73) Lymphocytes (%) (Auto) 13 % (24-48) Monocytes (%) (Auto) 8 % (0-9) Eosinophils (%) (Auto) 0 % (0-3) Basophils (%) (Auto) 0 % (0-3) Neutrophils # (Auto) 5.3 x10^3uL (1.8-7.7) Lymphocytes # (Auto) 0.9 x10^3/uL (1.0-4.8) Monocytes # (Auto) 0.5 x10^3/uL (0.0-1.1) Eosinophils # (Auto) 0.0 x10^3/uL (0.0-0.7) Basophils # (Auto) 0.0 x10^3/uL (0.0-0.2) Microbiology 10/27/18 Fecal Leukocyte Stain - Final, Complete Medications Current Medications Sodium Chloride 1,000 ml @ 1,000 mls/hr 1X ONCE IV Last administered on 10/24/18at 00:28; Start 10/23/18 at 23:15; Stop 10/24/18 at 00:14; Status DC Fentanyl Citrate (Fentanyl 2ml Vial) 50 mcg 1X ONCE IV Last administered on 10/24/18at 00:29; Start 10/24/18 at 00:00; Stop 10/24/18 at 00:01; Status DC Iohexol (Omnipaque 300 Mg/ml) 60 ml 1X ONCE IV Last administered on 10/24/18at 01:10; Start 10/24/18 at 01:00; Stop 10/24/18 at 01:01; Status DC Info (CONTRAST GIVEN -- Rx MONITORING) 1 each PRN DAILY PRN MC SEE COMMENTS; Start 10/24/18 at 01:00; Stop 10/26/18 at 00:59; Status DC Magnesium Sulfate 50 ml @ 25 mls/hr 1X ONCE IV Last administered on 10/24/18at 01:30; Start 10/24/18 at 01:45; Stop 10/24/18 at 03:44; Status DC Potassium Chloride/Water 100 ml @ 100 mls/hr Q1H IV Last administered on 10/24/18at 06:46; Start 10/24/18 at 01:30; Stop 10/24/18 at 05:29; Status DC Ondansetron HCl (Zofran) 4 mg PRN Q8HRS PRN IV NAUSEA/VOMITING; Start 10/24/18 at 01:45; Stop 10/25/18 at 01:44; Status DC Fentanyl Citrate (Fentanyl 2ml Vial) 50 mcg PRN Q2HR PRN IV PAIN Last administered on 10/24/18 13:34; Start 10/24/18 at 01:45; Stop 10/24/18 at 14:04; Status DC Insulin Human Lispro (HumaLOG) 0-5 UNITS TIDWMEALS SQ ; Start 10/24/18 at 08:00 Dextrose (Dextrose 50%-Water Syringe) 12.5 gm PRN Q15MIN PRN IV SEE COMMENTS; Start 10/24/18 at 01:45 Fentanyl Citrate (Fentanyl 2ml Vial) 50 mcg 1X ONCE IV Last administered on 10/24/18 05:53; Start 10/24/18 at 03:15; Stop 10/24/18 at 03:35; Status DC Pharmacy Consult (C.diff Med Screen By Rx) 1 each 1X ONCE MC Last administered on 10/24/18 09:00; Start 10/24/18 at 09:00; Stop 10/24/18 at 09:01; Status DC Alprazolam (Xanax) 0.25 mg PRN BID PRN PO ANXIETY / AGITATION Last administered on 10/29/18 17:39; Start 10/24/18 at 14:15 Cyclobenzaprine HCl (Flexeril) 10 mg TID PO Last administered on 10/29/18 20:49; Start 10/24/18 at 21:00 Gabapentin (Neurontin) 100 mg BID PO Last administered on 10/29/18 20:49; Start 10/24/18 at 21:00 Acetaminophen/ Hydrocodone Bitart (Lortab 5/325) 1 tab PRN Q6HRS PRN PO MILD PAIN 1-3 Last administered on 10/28/18 13:32; Start 10/24/18 at 14:15 Losartan Potassium (Cozaar) 50 mg DAILY PO Last administered on 10/28/18 08:49; Start 10/24/18 at 15:00 Oxycodone/ Acetaminophen (Percocet 5/325) 1 tab PRN Q6HRS PRN PO PAIN MODERATE Last administered on 10/29/18 04:15; Start 10/24/18 at 14:15 Zolpidem Tartrate (Ambien) 5 mg PRN QHS PRN PO INSOMNIA Last administered on 10/29/18 21:19; Start 10/24/18 at 14:15 Albuterol Sulfate (Ventolin Neb Soln) 2.5 mg Q4HRS NEB ; Start 10/24/18 at 16:00; Stop 10/24/18 at 18:17; Status DC Levothyroxine Sodium (Synthroid) 125 mcg DAILY06 PO Last administered on 10/30/18 06:20; Start 10/24/18 at 15:00 Paroxetine HCl (Paxil) 40 mg DAILY PO Last administered on 10/28/18 08:48; Start 10/24/18 at 15:00 Phenylephrine HCl (Hemorrhoidal) 1 supp PRN Q12HR PRN DC RECTAL PAIN; Start 10/24/18 at 14:45; Stop 10/26/18 at 08:55; Status DC Quetiapine Fumarate (SEROquel) 600 mg QHS PO Last administered on 10/29/18 20:48; Start 10/24/18 at 21:00 Verapamil HCl (Calan Sr) 240 mg DAILY PO Last administered on 10/28/18 08:48; Start 10/24/18 at 15:00 Dicyclomine HCl (Bentyl) 10 mg PRN QID PRN IM ABDOMINAL CRAMPING; Start 10/24/18 at 14:45 Morphine Sulfate (Morphine Sulfate) 4 mg PRN Q2HR PRN IV PAIN Last administered on 10/25/18 21:19; Start 10/24/18 at 14:15 Cholestyramine Resin (Questran Light) 4 gm Q6H PO Last administered on 10/26/18 07:24; Start 10/24/18 at 14:15; Stop 10/26/18 at 12:04; Status DC Loperamide HCl (Imodium) 2 mg PRN Q15MIN PRN PO DIARRHEA Last administered on 10/25/18 20:32; Start 10/24/18 at 14:15; Stop 10/26/18 at 12:04; Status DC Potassium Chloride/Water 100 ml @ 100 mls/hr Q1H IV Last administered on 10/25/18 02:51; Start 10/24/18 at 14:30; Stop 10/24/18 at 20:29; Status DC Albuterol Sulfate (Ventolin Neb Soln) 2.5 mg PRN Q4HRS PRN NEB SHORTNESS OF B REATH; Start 10/24/18 at 18:30 Ringer's Solution 1,000 ml @ 100 mls/hr Q10H IV Last administered on 10/25/18at 17:11; Start 10/24/18 at 19:00; Stop 10/26/18 at 05:40; Status DC Morphine Sulfate (Ms Contin) 15 mg BID PO Last administered on 10/29/18at 20:48; Start 10/25/18 at 12:00 Morphine Sulfate (Morphine Ir) 15 mg PRN Q4HRS PRN PO SEVERE PAIN Last administered on 10/28/18at 17:34; Start 10/25/18 at 12:00 Phenylephrine HCl (Hemorrhoidal) 1 supp PRN Q12HR PRN DC RECTAL PAIN Last administered on 10/27/18at 08:48; Start 10/26/18 at 09:00 Calcium Carbonate/ Glycine (Tums) 500 mg QIDPRN PRN PO INDIGESTION Last administered on 10/29/18at 04:20; Start 10/26/18 at 20:00 Ondansetron HCl (Zofran) 4 mg PRN Q6HRS PRN IV NAUSEA/VOMITING; Start 10/29/18 at 07:00; Stop 10/29/18 at 19:00; Status DC Fentanyl Citrate (Fentanyl 2ml Vial) 25 mcg PRN Q5MIN PRN IV MILD PAIN 1-3; Start 10/29/18 at 07:00; Stop 10/29/18 at 19:00; Status DC Fentanyl Citrate (Fentanyl 2ml Vial) 50 mcg PRN Q5MIN PRN IV MODERATE TO SEVERE PAIN; Start 10/29/18 at 07:00; Stop 10/29/18 at 19:00; Status DC Morphine Sulfate (Morphine Sulfate) 1 mg PRN Q10MIN PRN IV SEVERE PAIN 7-10; Start 10/29/18 at 07:00; Stop 10/29/18 at 19:00; Status DC Ringer's Solution 1,000 ml @ 30 mls/hr Q24H IV ; Start 10/29/18 at 07:00; Stop 10/29/18 at 18:59; Status DC Lidocaine HCl (Xylocaine-Mpf 1% 2ml Vial) 2 ml PRN 1X PRN ID PRIOR TO IV START; Start 10/29/18 at 07:00; Stop 10/29/18 at 19:00; Status DC Hydromorphone HCl (Dilaudid) 0.5 mg PRN Q10MIN PRN IV SEV PAIN, Second choice; Start 10/29/18 at 07:00; Stop 10/29/18 at 19:00; Status DC Prochlorperazine Edisylate (Compazine) 5 mg PACU PRN PRN IV NAUSEA, MRX1; Start 10/29/18 at 07:00; Stop 10/29/18 at 19:00; Status DC Bupivacaine HCl/ Epinephrine Bitart (Sensorcain-Mpf Epi 0.5%-[id number]) 30 ml STK-MED ONCE .ROUTE Last administered on 10/29/18at 09:25; Start 10/29/18 at 06:02; Stop 10/29/18 at 07:02; Status DC Cefoxitin Sodium (Mefoxin) 2 gm 1X PREOP IVP Last administered on 10/29/18at 08:37; Start 10/29/18 at 07:45 Propofol 20 ml @ As Directed STK-MED ONCE IV ; Start 10/29/18 at 07:49; Stop 10/29/18 at 07:50; Status DC Lidocaine HCl (Lidocaine Pf 2% Vial) 5 ml STK-MED ONCE .ROUTE ; Start 10/29/18 at 07:50; Stop 10/29/18 at 07:51; Status DC Ondansetron HCl (Zofran) 4 mg STK-MED ONCE .ROUTE ; Start 10/29/18 at 07:50; Stop 10/29/18 at 07:51; Status DC Dexamethasone Sodium Phosphate (Decadron) 4 mg STK-MED ONCE .ROUTE ; Start 10/29/18 at 07:50; Stop 10/29/18 at 07:51; Status DC Dexamethasone Sodium Phosphate (Decadron) 4 mg STK-MED ONCE .ROUTE ; Start 10/29/18 at 07:50; Stop 10/29/18 at 07:51; Status DC Fentanyl Citrate (Fentanyl 2ml Vial) 100 mcg STK-MED ONCE .ROUTE ; Start 10/29/18 at 07:51; Stop 10/29/18 at 07:52; Status DC Midazolam HCl (Versed) 2 mg STK-MED ONCE .ROUTE ; Start 10/29/18 at 07:51; Stop 10/29/18 at 07:52; Status DC Famotidine (Pepcid Vial) 20 mg STK-MED ONCE .ROUTE ; Start 10/29/18 at 07:53; Stop 10/29/18 at 07:54; Status DC Albuterol/ Ipratropium (Duoneb) 3 ml STK-MED ONCE .ROUTE ; Start 10/29/18 at 07:55; Stop 10/29/18 at 07:56; Status DC Albuterol/ Ipratropium (Duoneb) 3 ml 1X ONCE NEB Last administered on at 07:58; Start 10/29/18 at 08:00; Stop 10/29/18 at 08:01; Status DC Ketamine HCl (Ketamine) 50 mg STK-MED ONCE .ROUTE ; Start 10/29/18 at 08:43; Stop 10/29/18 at 08:44; Status DC Phenylephrine HCl (PHENYLEPHRINE in 0.9% NACL PF) 1 mg STK-MED ONCE IV ; Start 10/29/18 at 09:09; Stop 10/29/18 at 09:10; Status DC Phenylephrine HCl (PHENYLEPHRINE in 0.9% NACL PF) 1 mg STK-MED ONCE IV ; Start 10/29/18 at 09:09; Stop 10/29/18 at 09:10; Status DC Cefoxitin Sodium (Mefoxin) 2 gm 1X ONCE IVP Last administered on 10/29/18at 09:30; Start 10/29/18 at 09:30; Stop 10/29/18 at 09:31; Status DC Hydromorphone HCl (Dilaudid) 2 mg STK-MED ONCE .ROUTE ; Start 10/29/18 at 10:05; Stop 10/29/18 at 10:06; Status DC Enoxaparin Sodium (Lovenox 40mg Syringe) 40 mg Q24H SQ ; Start 10/29/18 at 21:00 Sodium Chloride (Normal Saline Flush) 3 ml QSHIFT PRN IV AFTER MEDS AND BLOOD DRAWS; Start 10/29/18 at 10:30 Ringer's Solution 1,000 ml @ 100 mls/hr Q10H IV Last administered on 10/29/18at 20:47; Start 10/29/18 at 10:27 Naloxone HCl (Narcan) 0.4 mg PRN Q2MIN PRN IV SEE INSTRUCTIONS; Start 10/29/18 at 10:30 Sodium Chloride 1,000 ml @ 25 mls/hr Q24H IV ; Start 10/29/18 at 10:27 Morphine Sulfate 30 ml @ 0 mls/hr CONT PRN PRN IV PER PROTOCOL Last administered on 10/29/18at 11:06; Start 10/29/18 at 10:30 Docusate Sodium (Colace) 100 mg BID PO Last administered on 10/29/18at 20:47; Start 10/29/18 at 21:00 Ondansetron HCl (Zofran) 4 mg PRN Q6HRS PRN IV NAUESA, 1ST CHOICE; Start 10/29/18 at 10:30 Active Scripts Active Alejandra-Med (Phenylephrine Hcl) 1 Each Supp.rect 1 Supp DC PRN Q12HR PRN 7 Days [Dicyclomine Hcl] 10 MG/1 ML Ampul 10 Mg IM PRN QID PRN 7 Days [place] 5-325 Tablet (Acetaminophen/Hydrocodone Bitart) 1 Each Tablet 1 Tab PO Q4- 6HRS Ventolin Hfa Inhaler (Albuterol Sulfate) 18 Gm Hfa.aer.ad 2 Puff INH Q4HRS Percocet 5-325 mg Tablet (Oxycodone HCl/Acetaminophen) 1 Each Tablet 1 Each PO Q6HRS PRN Ultram (Tramadol Hcl) 50 Mg Tablet 50 Mg PO Q6HRS PRN Reported Xanax (Alprazolam) 0.25 Mg Tablet 1 Tab PO BID PRN Cyclobenzaprine Hcl 10 Mg Tablet 1 Tab PO TID Seroquel (Quetiapine Fumarate) 300 Mg Tablet 2 Tab PO QHS Ambien (Zolpidem Tartrate) 5 Mg Tablet 5 Mg PO PRN QHS PRN Gabapentin (Gabapentin) 100 Mg Capsule 100 Mg PO BID Synthroid (Levothyroxine Sodium) 125 Mcg Tablet 1 Tab PO DAILY Paroxetine Hcl 40 Mg Tablet 1 Tab PO DAILY Losartan Potassium 50 Mg Tablet 50 Mg PO DAILY Verapamil Er (Verapamil Hcl) 240 Mg Cap24h.pel 1 Cap PO DAILY Vitals/I & O Vital Sign - Last 24 Hours 10/29/18 10/29/18 10/29/18 10/29/18 10:27 10:27 10:47 11:00 Temp 97.3 97.3 98.0 97.3 97.3 98.0 Pulse 98 96 101 Resp 12 14 18 B/P (MAP) 140/53 155/60 123/76 (92) Pulse Ox 97 96 92 O2 Delivery Simple Mask Mask Simple Mask Nasal Cannula O2 Flow Rate 8 8 8 2.0 10/29/18 10/29/18 10/29/18 10/29/18 11:00 11:06 11:15 11:30 Temp 97.3 97.3 97.3 97.3 97.3 97.3 Pulse 100 100 96 Resp 13 21 16 13 B/P (MAP) 129/81 141/46 147/60 Pulse Ox 97 97 96 93 O2 Delivery Nasal Cannula Simple Mask Nasal Cannula Nasal Cannula O2 Flow Rate 2 8.0 2 2 10/29/18 10/29/18 10/29/18 10/29/18 11:30 11:45 15:00 19:00 Temp 97.3 98.0 99.2 97.3 98.0 99.2 Pulse 98 102 100 Resp 16 18 18 B/P (MAP) 145/53 123/36 (65) 135/74 (94) Pulse Ox 94 97 95 O2 Delivery Mask Nasal Cannula Nasal Cannula Room Air O2 Flow Rate 2 2 2.0 10/29/18 10/29/18 10/29/18 10/30/18 20:00 20:48 23:00 00:48 Pulse 88 Resp 18 18 16 B/P (MAP) 109/58 (75) Pulse Ox 94 O2 Delivery Nasal Cannula Room Air Nasal Cannula Room Air O2 Flow Rate 2.0 2.0 10/30/18 10/30/18 03:00 07:00 Temp 97.4 98.2 97.4 98.2 Pulse 112 101 Resp 18 18 B/P (MAP) 169/72 (104) 132/64 (86) Pulse Ox 91 90 O2 Delivery Nasal Cannula Nasal Cannula O2 Flow Rate 2.0 2.0 Intake and Output 10/29/18 10/29/18 10/30/18 15:00 23:00 07:00 Intake Total 1000 ml 850 ml 800 ml Output Total 1720 ml 800 ml 1100 ml Balance -720 ml 50 ml -300 ml JENNIFER COREAS MD October 30, 2018 08:57
[2018-10-30] MEDS: IV NORMAL SALINE 1000ML BAG 1,000 ML IV SCH (10:27)
[2018-10-30 11:00] VITALS: BP 116/65
--- NOTE | 2018-10-30 11:23 | PDOC ---
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 Vital Signs Vital Signs Date Time Temp Pulse Resp B/P (MAP) Pulse Ox O2 Delivery O2 Flow Rate FiO2 10/30/18 11:00 98.6 107 18 116/65 (82) 91 Nasal Cannula 2.0 98.6 I&O Intake and Output 10/30/18 06:59 Intake Total 2650 ml Output Total 3620 ml Balance -970 ml Intake Oral 1650 ml IV Total 1000 ml Output Urine Total 3600 ml Estimated Blood Loss 20 ml General: Alert, Oriented X3, Cooperative, No acute distress Abdomen: Soft Labs Laboratory Tests Test 10/28/18 11:41 10/28/18 16:07 10/28/18 22:29 10/29/18 16:34 Glucose (Fingerstick) 110 mg/dL (70-99) 100 mg/dL (70-99) 94 mg/dL (70-99) 125 mg/dL (70-99) Test 10/29/18 20:37 10/30/18 04:00 10/30/18 07:39 Glucose (Fingerstick) 140 mg/dL (70-99) 116 mg/dL (70-99) White Blood Count 6.7 x10^3/uL (4.0-11.0) Red Blood Count 3.12 x10^6/uL (3.50-5.40) Hemoglobin 9.2 g/dL (12.0-15.5) Hematocrit 28.3 % (36.0-47.0) Mean Corpuscular Volume 91 fL (79-100) Mean Corpuscular Hemoglobin 29 pg (25-35) Mean Corpuscular Hemoglobin Concent 33 g/dL (31-37) Red Cell Distribution Width 16.4 % (11.5-14.5) Platelet Count 594 x10^3/uL (140-400) Neutrophils (%) (Auto) 79 % (31-73) Lymphocytes (%) (Auto) 13 % (24-48) Monocytes (%) (Auto) 8 % (0-9) Eosinophils (%) (Auto) 0 % (0-3) Basophils (%) (Auto) 0 % (0-3) Neutrophils # (Auto) 5.3 x10^3uL (1.8-7.7) Lymphocytes # (Auto) 0.9 x10^3/uL (1.0-4.8) Monocytes # (Auto) 0.5 x10^3/uL (0.0-1.1) Eosinophils # (Auto) 0.0 x10^3/uL (0.0-0.7) Basophils # (Auto) 0.0 x10^3/uL (0.0-0.2) Laboratory Tests Test 10/29/18 16:34 10/29/18 20:37 10/30/18 04:00 10/30/18 07:39 Glucose (Fingerstick) 125 mg/dL (70-99) 140 mg/dL (70-99) 116 mg/dL (70-99) White Blood Count 6.7 x10^3/uL (4.0-11.0) Red Blood Count 3.12 x10^6/uL (3.50-5.40) Hemoglobin 9.2 g/dL (12.0-15.5) Hematocrit 28.3 % (36.0-47.0) Mean Corpuscular Volume 91 fL (79-100) Mean Corpuscular Hemoglobin 29 pg (25-35) Mean Corpuscular Hemoglobin Concent 33 g/dL (31-37) Red Cell Distribution Width 16.4 % (11.5-14.5) Platelet Count 594 x10^3/uL (140-400) Neutrophils (%) (Auto) 79 % (31-73) Lymphocytes (%) (Auto) 13 % (24-48) Monocytes (%) (Auto) 8 % (0-9) Eosinophils (%) (Auto) 0 % (0-3) Basophils (%) (Auto) 0 % (0-3) Neutrophils # (Auto) 5.3 x10^3uL (1.8-7.7) Lymphocytes # (Auto) 0.9 x10^3/uL (1.0-4.8) Monocytes # (Auto) 0.5 x10^3/uL (0.0-1.1) Eosinophils # (Auto) 0.0 x10^3/uL (0.0-0.7) Basophils # (Auto) 0.0 x10^3/uL (0.0-0.2) Problem List Problems Medical Problems: (1) Bowel obstruction Status: Acute (2) Hypokalemia Status: Acute (3) Hypomagnesemia Status: Acute (4) Urinary retention Status: Acute Assessment/Plan supportive measures KEITH CASTRO APRN October 30, 2018 11:23
--- NOTE | 2018-10-30 12:49 | PDOC ---
SUBJECTIVE Subjective Pt did void a good amount the otehr day when they took the catheter out but not enough to empty her bladder. Olmedo was put back in yesterday for her surgery. It is not bothering her. She has surgical pain but no problems from catheter. OBJECTIVE Objective Physical Exam: General appearance: Alert and Oriented Head: Normocephalic, without obvious abnormality Eyes: conjunctivae/corneas clear. PERRL, EOM's intact. Fundi benign Lungs: Regular respirations, non labored breathing Abdomen: soft, obese, generalized tenderness throughout. No masses, no organomegaly Pelvic: + Olmedo in place draining clear yellow urine. Device in good working order. Vital Signs Vital Signs Date Time Temp Pulse Resp B/P (MAP) Pulse Ox O2 Delivery O2 Flow Rate FiO2 10/30/18 11:00 98.6 107 18 116/65 (82) 91 Nasal Cannula 2.0 98.6 10/30/18 08:54 90 Nasal Cannula 2.0 10/30/18 08:54 101 132/64 10/30/18 08:54 101 132/64 10/30/18 08:00 Nasal Cannula 2.0 10/30/18 07:00 98.2 101 18 132/64 (86) 90 Nasal Cannula 2.0 98.2 10/30/18 03:00 97.4 112 18 169/72 (104) 91 Nasal Cannula 2.0 97.4 10/30/18 00:48 16 Room Air 10/29/18 23:00 88 18 109/58 (75) 94 Nasal Cannula 2.0 10/29/18 20:48 18 Room Air 10/29/18 20:00 Nasal Cannula 2.0 10/29/18 19:00 99.2 100 18 135/74 (94) 95 Room Air 99.2 10/29/18 15:00 98.0 102 18 123/36 (65) 97 Nasal Cannula 2.0 98.0 I & O Intake and Output 10/30/18 07:00 Intake Total 2650 ml Output Total 3620 ml Balance -970 ml Intake Oral 1650 ml IV Total 1000 ml Output Urine Total 3600 ml Estimated Blood Loss 20 ml PHYSICAL EXAM Physical Exam Physical Exam: General appearance: Alert and Oriented Head: Normocephalic, without obvious abnormality Eyes: conjunctivae/corneas clear. PERRL, EOM's intact. Fundi benign Lungs: Regular respirations, non labored breathing Abdomen: soft, obese, generalized tenderness throughout. No masses, no orga nomegaly Pelvic: + Olmedo in place draining clear yellow urine. Device in good working order. ASSESSMENT/PLAN Assessment/Plan Pt admits she did void when they took her catheter out but did not attempt I and O self cathing at all during that day Her follow up appointment is on 11/04/[address] Ford of [facility] [place] at 0920 am. Pt given another appointment card again. Keep olmedo in over the weekend, encourage movement, a good bowel program. If D/C over the weekend, D/C with olmedo in place and teach appropriate catheter care/give extra supplies as nursing deems necessary/requested by patient. If pt stays in house till Friday, will remove Olmedo and attending RN can do I and O teaching. COMMENT Lab Laboratory Tests Test 10/29/18 16:34 10/29/18 20:37 10/30/18 04:00 10/30/18 07:39 Glucose (Fingerstick) 125 mg/dL (70-99) 140 mg/dL (70-99) 116 mg/dL (70-99) White Blood Count 6.7 x10^3/uL (4.0-11.0) Red Blood Count 3.12 x10^6/uL (3.50-5.40) Hemoglobin 9.2 g/dL (12.0-15.5) Hematocrit 28.3 % (36.0-47.0) Mean Corpuscular Volume 91 fL (79-100) Mean Corpuscular Hemoglobin 29 pg (25-35) Mean Corpuscular Hemoglobin Concent 33 g/dL (31-37) Red Cell Distribution Width 16.4 % (11.5-14.5) Platelet Count 594 x10^3/uL (140-400) Neutrophils (%) (Auto) 79 % (31-73) Lymphocytes (%) (Auto) 13 % (24-48) Monocytes (%) (Auto) 8 % (0-9) Eosinophils (%) (Auto) 0 % (0-3) Basophils (%) (Auto) 0 % (0-3) Neutrophils # (Auto) 5.3 x10^3uL (1.8-7.7) Lymphocytes # (Auto) 0.9 x10^3/uL (1.0-4.8) Monocytes # (Auto) 0.5 x10^3/uL (0.0-1.1) Eosinophils # (Auto) 0.0 x10^3/uL (0.0-0.7) Basophils # (Auto) 0.0 x10^3/uL (0.0-0.2) Test 10/30/18 11:27 Glucose (Fingerstick) 107 mg/dL (70-99) PARAM KAY APRN October 30, 2018 12:49
--- NOTE | 2018-10-30 12:49 | PDOC ---
Subjective: Subjective: Tearful because she's hungry. Sore but pain is different from before surgery. Objective: Vital Signs: Vital Signs Date Time Temp Pulse Resp B/P (MAP) Pulse Ox O2 Delivery O2 Flow Rate FiO2 10/30/18 11:00 98.6 107 18 116/65 (82) 91 Nasal Cannula 2.0 98.6 Labs: Laboratory Tests Test 10/29/18 16:34 10/29/18 20:37 10/30/18 07:39 10/30/18 11:27 Glucose (Fingerstick) 125 mg/dL (70-99) 140 mg/dL (70-99) 116 mg/dL (70-99) 107 mg/dL (70-99) PE: GEN: NAD LUNGS: NC HEART: RRR ABD: soft NEURO/PSYCH: A & O 3, tearful A/P: Rectal prolapse s/p [place] procedure -- Continue per surgery. RIC FAN October 30, 2018 12:49
--- NOTE | 2018-10-30 12:50 | NUR ---
SS following up with discharge planning. SS met with pt to discuss discharge planning. Pt now refusing fdc unit and requesting to return to home with home healthcare services. Jackie from [facility], ; fax [phone], meeting with pt to provide education on home healthcare.
--- NOTE | 2018-10-30 14:08 | NUR ---
SS following up with discharge planning. Jackie from [facility] met with pt and discussed home healthcare. Records phoned and faxed to [facility], ; fax [phone].
[2018-10-30 15:00] VITALS: BP 90/50
[2018-10-30 19:00] VITALS: BP 141/66
[2018-10-30] MEDS: ENOXAPARIN 40 MG/0.4 ML SYRINGE. SQ SCH (22:02)
[2018-10-30] MEDS: QUEtiapine 100 MG TABLET. PO SCH (22:03)
[2018-10-30] MEDS: ALPRAZolam 0.25 MG TABLET PO PRN (22:04)
[2018-10-30 23:00] VITALS: BP 163/73
[2018-10-31 03:00] VITALS: BP 143/68
[2018-10-31] MEDS: oxyCODONE/APAP 5/325 1 TAB TABLET PO PRN ×2 (05:26→13:13)
--- NOTE | 2018-10-31 05:38 | NUR ---
patient SUBACUTE NURSE cleared at 0528. Patient all three IV's not working. Right now the patient is on oral pain medication, waiting for initiation of another IV line.
[2018-10-31] MEDS: LEVOTHYROXINE 125 MCG TABLET PO SCH (06:05)
[2018-10-31 07:00] VITALS: BP 125/53
[2018-10-31] MEDS ORDERED: CEPH-264 PO (07:40)
[2018-10-31] MEDS ORDERED: HYDR-3164 PO (07:40)
--- NOTE | 2018-10-31 07:41 | SNU/HH DC ---
DISCHARGE WITH HOME HEALTH DISCHARGE INFORMATION: Discharge Date: October 31, 2018 Final Diagnosis: Problems Medical Problems: (1) Bowel obstruction Status: Acute (2) Hypokalemia Status: Acute (3) Hypomagnesemia Status: Acute (4) Urinary retention Status: Acute Condition on Discharge: Stable CODE STATUS: Code Status: Full HOME HEALTH: Face to Face: I certify this patient is under my care and that I, or a nurse practitioner or physician's oral surgery assistant working with me, had a face to face encounter that meets the physician face to face encounter requirements with this patient on []. RN For Eval/Treatment: Yes Physical Therapy For: Evalulation/Treatment Occupational Therapy For: Evaluation/Treatment Home Health Aide For: Self-care PROCESS DEVELOPMENT TECHNICIAN For: Community Resources Pt Meets Homebound Status: Limited distance walking POST DISCHARGE ORDERS: Activity Instructions for Disc: Activity as tolerated Weight Bearing Status after Di: As tolerated DIET AFTER DISCHARGE: Cardiac CHECKS AFTER DISCHARGE: Checks after discharge: Check blood press - daily FOLLOW-UP: Follow up with: GS 2 weeks or as instrcuted by the surgeon TREATMENT/EQUIPMENT ORDERS: Adaptive Equipment Issued: None CERTIFICATION STATEMENT: Certification Statement: Certification Statement: Based on the above finding, I certify that this patient is confined to the home and needs intermittent penitentiary care, physical therapy and/or speech therapy, or continues to need occupational therapy.~ This patient is under my care, and I have initiated the establishment of the plan of care.~ This patient will be followed by myself or a community physician who will periodically review the plan of care. Home Meds Active Scripts Cephalexin (KEFLEX) 500 Mg Capsule, 1 CAP PO TID for post rectal prolapse repair, #21 CAP Prov:JENNIFER COREAS MD 10/31/18 Hydrocodone/Apap 5-325 (NORCO 5-325 TABLET) 1 Each Tablet, 1 TAB PO Q4-6HRS for post op pain MDD 1, #20 TAB Prov:JENNIFER COREAS MD 10/31/18 Phenylephrine Hcl (CALVIN-MED) 1 Each Supp.rect, 1 SUPP MS PRN Q12HR PRN for RECTAL PAIN for 7 Days, #14 SUPP.RECT Prov:MARY MONAE MD 10/22/18 [Dicyclomine] 10 MG/1 ML AMPUL No Conflict Check, 10 MG IM PRN QID PRN for STOMACH CRAMPING for 7 Days, #7 EACH Prov:MARY MONAE MD 10/22/18 Albuterol Sulfate (VENTOLIN HFA INHALER) 18 Gm Hfa.aer.ad, 2 PUFF INH Q4HRS for FOR ASTHMA, #1 INHALER 0 Refills Prov:EDDIE CORADO SAS PROGRAMMER ANALYST 09/10/18 Oxycodone HCl/Acetaminophen (Percocet 5-325 mg Tablet) 1 Each Tablet, 1 EACH PO Q6HRS PRN for PAIN, #10 TAB Prov:PRIYA VERAS DO 09/02/18 Tramadol Hcl (ULTRAM) 50 Mg Tablet, 50 MG PO Q6HRS PRN for PAIN, #20 TAB 0 Refills Prov:AYDE CRANDALL MD 08/20/18 Reported Medications Alprazolam (XANAX) 0.25 Mg Tablet, 1 TAB PO BID PRN for ANXIETY / AGITATION, TAB 10/19/18 Cyclobenzaprine Hcl (CYCLOBENZAPRINE HCL) 10 Mg Tablet, 1 TAB PO TID for muscle relaxer, #90 TAB 08/18/18 Quetiapine Fumarate (SEROQUEL) 300 Mg Tablet, 2 TAB PO QHS for sleep, #30 TAB 1 Refill 08/18/18 Zolpidem Tartrate (AMBIEN) 5 Mg Tablet, 5 MG PO PRN QHS PRN for INSOMNIA, TAB 0 Refills 08/18/18 Gabapentin (GABAPENTIN ) 100 Mg Capsule, 100 MG PO BID for NEUROGENIC PAIN, CAP 08/18/18 Levothyroxine Sodium (SYNTHROID) 125 Mcg Tablet, 1 TAB PO DAILY for hypothyroid, #30 TAB 5 Refills 08/18/18 Paroxetine Hcl (PAROXETINE HCL) 40 Mg Tablet, 1 TAB PO DAILY for mood, #30 TAB 5 Refills 08/18/18 Losartan Potassium (LOSARTAN POTASSIUM) 50 Mg Tablet, 50 MG PO DAILY for HYPERTENSION, TAB 08/18/18 Verapamil Hcl (VERAPAMIL ER) 240 Mg Cap24h.pel, 1 CAP PO DAILY for htn, #30 CAP 5 Refills 08/18/18 JENNIFER COREAS MD October 31, 2018 07:41
[2018-10-31] MEDS: INSULIN LISPRO 300 UNITS/3 ML INSULN.PEN. SQ SCH ×2 (08:00→11:43)
[2018-10-31] MEDS: GABAPENTIN 100 MG CAPSULE. PO SCH (08:32)
[2018-10-31] MEDS: CYCLOBENZAPRINE 10 MG TABLET. PO SCH (08:32)
[2018-10-31] MEDS: DOCUSATE SODIUM 100 MG CAPSULE. PO SCH (08:33)
[2018-10-31] MEDS: VERAPAMIL SR 120 MG TABLET.ER. PO SCH (08:33)
[2018-10-31] MEDS: LOSARTAN POTASSIUM 50 MG TABLET. PO SCH (08:33)
[2018-10-31] MEDS: MORPHINE ER 15 MG TABLET.ER PO SCH (08:34)
[2018-10-31] MEDS: PARoxetine 20 MG TABLET PO SCH (08:34)
--- NOTE | 2018-10-31 08:50 | PDOC ---
SURGICAL PROGRESS NOTE Subjective tolerating diet no emesis pain managed Vital Signs Vital Signs Date Time Temp Pulse Resp B/P (MAP) Pulse Ox O2 Delivery O2 Flow Rate FiO2 10/31/18 08:34 Nasal Cannula 4.0 10/31/18 08:33 89 125/53 10/31/18 07:00 97.8 14 97 97.8 I&O Intake and Output 10/31/18 07:00 Intake Total 1090 ml Output Total 2250 ml Balance -1160 ml Intake Oral 1090 ml Output Urine Total 2250 ml # Bowel Movements 1 General: Alert, Oriented X3, Cooperative, No acute distress Abdomen: Soft Skin: Other (no rectal bleeding ) Labs Laboratory Tests Test 10/29/18 16:34 10/29/18 20:37 10/30/18 04:00 10/30/18 07:39 Glucose (Fingerstick) 125 mg/dL (70-99) 140 mg/dL (70-99) 116 mg/dL (70-99) White Blood Count 6.7 x10^3/uL (4.0-11.0) Red Blood Count 3.12 x10^6/uL (3.50-5.40) Hemoglobin 9.2 g/dL (12.0-15.5) Hematocrit 28.3 % (36.0-47.0) Mean Corpuscular Volume 91 fL (79-100) Mean Corpuscular Hemoglobin 29 pg (25-35) Mean Corpuscular Hemoglobin Concent 33 g/dL (31-37) Red Cell Distribution Width 16.4 % (11.5-14.5) Platelet Count 594 x10^3/uL (140-400) Neutrophils (%) (Auto) 79 % (31-73) Lymphocytes (%) (Auto) 13 % (24-48) Monocytes (%) (Auto) 8 % (0-9) Eosinophils (%) (Auto) 0 % (0-3) Basophils (%) (Auto) 0 % (0-3) Neutrophils # (Auto) 5.3 x10^3uL (1.8-7.7) Lymphocytes # (Auto) 0.9 x10^3/uL (1.0-4.8) Monocytes # (Auto) 0.5 x10^3/uL (0.0-1.1) Eosinophils # (Auto) 0.0 x10^3/uL (0.0-0.7) Basophils # (Auto) 0.0 x10^3/uL (0.0-0.2) Test 10/30/18 11:27 10/30/18 16:26 10/30/18 20:34 10/31/18 07:54 Glucose (Fingerstick) 107 mg/dL (70-99) 91 mg/dL (70-99) 80 mg/dL (70-99) 84 mg/dL (70-99) Laboratory Tests Test 10/30/18 11:27 10/30/18 16:26 10/30/18 20:34 10/31/18 07:54 Glucose (Fingerstick) 107 mg/dL (70-99) 91 mg/dL (70-99) 80 mg/dL (70-99) 84 mg/dL (70-99) Problem List Problems Medical Problems: (1) Bowel obstruction Status: Acute (2) Hypokalemia Status: Acute (3) Hypomagnesemia Status: Acute (4) Urinary retention Status: Acute Assessment/Plan ok to [place] home FU 1-2 weeks nothing per rectum KEITH CASTRO APRN October 31, 2018 08:50
--- NOTE | 2018-10-31 09:01 | PDOC3 ---
Discharge Summary Visit Information Date of Admission: October 24, 2018 Date of Discharge: October 31, 2018 Admitting Diagnosis Comment: Prolapsed rectum s/p repair 10/29/18 Non infectious diarrhea, no colitis/resolved urinary retention s.p olmedo. olmedo placed back in 10/29 bc of sx today. urology to discuss in and out cath mayito with patient. DRAGAN sec to GI losses, resolved s/p hypokalemia and hyponatremia SBO ruled out Final Diagnosis Problems Medical Problems: (1) Bowel obstruction Status: Acute (2) Hypokalemia Status: Acute (3) Hypomagnesemia Status: Acute (4) Urinary retention Status: Acute Brief Hospital Course Allergies Allergies Coded Allergies Type Severity Reaction Last Updated Verified No Known Drug Allergies 12/09/17 No Vital Signs Vital Signs Date Time Temp Pulse Resp B/P (MAP) Pulse Ox O2 Delivery O2 Flow Rate FiO2 10/31/18 08:34 Nasal Cannula 4.0 10/31/18 08:33 89 125/53 10/31/18 07:00 97.8 14 97 97.8 Lab Results Laboratory Tests Test 10/29/18 16:34 10/29/18 20:37 10/30/18 04:00 10/30/18 07:39 Glucose (Fingerstick) 125 mg/dL (70-99) 140 mg/dL (70-99) 116 mg/dL (70-99) White Blood Count 6.7 x10^3/uL (4.0-11.0) Red Blood Count 3.12 x10^6/uL (3.50-5.40) Hemoglobin 9.2 g/dL (12.0-15.5) Hematocrit 28.3 % (36.0-47.0) Mean Corpuscular Volume 91 fL (79-100) Mean Corpuscular Hemoglobin 29 pg (25-35) Mean Corpuscular Hemoglobin Concent 33 g/dL (31-37) Red Cell Distribution Width 16.4 % (11.5-14.5) Platelet Count 594 x10^3/uL (140-400) Neutrophils (%) (Auto) 79 % (31-73) Lymphocytes (%) (Auto) 13 % (24-48) Monocytes (%) (Auto) 8 % (0-9) Eosinophils (%) (Auto) 0 % (0-3) Basophils (%) (Auto) 0 % (0-3) Neutrophils # (Auto) 5.3 x10^3uL (1.8-7.7) Lymphocytes # (Auto) 0.9 x10^3/uL (1.0-4.8) Monocytes # (Auto) 0.5 x10^3/uL (0.0-1.1) Eosinophils # (Auto) 0.0 x10^3/uL (0.0-0.7) Basophils # (Auto) 0.0 x10^3/uL (0.0-0.2) Test 10/30/18 11:27 10/30/18 16:26 10/30/18 20:34 10/31/18 07:54 Glucose (Fingerstick) 107 mg/dL (70-99) 91 mg/dL (70-99) 80 mg/dL (70-99) 84 mg/dL (70-99) Laboratory Tests Test 10/30/18 11:27 10/30/18 16:26 10/30/18 20:34 10/31/18 07:54 Glucose (Fingerstick) 107 mg/dL (70-99) 91 mg/dL (70-99) 80 mg/dL (70-99) 84 mg/dL (70-99) Brief Hospital Course Ms. Thornton is a 63 old white female, admitted with very significant prolapse of the rectum, size of a fist out in the rectal area. Needed surgical intervention. Underwent surgery with no complications. Course remarkable for some urinary retention needing Olmedo but now Olmedo out and voiding fine,. NO need for abx on dc. follow-up 2 weeks time Proc; rectal prolapse repair COnsults: GS and Urology dc < 30 mins he just wants to go home with home health and take care of his disabled daughter Will arrange for a cab ride otherwise he will have to call his neighbor to pick him up Discharge Information Condition at Discharge: Improved, Stable Follow Up: Weeks (2 weeks ) Disposition/Orders: D/C to Home w/ HH Scheduled Albuterol Sulfate (Ventolin Hfa Inhaler) 18 Gm Hfa.aer.ad, 2 PUFF INH Q4HRS for FOR ASTHMA, #1 Ref 0 Prescribed by: Roro Maravilla APRN on 09/10/181957 Last Taken: Unknown Dose on 10/23/18 Last Action: Converted on 10/24/181403 by MARY MONAE MD Cyclobenzaprine Hcl (Cyclobenzaprine Hcl) 10 Mg Tablet, 1 TAB PO TID for muscle relaxer, #90 (Reported) Entered as Reported by: SYEDA DANGELO on 08/18/181802 Last Taken: Unknown Dose on 10/23/18 Last Action: Continued on 10/24/181403 by MARY MONAE MD Gabapentin (Gabapentin ) 100 Mg Capsule, 100 MG PO BID for NEUROGENIC PAIN, (Reported) Entered as Reported by: SYEDA DANGELO on 08/18/181802 Last Taken: Unknown Dose on 10/23/18 Last Action: Continued on 10/24/18 1 404 by MARY MONAE MD Levothyroxine Sodium (Synthroid) 125 Mcg Tablet, 1 TAB PO DAILY for hypothyroid, #30 Ref 5 (Reported) Entered as Reported by: SYEDA DANGELO on 08/18/181802 Last Taken: Unknown Dose on 10/23/18 Last Action: Converted on 10/24/181403 by MARY MONAE MD Losartan Potassium (Losartan Potassium) 50 Mg Tablet, 50 MG PO DAILY for HYPERTENSION, (Reported) Entered as Reported by: SYEDA DANGELO on 08/18/181801 Last Taken: Unknown Dose on 10/23/18 Last Action: Continued on 10/24/181403 by MARY MONAE MD Paroxetine Hcl (Paroxetine Hcl) 40 Mg Tablet, 1 TAB PO DAILY for mood, #30 Ref 5 (Reported) Entered as Reported by: SYEDA DANGELO on 08/18/181801 Last Taken: Unknown Dose on 10/23/18 Last Action: Converted on 10/24/181403 by MARY MONAE MD Quetiapine Fumarate (Seroquel) 300 Mg Tablet, 2 TAB PO QHS for sleep, #30 Ref 1 (Reported) Entered as Reported by: SYEDA DANGELO on 08/18/181802 Last Taken: Unknown Dose on 10/23/18 Last Action: Converted on 10/24/181403 by MARY MONAE MD Verapamil Hcl (Verapamil Er) 240 Mg Cap24h.pel, 1 CAP PO DAILY for htn, #30 Ref 5 (Reported) Entered as Reported by: SYEDA DANGELO on 08/18/181801 Last Taken: Unknown Dose on 10/23/18 Last Action: Converted on 10/24/181403 by MARY MONAE MD Scheduled PRN Alprazolam (Xanax) 0.25 Mg Tablet, 1 TAB PO BID PRN for ANXIETY / AGITATION, (Reported) Entered as Reported by: SYEDA DANGELO on 10/19/18 1456 Last Taken: Unknown Dose on 10/23/18 Last Action: Continued on 10/24/181403 by MARY MONAE MD Oxycodone HCl/Acetaminophen (Percocet 5-325 mg Tablet) 1 Each Tablet, 1 EACH PO Q6HRS PRN for PAIN, #10 Prescribed by: PRIYA VERAS D.O. on 09/02/182147 Last Taken: Unknown Dose on 10/23/18 Last Action: Continued on 10/24/181403 by MARY MONAE MD Phenylephrine Hcl (Alejandra-Med) 1 Each Supp.rect, 1 SUPP AR PRN Q12HR PRN for RECTAL PAIN for 7 Days, #14 Prescribed by: MARY MONAE MD on 10/22/181342 Last Taken: Unknown Dose on 10/23/18 Last Action: Converted on 10/24/181403 by MARY MONAE MD Tramadol Hcl (Ultram) 50 Mg Tablet, 50 MG PO Q6HRS PRN for PAIN, #20 Ref 0 Prescribed by: AYDE CRANDALL on 08/20/18 1428 Last Taken: Unknown Dose on 10/23/18 Last Action: Converted on 10/24/181403 by MARY MONAE MD Zolpidem Tartrate (Ambien) 5 Mg Tablet, 5 MG PO PRN QHS PRN for INSOMNIA, Ref 0 (Reported) Entered as Reported by: SYEDA DANGELO on 08/18/181802 Last Taken: Unknown Dose on 10/23/18 Last Action: Continued on 10/24/181403 by MARY MONAE MD [Dicyclomine Hcl] 10 MG/1 ML AMPUL, 10 MG IM PRN QID PRN for STOMACH CRAMPING for 7 Days, #7 Prescribed by: MARY MONAE MD on 10/22/18 134 Last Taken: Unknown Dose on 10/23/18 Last Action: Converted on 10/24/181403 by MARY MONAE MD Discontinued Medications Hydrocodone/Apap 5-325 ([place] 5-325 Tablet) 1 Each Tablet, 1 TAB PO Q4-6HRS, #10 Discontinued Reason: Prescription changed Prescribed by: Roro Maravilla APRN on 09/10/182006 Last Taken: Unknown Dose on 10/23/18 Last Action: Continued on 10/24/18 1404 by MD JOSS LEON CHERRIE Y MD October 31, 2018 09:01
[2018-10-31] MEDS: ALPRAZolam 0.25 MG TABLET PO PRN (09:54)
[2018-10-31] MEDS: IV NORMAL SALINE 1000ML BAG 1,000 ML IV SCH (10:27)
[2018-10-31 11:00] VITALS: BP 109/46
--- NOTE | 2018-10-31 13:20 | NUR ---
Discharge Note: SIM CERVANTES Discharge instructions and discharge home medications reviewed with Patient and a copy given. All questions have been answered and understanding verbalized. The following instructions and handouts were given: Hypomagnesemia, hypokalemia, olmedo catheter care, prolapse, urinary retention Discontinued lines and drains: no IV per manufacturing technologist 10/31. IV infiltrated and new access was not initiated. DC orders placed this am. Patient discharged to home with home health via WC to private vehicle. This nurse called [facility] to ensure they have everything they need. This nurse faxed [facility] DC orders. Pt. Discharged with olmedo catheter per urology's note. This nurse educated pt. on catheter care with teach back demonstration. Pt. was given catheter care supplies and a leg bag. [facility] aware of olmedo catheter. Pt. was given phone numbers for [facility], Dr. Moncada's office, and Urology. Apt. for UC is on 11/04/18 at 0920. Pt. was given this information. Apt. was written on Home Health Orders as well. This nurse reviewed DC with pt. son at time of DC.
--- NOTE | 2018-10-31 19:19 | NUR ---
Pt. IV infiltrated during material handler 2nd shift. No IV access initiated, DC placed in the am. EXECUTIVE PASTRY CHEF discontinued and 17mg of morphine wasted by this nurse and CN. Randee
--- NOTE | 2018-11-03 14:06 | PATHOLOGY ---
[facility] Accession Number: [id number] . 01 Material submitted: . rectum - RECTUM WITH STITCH AT DISTAL END. Modifiers: distal . 01 Clinical history: . Rectal prolapse . 02 Diagnosis: Rectum and attached portion of mesorectum, rectum resection (Altmeier procedure): - Rectal prolapse changes with mucosal acute ischemic changes, superficial erosion, and focal ulceration. - Proximal mucosal margin viable. (JPM:produce assistant; 11/03/2018) MBR/11/03/2018 . 02 Comment: There are no polyps and there is no evidence of malignancy. (JPM:produce assistant; 11/03/2018) . 02 Electronically signed: . Raul Conroy MD, Pathologist NPI- [id number] . 01 Gross description: . The specimen is received in formalin, labeled "Sara Thornton, rectum with stitch at distal end". Received is a segment of colon measuring 2.0 cm in length and ranging in diameter from 3.5 to 4.6 cm with a suture placed at one aspect designating this as the distal margin. The specimen is fat wrapped with no exposed serosa. Both margins are opened. The proximal margin displays exposed pink-farfan, glistening mucosa. The distal margin displays exposed pink-lazaro mucosa with possible skin around the periphery. Opening the specimen reveals light farfan to lazaro-farfan mucosa with a slight amount of possible overlying plaque near the distal aspect. The specimen is submitted representatively as follows: . A1 proximal margin A2-A3 distal margin A4-A5 commercial pest control representative sections of the aforementioned possible overlying plaque A6 commercial pest control representative cross section of mucosa. (CAA; 10/30/2018) QAC/QAC . 02 Pathologist provided ICD-10: K62.3, K62.6 . 02 CPT . 712876 Specimen Comment: A courtesy copy of this report has been sent to Specimen Comment: [phone]. Specimen Comment: Report sent to Performed at: [address], [place] [id number] MD Nacho Edwards MD Phone: [phone] Performed at: [address] [id number] MD Raul Conroy MD Phone: [phone]
== END 2018-10-31 14:25 | disposition home health service (06) | DRG 329 ==
LOC: ER 22:52 → 5 NORTH 10-24 01:25
PROVIDERS: ADMIT Internal Medicine; ATTEND Internal Medicine
PROC: 0DTP0ZZ Resection of Rectum, Open Approach (ICD-10-PCS; 2018-10-29)
PROC: 0DJD8ZZ Inspection of Lower Intestinal Tract, Via Natural or Artificial Opening Endoscopic (ICD-10-PCS; 2018-10-29)
PROC: 0DSP0ZZ Reposition Rectum, Open Approach (ICD-10-PCS; principal; 2018-10-29 08:00)
DX: K62.3 Rectal prolapse (principal); N17.0 Acute kidney failure with tubular necrosis; E87.1 Hypo-osmolality and hyponatremia; J44.1 Chronic obstructive pulmonary disease with (acute) exacerbation; N13.30 Unspecified hydronephrosis; D64.9 Anemia, unspecified; E83.42 Hypomagnesemia; E86.0 Dehydration; E87.6 Hypokalemia; I10 Essential (primary) hypertension; K21.9 Gastro-esophageal reflux disease without esophagitis; K52.9 Noninfective gastroenteritis and colitis, unspecified; N32.89 Other specified disorders of bladder; Z90.710 Acquired absence of both cervix and uterus; Z99.81 Dependence on supplemental oxygen; F32.9 Major depressive disorder, single episode, unspecified; F41.9 Anxiety disorder, unspecified; G89.29 Other chronic pain
CPT/HCPCS: 36415; 51702; 71260; 74177; 76770; 80048; 80053; 81001; 82962; 83605; 83690; 83735; 85025; 85610; 85651; 85730; 86850; 86900; 86901; 87205; 87493; 87641; 88307; 94640; 94760; 96361; 96365; 96375; A7015; J0694; J1100; J1170; J1650; J1815; J2001; J2250; J2270; J2370; J2405; J2704; J3010; J3475; J3480; J3490; J7030; J7120; J7620; Q9967; 97116; 97530; 97535; 99285-25; A4461